=== PATIENT | male | born 1985 | race Caucasian/White ===

== ENCOUNTER → 2016-10-23 | Outpatient (CLI) | payer OTHER ==
[~2016-10-23] MED LIST: AMOX875T PO; ASMIN/30 INH; BENZ100C6 PO; CARV25TA2 PO; CEFD300C2 PO; CRG25 PO; DXY100 PO; GABA-112 PO; INSU1INJ32 SC; INSUINJ14 SC; INSUINJ4 SQ; IPRA1AER2 INH; LEVO88TA3 PO; LOSA50TA6 PO; LPT40 PO; LSX40 PO; MGNO400 PO; NVLGI/PEN SC; POTA1TAB97 PO; SACC250C PO; SPIR25TA PO; VANC5CAP PO; VNTHFA/IN INH
[2016-10-23 16:10] LABS: THYROID STIMULATING HORMONE 1.1 uIu/ml (0.300-4.500)
[2016-10-24 05:40] LABS: ESTIMATED AVERAGE GLUCOSE 246 mg/dl; HA1C FLAG Normal (Normal)
== END | disposition home or self-care (01) ==
LOC: C.LAB 14:50
PROVIDERS: ATTEND Nurse Practitioner Family
DX: E03.9 Hypothyroidism, unspecified (principal); E10.65 Type 1 diabetes mellitus with hyperglycemia

== ENCOUNTER → 2016-12-25 | Outpatient (CLI) | payer OTHER ==
[~2016-12-25] MED LIST changes: +CEFE1INJ3 IV; +LCTXP PO; +LEVO1INJ IV; +LVQ500 PO; +VNCS125 PO
[2016-12-25 18:42] LABS: URINE APPEARANCE CLEAR (CLEAR); URINE BILIRUBIN NEG (NEG); URINE COLOR YELLOW; URINE NITRITE NEG (NEG); URINE SPECIFIC GRAVITY 1.032 (1.000-1.030); UROBILINOGEN NEG (NEG)
[2016-12-25 18:43] LABS: MANUAL MICROSCOPIC REQUIRED? NO; REVIEW REQ? NO
[2016-12-25 19:14] LABS: RATIO 2.4 mcg/mg (0-30.0)
== END | disposition home or self-care (01) ==
LOC: C.LABSPEC 12:30
PROVIDERS: ATTEND Nurse Practitioner Family
DX: R30.0 Dysuria (principal)

== ENCOUNTER 2017-03-24 13:11 | Emergency (ER) | payer OTHER ==
[~2017-03-24] VITALS: Ht 180.3 cm; Wt 118.7 kg
[~2017-03-24 13:11] MED LIST changes: -AMOX875T PO; -BENZ100C6 PO; -CEFD300C2 PO; -CEFE1INJ3 IV; -CRG25 PO; -DXY100 PO; -INSU1INJ32 SC; -IPRA1AER2 INH; -LCTXP PO; -LEVO1INJ IV; -LEVO88TA3 PO; -LVQ500 PO; -MGNO400 PO; -NVLGI/PEN SC; -SACC250C PO; -VANC5CAP PO; -VNCS125 PO; -VNTHFA/IN INH
[2017-03-24 13:24] VITALS: TEMP 36.5; Ht 180.3 cm; Wt 118.7 kg
[2017-03-24] MEDS ORDERED: ALBUT/IPRATROP 3MG/0.5MG NEB 3 ML VIAL INH STA (15:57)
--- NOTE | 2017-03-24 16:01 | EMERGENCY ROOM VISIT NOTE ---
History Report prepared by Jeff: Ines Santamaria Under the Supervision of: Dr. Varghese Pike D.O. First contact with patient: 15:53 Chief Complaint: SHORTNESS OF BREATH Stated Complaint: SOB, COUGHING Nursing Triage Summary: triage note: pt reports shortness of breath and "coughing fits." pt reports symptoms x 1 week. History of Present Illness The patient is a 31 year old male who presents to the Emergency Room with complaints of constant shortness of breath beginning 1 week ago. The patient states that he has a cough that he notes is worse at night and he reports that he is having difficulty breathing. He notes that he has a history of pneumonia and has had multiple episodes of pneumonia. He reports that his symptoms today feel similar to his previous episodes of pneumonia. The patient states that he called his PCP prior to coming in today and he suggested that he come in to get a chest x-ray. The patient complains of clamminess. He denies any weight gain, leg swelling, nausea, vomiting, recorded fever, and chest pain. He states that he has a history of CHF and diabetes. He notes that he does not remember the medication that he was on for his previous pneumonia. Source of History: patient Onset: 1 week ago Position: other (global) Quality: other (SOB) Timing: constant Modifying Factors (Worsening): other (laying down and night time) Associated Symptoms: + cough, No fevers, No chest pain, No nausea, No vomiting Note: The patient complains of clamminess. He denies any weight gain, leg swelling. Review of Systems See HPI for pertinent positives & negatives. A total of 10 systems reviewed and were otherwise negative. Past Medical & Surgical Medical Problems: (1) Chronic congestive heart failure (2) Diabetes (3) HTN (hypertension) (4) Hypotension (5) Kidney stone (6) Nonischemic cardiomyopathy Family History Cancer FH: HTN (hypertension) FH: diabetes mellitus Heart disease Social History Smoking Status: Never Smoker Alcohol Use: none Drug Use: none Marital Status: in relationship Housing Status: lives with family Occupation Status: employed Current/Historical Medications Scheduled Albuterol Hfa (Ventolin Hfa), 1 PUFF INH Q4 Amoxicillin & Pot Clavulanate (Augmentin 875-125 mg), 875 MG PO BID Atorvastatin (Atorvastatin Calcium), 40 MG PO DAILY Carvedilol (Carvedilol), 25 MG PO BID Furosemide (Furosemide), 40 MG PO QAM Gabapentin (Neurontin), 100 MG PO TID Insulin Aspart (Novolog Flexpen), 1 DOSE SC AC Insulin Degludec (Tresiba Flextouch), 160 UNITS SC QPM Levothyroxine Sodium (Levothyroxine Sodium), 88 MCG PO QAM Potassium Chloride (K-Tab), 20 MEQ PO QPM Spironolactone (Aldactone), 25 MG PO QAM Allergies Coded Allergies: VEE Inhibitors (Verified Allergy, Intermediate, COUGH, 10/19/15) Lisinopril (Verified Adverse Reaction, Unknown, cough, 10/19/15) Physical Exam Vital Signs Date Time Temp Pulse Resp B/P (MAP) Pulse Ox O2 Delivery O2 Flow Rate FiO2 03/24/17 17:00 91 16 117/99 93 03/24/17 16:21 80 03/24/17 16:16 98 Room Air 03/24/17 16:16 84 13 138/87 98 Room Air 03/24/17 16:16 98 Room Air 03/24/17 13:24 36.5 75 18 121/79 93 Room Air Physical Exam GENERAL: Patient is awake, alert, and in no acute distress. Patient is resting comfortably and showing no signs of anxiety EYES: The conjunctivae are clear. The pupils are round and reactive. EARS, NOSE, MOUTH AND THROAT: The nose is without any evidence of any deformity. Mucous membranes are moist tongue is midline NECK: The neck is nontender and supple. RESPIRATORY: Lung sounds are diminished at the right base there were no rales, rhonchi or wheezing, no tachypnea or conversational dyspnea CARDIOVASCULAR: Regular rate and rhythm noted there no murmurs rubs or gallops normal S1 normal S2 GASTROINTESTINAL: The abdomen is soft. Bowel sounds are present in all quadrants. Abdomen is nontender PELVIS: The Pelvis is stable. No tenderness to palpation is noted. BACK: No midline tenderness or or step-off noted range of motion in flexion extension as well as rotation no signs of muscle spasm noted MUSCULOSKELETAL/EXTREMITIES: There is no evidence of gross deformity full range of motion is noted in the hips and shoulders SKIN: There is no obvious evidence of any rash. There are no petechiae, pallor or cyanosis noted. NEUROLOGIC: Patient is awake alert and oriented x3 Medical Decision & Procedures ER Provider Diagnostic Interpretation: X-ray results as stated below per interpretation by me and the radiologist. TWO VIEW CHEST FINDINGS: PA and lateral chest radiographs are compared to study dated 08/15/2016. A single lead cardiac AICD is unchanged in position and partially obscures the left lower chest. The heart is mildly enlarged. The pulmonary vasculature is noncongested. The lungs and pleural spaces are clear. There is no pneumothorax. The bony thorax appears intact. IMPRESSION: 1. Mild cardiac enlargement and AICD. There is no radiographic evidence of congestive failure. 2. No airspace consolidation or pleural effusion is identified. Electronically signed by: Nikita Overton M.D. 03/24/2017 4:38 PM Dictated Date/Time: 03/24/2017 4:37 PM Medications Administered Medications (Trade) Dose Ordered Sig/Yazan Route Start Time Stop Time Status Last Admin Dose Admin Albuterol/ Ipratropium (Duoneb) 3 ml NOW STAT INH 03/24/17 15:57 03/24/17 15:58 DC 03/24/17 16:14 3 ML ED Course 1553: The patient was evaluated in room A3. A complete history and physical examination were performed. 1557: Duoneb 3ml INH. 1645: Upon reevaluation, the patient is doing well. I discussed the results and treatment plan with the patient. He verbalized agreement of the treatment plan. The patient was discharged home. Medical Decision Differential diagnosis: Etiologies such as infections, reactive airway disease, pneumonia, pneumothorax , COPD, CHF, cardiac ischemia, pulmonary embolism, musculoskeletal, gastrointestinal, as well as others were entertained. Medication Reconciliation: I attest that I have personally reviewed the patient' s current medications list. Blood pressure screening: Patient was found to have normal blood pressure on screening and does not require follow-up. The patient is a 31-year-old male who presented to the emergency department for an evaluation of cough and difficulty breathing. The patient has multiple medical conditions. He called his primary care physician and was sent to the emergency department for an x-ray. The patient does not appear to have signs of congestive heart failure on physical exam. He is not hypoxic or tachycardic. On physical exam he appears to have abnormal lung sounds at the left base. Given the patient's history and physical exam I do feel this is consistent with pneumonia but at this time he has no abnormality noted on chest x-ray. The patient states that he has had pneumonia in the past without having definite radiographic studies that show pneumonia. For this reason he was started on antibiotic. He was given a breathing treatment in the emergency department. I discussed the patient's radiographic studies with him. He was encouraged to rest and continue all medications as prescribed. He was also encouraged to follow-up with his primary care physician this week but return to the emergency department immediately if symptoms change worsen or the need arises. Impression Primary Impression: Bronchitis Scribe Attestation The scribe's documentation has been prepared under my direction and personally reviewed by me in its entirety. I confirm that the note above accurately reflects all work, treatment, procedures, and medical decision making performed by me. Departure Information Dispostion Home / Self-Care Prescriptions Albuterol Hfa (VENTOLIN HFA) 200 Puffs/02807 Mcg Aers 1 PUFF INH Q4, #1 INHALER Prov: Varghese Pike, DO 03/24/17 Amoxicillin & Pot Clavulanate (Augmentin 875-125 mg) 1 Tab Tab 875 MG PO BID for 7 Days, #14 TAB Prov: Varghese Pike, DO 03/24/17 Referrals Bridger Manriquez III, CRNP (PCP) Forms HOME CARE DOCUMENTATION FORM, IMPORTANT VISIT INFORMATION Patient Instructions Bronchitis Acute, My [facility] Additional Instructions Call your family the morning to schedule follow-up appointment. Continue all medications as prescribed. Rest and avoid any strenuous activity. Return to the emergency department immediately if symptoms change worsen or the need arises.
[2017-03-24] MEDS ORDERED: INSU1INJ32 SC (16:08)
[2017-03-24] MEDS ORDERED: CRG25 PO (16:08)
[2017-03-24] MEDS ORDERED: LEVO88TA3 PO (16:08)
[2017-03-24] MEDS ORDERED: NVLGI/PEN SC (16:08)
[2017-03-24 16:16] VITALS: O2SAT 98
--- NOTE | 2017-03-24 16:39 | DIAGNOSTIC IMAGING REPORT ---
TWO VIEW CHEST CLINICAL HISTORY: Cough. FINDINGS: PA and lateral chest radiographs are compared to study dated 08/15/2016. A single lead cardiac AICD is unchanged in position and partially obscures the left lower chest. The heart is mildly enlarged. The pulmonary vasculature is noncongested. The lungs and pleural spaces are clear. There is no pneumothorax. The bony thorax appears intact. IMPRESSION: 1. Mild cardiac enlargement and AICD. There is no radiographic evidence of congestive failure. 2. No airspace consolidation or pleural effusion is identified. Electronically signed by: Nikita Overton M.D. 03/24/2017 4:38 PM Dictated Date/Time: 03/24/2017 4:37 PM
[2017-03-24] MEDS ORDERED: AMOX875T PO (16:44)
[2017-03-24] MEDS ORDERED: VNTHFA/IN INH (16:44)
[2017-03-24 17:00] VITALS: BP 117/99; PULSE 91; O2SAT 93
[2017-05-18] MEDS ORDERED: MGNO400 PO (12:54)
[2017-05-18] MEDS ORDERED: IPRA1AER2 INH (12:54)
[2017-05-18] MEDS ORDERED: CEFD300C2 PO (12:54)
[2017-05-18] MEDS ORDERED: BENZ100C6 PO (12:54)
[2017-05-18] MEDS ORDERED: DXY100 PO (12:54)
[2017-05-18] MEDS ORDERED: SACC250C PO (12:54)
[2017-05-18] MEDS ORDERED: VANC5CAP PO (12:54)
== END 2017-03-24 17:00 | disposition home or self-care (01) ==
LOC: C.EDB 13:12 → C.EDA 17:00
DX: J40 Bronchitis, not specified as acute or chronic (principal); I10 Essential (primary) hypertension; E11.9 Type 2 diabetes mellitus without complications; I50.9 Heart failure, unspecified; Z87.442 Personal history of urinary calculi; Z79.4 Long term (current) use of insulin; Z79.899 Other long term (current) drug therapy; Z88.8 Allergy status to other drugs, medicaments and biological substances; Z80.9 Family history of malignant neoplasm, unspecified; Z82.49 Family history of ischemic heart disease and other diseases of the circulatory system; Z83.3 Family history of diabetes mellitus

== ENCOUNTER 2017-05-14 01:41 | Inpatient (IN) | payer OTHER ==
[~2017-05-14] VITALS: Ht 180.3 cm; Wt 113.2 kg
[2017-05-14] VITALS (8 sets, daily range): BP systolic 88–115; BP diastolic 55–67; PULSE 79–95; TEMP 36.8–37.4; O2SAT 90–96; BMI 35.0
[~2017-05-14 01:41] MED LIST changes: -ASMIN/30 INH; -CARV25TA2 PO; +CRG25 PO; +INSU1INJ32 SC; -INSUINJ14 SC; -INSUINJ4 SQ; +LEVO88TA3 PO; -LOSA50TA6 PO; +NVLGI/PEN SC; +VNTHFA/IN INH
[2017-05-14] MEDS ORDERED: SODIUM CHLORIDE 0.9% 500ML 500 ML IV STA (02:54)
[2017-05-14 03:00] LABS: BASO % 0.3 %; BASO ABS # 0.02 K/uL (0-0.2); COMPLETE YES; EOS % 0.9 %; HEMATOCRIT 38.9 % (42-52); IG% 0.3 %; LYMPH % 13.7 %; LYMPH ABS # 1.02 K/uL (1.2-3.4); MEAN CELL VOLUME 84.9 fL (80-100); MEAN CORPUSCULAR HEMOGLOBIN 29.5 pg (25-34); MEAN CORPUSCULAR HGB CONC 34.7 g/dl (32-36); MONO % 12.3 %; NEUT % 72.5 %; PLATELET COUNT 199 K/uL (130-400); RED BLOOD COUNT 4.58 M/uL (4.7-6.1); WHITE BLOOD COUNT 7.42 K/uL (4.8-10.8)
[2017-05-14 03:08] LABS: ISTAT CREATININE 1.2 mg/dl (0.6-1.3); ISTAT HEMOGLOBIN 14.3 g/dl (14.0-18.0); ISTAT IONIZED CALCIUM 1.07 mmol/l (1.12-1.32)
[2017-05-14] MEDS ORDERED: POTASSIUM CHLORIDE 10 MEQ / 100ML WTR IV STA (03:09)
[2017-05-14 03:15] LABS: POINT OF CARE TROPONIN I 0.23 ng/ml (0-0.045)
[2017-05-14 03:29] LABS: URINE APPEARANCE CLEAR (CLEAR); URINE BILIRUBIN NEG (NEG); URINE COLOR YELLOW; URINE NITRITE NEG (NEG); URINE SPECIFIC GRAVITY 1.022 (1.000-1.030); UROBILINOGEN NEG (NEG); ZZUR CULT IF INDIC CLEAN CATCH NO
[2017-05-14 03:30] LABS: MANUAL MICROSCOPIC REQUIRED? NO; REVIEW REQ? NO
[2017-05-14 03:36] LABS: BUN/CREATININE RATIO 9.8 (10-20); CALCIUM 8.1 mg/dl (8.5-10.1); CREATININE 1.3 mg/dl (0.60-1.40); MAGNESIUM 1.6 mg/dl (1.8-2.4); POTASSIUM 2.8 mmol/L (3.5-5.1)
[2017-05-14 03:41] LABS: CKMB/CK RATIO 0.2 (0-3.0)
[2017-05-14] MEDS ORDERED: MAGNESIUM SULFATE 1GM / D5W 1 GM IV STA (04:23)
[2017-05-14] MEDS ORDERED: POLYETHYLENE (MIRALAX) 17 GM PACK PO PRN (04:30)
[2017-05-14] MEDS ORDERED: ALUMINUM/MAGNESIUM/SIMETH (MAALOX MAX) 30 ML UDC PO PRN (04:30)
[2017-05-14] MEDS ORDERED: MoRPHine SULFATE 2 MG/ML CARP IV PRN (04:30)
[2017-05-14] MEDS ORDERED: MAGNESIUM HYDROXIDE SUSP 30 ML UDC PO PRN (04:30)
[2017-05-14] MEDS ORDERED: ZOLPIDEM TARTRATE 5 MG TAB PO PRN (04:30)
[2017-05-14] MEDS ORDERED: NITROGLYCERIN 0.4 MG SL PER TAB CHARGE SL PRN (04:30)
[2017-05-14] MEDS ORDERED: ONDANSETRON INJ 2 MG/ML 2 ML VIAL IV PRN (04:30)
[2017-05-14] MEDS ORDERED: ACETAMINOPHEN 325 MG TAB PO PRN (04:30)
--- NOTE | 2017-05-14 04:37 | EMERGENCY ROOM VISIT NOTE ---
History Report prepared by Jeff: Tay Marin Under the Supervision of: Dr. Fiordlaiza Jean Baptiste M.D. First contact with patient: 01:53 Chief Complaint: COUGH Stated Complaint: COUGHING,ANAL SORENESS,DIARRHEA,TROUBLE BREATHING Nursing Triage Summary: pt reports cough x2 days. states "i'm coughing so hard I'm shitting my pants. I have abdominal pain from coughing." denies hx lung problems. reports hx of CHF, cardiomyopathy, DM. History of Present Illness The patient is a 32 year old male who presents to the Emergency Room with complaints of a worsening cough beginning two days ago. The patient's cough produces a "rust-colored" sputum. He also complains of subjective fevers, chills , diaphoresis, diarrhea, vomiting, occasional heart "fluttering", and LUQ abdominal pain with coughing beginning yesterday. Additionally, he also complains of lightheadedness, dark stool, and shortness of breath beginning this morning. The patient has a history of CHF, cardiomyopathy, and diabetes. He states that he has been eating drinking normally. He notes that his urine has appeared a very deep yellow color. The patient denies any chest pain, or flank pain. His blood sugar has been running in the 250's recently. He states that he has been taking his insulin and medications for diabetes despite not checking his blood sugar frequently. The patient is not on any blood thinners. Source of History: patient Onset: Two days ago Quality: other (cough producing "rust-colored" sputum) Timing: worsening Associated Symptoms: + fevers (subjective), + chills, + diaphoresis, + SOB, + vomiting, + abdominal pain (LUQ with coughing), + diarrhea, No chest pain Note: Additional symptoms: lightheadedness, and occasional heart "fluttering". He denies any flank pain. Review of Systems See HPI for pertinent positives & negatives. A total of 10 systems reviewed and were otherwise negative. Past Medical & Surgical Medical Problems: (1) Chronic congestive heart failure (2) Diabetes (3) Fever (4) HTN (hypertension) (5) Hypotension (6) Kidney stone (7) Nonischemic cardiomyopathy Family History Cancer FH: HTN (hypertension) FH: diabetes mellitus Heart disease Social History Smoking Status: Never Smoker Alcohol Use: none Drug Use: none Marital Status: in relationship Housing Status: lives with family Occupation Status: employed Current/Historical Medications Scheduled Atorvastatin (Atorvastatin Calcium), 40 MG PO DAILY Carvedilol (Carvedilol), 25 MG PO BID Furosemide (Furosemide), 40 MG PO QAM Gabapentin (Neurontin), 100 MG PO TID Insulin Aspart (Novolog Flexpen), 1 DOSE SC AC Insulin Degludec (Tresiba Flextouch), 160 UNITS SC QPM Levothyroxine Sodium (Levothyroxine Sodium), 88 MCG PO QAM Potassium Chloride (K-Tab), 20 MEQ PO QPM Spironolactone (Aldactone), 25 MG PO QAM Allergies Coded Allergies: VEE Inhibitors (Verified Allergy, Intermediate, COUGH, 05/14/17) Lisinopril (Verified Adverse Reaction, Unknown, cough, 05/14/17) Physical Exam Vital Signs Date Time Temp Pulse Resp B/P (MAP) Pulse Ox O2 Delivery O2 Flow Rate FiO2 05/14/17 04:27 84 05/14/17 04:00 82 20 122/63 97 Nasal Cannula 3.0 05/14/17 03:54 92 Nasal Cannula 3.0 05/14/17 03:52 88 Room Air 05/14/17 03:30 91 95/60 94 05/14/17 03:17 90 05/14/17 02:48 92 22 96/57 94 Room Air 05/14/17 01:49 37.3 85 18 93/70 95 Room Air Physical Exam Vital signs reviewed. General: Obese, chronically ill-appearing, pale-appearing male, in no significant distress. HEENT: No scleral icterus, PERRLA, neck supple. Atraumatic. Cardiovascular: Regular rate and rhythm, no extra sounds. Distant heart tones. Pulmonary: Normal work of breathing. Scattered rhonchi in the bilateral lung white. Abdomen: Soft, nontender, nondistended, positive bowel sounds. Rectal: Excoriated rectal mucosa. Tender on exam. No palpable fluctuance or mass. Guaiac positive, brown stool. Musculoskeletal: Atraumatic, no peripheral edema. Neurologic: Patient awake alert and oriented x 3 Skin: Warm, dry, no rash Medical Decision & Procedures ER Provider Diagnostic Interpretation: One View Chest X-ray interpreted by me: Poor quality for interpretation. Limited due to body habitus and rotation. ICD in place. Questionable consolidation of the left lower lung field. Pulmonary vascular congestion. Laboratory Results Test 05/14/17 02:47 05/14/17 02:51 05/14/17 02:55 05/14/17 03:08 Magnesium Level 1.6 mg/dl (1.8-2.4) Total Bilirubin 1.3 mg/dl (0.2-1) Direct Bilirubin 0.2 mg/dl (0-0.2) Aspartate Amino Transf (AST/SGOT) 19 U/L (15-37) Alanine Aminotransferase (ALT/SGPT) 23 U/L (12-78) Alkaline Phosphatase 44 U/L (45-117) Total Creatine Kinase 275 U/L (39-308) Creatine Kinase MB 0.5 ng/ml (0.5-3.6) Creatine Kinase MB Ratio 0.2 (0-3.0) Total Protein 6.7 gm/dl (6.4-8.2) Albumin 3.0 gm/dl (3.4-5.0) Bedside D-Dimer 444 ng/mlFEU (0-450) Bedside Lactic Acid Venous 1.09 mmol/L (0.90-1.70) Bedside Troponin I 0.230 ng/ml (0-0.045) NB-Bxa-Z-Type Natriuretic Peptide 1167 pg/ml (0-450) Bedside Hemoglobin 14.3 g/dl (14.0-18.0) Bedside Hematocrit 42 % (42-52) Bedside Sodium 138 mEq/L (135-144) Bedside Potassium 2.8 mEq/L (3.3-5.0) Bedside Chloride 99 mEq/L (101-112) Bedside Total CO2 22 mEq/l (24-31) Bedside Blood Urea Nitrogen 12 mg/dl (7-18) Bedside Creatinine 1.2 mg/dl (0.6-1.3) Bedside Glucose (other) 183 mg/dl (70-99) Bedside Ionized Calcium (Viviana) 1.07 mmol/l (1.12-1.32) Urine Color YELLOW Urine Appearance CLEAR (CLEAR) Urine pH 6.0 (4.5-7.5) Urine Specific [place] 1.022 (1.000-1.030) Urine Protein TRACE (NEG) Urine Glucose (UA) NEG (NEG) Urine Ketones NEG (NEG) Urine Occult Blood NEG (NEG) Urine Nitrite NEG (NEG) Urine Bilirubin NEG (NEG) Urine Urobilinogen NEG (NEG) Urine Leukocyte Esterase NEG (NEG) Urine WBC (Auto) 1-5 /hpf (0-5) Urine RBC (Auto) 0-4 /hpf (0-4) Urine Hyaline Casts (Auto) 1-5 /lpf (0-5) Urine Epithelial Cells (Auto) 10-20 /lpf (0-5) Urine Bacteria (Auto) NEG (NEG) Laboratory results per my review. Medications Administered Medications (Trade) Dose Ordered Sig/Yazan Route Start Time Stop Time Status Last Admin Dose Admin Sodium Chloride 500 ml @ 999 mls/hr Q31M STAT IV 05/14/17 02:54 05/14/17 03:24 DC 05/14/17 03:15 999 MLS/HR Potassium Chloride (Kcl 10 Meq / Wtr) 20 meq NOW STAT IV 05/14/17 03:09 05/14/17 03:10 DC 05/14/17 03:18 20 MEQ Magnesium Sulfate 100 ml @ 100 mls/hr NOW STAT IV 05/14/17 04:23 05/14/17 05:22 DC 05/14/17 04:56 100 MLS/HR ECG Indication: SOB/dyspnea Rate (beats per minute): 88 Rhythm: normal sinus Findings: no acute ischemic change, other (Non-specific intraventricular conduction delay. T-wave abnormality in the lateral leads.) ED Course 0206: Past medical records reviewed. The patient was evaluated in room A4B. A complete history and physical examination was performed. 0254: Ordered Sodium Chloride 500 ml @ 999 mls/hr IV. 0309: Ordered KCl 10 meq / Wtr 20 meq IV. 0423: Ordered Magnesium Sulfate 1 gm/Prmx 100 mL @ 100 mL/hr IV. 0430: Ordered Potassium Chloride 20 meq/Prmx 100 mL @ 50 mL/hr IV. 0425: Upon reevaluation, the patient is resting comfortably. I discussed laboratory and radiographic results with him. He verbalized agreement of the treatment plan. I spoke with Dr. Barr of the [facility] Hospitalist Service. The patient will be evaluated for further management and care. Medical Decision Differential diagnosis: Etiologies such as infections, reactive airway disease, pneumonia, pneumothorax , COPD, CHF, cardiac ischemia, pulmonary embolism, musculoskeletal, gastrointestinal, as well as others were entertained. This pt was evaluated and appeared to be in no distress. IV access was obtained and lab work was drawn. Pt was placed on the front desk monitor. IVF were initiated d/t c/o diarrhea and hypotension. CXR reveals possible LL lung field consolidation with poor quality image. Lactate is normal, WBC is normal. Potassium is depleted and 20 MEq KCl was ordered IV. Pt BP seemed to improve. He is guaiac positive from rectum, stable H/H. Trop is positive, but trends in this range always. BNP is likely baseline with cardiomyopathy. D/t c /o SOB, diarrhea and hypotension, pt will be evaluated by the hospitalist for further management. He is aware of the plan and agrees. Medication Reconcilliation Current Medication List: was personally reviewed by me Blood Pressure Screening Patient's blood pressure: Low blood pressure Blood pressure disposition: Did not require urgent referral Consults Time Called: [phone] Consulting Physician: Dr. Barr -[place] Returned Call: [phone] I reviewed the patient's case with Dr. Barr. BOBBYG will evaluate the patient for further management. Impression Primary Impression: Hypotension Additional Impressions: Guaiac positive stools Hypoxia Cardiomyopathy Hypokalemia Critical Care I have personally spent greater than 30 minutes of critical care time in the direct management of this patient. This includes bedside care, interpretation of diagnostic studies, and testing, discussion with consultants, patient, and family members, and other required patient management activities. This 30 minutes is in excess of all separately billable procedures. Scribe Attestation The scribe's documentation has been prepared under my direction and personally reviewed by me in its entirety. I confirm that the note above accurately reflects all work, treatment, procedures, and medical decision making performed by me. Departure Information Dispostion Being Evaluated By Hospitalist Referrals Bridger Manriquez III, CRNP (PCP) Patient Instructions My [facility] Problem Qualifiers Primary Impression: Hypotension Additional Impressions:
[2017-05-14] MEDS ORDERED: GLUCOSE 10 TABS/TUBE PO PRN (04:45)
[2017-05-14] MEDS ORDERED: GLUCOSE 40% GEL 15 GM TUBE PO PRN (04:45)
[2017-05-14] MEDS ORDERED: DEXTROSE 50% 50 ML SYR IV PRN (04:45)
[2017-05-14] MEDS ORDERED: GLUCAGON FOR INJ 1 MG VIAL SQ PRN (04:45)
[2017-05-14] MEDS ORDERED: ALBUT/IPRATROP 3MG/0.5MG NEB 3 ML VIAL INH PRN (04:45)
--- NOTE | 2017-05-14 05:12 | History and Physical ---
History & Physical Date & Time of Service: May 14, 2017 at 04:49 Chief Complaint: Coughing,Anal Soreness,Diarrhea,Trouble Breathing Primary Care Physician: Bridger Manriquez III, CRNP History of Present Illness Source: patient Unfortunate 32 y/o M Hx DM, HTN, obesity, MIRTA, nonischemic cardiomyopathy - EF 20% - ICD placement. Pt state presents with an intense productive cough productive of rust colored sputum. He states that the coughing comes in fits and is causing him to be incontinent of stool. He additionally describes SOB, a subjective fever, generalized aches and pains and diarrhea. He denies any CP. A guiac test in the ER proved positive. Initial labs are notable for a hypokalemia and hypomagnesemia. A troponin is elevated, however, this appears chronic on review of previous labs. Past Medical/Surgical History Medical Problems: (1) Chronic congestive heart failure Status: Chronic (2) Diabetes Status: Chronic (3) HTN (hypertension) Status: Chronic (4) Kidney stone Status: Resolved Family History Cancer FH: HTN (hypertension) FH: diabetes mellitus Heart disease Mother with ESRD, breast CA Both parents with CAD Social History Smoking Status: Never Smoker Drug Use: none Marital Status: in relationship Occupational Status: employed Immunizations History of Influenza Vaccine: N/A History of Tetanus Vaccine?: Unknown History of Pneumococcal: Unknown History of Hepatitis B Vaccine: Unknown Multi-Drug Resistant Organisms History of MDRO: No Allergies Coded Allergies: VEE Inhibitors (Verified Allergy, Intermediate, COUGH, 05/14/17) Lisinopril (Verified Adverse Reaction, Unknown, cough, 05/14/17) Home Medications Scheduled Atorvastatin (Atorvastatin Calcium), 40 MG PO DAILY Carvedilol (Carvedilol), 25 MG PO BID Furosemide (Furosemide), 40 MG PO QAM Gabapentin (Neurontin), 100 MG PO TID Insulin Aspart (Novolog Flexpen), 1 DOSE SC AC Insulin Degludec (Tresiba Flextouch), 160 UNITS SC QPM Levothyroxine Sodium (Levothyroxine Sodium), 88 MCG PO QAM Potassium Chloride (K-Tab), 20 MEQ PO QPM Spironolactone (Aldactone), 25 MG PO QAM Review of Systems Constitutional: + fever, + chills, + weakness, + fatigue, No sweats Eyes: No worsening of vision, No eye pain ENT: No hearing loss, No unusual epistaxis, No nasal symptoms Respiratory: + cough, + sputum, + shortness of breath, + dyspnea on exertion, + dyspnea at rest Cardiovascular: No chest pain, No orthopnea, No PND Abdomen: + diarrhea, No pain, No nausea, No vomiting Musculoskeletal: No joint pain, No muscle pain Genitourinary - Male: No hematuria, No dysuria Neurologic: + weakness, No memory loss, No paralysis Psychiatric: No depression symptoms Endocrine: + fatigue Hematologic / Lymphatic: No abnormal bleeding/bruising Integumentary: No rash Physical Exam Vital Signs Date Time Temp Pulse Resp B/P (MAP) Pulse Ox O2 Delivery O2 Flow Rate FiO2 05/14/17 04:00 82 20 122/63 97 Nasal Cannula 3.0 05/14/17 03:54 92 Nasal Cannula 3.0 05/14/17 03:52 88 Room Air 05/14/17 03:30 91 95/60 94 05/14/17 03:17 90 05/14/17 02:48 92 22 96/57 94 Room Air 05/14/17 01:49 37.3 85 18 93/70 95 Room Air General Appearance: WD/WN, + obese, + pertinent finding (Uncomfortable appearing young male) Head: normocephalic Eyes: + pertinent finding (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) ENT: normal ENT inspection, pharynx normal Neck: supple, + pertinent finding (JVD exam is limited by habitus) Respiratory/Chest: chest non-tender, lungs clear, no respiratory distress Cardiovascular: regular rate, rhythm, no edema, no gallop Abdomen/GI: normal bowel sounds, non tender, soft Back: normal inspection, no CVA tenderness, no muscle spasm, normal range of motion Extremities/Musculoskelatal: normal inspection, no calf tenderness, normal capillary refill, no pedal edema, normal range of motion 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, no motor/sensory deficits, alert, normal mood/affect, normal reflexes, oriented x 3 Skin: normal color, warm/dry, no rash Diagnostics Laboratory Results Results Past 24 Hours Test 05/14/17 02:47 05/14/17 02:51 05/14/17 02:55 05/14/17 03:08 Range/Units White Blood Count 7.42 4.8-10.8 K/uL Red Blood Count 4.58 4.7-6.1 M/uL Hemoglobin 13.5 14.0-18.0 g/dL Hematocrit 38.9 42-52 % Mean Corpuscular Volume 84.9 80-100 fL Mean Corpuscular Hemoglobin 29.5 25-34 pg Mean Corpuscular Hemoglobin Concent 34.7 32-36 g/dl Platelet Count 199 130-400 K/uL Mean Platelet Volume 11.0 7.4-10.4 fL Neutrophils (%) (Auto) 72.5 % Lymphocytes (%) (Auto) 13.7 % Monocytes (%) (Auto) 12.3 % Eosinophils (%) (Auto) 0.9 % Basophils (%) (Auto) 0.3 % Neutrophils # (Auto) 5.38 1.4-6.5 K/uL Lymphocytes # (Auto) 1.02 1.2-3.4 K/uL Monocytes # (Auto) 0.91 0.11-0.59 K/uL Eosinophils # (Auto) 0.07 0-0.5 K/uL Basophils # (Auto) 0.02 0-0.2 K/uL RDW Standard Deviation 39.2 36.4-46.3 fL RDW Coefficient of Variation 12.6 11.5-14.5 % Immature Granulocyte % (Auto) 0.3 % Immature Granulocyte # (Auto) 0.02 0.00-0.02 K/uL Sodium Level 138 136-145 mmol/L Potassium Level 2.8 3.5-5.1 mmol/L Chloride Level 104 98-107 mmol/L Carbon Dioxide Level 27 21-32 mmol/L Anion Gap 7.0 21.0 16-25 mmol/L Blood Urea Nitrogen 13 7-18 mg/dl Creatinine 1.30 0.60-1.40 mg/dl Est Creatinine Clear Calc Drug Dose 97.6 ml/min Estimated GFR () 83.1 Estimated GFR (Non- 71.7 BUN/Creatinine Ratio 9.8 10-20 Random Glucose 180 70-99 mg/dl Calcium Level 8.1 8.5-10.1 mg/dl Magnesium Level 1.6 1.8-2.4 mg/dl Total Bilirubin 1.3 0.2-1 mg/dl Direct Bilirubin 0.2 0-0.2 mg/dl Aspartate Amino Transf (AST/SGOT) 19 15-37 U/L Alanine Aminotransferase (ALT/SGPT) 23 12-78 U/L Alkaline Phosphatase 44 45-117 U/L Total Creatine Kinase 275 39-308 U/L Creatine Kinase MB 0.5 0.5-3.6 ng/ml Creatine Kinase MB Ratio 0.2 0-3.0 Total Protein 6.7 6.4-8.2 gm/dl Albumin 3.0 3.4-5.0 gm/dl Bedside D-Dimer 444 0-450 ng/mlFEU Bedside Lactic Acid Venous 1.09 0.90-1.70 mmol/L Bedside Troponin I 0.230 0-0.045 ng/ml [id number]-[id number] Natriuretic Peptide 1167 0-450 pg/ml Bedside Hemoglobin 14.3 14.0-18.0 g/dl Bedside Hematocrit 42 42-52 % Bedside Sodium 138 135-144 mEq/L Bedside Potassium 2.8 3.3-5.0 mEq/L Bedside Chloride 99 101-112 mEq/L Bedside Total CO2 22 24-31 mEq/l Bedside Blood Urea Nitrogen 12 7-18 mg/dl Bedside Creatinine 1.2 0.6-1.3 mg/dl Bedside Glucose 180 70-99 mg/dl Bedside Glucose (other) 183 70-99 mg/dl Bedside Ionized Calcium (Viviana) 1.07 1.12-1.32 mmol/l Urine Color YELLOW Urine Appearance CLEAR CLEAR Urine pH 6.0 4.5-7.5 Urine Specific Rowe 1.022 1.000-1.030 Urine Protein TRACE NEG Urine Glucose (UA) NEG NEG Urine Ketones NEG NEG Urine Occult Blood NEG NEG Urine Nitrite NEG NEG Urine Bilirubin NEG NEG Urine Urobilinogen NEG NEG Urine Leukocyte Esterase NEG NEG Urine WBC (Auto) 1-5 0-5 /hpf Urine RBC (Auto) 0-4 0-4 /hpf Urine Hyaline Casts (Auto) 1-5 0-5 /lpf Urine Epithelial Cells (Auto) 10-20 0-5 /lpf Urine Bacteria (Auto) NEG NEG Microbiology Results 05/14/17 Blood Culture, Received Pending 05/14/17 Blood Culture, Received Pending Diagnostic Radiology CXR - there are no obvious infiltrates - not consistent with volume overload EKG NSR - no evidence of ischemia Impression Assessment and Plan Unfortunate 32 y/o M Hx DM, HTN, obesity, MIRTA, nonischemic cardiomyopathy - EF 20% - ICD placement. Pt state presents with an intense productive cough productive of rust colored sputum. He states that the coughing comes in fits and is causing him to be incontinent of stool. He additionally describes SOB, a subjective fever, generalized aches and pains and diarrhea. He denies any CP. A guiac test in the ER proved positive. Initial labs are notable for a hypokalemia and hypomagnesemia. A troponin is elevated, however, this appears chronic on review of previous labs. 1) Cough/SOB - subjective fever - as his CXR is equivocal we will send the pt for a noncontrast CT chest. Levaquin started empirically. Duonebs provided PRN. Sputum and blood cultures pending. 2) CHF - chronic systolic - appears euvolemic - Cont Lasix, Aldactone, Coreg - allergic to VEE inhibitors. 3) Diarrhea - stool culture and C diff studies pending 4) Guiac + - no significant anemia - this may be due to superficial issues such as hemorrhoids - will trend Hb and pt can f/u with GI as outpt if stable - would consult in house if Hb trends down. 5) DM - placed on SS 6) Obese - may benefit from nutrition counseling prior to DC - is likely to greatly benefit from weight loss which would improve his cardiac index. Full code - SCDs only due to rust-colored sputum and guiac + stool Total time for this admit including review of labs, meds, EKG, imaging, records - discussion with pt and ER attending - 37 min Level of Care Telemetry Resuscitation Status FULL RESUSCITATION VTE Prophylaxis VTE Risk Assessment Done? Y/N: Yes Risk Level: Moderate Given or contraindicated: SCD's
[2017-05-14] MEDS ORDERED: HEPARIN SOD 5000 UNIT/0.5 ML CARP SQ SCH (06:00)
--- NOTE | 2017-05-14 06:39 | DIAGNOSTIC IMAGING REPORT ---
CHEST ONE VIEW PORTABLE HISTORY: 32 years-old Male cough, SOB, cardiomyopathy COMPARISON: Chest radiographs 03/24/2017 TECHNIQUE: Portable upright AP view of the chest FINDINGS: Cardiac silhouette is moderately enlarged. Left pectoral pacer/defibrillator is noted with single lead overlying the right ventricle appears intact. There is no pneumothorax. The patient is rotated to the right. Mild pulmonary vascular congestion is noted with background interstitial coarsening, greatest throughout the left lung with patchy left basilar opacity. There is mild blunting of the costophrenic angles. The bones appear grossly intact. IMPRESSION: 1. Moderate cardiomegaly with pulmonary vascular congestion and mild interstitial coarsening throughout the left lung, suspicious for developing asymmetric pulmonary edema. 2. Trace pleural effusions with hazy left basilar opacity suggesting atelectasis or pneumonia. The above report was generated using voice recognition software. It may contain grammatical, syntax or spelling errors. Electronically signed by: Thomas Kaplan M.D. 05/14/2017 6:37 AM Dictated Date/Time: 05/14/2017 6:35 AM
--- NOTE | 2017-05-14 07:14 | DIAGNOSTIC IMAGING REPORT ---
CT OF THE CHEST WITHOUT IV CONTRAST CLINICAL HISTORY: Occult pneumonia. Cough. Difficulty breathing. COMPARISON STUDY: Chest radiographs March 24, 2017 and May 14, 2017. CT DOSE: 883.26 mGy.cm TECHNIQUE: Axial images of the chest were obtained without IV contrast. Images were reviewed in the axial, sagittal, and coronal planes. IV contrast was not administered for this examination. A dose lowering technique was utilized adhering to the principles of ALARA. FINDINGS: A single lead left cardiac pacer/AICD is in place. There is moderate cardiomegaly. No pericardial effusion is identified. There are multiple mildly enlarged mediastinal and bilateral hilar lymph nodes. The hilar lymph nodes are difficult to measure on this unenhanced exam. Index subcarinal lymph node measures 1.2 cm in short axis diameter. Index right paratracheal lymph node measures 1 cm and index prevascular node measures 1.1 cm. Central airways are patent. There is no pneumothorax or pleural effusion. Extensive bilateral alveolar opacities are noted, most confluent within left upper lobe. However, there is additional airspace opacity with tree-in-bud nodules throughout the remainder of the lungs. There is no cavitation. Mild bronchial wall thickening is present. Bony thorax and upper abdomen are unremarkable. IMPRESSION: 1. Extensive multifocal airspace opacities throughout both lungs, as described above. The findings suggest multifocal pneumonia. No cavitation. 2. Multiple mildly enlarged mediastinal and bilateral hilar lymph nodes. These are nonspecific but may be reactive. 3. Moderate cardiomegaly. Electronically signed by: Marky Trevizo M.D. 05/14/2017 7:12 AM Dictated Date/Time: 05/14/2017 7:03 AM
[2017-05-14] MEDS: LEVOFLOXACIN / D5W 750 MG in PREMIXED IN D5W 150 ML IV SCH (07:27)
[2017-05-14] MEDS: LEVOTHYROXINE 88 MCG TAB PO SCH (07:27)
[2017-05-14] MEDS: GABAPENTIN 100 MG CAP PO SCH ×3 (08:09→21:28)
[2017-05-14] MEDS: ATORVASTATIN 40 MG TAB PO SCH (08:09)
[2017-05-14] MEDS: FUROSEMIDE 40 MG TAB PO SCH (08:09)
[2017-05-14] MEDS: CARVEDILOL 25 MG TAB PO SCH ×2 (08:10→21:00)
[2017-05-14] MEDS: SPIRONOLACTONE 25 MG TAB PO SCH (08:10)
[2017-05-14] MEDS: INSULIN ASPART 100 UNITS/ML 3 ML PEN SC SCH ×4 (08:14→21:30)
[2017-05-14] MEDS: POTASSIUM CHLR 10 MEQ / WTR 10 MEQ in PREMIXED WATER 100 ML IV SCH ×2 (08:38→10:11)
[2017-05-14] MEDS ORDERED: INSULIN GLARGINE SC SCH (12:00)
[2017-05-14] MEDS ORDERED: POTASSIUM CHLORIDE 20 MEQ TABCR PO SCH (17:00)
[2017-05-14] MEDS: POTASSIUM CHLORIDE 20 MEQ TABCR PO SCH (17:38)
[2017-05-14] MEDS ORDERED: INSULIN DEGLUDEC 160 UNIT SC SCH (21:00)
[2017-05-14] MEDS ORDERED: COUGH DROP (SUGAR FREE) LOZ 24 LOZ/1 BOX PO PRN (21:00)
[2017-05-15] VITALS (11 sets, daily range): BP systolic 92–123; BP diastolic 54–81; PULSE 75–102; TEMP 36.7–37.3; O2SAT 90–100
[2017-05-15] MEDS ORDERED: METRONIDAZOLE 500 MG TAB PO ONE (03:45)
[2017-05-15] MEDS: LEVOFLOXACIN / D5W 750 MG in PREMIXED IN D5W 150 ML IV SCH (06:16)
[2017-05-15] MEDS: LEVOTHYROXINE 88 MCG TAB PO SCH (06:16)
[2017-05-15 08:35] LABS: BASO % 0.8 %; BASO ABS # 0.06 K/uL (0-0.2); COMPLETE YES; EOS % 2.2 %; HEMATOCRIT 38.1 % (42-52); IG% 0.3 %; LYMPH % 19.5 %; LYMPH ABS # 1.43 K/uL (1.2-3.4); MEAN CELL VOLUME 86.6 fL (80-100); MEAN CORPUSCULAR HEMOGLOBIN 29.3 pg (25-34); MEAN CORPUSCULAR HGB CONC 33.9 g/dl (32-36); MEAN PLATELET VOLUME 10.9 fL (7.4-10.4); MONO % 12.4 %; NEUT % 64.8 %; PLATELET COUNT 197 K/uL (130-400); WHITE BLOOD COUNT 7.32 K/uL (4.8-10.8)
[2017-05-15] MEDS: METRONIDAZOLE 500 MG TAB PO SCH ×3 (08:35→21:20)
[2017-05-15] MEDS: FUROSEMIDE 40 MG TAB PO SCH (08:37)
[2017-05-15] MEDS: ATORVASTATIN 40 MG TAB PO SCH (08:37)
[2017-05-15] MEDS: GABAPENTIN 100 MG CAP PO SCH ×3 (08:37→21:20)
[2017-05-15] MEDS: SPIRONOLACTONE 25 MG TAB PO SCH (08:37)
[2017-05-15] MEDS: CARVEDILOL 25 MG TAB PO SCH ×2 (08:38→21:00)
[2017-05-15] MEDS: INSULIN ASPART 100 UNITS/ML 3 ML PEN SC SCH ×4 (08:51→21:00)
[2017-05-15 09:03] LABS: BUN/CREATININE RATIO 12.9 (10-20); CALCIUM 8.9 mg/dl (8.5-10.1); POTASSIUM 3.2 mmol/L (3.5-5.1)
[2017-05-15] MEDS ORDERED: POTASSIUM CHLORIDE 10 MEQ TABCR PO STA (11:21)
--- NOTE | 2017-05-15 11:25 | Progress Note ---
Subjective Date of Service: May 15, 2017. Subjective Pt evaluation today including: conversation w/ patient, physical exam, chart review, lab review, review of studies, review of inpatient medication list Pt reports improvement in shortness of breath Still having rust tinged sputum but improved States having diarrhea yesterday No fevers or chills No acute events overnight Problem List Medical Problems: (1) Cardiomyopathy Status: Acute (2) Cardiomyopathy Status: Acute (3) Elevated troponin Status: Acute (4) Epigastric abdominal pain Status: Acute (5) Guaiac positive stools Status: Acute (6) Hypokalemia Status: Acute (7) Hypoxia Status: Acute (8) Left sided chest pain Status: Acute (9) Pancreatitis Status: Acute (10) Pneumonia Status: Acute Review of Systems Constitutional: No fever, No chills, No sweats, No weight loss Eyes: No worsening of vision, No eye pain, No redness, No discharge Respiratory: + cough, + sputum, + shortness of breath, + dyspnea at rest, No wheezing, No dyspnea on exertion Cardiac: No chest pain, No orthopnea, No PND, No edema Abdomen: + diarrhea, No pain, No nausea, No vomiting, No constipation Musculoskeletal: No joint pain, No muscle pain, No swelling, No calf pain Male : No dysuria, No urinary frequency, No incontinence, No slowing stream Neurologic: No memory loss, No paralysis, No weakness, No numbness/tingling Psychiatric: No depression symptoms, No anhedonism, No anxiety, No insomnia Endo: No fatigue, No excessive thirst Skin: No rash, No itch Objective Vital Signs Date Time Temp Pulse Resp B/P (MAP) Pulse Ox O2 Delivery O2 Flow Rate FiO2 05/15/17 08:00 100 Room Air 05/15/17 07:16 37.0 79 16 102/71 (81) 100 Room Air 05/15/17 04:26 36.7 75 18 102/72 (82) 90 BiPAP 05/15/17 04:05 CPAP 05/15/17 00:05 CPAP 05/14/17 23:31 37.4 95 20 92/60 (71) 93 BiPAP 05/14/17 20:00 90 Room Air 05/14/17 19:11 37.3 86 24 96/67 (77) 90 Room Air 05/14/17 16:00 90 Room Air 05/14/17 15:38 36.9 81 20 115/62 (79) 90 Room Air 05/14/17 12:00 Room Air 05/14/17 11:58 36.9 79 16 88/55 (66) 96 Room Air Physical Exam General Appearance: WD/WN, no apparent distress Eyes: normal inspection, PERRL, EOMI, sclerae normal Neck: supple, no adenopathy, thyroid normal, no JVD Respiratory/Chest: chest non-tender, no respiratory distress, no accessory muscle use, + decreased breath sounds Cardiovascular: no edema, no gallop, no JVD, no murmur Abdomen: normal bowel sounds, non tender, soft, no organomegaly Extremities: normal range of motion, non-tender, normal inspection, no pedal edema Neurologic/Psychiatric: no motor/sensory deficits, alert, normal mood/affect, oriented x 3 Laboratory Results Last 24 Hours Test 05/14/17 11:52 05/14/17 16:19 05/14/17 19:57 05/15/17 07:33 Bedside Glucose 186 mg/dl 177 mg/dl 173 mg/dl 129 mg/dl Test 05/15/17 08:15 White Blood Count 7.32 K/uL Red Blood Count 4.40 M/uL Hemoglobin 12.9 g/dL Hematocrit 38.1 % Mean Corpuscular Volume 86.6 fL Mean Corpuscular Hemoglobin 29.3 pg Mean Corpuscular Hemoglobin Concent 33.9 g/dl Platelet Count 197 K/uL Mean Platelet Volume 10.9 fL Neutrophils (%) (Auto) 64.8 % Lymphocytes (%) (Auto) 19.5 % Monocytes (%) (Auto) 12.4 % Eosinophils (%) (Auto) 2.2 % Basophils (%) (Auto) 0.8 % Neutrophils # (Auto) 4.74 K/uL Lymphocytes # (Auto) 1.43 K/uL Monocytes # (Auto) 0.91 K/uL Eosinophils # (Auto) 0.16 K/uL Basophils # (Auto) 0.06 K/uL RDW Standard Deviation 41.2 fL RDW Coefficient of Variation 12.9 % Immature Granulocyte % (Auto) 0.3 % Immature Granulocyte # (Auto) 0.02 K/uL Sodium Level 139 mmol/L Potassium Level 3.2 mmol/L Chloride Level 106 mmol/L Carbon Dioxide Level 25 mmol/L Anion Gap 8.0 mmol/L Blood Urea Nitrogen 13 mg/dl Creatinine 1.00 mg/dl Est Creatinine Clear Calc Drug Dose 134.5 ml/min Estimated GFR () 114.1 Estimated GFR (Non- 98.5 BUN/Creatinine Ratio 12.9 Random Glucose 132 mg/dl Calcium Level 8.9 mg/dl Assessment and Plan Unfortunate 32 y/o M Hx DM, HTN, obesity, MIRTA, nonischemic cardiomyopathy - EF 20% - ICD placement. Pt state presents with an intense productive cough productive of rust colored sputum. He states that the coughing comes in fits and is causing him to be incontinent of stool. He additionally describes SOB, a subjective fever, generalized aches and pains and diarrhea. He denies any CP. A guiac test in the ER proved positive. Initial labs are notable for a hypokalemia and hypomagnesemia. A troponin is elevated, however, this appears chronic on review of previous labs. Cough/SOB - subjective fever - as his CXR is equivocal. Noncontrast CT chest pos for multifocal PNA. Cont Levaquin 750 mg IV daily . Duonebs provided PRN. Sputum and blood cultures pending. Diarrhea - c diff pos, started on flagyl 500 mg PO TID day #1 Hypokalemia likely related to c diff and assoc diarrhea, replace PRN CHF - chronic systolic - appears euvolemic - Cont Lasix, Aldactone, Coreg - allergic to VEE inhibitors. Guiac + - no significant anemia - this may be due to superficial issues such as hemorrhoids - will trend Hb and pt can f/u with GI as outpt if stable - would consult in house if Hb trends down. DM - placed on SS, controlled Obesity - may benefit from nutrition counseling prior to DC - is likely to greatly benefit from weight loss which would improve his cardiac index. Full code - SCDs only due to rust-colored sputum and guiac + stool
[2017-05-15] MEDS ORDERED: NURSING VERBAL MED ORDER ONE (17:30)
[2017-05-15] MEDS ORDERED: INSULIN GLARGINE SC SCH (18:00)
[2017-05-15] MEDS ORDERED: PHARMACY GLYCEMIC MGMT CONSULT PRN (18:00)
--- NOTE | 2017-05-15 18:01 | Pharmacy Progress Note ---
Glycemic Control Intl Consult Date of Service May 15, 2017. Scope Glycemic Pharmacist consulted by Dr Campbell on 05/15/17 for glycemic control and to write orders per [facility] inpatient glycemic control protocol Objective Weight (Kilograms): 113.300 Accuchecks BSG (last 24hrs): Test 05/14/17 19:57 05/15/17 07:33 05/15/17 08:15 05/15/17 11:38 Bedside Glucose 173 mg/dl (70-99) 129 mg/dl (70-99) 165 mg/dl (70-99) Random Glucose 132 mg/dl (70-99) Test 05/15/17 16:37 Bedside Glucose 97 mg/dl (70-99) Laboratory Data (last 24hrs) Test 05/15/17 08:15 Anion Gap 8.0 mmol/L BUN/Creatinine Ratio 12.9 Blood Urea Nitrogen 13 mg/dl Creatinine 1.00 mg/dl Potassium Level 3.2 mmol/L Sodium Level 139 mmol/L White Blood Count 7.32 K/uL Red Blood Count 4.40 M/uL Hemoglobin 12.9 g/dL Hematocrit 38.1 % Mean Corpuscular Volume 86.6 fL Mean Corpuscular Hemoglobin 29.3 pg Mean Corpuscular Hemoglobin Concent 33.9 g/dl Platelet Count 197 K/uL Mean Platelet Volume 10.9 fL Neutrophils (%) (Auto) 64.8 % Lymphocytes (%) (Auto) 19.5 % Monocytes (%) (Auto) 12.4 % Eosinophils (%) (Auto) 2.2 % Basophils (%) (Auto) 0.8 % Neutrophils # (Auto) 4.74 K/uL Lymphocytes # (Auto) 1.43 K/uL Monocytes # (Auto) 0.91 K/uL Eosinophils # (Auto) 0.16 K/uL Basophils # (Auto) 0.06 K/uL Recent Pertinent Medications Outpatient Anti-diabetic Regimen: * Tresiba (insulin degludec) 160 units HS * Novolog AC * A1c = 10.2 % 10/23/16 - new A1c on order with AM labs The patient is currently receiving: * Basal insulin: Lantus 120 units x 1 dose yesterday, then Lantus 150 units SQ HS to begin tonight * Correctional Insulin: Novolog Correction per scale ACHS Goal Range: Low 120 mg/dL - High 160 mg/dL Correction Factor: 15 mg/dL/unit * Prandial insulin: Per carb ratio of 1 unit per 5 grams CHO consumed Risk Factors for Insulin Resistance: * Infection: PNA and CDiff, Levaquin and Metronidazole PO * Diet: Type 2 DM Assessment & Plan ASSESSMENT: * 32 year old obese type 2 diabetic admitted with PNA and Cdiff on antibiotics, likely discharge tomorrow * Pt on high doses of insulin at home, pt was given reduced dose of our in house long acting insulin, Lantus yesterday. Patient's BSGs at goal, and slightly below range at 97mg/dL this evening. I will place patient on a reduced Lantus dose based on BSG, and continue HS dosing as patient will likely go home tomorrow, and loosen CF and CR slightly to prevent hypoglycemia. * A1c outdated. * ADA & AACE recommend a goal blood sugar range 140-180 mg/dl for the majority of critically ill & non-critically ill patients. However, more stringent targets may be selected in individual cases. Using goal of 120-160mg/dl for patient's age and A1c. PLAN FOR INPATIENT GLYCEMIC CONTROL: * CHANGE: Basal insulin with LANTUS SQ HS * for BSG 160mg/dl or less -- 100 units HS * for BSG greater than 160mg/dl -- 120 units HS * Correctional Insulin with NOVOLOG per scale ACHS or Q6hrs while NPO * Goal Range: Low 120 mg/dL - High 160 mg/dL * LOOSEN: Correction Factor: 18 mg/dL/unit * LOOSEN: Nutritional / Prandial insulin per carb ratio of 1 unit per 6 grams CHO consumed * Please note that the plan above was derived based on current level of insulin resistance and hospital stress. These recommendations are appropriate for inpatient admission only. Plan of care upon discharge will need to be reassessed to avoid potential outpatient hypo/hyperglycemia. Thank you.
[2017-05-15] MEDS: POTASSIUM CHLORIDE 20 MEQ TABCR PO SCH (18:04)
[2017-05-15] MEDS: GUAIFENESIN 600 MG TABCR PO SCH (21:20)
[2017-05-15] MEDS: INSULIN GLARGINE SC SCH (21:25)
[2017-05-16] VITALS (9 sets, daily range): BP systolic 93–119; BP diastolic 67–78; PULSE 61–90; TEMP 36.5–36.9; O2SAT 92–99; Ht 180.3 cm; Wt 113.2 kg
[2017-05-16] MEDS: LEVOTHYROXINE 88 MCG TAB PO SCH (06:02)
[2017-05-16 07:50] LABS: ESTIMATED AVERAGE GLUCOSE 226 mg/dl; HA1C FLAG Normal (Normal)
[2017-05-16 08:23] LABS: HEMATOCRIT 40.5 % (42-52); MEAN CELL VOLUME 86.9 fL (80-100); MEAN CORPUSCULAR HEMOGLOBIN 28.8 pg (25-34); MEAN CORPUSCULAR HGB CONC 33.1 g/dl (32-36); MEAN PLATELET VOLUME 11.7 fL (7.4-10.4); PLATELET COUNT 241 K/uL (130-400); RED BLOOD COUNT 4.66 M/uL (4.7-6.1); WHITE BLOOD COUNT 7.43 K/uL (4.8-10.8)
[2017-05-16] MEDS: METRONIDAZOLE 500 MG TAB PO SCH ×3 (08:32→21:13)
[2017-05-16] MEDS: SPIRONOLACTONE 25 MG TAB PO SCH (08:33)
[2017-05-16] MEDS: CARVEDILOL 25 MG TAB PO SCH ×2 (08:33→21:13)
[2017-05-16] MEDS: GABAPENTIN 100 MG CAP PO SCH ×3 (08:34→21:14)
[2017-05-16] MEDS: ATORVASTATIN 40 MG TAB PO SCH (08:34)
[2017-05-16] MEDS: FUROSEMIDE 40 MG TAB PO SCH (08:34)
[2017-05-16] MEDS: GUAIFENESIN 600 MG TABCR PO SCH ×2 (08:34→21:13)
[2017-05-16 08:37] LABS: BUN/CREATININE RATIO 14.3 (10-20); CREATININE 1.1 mg/dl (0.60-1.40); MAGNESIUM 2.1 mg/dl (1.8-2.4); POTASSIUM 3.4 mmol/L (3.5-5.1)
[2017-05-16] MEDS: INSULIN ASPART 100 UNITS/ML 3 ML PEN SC SCH ×4 (08:37→21:00)
[2017-05-16 09:11] LABS: BASO % 1.6 %; BASO ABS # 0.12 K/uL (0-0.2); COMPLETE YES; EOS % 2.2 %; IG% 0.1 %; LYMPH % 26.8 %; LYMPH ABS # 1.99 K/uL (1.2-3.4); MONO % 13.3 %
--- NOTE | 2017-05-16 10:45 | Pharmacy Progress Note ---
Glycemic Control Progress Note Date of Service May 16, 2017. Scope Glycemic Pharmacist consulted for glycemic control to write orders per [facility] inpatient glycemic control protocol. Objective Accuchecks BSG (last 24hrs): Test 05/15/17 11:38 05/15/17 16:37 05/15/17 20:34 05/16/17 07:15 Bedside Glucose 165 mg/dl (70-99) 97 mg/dl (70-99) 150 mg/dl (70-99) Random Glucose 106 mg/dl (70-99) Test 05/16/17 07:16 Bedside Glucose 96 mg/dl (70-99) HbA1c: Test 05/16/17 07:15 Hemoglobin A1c 9.5 % (4.5-5.6) H Recent Pertinent Medications The patient is currently receiving: * Basal insulin: Lantus 120 SQ units on 05/14, Lantus 100 units SQ HS on 05/15 * Correctional Insulin: Novolog Correction per scale ACHS Goal Range: Low 120 mg/dL - High 160 mg/dL Correction Factor: 18 mg/dL/unit * Prandial insulin: Per carb ratio of 1 unit per 6 grams CHO consumed Outpatient Anti-Diabetic Meds Basal Insulin * Tresiba (insulin degludec) 160 units HS Bolus Insulin * Novolog with meals Assessment & Plan ASSESSMENT: * See progress note from 05/15/17 for more background info, in short: * Pt receiving SQ basal bolus insulin regimen for hyperglycemia secondary to baseline DM (outpatient regimen on hold) and stress/infection * Patient is currently receiving an average of 130-140 units of insulin per day * 100 units of basal insulin * 32 units of prandial/correctional insulin * BSGs ranging 96 - 165 mg/dl over the past 24hrs * Changes needed to insulin regimen: * AM Fasting BSG = 96 mg/dl. This is at goal for patient based on inpatient targets and co-morbidities. Fasting BSG decreased despite 15% decrease in Lantus dose yesterday. Regimen is currently highly weighted for basal insulin. Will continue to titrate basal insulin to achieve closer to 50% basal/50% bolus split. * Post-prandial BSGs are in range but trending upward. CF/CR may need tightened as basal insulin continues to be titrated. PLAN FOR INPATIENT GLYCEMIC CONTROL: * Basal insulin - decrease * Lantus 90-100 units SQ BID * 90 units for BSG 160 mg/dL or less * 100 units for BSG greater than 160 mg/dL * Bolus insulin - tighten * NovoLog per scale ACHS or Q6hrs while NPO * Goal Range: Low 120 mg/dL - High 160 mg/dL * Correction Factor: 15 mg/dL/unit * Nutritional / Prandial insulin per carb ratio of 1 unit per 5 grams CHO consumed * Add check with coverage at 0200 RECOMMENDATIONS FOR DISCHARGE: * Recent improvement in A1c from 10.2 (10/23/16) to 9.5 % (05/16/17). * Recommend resuming home regimen on discharge and continue to titrate per outpatient provider to goal A1c. * Please note that the plan above was derived based on current level of insulin resistance and hospital stress. These recommendations are appropriate for inpatient admission only. Plan of care upon discharge will need to be reassessed to avoid potential outpatient hypo/hyperglycemia. Thank you.
[2017-05-16] MEDS: LEVOFLOXACIN 750 MG TAB PO SCH (11:09)
[2017-05-16] MEDS: POTASSIUM CHLORIDE 20 MEQ TABCR PO SCH (17:40)
[2017-05-16] MEDS: ALBUT/IPRATROP 3MG/0.5MG NEB 3 ML VIAL INH SCH (19:33)
[2017-05-16] MEDS: INSULIN GLARGINE SC SCH (21:20)
[2017-05-17] VITALS (16 sets, daily range): BP systolic 97–119; BP diastolic 62–79; PULSE 66–98; TEMP 36.3–36.8; O2SAT 91–99
[2017-05-17] MEDS ORDERED: INSULIN ASPART 100 UNITS/ML 3 ML PEN SC SCH (02:00)
[2017-05-17] MEDS: ALBUT/IPRATROP 3MG/0.5MG NEB 3 ML VIAL INH SCH ×4 (02:08→19:33)
--- NOTE | 2017-05-17 06:03 | Progress Note ---
Subjective Date of Service: May 16, 2017. Subjective Pt evaluation today including: conversation w/ patient, physical exam, chart review, lab review, review of studies (CT chest), review of inpatient medication list Pain: none PO Intake: normal Voiding: no voiding problems patient's only complaint is that of cough and mild sputum production occasionally the sputum is mildly bloody denies any dyspnea denies any chest pain does c/o sinus symptoms - congestion diarrhea already improved and stools are already forming - of note, he was on a course of abx therapy about 3 weeks ago for "bronchitis" and ex-girlfriend has h/o c. diff Problem List Medical Problems: (1) Cardiomyopathy Status: Acute (2) Cardiomyopathy Status: Acute (3) Elevated troponin Status: Acute (4) Epigastric abdominal pain Status: Acute (5) Guaiac positive stools Status: Acute (6) Hypokalemia Status: Acute (7) Hypoxia Status: Acute (8) Left sided chest pain Status: Acute (9) Pancreatitis Status: Acute (10) Pneumonia Status: Acute Review of Systems Constitutional: No fever, No chills Respiratory: + cough, + sputum, No shortness of breath, No dyspnea on exertion Cardiac: No chest pain, No orthopnea, No PND, No edema Abdomen: No pain, No diarrhea Objective Vital Signs Date Time Temp Pulse Resp B/P (MAP) Pulse Ox O2 Delivery O2 Flow Rate FiO2 05/16/17 20:36 61 14 97 Room Air 05/16/17 20:08 96 Room Air 05/16/17 19:05 36.9 79 16 106/70 (82) 96 Room Air 05/16/17 16:00 Room Air 05/16/17 14:56 36.5 72 18 116/78 (91) 95 05/16/17 12:00 Room Air 05/16/17 11:13 36.5 73 16 93/67 (76) 95 Room Air 05/16/17 08:00 Room Air 05/16/17 07:37 36.6 84 18 112/76 (88) 92 05/16/17 04:37 36.6 90 18 119/72 (88) 97 BiPAP 05/16/17 04:00 BiPAP 3.0 05/16/17 00:00 BiPAP 3.0 05/15/17 23:36 36.9 91 18 116/76 (89) 96 BiPAP 05/15/17 22:55 96 98 Physical Exam General Appearance: no apparent distress ENT: pharynx normal Neck: no JVD Respiratory/Chest: no respiratory distress, no accessory muscle use, + crackles (b/l), + wheezing (b/l) Cardiovascular: regular rate, rhythm, no gallop, no murmur Abdomen: normal bowel sounds, non tender, soft, no organomegaly Extremities: no pedal edema Neurologic/Psychiatric: alert, oriented x 3 Laboratory Results Last 24 Hours Test 05/16/17 07:15 05/16/17 07:16 05/16/17 11:35 05/16/17 16:18 White Blood Count 7.43 K/uL Red Blood Count 4.66 M/uL Hemoglobin 13.4 g/dL Hematocrit 40.5 % Mean Corpuscular Volume 86.9 fL Mean Corpuscular Hemoglobin 28.8 pg Mean Corpuscular Hemoglobin Concent 33.1 g/dl Platelet Count 241 K/uL Mean Platelet Volume 11.7 fL Neutrophils (%) (Auto) 56.0 % Lymphocytes (%) (Auto) 26.8 % Monocytes (%) (Auto) 13.3 % Eosinophils (%) (Auto) 2.2 % Basophils (%) (Auto) 1.6 % Neutrophils # (Auto) 4.16 K/uL Lymphocytes # (Auto) 1.99 K/uL Monocytes # (Auto) 0.99 K/uL Eosinophils # (Auto) 0.16 K/uL Basophils # (Auto) 0.12 K/uL RDW Standard Deviation 41.3 fL RDW Coefficient of Variation 12.9 % Immature Granulocyte % (Auto) 0.1 % Immature Granulocyte # (Auto) 0.01 K/uL Sodium Level 142 mmol/L Potassium Level 3.4 mmol/L Chloride Level 108 mmol/L Carbon Dioxide Level 25 mmol/L Anion Gap 9.0 mmol/L Blood Urea Nitrogen 16 mg/dl Creatinine 1.10 mg/dl Est Creatinine Clear Calc Drug Dose 122.4 ml/min Estimated GFR () 101.7 Estimated GFR (Non- 87.7 BUN/Creatinine Ratio 14.3 Random Glucose 106 mg/dl Estimated Average Glucose 226 mg/dl Hemoglobin A1c 9.5 % Calcium Level 9.0 mg/dl Magnesium Level 2.1 mg/dl Bedside Glucose 96 mg/dl 161 mg/dl 82 mg/dl Test 05/16/17 20:19 Bedside Glucose 118 mg/dl Assessment and Plan 32yo male - 1. b/l community-acquired pneumonia - improving. day #2 of abx therapy. easily this could be atypical pneumonia. cont levaquin for 10 days in total. 2. reactive bronchitis, 2nd to #1 - add duonebs q6h. Cont mucinex & incentive spirometry. Defer on steroids unless he worsens. 3. hypomagnesemia - resolving. 4. hypokalemia - resolving. 5. chronic systolic CHF - compensated. 6. T2DM - pharmacy managing, control adequate. 7. DVT proph - add lovenox 40mg daily. 8. c. diff colitis - already improved. Mild in its severity. Flagyl 500 TID x 14 days. Day #2 of such. 9. hypothyroidism - cont synthroid. TSH earlier this year was compensated. progressing Continued [facility] stay due to: multiple IV medications needed Discharge planning: home
[2017-05-17] MEDS: LEVOTHYROXINE 88 MCG TAB PO SCH (06:14)
[2017-05-17 07:24] LABS: CALCIUM 9.1 mg/dl (8.5-10.1); CREATININE 1.2 mg/dl (0.60-1.40); POTASSIUM 3.6 mmol/L (3.5-5.1)
[2017-05-17] MEDS: ATORVASTATIN 40 MG TAB PO SCH (08:11)
[2017-05-17] MEDS: GABAPENTIN 100 MG CAP PO SCH ×3 (08:11→21:02)
[2017-05-17] MEDS: METRONIDAZOLE 500 MG TAB PO SCH ×2 (08:11→14:00)
[2017-05-17] MEDS: SPIRONOLACTONE 25 MG TAB PO SCH (08:13)
[2017-05-17] MEDS: FUROSEMIDE 40 MG TAB PO SCH (08:13)
[2017-05-17] MEDS: CARVEDILOL 25 MG TAB PO SCH ×2 (08:13→21:01)
[2017-05-17] MEDS: GUAIFENESIN 600 MG TABCR PO SCH ×2 (08:14→21:01)
[2017-05-17] MEDS: INSULIN ASPART 100 UNITS/ML 3 ML PEN SC SCH ×4 (08:24→21:00)
[2017-05-17 08:35] LABS: INR 1.2 (0.9-1.1); PARTIAL THROMBOPLASTIN RATIO 1.1; PROTHROMBIN TIME (PATIENT) 12.5 SECONDS (9.0-12.0)
[2017-05-17] MEDS: ENOXAPARIN 40 MG/0.4 ML SYR SQ SCH (12:27)
[2017-05-17] MEDS: LEVOFLOXACIN 750 MG TAB PO SCH (12:27)
[2017-05-17] MEDS: VANCOMYCIN HCL 125 MG/2.5ML SOLN PO SCH ×3 (15:14→21:02)
[2017-05-17] MEDS: RASPBERRY SYRUP 5 ML UDP PO SCH ×3 (15:14→21:05)
[2017-05-17] MEDS: LACTOBACILLUS ACIDOPHILUS (FLORANEX) TAB PO SCH (17:24)
[2017-05-17] MEDS: POTASSIUM CHLORIDE 20 MEQ TABCR PO SCH (17:25)
--- NOTE | 2017-05-17 19:35 | Progress Note ---
Subjective Date of Service: May 17, 2017. Subjective Pt evaluation today including: conversation w/ patient, physical exam, chart review, lab review, review of inpatient medication list Pain: denies abd pain PO Intake: normal Voiding: no voiding problems tele with occasional <5 beat runs of NS V-tach he feels good no further hemoptysis cough improved denies dyspnea diarrhea has returned - had formed stool yesterday but numerous liquid stools today Problem List Medical Problems: (1) Cardiomyopathy Status: Acute (2) Cardiomyopathy Status: Acute (3) Elevated troponin Status: Acute (4) Epigastric abdominal pain Status: Acute (5) Guaiac positive stools Status: Acute (6) Hypokalemia Status: Acute (7) Hypoxia Status: Acute (8) Left sided chest pain Status: Acute (9) Pancreatitis Status: Acute (10) Pneumonia Status: Acute Review of Systems Constitutional: No fever, No chills Respiratory: No shortness of breath Cardiac: No chest pain, No orthopnea, No PND Abdomen: No pain Objective Vital Signs Date Time Temp Pulse Resp B/P (MAP) Pulse Ox O2 Delivery O2 Flow Rate FiO2 05/17/17 17:39 94 Room Air 05/17/17 15:24 36.8 81 18 112/76 (88) 94 05/17/17 14:19 75 16 95 Room Air 05/17/17 12:00 95 Room Air 05/17/17 11:18 36.3 71 20 97/62 (74) 91 05/17/17 08:04 73 16 94 Room Air 05/17/17 08:00 93 Room Air 05/17/17 07:24 36.8 71 18 113/77 (89) 93 05/17/17 04:31 36.6 66 18 119/76 (90) 97 BiPAP 05/17/17 04:00 95 BiPAP 05/17/17 02:08 69 14 95 Room Air 05/17/17 00:00 99 BiPAP 3.0 05/16/17 23:01 36.9 72 20 111/72 (85) 96 BiPAP 05/16/17 22:14 99 05/16/17 20:36 61 14 97 Room Air 05/16/17 20:08 96 Room Air Physical Exam General Appearance: no apparent distress ENT: pharynx normal Neck: no JVD Respiratory/Chest: lungs clear, + rales (bibasilar) Cardiovascular: regular rate, rhythm, no gallop, no murmur Abdomen: normal bowel sounds, non tender, soft, no organomegaly Extremities: no pedal edema Neurologic/Psychiatric: alert, oriented x 3 Laboratory Results Last 24 Hours Test 05/16/17 20:19 05/17/17 01:54 05/17/17 06:06 05/17/17 07:38 Bedside Glucose 118 mg/dl 110 mg/dl 101 mg/dl Sodium Level 142 mmol/L Potassium Level 3.6 mmol/L Chloride Level 107 mmol/L Carbon Dioxide Level 27 mmol/L Anion Gap 8.0 mmol/L Blood Urea Nitrogen 17 mg/dl Creatinine 1.20 mg/dl Est Creatinine Clear Calc Drug Dose 111.9 ml/min Estimated GFR () 91.5 Estimated GFR (Non- 79.0 BUN/Creatinine Ratio 14.0 Random Glucose 98 mg/dl Calcium Level 9.1 mg/dl Test 05/17/17 07:58 05/17/17 11:36 05/17/17 16:13 Prothrombin Time 12.5 SECONDS Prothromb Time International Ratio 1.2 Activated Partial Thromboplast Time 29.6 SECONDS Partial Thromboplastin Ratio 1.1 Bedside Glucose 157 mg/dl 124 mg/dl Assessment and Plan 32yo male - 1. b/l community-acquired pneumonia - improving. day #3 of abx therapy. easily this could be atypical pneumonia. cont levaquin for 10 days in total. 2. reactive bronchitis, 2nd to #1 - wheezing better with nebs. No steroids at this time. 3. hypomagnesemia - resolved. 4. hypokalemia - resolved. 5. chronic systolic CHF - compensated. 6. T2DM - pharmacy managing, control adequate. 7. DVT proph - lovenox 40mg daily. 8. c. diff colitis - worse today; in light of comorbidities and risk of resistant c. diff will change flagyl to vancomycin. 14-days will be needed. 9. hypothyroidism - cont synthroid. TSH earlier this year was compensated. progressing anticipate d/c in am Continued [facility] stay due to: other ( c diff colitis ) Discharge planning: home
[2017-05-17] MEDS: INSULIN GLARGINE SC SCH (21:09)
[2017-05-18] VITALS (9 sets, daily range): BP systolic 106–108; BP diastolic 71–74; PULSE 72–90; TEMP 36.3–36.8; O2SAT 92–98
[2017-05-18] MEDS: ALBUT/IPRATROP 3MG/0.5MG NEB 3 ML VIAL INH SCH ×3 (02:01→13:41)
[2017-05-18 06:07] LABS: BUN/CREATININE RATIO 13.3 (10-20); CALCIUM 8.6 mg/dl (8.5-10.1); CREATININE 1.2 mg/dl (0.60-1.40); POTASSIUM 3.5 mmol/L (3.5-5.1)
[2017-05-18] MEDS: LEVOTHYROXINE 88 MCG TAB PO SCH (06:47)
[2017-05-18] MEDS: LACTOBACILLUS ACIDOPHILUS (FLORANEX) TAB PO SCH ×2 (08:07→12:31)
[2017-05-18] MEDS: SPIRONOLACTONE 25 MG TAB PO SCH (08:08)
[2017-05-18] MEDS: CARVEDILOL 25 MG TAB PO SCH (08:09)
[2017-05-18] MEDS: ATORVASTATIN 40 MG TAB PO SCH (08:10)
[2017-05-18] MEDS: GUAIFENESIN 600 MG TABCR PO SCH (08:10)
[2017-05-18] MEDS: FUROSEMIDE 40 MG TAB PO SCH (08:10)
[2017-05-18] MEDS: GABAPENTIN 100 MG CAP PO SCH ×2 (08:11→13:19)
[2017-05-18] MEDS: ENOXAPARIN 40 MG/0.4 ML SYR SQ SCH (08:12)
[2017-05-18] MEDS: VANCOMYCIN HCL 125 MG/2.5ML SOLN PO SCH ×2 (08:16→13:16)
[2017-05-18] MEDS: RASPBERRY SYRUP 5 ML UDP PO SCH ×2 (08:16→13:00)
[2017-05-18] MEDS: INSULIN ASPART 100 UNITS/ML 3 ML PEN SC SCH ×2 (08:18→12:33)
[2017-05-18] MEDS: LEVOFLOXACIN 750 MG TAB PO SCH (12:31)
[2017-05-18] MEDS ORDERED: SACC250C PO (12:54)
[2017-05-18] MEDS ORDERED: IPRA1AER2 INH (12:54)
[2017-05-18] MEDS ORDERED: MGNO400 PO (12:54)
[2017-05-18] MEDS ORDERED: BENZ100C6 PO (12:54)
[2017-05-18] MEDS ORDERED: VANC5CAP PO (12:54)
[2017-05-18] MEDS ORDERED: DXY100 PO (12:54)
[2017-05-18] MEDS ORDERED: CEFD300C2 PO (12:54)
--- NOTE | 2017-05-18 13:13 | Discharge Instructions ---
Discharge Instructions Date of Service May 18, 2017. Admission Reason for Admission: Cough, Fever Discharge Discharge Diagnosis / Problem: pneumonia & c. diff infection Discharge Goals Goal(s): Learn about illness, Diagnostic testing, Therapeutic intervention Activity Recommendations Activity Limitations: as noted below Next 2-3 days "take it easy" - no heavy lifting, no heavy yard work or event designer, no going to the gym, etc. Rest as you recover from your illness. . Instructions / Follow-Up Instructions / Follow-Up From Dr. Hanna: 1. bilateral pneumonia - take the following - * omnicef (cefdinir) 300mg twice daily for 6 days; start TOMORROW AM, 05/19/17 ( this antibiotic called to [facility]) * doxycycline 100mg twice daily for 6 days; start TOMORROW AM, 05/19/17 (this antibiotic called to [facility]) * the doxycycline can cause a rash if you go out in the sun while on this antibiotic * please cover up and use sunscreen vigorously for the next week * please resume your combivent inhaler - take 1 puff every 6 hours scheduled for the next 7 days or so * you can use dson-ocw-ndsjuha mucinex up to 1200mg twice a day for cough * you can also use tessalon pearles 100mg every 8 hours as needed for cough, if desired (called to [facility]) 2. c. diff infection - * take 13 more days of vancomycin 4 times a day; start this TODAY (called to [facility]) * take 14 days of "probiotics" once daily (this was called to [facility]) * c diff is contagious, especially to close contacts/family members at your house * you are most contagious when the stools are loose and watery, but you will likely be contagious at least for another 1-2 weeks * handwashing with soap & water for minimum of 20 seconds kills c. diff * Purell liquid alcohol-based hand call center representative does NOT kill c. diff * clean all toilets, sinks, door knobs, handles, toilet bowl handles, etc with BLEACH to kill c. diff * use a separate bathroom and towels than other family members, if possible * wash all linens, towels, and underwear in hot water and, if possible, with added bleach * try to avoid public bathrooms until you are over your diarrhea * you should be feeling better with the diarrhea in the next 3-4 days ( frequency of stool should be better, stools should start to firm up, etc) 3. Congestive heart failure - * because of your lasix use please continue on your potassium supplement * but, you also need a magnesium supplement; script called to [facility] for you * take the magnesium twice daily every day Additional CHF instructions: Call 911 and go to the Emergency Room if: * You have tightness or pain in your chest that does not go away with rest or Nitroglycerin * You are very short of breath even with rest Call your doctor if any of the following symptoms or problems start or get worse: * Shortness of breath or difficulty breathing * Wake up at night short of breath * Chest pain * Cough * Swelling of your hands, fee, or legs * More fatigued or tired with your normal activity * Palpitations - sudden fast heart beats WEIGHT * Weigh yourself every morning after using the bathroom. * Use the same scale. * Wear the same amount of clothing. * Write your weight down on your chart. * Call your doctor if you gain more than 2-3 pounds in 1-2 days* -- this can be a sign you are taking on extra fluid weight. MEDICATIONS * Use this discharge instruction sheet for instructions. * Take your medications at the time your doctor ordered. * Do not skip a dose of your medicines. * If you miss a dose of medicine, take as soon as possible, but DO NOT DOUBLE A DOSE. * Read your medicine information when you get home. * Know all of the side effects of your medicine. * Call your doctor's office if you have any side effects. * Be sure all of your doctors know what medicine and herbs you take (including cold, flu, and herbal medicine). * Pain Medicine: If you do not get relief from your pain, please call your doctor for help. Take the following with you to your follow-up doctor appointments: * Weight Chart * Medication List * List of questions Do not drink excessive alcohol, beer or wine. 4. See Bridger Manriquez on Friday or Friday of this week for recheck. Current Hospital Diet Patient's current hospital diet: AHA Diet (Heart Healthy), Diabetes Type 2 Diet Discharge Diet Recommended Diet: Low Sodium Diet (2gm Na), Diabetes Type 2 Diet Fluid Restriction: 1500 ml (6 cups) Procedures Procedures Performed: CAT scan of the lungs showing bilateral pneumonia c diff test positive Pending Studies Studies pending at discharge: no Laboratory Results Hemoglobin A1c Test 05/16/17 07:15 Range/Units Estimated Average Glucose 226 mg/dl Hemoglobin A1c 9.5 H 4.5-5.6 % Medical Emergencies . Who to Call and When: Medical Emergencies: If at any time you feel your situation is an emergency, please call 911 immediately. . Non-Emergent Contact Non-Emergency issues call your: Primary Care Provider Call Non-Emergent contact if: temperature is above 100.5, you have any medication questions * you have worsening diarrhea despite taking your vancomycin for the c. diff * you have worsening cough, shortness of breath, difficulty breathing at night- time, etc despite taking all of your antibiotics, lasix, etc * you have concerns that your congestive heart failure has become active and you are taking on extra fluid * any other concerns . . "Provider Documentation" section prepared by Stan Hanna. . VTE Core Measure Inpt VTE Proph given/why not?: Enoxaparin (Lovenox)SQ, SCD's
--- NOTE | 2017-05-18 23:13 | Discharge Summary ---
Discharge Summary Date of Service May 18, 2017. Discharge Summary Admission Date: May 14, 2017 at 04:32 Discharge Date: May 18, 2017 Discharge Disposition: Home Principal Diagnosis: bilateral community-acquired pneumonia Problems/Secondary Diagnoses: 1. c diff colitis 2. chronic systolic CHF 3. ICD status 4. T2DM 5. obesity 6. HTN 7. MIRTA on CPAP 8. nonischemic cardiomyopathy 9. hypokalemia & hypomagnesemia - resolved 10. hypothyroidism 11. reactive bronchitis - resolving Immunizations: Have You Had Influenza Vaccine: N/A History of Tetanus Vaccine?: Unknown History of Pneumococcal: Unknown History of Hepatitis B Vaccine: Unknown Procedures: CT chest: IMPRESSION: 1. Extensive multifocal airspace opacities throughout both lungs, as described above. The findings suggest multifocal pneumonia. No cavitation. 2. Multiple mildly enlarged mediastinal and bilateral hilar lymph nodes. These are nonspecific but may be reactive. 3. Moderate cardiomegaly. Medication Reconciliation New Medications: Benzonatate (Tessalon Perles) 100 Mg Cap 100 MG PO Q8H PRN for Cough, #30 CAP 0 Refills Cefdinir (Omnicef) 300 Mg Cap 300 MG PO Q12H for 6 Days, #12 CAP 0 Refills begin 05/19/17 Doxycycline Hyclate (Doxycycline Hyclate) 100 Mg Cap 100 MG PO BID for 6 Days, #12 CAP 0 Refills begin 05/19/17 Ipratropium-Albuterol (Combivent Respimat) 1 Aer Aer 1 PUFFS INH QID, #1 INH 1 Refill Magnesium Oxide (Magnesium-Oxide) 400 Mg Tab 400 MG PO BID for 30 Days, #60 TAB 2 Refills Saccharomyces Boulardii (Florastor) 250 Mg Cap 250 MG PO DAILY for 14 Days, #14 CAP 0 Refills Vancomycin Hcl (Vancomycin) 125 Mg Cap 125 MG PO QID for 13 Days, #52 CAP 0 Refills Continued Medications: Atorvastatin (Atorvastatin Calcium) 40 Mg Tab 40 MG PO DAILY Carvedilol (Carvedilol) 25 Mg Tab 25 MG PO BID Furosemide (Furosemide) 40 Mg Tab 40 MG PO QAM Gabapentin (Neurontin) 100 Mg Cap 100 MG PO TID, CAP Insulin Aspart (Novolog Flexpen) 100 Units/Ml Inj 1 DOSE SC AC COVERAGE DIRECTED BY SLIDING SCALE Insulin Degludec (Tresiba Flextouch) 200 Unit/Ml Inj 160 UNITS SC QPM Levothyroxine Sodium (Levothyroxine Sodium) 88 Mcg Tab 88 MCG PO QAM Potassium Chloride (K-Tab) 20 Meq Tab 20 MEQ PO QPM Spironolactone (Aldactone) 25 Mg Tab 25 MG PO QAM, TAB Discharge Exam Physical Exam: General Appearance: no apparent distress ENT: pharynx normal Neck: no JVD Respiratory/Chest: no respiratory distress, no accessory muscle use, + crackles (mild, b/l bases) Cardiovascular: regular rate, rhythm, no gallop, no murmur, normal peripheral pulses Abdomen / GI: normal bowel sounds, non tender, soft, no organomegaly Extremities: no pedal edema Neurologic/Psychiatric: alert, oriented x 3 Hospital Course HISTORY OF PRESENT ILLNESS: 32 y/o male with history of T2DM, HTN, obesity, MIRTA, nonischemic cardiomyopathy - EF 20%, along with ICD placement who presented with an intense cough productive of rust colored sputum. He stated that the coughing was coming in fits and was causing him to be incontinent of stool. He additionally described SOB, a subjective fever, generalized aches and pains and diarrhea. He denied any chest pain. A guiac test in the ER proved positive. Initial labs were notable for hypokalemia and hypomagnesemia. HOSPITAL COURSE: The patient was treated for his bilateral community-acquired pneumonia initially with IV levaquin and was ultimately transitioned to oral therapy. He had an O2 requirement on hospital day #1 only. He remained afebrile his entire stay. He had evidence of wheezing / reactive bronchitis on physical exam, treated successfully with nebs. Steroids were deferred. His pulmonary symptoms improved during his stay. He will complete a course of omnicef twice daily & doxycycline twice daily (for atypical coverage) to complete 10 days of antibiotics, in total. In addition to his pneumonia he was treated for c. diff colitis. C. diff toxin on hospital day #1 was positive. He had a poor response to flagyl and thus was changed to oral vancomycin later on. He will complete a course of the vancomycin following discharge. Extensive counseling was given to the patient on c. diff prevention/ transmission prior to his hospital discharge. Hypokalemia and hypomagnesemia were corrected prior to discharge. Due to chronic diuretic usage he will continue on K and Mag supplements. All other medical problems including his chronic CHF, T2DM, etc remained stable while here. Creatinine also remained stable while hospitalized. Lastly, the patient had a positive blood culture showing corynebacterium, diphtheroids, and a gram positive cocci (all 3 pathogens in a bottle). This was felt to represent contamination. The other blood culture set was negative. Total Time Spent: Greater than 30 minutes This includes examination of the patient, discharge planning, medication reconciliation, and communication with other providers. Discharge Instructions Please refer to the electronic Patient Visit Report (Discharge Instructions) for additional information. Follow-Up see [facility], within 3-4 days Additional Copies To Bridger Manriquez III, CRNP
== END 2017-05-18 14:45 | disposition home or self-care (01) | DRG 194 ==
LOC: C.EDB 01:43 → C.MED 04:32 → ENRESERV 05:29
PROVIDERS: ADMIT Internal Medicine; ATTEND Internal Medicine
DX: J18.9 Pneumonia, unspecified organism (principal); A04.7 Enterocolitis due to Clostridium difficile; I50.22 Chronic systolic (congestive) heart failure; I42.9 Cardiomyopathy, unspecified; Z95.810 Presence of automatic (implantable) cardiac defibrillator; E11.9 Type 2 diabetes mellitus without complications; G47.33 Obstructive sleep apnea (adult) (pediatric); E03.9 Hypothyroidism, unspecified; J40 Bronchitis, not specified as acute or chronic; Z82.49 Family history of ischemic heart disease and other diseases of the circulatory system; Z83.3 Family history of diabetes mellitus; I95.9 Hypotension, unspecified; Z84.1 Family history of disorders of kidney and ureter; E66.9 Obesity, unspecified; E83.42 Hypomagnesemia; E87.6 Hypokalemia

== ENCOUNTER → 2017-05-28 | Outpatient (CLI) | payer OTHER ==
[~2017-05-28] MED LIST changes: +BENZ100C6 PO; +CEFD300C2 PO; +DXY100 PO; +IPRA1AER2 INH; +MGNO400 PO; +SACC250C PO; +VANC5CAP PO; -VNTHFA/IN INH
[2017-05-28 15:48] LABS: BLOOD UREA NITROGEN 14 mg/dl (7-18); BUN/CREATININE RATIO 10.7 (10-20); CALCIUM 9.4 mg/dl (8.5-10.1); CARBON DIOXIDE 26 mmol/L (21-32); CHLORIDE 107 mmol/L (98-107); GLUCOSE 180 mg/dl (70-99); SODIUM 138 mmol/L (136-145)
--- NOTE | 2017-05-28 15:59 | DIAGNOSTIC IMAGING REPORT ---
CHEST 2 VIEWS ROUTINE CLINICAL HISTORY: Follow-up pneumonia. COMPARISON STUDY: Chest radiograph and chest CT May 14, 2017. FINDINGS: A single lead left pacer/AICD is noted. There is no pneumothorax or pleural effusion. No cavitation is identified. Mild right perihilar opacity is suggested. Left lung airspace opacity has likely improved since prior exam of May 14, 2017. IMPRESSION: Interval improvement in left lung airspace opacity with suspected persistent mild residual right perihilar opacity suggestive of an infectious process. Electronically signed by: Marky Trevizo M.D. 05/28/2017 3:58 PM Dictated Date/Time: 05/28/2017 3:56 PM
[2017-05-28 16:00] LABS: THYROID STIMULATING HORMONE 0.338 uIu/ml (0.300-4.500)
== END | disposition home or self-care (01) ==
LOC: C.LAB 14:30
PROVIDERS: ATTEND Nurse Practitioner Family
DX: J18.9 Pneumonia, unspecified organism (principal)

== ENCOUNTER → 2017-06-09 | Outpatient (CLI) | payer OTHER ==
[2017-06-09 12:52] LABS: BASO % 0.4 %; BASO ABS # 0.03 K/uL (0-0.2); COMPLETE YES; EOS % 1.3 %; HEMATOCRIT 41.7 % (42-52); IG% 0.2 %; LYMPH % 17.2 %; LYMPH ABS # 1.45 K/uL (1.2-3.4); MEAN CELL VOLUME 89.3 fL (80-100); MEAN CORPUSCULAR HEMOGLOBIN 29.8 pg (25-34); MEAN CORPUSCULAR HGB CONC 33.3 g/dl (32-36); MEAN PLATELET VOLUME 12.1 fL (7.4-10.4); MONO % 8.2 %; NEUT % 72.7 %; PLATELET COUNT 213 K/uL (130-400); RED BLOOD COUNT 4.67 M/uL (4.7-6.1); WHITE BLOOD COUNT 8.43 K/uL (4.8-10.8)
[2017-06-09 13:00] LABS: PROTHROMBIN TIME (PATIENT) 10.9 SECONDS (9.0-12.0)
[2017-06-09 13:29] LABS: BLOOD UREA NITROGEN 15 mg/dl (7-18); BUN/CREATININE RATIO 12.4 (10-20); CALCIUM 8.7 mg/dl (8.5-10.1); CARBON DIOXIDE 24 mmol/L (21-32); CHLORIDE 108 mmol/L (98-107); GLUCOSE 174 mg/dl (70-99); POTASSIUM 4.1 mmol/L (3.5-5.1); SODIUM 140 mmol/L (136-145)
[2017-06-09 14:35] LABS: INFLUENZA A PCR Neg for Influ A (NEG); INFLUENZA B PCR Neg for Influ B (NEG)
[2017-06-10 12:32] LABS: LEGIONELLA ANTIGEN NOT DETECTED (NOT DETECTED)
== END | disposition home or self-care (01) ==
LOC: C.LAB1850 11:44
PROVIDERS: ATTEND Physician Assistant
DX: J18.9 Pneumonia, unspecified organism (principal); I50.9 Heart failure, unspecified

== ENCOUNTER 2017-06-13 09:59 | Inpatient (IN) | payer OTHER ==
[~2017-06-13] VITALS: Ht 180.3 cm; Wt 109.9 kg
[2017-06-13] VITALS (9 sets, daily range): BP systolic 103–148; BP diastolic 69–92; PULSE 87–97; TEMP 36.8–37; O2SAT 95–98; Ht 180.3 cm; Wt 109.9 kg
[2017-06-13 10:54] LABS: BASO % 0.4 %; BASO ABS # 0.04 K/uL (0-0.2); COMPLETE YES; EOS % 1.4 %; HEMATOCRIT 40.4 % (42-52); IG% 0.5 %; LYMPH % 12.8 %; LYMPH ABS # 1.37 K/uL (1.2-3.4); MEAN CELL VOLUME 88.6 fL (80-100); MEAN CORPUSCULAR HEMOGLOBIN 30.9 pg (25-34); MEAN CORPUSCULAR HGB CONC 34.9 g/dl (32-36); MEAN PLATELET VOLUME 11.7 fL (7.4-10.4); MONO % 7.4 %; NEUT % 77.5 %; PLATELET COUNT 239 K/uL (130-400); RED BLOOD COUNT 4.56 M/uL (4.7-6.1); WHITE BLOOD COUNT 10.71 K/uL (4.8-10.8)
[2017-06-13 10:57] LABS: INR 1.1 (0.9-1.1); PROTHROMBIN TIME (PATIENT) 11.7 SECONDS (9.0-12.0)
[2017-06-13 11:02] LABS: BUN/CREATININE RATIO 12.3 (10-20); CALCIUM 8.9 mg/dl (8.5-10.1); CREATININE 1.4 mg/dl (0.60-1.40); POTASSIUM 3.9 mmol/L (3.5-5.1)
[2017-06-13 11:04] LABS: ALB/GLOB RATIO 1.1 (0.9-2)
--- NOTE | 2017-06-13 11:19 | DIAGNOSTIC IMAGING REPORT ---
CHEST ONE VIEW PORTABLE CLINICAL HISTORY: 32 years-old Male presenting with cough, recent pneumonia. TECHNIQUE: Portable upright AP view of the chest was obtained. COMPARISON: 05/28/2017. FINDINGS: Left-sided implanted cardiac defibrillator with lead to the right ventricular apex. Cardiac silhouette remains enlarged. Minimal vague opacity in the right lung base, new from prior. No large effusion or pneumothorax. Osseous structures normal. Upper abdomen normal. IMPRESSION: 1. New right basilar opacity, which could represent atelectasis, infection, or aspiration. 2. Cardiomegaly. Electronically signed by: Denys Leavitt M.D. 06/13/2017 11:18 AM Dictated Date/Time: 06/13/2017 11:16 AM
[2017-06-13] MEDS ORDERED: OPTIRAY 320 IV PRN (11:30)
--- NOTE | 2017-06-13 11:43 | DIAGNOSTIC IMAGING REPORT ---
CT ANGIOGRAM OF THE CHEST CLINICAL HISTORY: Shortness of breath, pneumonia. Cough. COMPARISON STUDY: Chest CT dated 05/14/2017 TECHNIQUE: Following the IV administration of 95 mL of Optiray-320, CT angiogram of the thorax was performed from the thoracic inlet to the lung bases utilizing the pulmonary embolus protocol. Images are reviewed in the axial, sagittal, and coronal planes. IV contrast was administered without complication. MIP imaging was performed. A dose lowering technique was utilized adhering to the principles of ALARA. CT DOSE: 706.00 mGy.cm FINDINGS: There are persistent mildly enlarged hilar and mediastinal lymph nodes. There is no evidence of pathologic axillary lymphadenopathy There was no evidence of thoracic aortic dilatation. The study is compromised due to respiratory motion artifact. There are no pulmonary artery filling defects to indicate acute pulmonary embolism. No pleural effusions are visualized. There is been near complete interval clearing in the previously described upper lobe pulmonary airspace opacities. There are persistent but improving airspace opacities within the superior segment of the right lower lobe. The heart is enlarged. There is reflux of contrast into the IVC and hepatic veins. IMPRESSION: 1. Technically limited study secondary to respiratory motion artifact 2. No evidence of acute pulmonary embolism given the limitations of the study 3. Improving bilateral pulmonary airspace opacities consistent with a resolving multifocal pneumonia 4. Persistent mediastinal and hilar lymphadenopathy Electronically signed by: Kody Madera M.D. 06/13/2017 11:42 AM Dictated Date/Time: 06/13/2017 11:37 AM
[2017-06-13] MEDS ORDERED: ALBUT/IPRATROP 3MG/0.5MG NEB 3 ML VIAL INH STA (11:46)
[2017-06-13 12:22] LABS: URINE APPEARANCE CLEAR (CLEAR); URINE BILIRUBIN NEG (NEG); URINE COLOR YELLOW; URINE NITRITE NEG (NEG); URINE PH 6.5 (4.5-7.5); URINE SPECIFIC GRAVITY 1.016 (1.000-1.030); UROBILINOGEN NEG (NEG); ZZUR CULT IF INDIC CLEAN CATCH NO
[2017-06-13 12:29] LABS: MANUAL MICROSCOPIC REQUIRED? NO; REVIEW REQ? NO
--- NOTE | 2017-06-13 13:09 | EMERGENCY ROOM VISIT NOTE ---
History Report prepared by Jeff: Tay Marin Under the Supervision of: Dr. Margi Sales D.O. First contact with patient: 10:39 Chief Complaint: OTHER COMPLAINT Stated Complaint: PNEUMONIA History of Present Illness The patient is a 32 year old male who presents to the Emergency Room with complaints of worsening shortness of breath beginning about a month ago. The patient also complains of dizziness, sore throat, vomiting, nausea, subjective fevers and generalized weakness. He has a history of diabetes, cardiomyopathy and has a defibrillator in place. He states that he had the defibrillator placed after a strep pharyngitis infection moved to his heart. The patient has a history of recurrent pneumonia with his most recent episode occurring about a month ago. He had bilateral pneumonia as well as C-Diff at this time. He is scheduled for a bronchoscope next week. The patient states that his breathing has been a problem ever since he was diagnosed with pneumonia a month ago. He denies any significant diarrhea and states that it has improved significantly since the C-Diff infection. Source of History: patient Onset: About a month ago Quality: other (shortness of breath) Timing: worsening Associated Symptoms: + fevers (subjective), + sorethroat, + nausea, + vomiting, + weakness (generalized), No diarrhea Note: Additional symptoms: dizziness. Review of Systems See HPI for pertinent positives & negatives. A total of 10 systems reviewed and were otherwise negative. Past Medical & Surgical Medical Problems: (1) Bronchitis (2) Chronic congestive heart failure (3) Diabetes (4) Diabetes mellitus (5) Dilated cardiomyopathy (6) Fever (7) HTN (hypertension) (8) Hypotension (9) Kidney stone (10) Nonischemic cardiomyopathy (11) Pneumonia Family History Cancer FH: HTN (hypertension) FH: diabetes mellitus Heart disease Social History Smoking Status: Never Smoker Alcohol Use: none Drug Use: none Marital Status: in relationship Housing Status: lives with family Occupation Status: employed Current/Historical Medications Scheduled Atorvastatin (Atorvastatin Calcium), 40 MG PO DAILY Carvedilol (Carvedilol), 25 MG PO BID Furosemide (Furosemide), 40 MG PO QAM Gabapentin (Neurontin), 100 MG PO TID Insulin Aspart (Novolog Flexpen), 1 DOSE SC AC Insulin Degludec (Tresiba Flextouch), 160 UNITS SC QPM Ipratropium-Albuterol (Combivent Respimat), 1 PUFFS INH QID Levothyroxine Sodium (Levothyroxine Sodium), 88 MCG PO QAM Magnesium Oxide (Magnesium-Oxide), 400 MG PO BID Potassium Chloride (K-Tab), 20 MEQ PO QPM Spironolactone (Aldactone), 25 MG PO QAM Scheduled PRN Benzonatate (Tessalon Perles), 100 MG PO Q8H PRN for Cough Allergies Coded Allergies: VEE Inhibitors (Verified Allergy, Intermediate, COUGH, 05/14/17) Lisinopril (Verified Adverse Reaction, Unknown, cough, 05/14/17) Physical Exam Vital Signs Date Time Temp Pulse Resp B/P (MAP) Pulse Ox O2 Delivery O2 Flow Rate FiO2 06/13/17 12:35 97 Nasal Cannula 2.0 06/13/17 12:29 90 23 06/13/17 11:59 86 21 06/13/17 11:40 101/72 06/13/17 11:39 89 20 101/72 97 Nasal Cannula 2.0 06/13/17 10:59 87 23 96 06/13/17 10:29 81 12 99 06/13/17 10:27 84 06/13/17 10:25 97 Nasal Cannula 2.0 06/13/17 10:08 36.4 86 20 91/69 94 Room Air Physical Exam GENERAL: alert, ill appearing, well nourished, no distress, non-toxic EYE EXAM: normal conjunctiva, PERRL and EOM's grossly intact OROPHARYNX: no exudate, no erythema, lips, buccal mucosa, and tongue normal and mucous membranes are moist NECK: supple, no nuchal rigidity, no adenopathy, non-tender LUNGS: Coarse breath sounds bilaterally but no wheezes, rhonchi or rales. HEART: no murmurs, S1 normal and S2 normal CHEST: ICD noted superior chest wall. ABDOMEN: abdomen soft, non-tender, normo-active bowel sounds, no masses, no rebound or guarding. BACK: Back is symmetrical on inspection and there is no deformity, no midline tenderness, no CVA tenderness. SKIN: no rashes and no bruising UPPER EXTREMITIES: upper extremities are grossly normal. LOWER EXTREMITIES: No pitting edema. NEURO EXAM: Normal sensorium, cranial nerves II-XII grossly intact, normal speech, no gross weakness of arms, no gross weakness of legs. Medical Decision & Procedures ER Provider Diagnostic Interpretation: Radiology results have been interpreted by the radiologist and reviewed by me. CHEST ONE VIEW PORTABLE FINDINGS: Left-sided implanted cardiac defibrillator with lead to the right ventricular apex. Cardiac silhouette remains enlarged. Minimal vague opacity in the right lung base, new from prior. No large effusion or pneumothorax. Osseous structures normal. Upper abdomen normal. IMPRESSION: 1. New right basilar opacity, which could represent atelectasis, infection, or aspiration. 2. Cardiomegaly. Electronically signed by: Denys Leavitt M.D. 06/13/2017 11:[address] ANGIOGRAM OF THE CHEST FINDINGS: There are persistent mildly enlarged hilar and mediastinal lymph nodes. There is no evidence of pathologic axillary lymphadenopathy There was no evidence of thoracic aortic dilatation. The study is compromised due to respiratory motion artifact. There are no pulmonary artery filling defects to indicate acute pulmonary embolism. No pleural effusions are visualized. There is been near complete interval clearing in the previously described upper lobe pulmonary airspace opacities. There are persistent but improving airspace opacities within the superior segment of the right lower lobe. The heart is enlarged. There is reflux of contrast into the IVC and hepatic veins. IMPRESSION: 1. Technically limited study secondary to respiratory motion artifact 2. No evidence of acute pulmonary embolism given the limitations of the study 3. Improving bilateral pulmonary airspace opacities consistent with a resolving multifocal pneumonia 4. Persistent mediastinal and hilar lymphadenopathy Electronically signed by: Kody Madera M.D. 06/13/2017 11:42 AM Laboratory Results 06/13/17 10:20 Red Blood Count 4.56, Mean Corpuscular Volume 88.6, Mean Corpuscular Hemoglobin 30.9, Mean Corpuscular Hemoglobin Concent 34.9, Mean Platelet Volume 11.7, Neutrophils (%) (Auto) 77.5, Lymphocytes (%) (Auto) 12.8, Monocytes (%) (Auto) 7.4, Eosinophils (%) (Auto) 1.4, Basophils (%) (Auto) 0.4, Neutrophils # (Auto) 8.31, Lymphocytes # (Auto) 1.37, Monocytes # (Auto) 0.79, Eosinophils # (Auto) 0.15, Basophils # (Auto) 0.04 06/13/17 10:20 Test 06/13/17 10:20 06/13/17 10:31 06/13/17 11:39 White Blood Count 10.71 K/uL (4.8-10.8) Red Blood Count 4.56 M/uL (4.7-6.1) Hemoglobin 14.1 g/dL (14.0-18.0) Hematocrit 40.4 % (42-52) Mean Corpuscular Volume 88.6 fL (80-100) Mean Corpuscular Hemoglobin 30.9 pg (25-34) Mean Corpuscular Hemoglobin Concent 34.9 g/dl (32-36) Platelet Count 239 K/uL (130-400) Mean Platelet Volume 11.7 fL (7.4-10.4) Neutrophils (%) (Auto) 77.5 % Lymphocytes (%) (Auto) 12.8 % Monocytes (%) (Auto) 7.4 % Eosinophils (%) (Auto) 1.4 % Basophils (%) (Auto) 0.4 % Neutrophils # (Auto) 8.31 K/uL (1.4-6.5) Lymphocytes # (Auto) 1.37 K/uL (1.2-3.4) Monocytes # (Auto) 0.79 K/uL (0.11-0.59) Eosinophils # (Auto) 0.15 K/uL (0-0.5) Basophils # (Auto) 0.04 K/uL (0-0.2) RDW Standard Deviation 47.2 fL (36.4-46.3) RDW Coefficient of Variation 14.6 % (11.5-14.5) Immature Granulocyte % (Auto) 0.5 % Immature Granulocyte # (Auto) 0.05 K/uL (0.00-0.02) Prothrombin Time 11.7 SECONDS (9.0-12.0) Prothromb Time International Ratio 1.1 (0.9-1.1) Activated Partial Thromboplast Time 25.0 SECONDS (21.0-31.0) Partial Thromboplastin Ratio 1.0 Anion Gap 8.0 mmol/L (3-11) Est Creatinine Clear Calc Drug Dose 95.5 ml/min Estimated GFR () 76.0 Estimated GFR (Non- 65.5 BUN/Creatinine Ratio 12.3 (10-20) Calcium Level 8.9 mg/dl (8.5-10.1) Total Bilirubin 1.8 mg/dl (0.2-1) Aspartate Amino Transf (AST/SGOT) 12 U/L (15-37) Alanine Aminotransferase (ALT/SGPT) 22 U/L (12-78) Alkaline Phosphatase 57 U/L (45-117) Troponin I 1.020 ng/ml (0-0.045) Pro-B-Type Natriuretic Peptide 2170 pg/ml (0-450) Total Protein 6.8 gm/dl (6.4-8.2) Albumin 3.6 gm/dl (3.4-5.0) Globulin 3.2 gm/dl (2.5-4.0) Albumin/Globulin Ratio 1.1 (0.9-2) Bedside Lactic Acid Venous 1.81 mmol/L (0.90-1.70) Urine Color YELLOW Urine Appearance CLEAR (CLEAR) Urine pH 6.5 (4.5-7.5) Urine Specific [place] 1.016 (1.000-1.030) Urine Protein NEG (NEG) Urine Glucose (UA) NEG (NEG) Urine Ketones NEG (NEG) Urine Occult Blood NEG (NEG) Urine Nitrite NEG (NEG) Urine Bilirubin NEG (NEG) Urine Urobilinogen NEG (NEG) Urine Leukocyte Esterase NEG (NEG) Laboratory results per my review. Medications Administered Medications (Trade) Dose Ordered Sig/Yazan Route Start Time Stop Time Status Last Admin Dose Admin Albuterol/ Ipratropium (Duoneb) 3 ml NOW STAT INH 06/13/17 11:46 06/13/17 11:47 DC 06/13/17 12:18 3 ML ECG Indication: SOB/dyspnea Rate (beats per minute): 83 Rhythm: normal sinus Findings: no acute ischemic change, other (Normal axis. Normal intervals. ) ED Course 1043: The patient was evaluated in room A12B. A complete history and physical exam was performed. 1146: Ordered DuoNeb 3 mL INH. 1214: I spoke with the patient about his elevated troponin. He states that his troponin is chronically elevated. 1235: Upon reevaluation, the patient is resting comfortably. I discussed the findings and the treatment plan with the patient. He expresses agreement and understanding. I spoke with Dr. Velasco of the [facility]. The patient will be evaluated for further management. Medical Decision Differential diagnosis: Etiologies such as infections, reactive airway disease, pneumonia, pneumothorax , COPD, CHF, cardiac ischemia, pulmonary embolism, musculoskeletal, gastrointestinal, as well as others were entertained. Pt sent in by cardiology due to worsening symptoms. No evidence of worsening pneumonia, PE, effusion. While trop and BNP chronically elevated, worse today compared to prior and given worsening sx of SOB, asked hospitalist to evaluate further. Doubt bacteremia/sepsis, doubt vascular etiology. Doubt ACS. Pt takes lasix daily. No clear precipitating cause for increased BNP and SOB which likely elevated trop secondarily. Pt improved with neb tx here. No overt hypoxia, however subjectively felt improved with oxygen via NC. other VS stable. Pt aware of all results and was agreeable with plan. Medication Reconcilliation Current Medication List: was personally reviewed by me Blood Pressure Screening Patient's blood pressure: Normal blood pressure Blood pressure disposition: Did not require urgent referral Consults Time Called: 1219 Consulting Physician: Dr. Velasco -[place] Returned Call: 1235 I reviewed the patient's case with Dr. Velasco. [facility] will evaluate the patient for further management. Impression Primary Impression: Dyspnea Additional Impressions: Elevated troponin Elevated brain natriuretic peptide (BNP) level Cardiomyopathy Hyperglycemia Scribe Attestation The scribe's documentation has been prepared under my direction and personally reviewed by me in its entirety. I confirm that the note above accurately reflects all work, treatment, procedures, and medical decision making performed by me. Departure Information Dispostion Being Evaluated By Hospitalist Referrals Bridger Manriquez III, CRNP (PCP) Patient Instructions My [facility] Problem Qualifiers Primary Impression: Dyspnea Dyspnea type: shortness of breath Qualified Codes: R06.02 - Shortness of breath Additional Impressions: Cardiomyopathy Cardiomyopathy type: unspecified Qualified Codes: I42.9 - Cardiomyopathy, unspecified
[2017-06-13] MEDS ORDERED: GLUCOSE 40% GEL 15 GM TUBE PO PRN (13:15)
[2017-06-13] MEDS ORDERED: GLUCAGON FOR INJ 1 MG VIAL SQ PRN (13:15)
[2017-06-13] MEDS ORDERED: ONDANSETRON INJ 2 MG/ML 2 ML VIAL IV PRN (13:15)
[2017-06-13] MEDS ORDERED: DEXTROSE 50% 50 ML SYR IV PRN (13:15)
[2017-06-13] MEDS ORDERED: ACETAMINOPHEN 325 MG TAB PO PRN (13:15)
[2017-06-13] MEDS ORDERED: GLUCOSE 10 TABS/TUBE PO PRN (13:15)
[2017-06-13] MEDS ORDERED: BENZONATATE 100MG CAP PO PRN (13:30)
[2017-06-13] MEDS ORDERED: PHARMACY GLYCEMIC MGMT CONSULT PRN (13:51)
--- NOTE | 2017-06-13 14:17 | Pharmacy Progress Note ---
Glycemic Control Intl Consult Date of Service Jun 13, 2017. Scope Glycemic Pharmacist consulted by Josh Barbosa on 06/13/17 for glycemic control and to write orders per [facility] inpatient glycemic control protocol Objective Weight (Kilograms): 112.000 Accuchecks BSG (last 24hrs): Test 06/13/17 10:20 Random Glucose 248 mg/dl (70-99) Laboratory Data (last 24hrs) Test 06/13/17 10:20 Anion Gap 8.0 mmol/L BUN/Creatinine Ratio 12.3 Blood Urea Nitrogen 17 mg/dl Creatinine 1.40 mg/dl Potassium Level 3.9 mmol/L Sodium Level 137 mmol/L White Blood Count 10.71 K/uL Red Blood Count 4.56 M/uL Hemoglobin 14.1 g/dL Hematocrit 40.4 % Mean Corpuscular Volume 88.6 fL Mean Corpuscular Hemoglobin 30.9 pg Mean Corpuscular Hemoglobin Concent 34.9 g/dl Platelet Count 239 K/uL Mean Platelet Volume 11.7 fL Neutrophils (%) (Auto) 77.5 % Lymphocytes (%) (Auto) 12.8 % Monocytes (%) (Auto) 7.4 % Eosinophils (%) (Auto) 1.4 % Basophils (%) (Auto) 0.4 % Neutrophils # (Auto) 8.31 K/uL Lymphocytes # (Auto) 1.37 K/uL Monocytes # (Auto) 0.79 K/uL Eosinophils # (Auto) 0.15 K/uL Basophils # (Auto) 0.04 K/uL Recent Pertinent Medications Outpatient Anti-diabetic Regimen: * Tresiba 160 units SQ qPM + Novolog with meals * A1c = 9.5 % 05/16/17 Risk Factors for Insulin Resistance: * Infection: Pneumonia * Diet: type 2 diabetic diet Assessment & Plan ASSESSMENT: * ADA & AACE recommend a goal blood sugar range 140-180 mg/dl for the majority of critically ill & non-critically ill patients. However, more stringent targets may be selected in individual cases. Will utilize more stringent goal of 110-140 mg/dl based on patient age & comorbidities. Additionally, tighter glycemic control is warranted to facilitate infection healing. * Mr Hendricks is a 32 y/o M who was recently admitted for C difficle infection and pneumonia. He is currently re-admitted for pneumonia. During the last hospitalization, Mr Hendricks required around 110 units per insulin per day. Due to the patient's illness, he may require more insulin initially this admission. He has not taken any insulin today and his blood sugar at 10 am was 248 mg/dL. * For basal insulin, will restart a sliding scale this evening (keep once daily dosing since patient does this at home) - will provide a slightly more aggressive regimen in case the patient requires more insulin this admission. For correctional insulin will start weight based stress of 3 dosing which also correlates to 110 units of insulin per day. PLAN FOR INPATIENT GLYCEMIC CONTROL: * Basal insulin with LANTUS 60-70 units SQ qHS (60 units if blood sugar less than 180 mg/dL and 70 units if blood sugar 180 mg/dL or greater) * Correctional Insulin with NOVOLOG per scale ACHS or Q6hrs while NPO * Goal Range: Low 110 mg/dL - High 140 mg/dL * Correction Factor: 15 mg/dL/unit * Nutritional / Prandial insulin per carb ratio of 1 unit per 5 grams CHO consumed * Please note that the plan above was derived based on current level of insulin resistance and hospital stress. These recommendations are appropriate for inpatient admission only. Plan of care upon discharge will need to be reassessed to avoid potential outpatient hypo/hyperglycemia. Thank you.
[2017-06-13] MEDS ORDERED: LEVALBUTEROL/IPRATROPIUM NEB INH SCH (15:00)
[2017-06-13] MEDS: IPRATROPIUM BROMIDE NEB SOLN 0.02% 2.5 ML VIAL INH SCH ×2 (15:27→19:12)
[2017-06-13] MEDS: LEVALBUTEROL 1.25MG/0.5ML NEB INH SCH ×2 (15:27→19:09)
[2017-06-13] MEDS: HEPARIN SOD 5000 UNIT/0.5 ML CARP SQ SCH ×2 (15:52→20:42)
[2017-06-13] MEDS: INSULIN ASPART 100 UNITS/ML 3 ML PEN SC SCH ×2 (15:58→20:33)
[2017-06-13] MEDS: LEVOFLOXACIN 750 MG TAB PO SCH (15:59)
[2017-06-13] MEDS: GABAPENTIN 100 MG CAP PO SCH ×2 (16:00→20:40)
--- NOTE | 2017-06-13 16:10 | Cardiology Consultation ---
Cardiology Consultation Date of Consultation: Jun 13, 2017. Requesting Physician: Dr. Velasco Reason for Consultation: Elevated troponin Pt evaluation today including: conversation w/ patient, physical exam, lab review, review of studies, review of inpatient medication list History of Present Illness This is a 32-year-old gentleman with a nonischemic cardiomyopathy for which he is nice ED for primary prevention of sudden cardiac , chronic systolic heart failure as well as diabetes mellitus, hypertension and a persistent cough. His cardiomyopathy was initially diagnosed in 2012 when he had syncope and was noted to have severe left ventricular dysfunction, catheterization on showed normal coronary arteries. He has had difficulty with pneumonia recently, and he is bothered by a cough. He typically does not have exertional chest discomfort, he is somewhat limited in his activities but does not note any significant increase in dyspnea on exertion recently. He was seen in our office today in preparation for bronchoscopy to evaluate his pulmonary complaints, however he felt poorly today with symptoms of nausea, weakness and fatigue in general and came to the emergency room. He was noted to have an elevated troponin (which he often has). With this and his pulmonary complaints was admitted. At this time my evaluation he had just received a breathing treatment and felt better. He denied symptoms of chest discomfort, has not been having difficulty with edema, orthopnea or PND. Family History Cancer FH: HTN (hypertension) FH: diabetes mellitus Heart disease Social History Smoking Status: Never Smoker History of Alcohol Use: No Review of Systems Constitutional: No fever, No weight loss, No weakness Respiratory: + see HPI, + cough, + sputum, + shortness of breath, No wheezing, No dyspnea on exertion Cardiac: + see HPI, No chest pain, No orthopnea, No PND, No edema, No palpitations Abdomen: No pain, No nausea, No vomiting, No diarrhea, No GI bleeding Male : No urinary frequency, No nocturia more than once/night, No slowing stream, No sexual dysfunction Neurologic: No paralysis, No weakness, No numbness/tingling, No balance problems Heme: No abnormal bleeding/bruising, No clotting problems Endo: No fatigue Skin: No problem reported All Other Systems: Reviewed and Negative Allergies Coded Allergies: VEE Inhibitors (Verified Allergy, Intermediate, COUGH, 05/14/17) Lisinopril (Verified Adverse Reaction, Unknown, cough, 05/14/17) Medications Current Inpatient Medications Medications (Trade) Dose Ordered Sig/Yazan Route Start Time Stop Time Status Last Admin Dose Admin Ioversol (Optiray 320) 125 ml UD PRN IV 06/13/17 11:30 06/17/17 11:29 Heparin Sodium (Porcine) (Heparin Sq 5000 Unit/0.5ml) 5,000 unit Q8 SQ 06/13/17 15:00 07/13/17 14:59 Acetaminophen (Tylenol Tab) 650 mg Q4H PRN PO 06/13/17 13:15 07/13/17 13:14 Ondansetron HCl (Zofran Inj) 4 mg Q6H PRN IV 06/13/17 13:15 07/13/17 13:14 Insulin Glargine (Lantus Vial) SEE PROTOCOL HS SC 06/13/17 21:00 07/13/17 20:59 Insulin Aspart (novoLOG ASPART) SLIDING SCALE If C... ACHS SC 06/13/17 16:00 07/13/17 15:59 Glucose (Glucose 40% Gel) 15-30 GRAMS 15 GRAMS... UD PRN PO 06/13/17 13:15 07/13/17 13:14 Glucose (Glucose Chew Tab) 4-8 Tablets 4 Tabl... UD PRN PO 06/13/17 13:15 07/13/17 13:14 Dextrose (Dextrose 50% 50ML Syringe) 25-50ML OF 50% DW IV FOR... UD PRN IV 06/13/17 13:15 07/13/17 13:14 Glucagon (Glucagon Inj) 1 mg UD PRN SQ 06/13/17 13:15 07/13/17 13:14 Miscellaneous Information (Consult Glycemic Management Pharmacy) 1 ea UD PRN N/A 06/13/17 13:51 07/13/17 13:50 Atorvastatin Calcium (Lipitor Tab) 40 mg DAILY PO 06/14/17 09:00 07/14/17 08:59 Benzonatate (Tessalon Perles Cap) 100 mg Q8H PRN PO 06/13/17 13:30 07/13/17 13:29 Carvedilol (Coreg Tab) 25 mg BID PO 06/13/17 21:00 07/13/17 20:59 Furosemide (Lasix Tab) 40 mg QAM PO 06/14/17 09:00 07/14/17 08:59 Gabapentin (Neurontin Cap) 100 mg TID PO 06/13/17 15:00 07/13/17 14:59 Levothyroxine Sodium (Synthroid Tab) 88 mcg DAILYBB PO 06/14/17 06:00 07/14/17 06:59 Magnesium Oxide (Mag-Ox Tab) 400 mg BID PO 06/13/17 21:00 07/13/17 20:59 Spironolactone (Aldactone Tab) 25 mg QAM PO 06/14/17 09:00 07/14/17 08:59 Levofloxacin (Levaquin Tab) 750 mg DAILY@11 PO 06/13/17 15:00 06/18/17 14:59 Budesonide (Pulmicort Respules 0.5MG/ 2ML Neb Soln) 0.5 mg BIDR INH 06/13/17 20:00 07/13/17 19:59 Ipratropium [place] (Atrovent 0.02% 0.5MG/2.5ML Neb) 0.5 mg Q6R INH 06/13/17 15:00 07/13/17 14:59 06/13/17 15:27 0.5 MG Levalbuterol (Xopenex 1.25MG/ 0.5ML Neb) 1.25 mg Q6R INH 06/13/17 15:00 07/13/17 14:59 06/13/17 15:27 1.25 MG Physical Exam Vital Signs Past 12 Hours Date Time Temp Pulse Resp B/P (MAP) Pulse Ox O2 Delivery O2 Flow Rate FiO2 06/13/17 15:27 88 20 95 Room Air 06/13/17 14:40 37.0 95 20 118/92 (101) 96 Room Air 06/13/17 14:19 92 28 97/68 06/13/17 13:40 90 112/79 06/13/17 13:32 88 06/13/17 12:35 97 Nasal Cannula 2.0 06/13/17 12:29 90 23 06/13/17 11:59 86 21 06/13/17 11:40 101/72 06/13/17 11:39 89 20 101/72 97 Nasal Cannula 2.0 06/13/17 10:59 87 23 96 06/13/17 10:29 81 12 99 06/13/17 10:27 84 06/13/17 10:25 97 Nasal Cannula 2.0 06/13/17 10:08 36.4 86 20 91/69 94 Room Air Constitutional: General Apperance: heathly-appearing Level of Distress: NAD Psychiatric: Mental Status: active & alert Head: normocephalic Eyes: EOM: EOMI ENMT: normal ENT inspection, hearing grossly normal Neck: supple, no masses Lungs: Respiratory effort: no dyspnea, good air movement Auscultation: breath sounds normal, no wheezing Cardiovascular: Heart Auscultation: RRR, no murmurs, no rubs, no gallops Peripheral Pulses: Bruits: none appreciated Abdomen: Bowel Sounds: normal Inspection & Palpation: soft, no tenderness, guarding & rebound, no masses Musculoskeletal: normal strength (5/5 throughout) Extremities: no edema Neurologic: Cranial Nerves: grossly intact Sensation: grossly intact Data Laboratory Results: Last 24 Hours Test 06/13/17 10:20 06/13/17 11:39 White Blood Count 10.71 K/uL Red Blood Count 4.56 M/uL Hemoglobin 14.1 g/dL Hematocrit 40.4 % Mean Corpuscular Volume 88.6 fL Mean Corpuscular Hemoglobin 30.9 pg Mean Corpuscular Hemoglobin Concent 34.9 g/dl Platelet Count 239 K/uL Mean Platelet Volume 11.7 fL Neutrophils (%) (Auto) 77.5 % Lymphocytes (%) (Auto) 12.8 % Monocytes (%) (Auto) 7.4 % Eosinophils (%) (Auto) 1.4 % Basophils (%) (Auto) 0.4 % Neutrophils # (Auto) 8.31 K/uL Lymphocytes # (Auto) 1.37 K/uL Monocytes # (Auto) 0.79 K/uL Eosinophils # (Auto) 0.15 K/uL Basophils # (Auto) 0.04 K/uL RDW Standard Deviation 47.2 fL RDW Coefficient of Variation 14.6 % Immature Granulocyte % (Auto) 0.5 % Immature Granulocyte # (Auto) 0.05 K/uL Prothrombin Time 11.7 SECONDS Prothromb Time International Ratio 1.1 Activated Partial Thromboplast Time 25.0 SECONDS Partial Thromboplastin Ratio 1.0 Sodium Level 137 mmol/L Potassium Level 3.9 mmol/L Chloride Level 106 mmol/L Carbon Dioxide Level 23 mmol/L Anion Gap 8.0 mmol/L Blood Urea Nitrogen 17 mg/dl Creatinine 1.40 mg/dl Est Creatinine Clear Calc Drug Dose 95.5 ml/min Estimated GFR () 76.0 Estimated GFR (Non- 65.5 BUN/Creatinine Ratio 12.3 Random Glucose 248 mg/dl Calcium Level 8.9 mg/dl Total Bilirubin 1.8 mg/dl Aspartate Amino Transf (AST/SGOT) 12 U/L Alanine Aminotransferase (ALT/SGPT) 22 U/L Alkaline Phosphatase 57 U/L Troponin I 1.020 ng/ml Pro-B-Type Natriuretic Peptide 2170 pg/ml Total Protein 6.8 gm/dl Albumin 3.6 gm/dl Globulin 3.2 gm/dl Albumin/Globulin Ratio 1.1 Urine Color YELLOW Urine Appearance CLEAR Urine pH 6.5 Urine Specific [place] 1.016 Urine Protein NEG Urine Glucose (UA) NEG Urine Ketones NEG Urine Occult Blood NEG Urine Nitrite NEG Urine Bilirubin NEG Urine Urobilinogen NEG Urine Leukocyte Esterase NEG Imaging: A chest x-ray in the emergency room was felt to represent a new basilar opacity, however a CT scan showed no abnormality to explain that and no evidence of pulmonary embolism. EKG: Sinus rhythm, very minor ST-T abnormalities. No acute changes. Assessment & Plan #1. Elevated troponin: He has a chronically elevated troponin, his current troponin is not much higher than many other measurements. He has normal coronary arteries based on catheterization 4 years ago, I would not pursue this further. #2. Shortness of breath and elevated BNP: Although his lungs sound clear to my exam he may have some congestive heart failure, he has not been weighed yet and he does not have peripheral edema. His renal function is good and I think would be reasonable to give him an extra dose of diuretic today (he is on Lasix daily) . I will order that intravenously this afternoon. #3. Cardiomyopathy: He has a known long-standing nonischemic cardiomyopathy by don't believe he has had a measure of his left ventricular function lately. The last echocardiogram that I see here was July 2015 when his ejection fraction was 25%. I don't see a more recent one in the office. I'm going to schedule one to see what his ejection fraction is. Thank you for allowing me to participate in his care.
--- NOTE | 2017-06-13 16:17 | History and Physical ---
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 Approximately one month ago, the patient was admitted at this facility for multifocal pneumonia which was treated with Levaquin and inhalers. His symptoms have been improving until a few days ago when he noticed return of cough with production of clear sputum. He is complained of shortness of breath on exertion. There is been no riaz hemoptysis. He denies any chest pain. He does report some abdominal discomfort which is worse only after he coughs. He reports a few episodes of posttussive emesis. He was seen today for preoperative screening at his web specialist's office and explained his symptoms. He was directed to the emergency department for further evaluation of his ongoing symptoms. Patient actually is scheduled for bronchoscopy next week in the setting of concerning findings on CT. He has seen the pulmonology clinic one time previously. The patient reports no previous history of pulmonary disease. He has not smoked. He denies any other upper respiratory symptoms. During previous admission, the patient was found to have C. difficile colitis. He was treated with antibiotics. His stool has been formed. He's had no further episodes of diarrhea. There is been no retesting at this point. In the emergency department today, the patient had a chest x-ray that was initially concerning for new RIGHT basilar infiltrate. A CT of chest demonstrates no such findings, however he does have persistent mediastinal lymphadenopathy. In addition, the patient was found to have an elevated troponin which is higher than we have seen previously. His EKG is unchanged from priors. Past Medical/Surgical History Medical Problems: (1) Bronchitis (2) Chronic congestive heart failure (3) Diabetes (4) Diabetes mellitus (5) Dilated cardiomyopathy (6) Elevated troponin (7) Fever (8) HTN (hypertension) (9) Hypotension (10) Kidney stone (11) Nonischemic cardiomyopathy (12) Pneumonia Family History Cancer FH: HTN (hypertension) FH: diabetes mellitus Heart disease Social History Smoking Status: Never Smoker Smokeless Tobacco Use: No Alcohol Use: none Drug Use: none Marital Status: single, in relationship Housing status: lives with family Occupational Status: employed Immunizations History of Influenza Vaccine: N/A History of Tetanus Vaccine?: Unknown History of Pneumococcal: Unknown History of Hepatitis B Vaccine: Unknown Multi-Drug Resistant Organisms History of MDRO: No Allergies Coded Allergies: VEE Inhibitors (Verified Allergy, Intermediate, COUGH, 05/14/17) Lisinopril (Verified Adverse Reaction, Unknown, cough, 05/14/17) Home Medications Scheduled Atorvastatin (Atorvastatin Calcium), 40 MG PO DAILY Carvedilol (Carvedilol), 25 MG PO BID Furosemide (Furosemide), 40 MG PO QAM Gabapentin (Neurontin), 100 MG PO TID Insulin Aspart (Novolog Flexpen), 1 DOSE SC AC Insulin Degludec (Tresiba Flextouch), 160 UNITS SC QPM Ipratropium-Albuterol (Combivent Respimat), 1 PUFFS INH QID Levothyroxine Sodium (Levothyroxine Sodium), 88 MCG PO QAM Magnesium Oxide (Magnesium-Oxide), 400 MG PO BID Potassium Chloride (K-Tab), 20 MEQ PO QPM Spironolactone (Aldactone), 25 MG PO QAM Scheduled PRN Benzonatate (Tessalon Perles), 100 MG PO Q8H PRN for Cough Review of Systems A complete 10-point Review of Systems was discussed with the patient, with pertinent positives and negatives listed in the History of Present Illness. All remaining Review of Systems questions can be considered negative unless otherwise specified. Physical Exam Vital Signs Date Time Temp Pulse Resp B/P (MAP) Pulse Ox O2 Delivery O2 Flow Rate FiO2 06/13/17 15:27 88 20 95 Room Air 06/13/17 14:40 37.0 95 20 118/92 (101) 96 Room Air 06/13/17 14:19 92 28 97/68 06/13/17 13:40 90 112/79 06/13/17 13:32 88 06/13/17 12:35 97 Nasal Cannula 2.0 06/13/17 12:29 90 23 06/13/17 11:59 86 21 06/13/17 11:40 101/72 06/13/17 11:39 89 20 101/72 97 Nasal Cannula 2.0 06/13/17 10:59 87 23 96 06/13/17 10:29 81 12 99 06/13/17 10:27 84 06/13/17 10:25 97 Nasal Cannula 2.0 06/13/17 10:08 36.4 86 20 91/69 94 Room Air VITAL SIGNS - Vital signs and nursing notes were reviewed. GENERAL - 32-year-old male appearing his stated age who is in no acute distress. Communicates well with provider and answers questions appropriately. SKIN - Without rashes. HEAD - NC/AT. EYES - PERRL with EOMI bilaterally. Sclera anicteric. Palpebral conjunctiva pink and moist with no injection noted. EARS - No deformities of external structures noted on gross examination bilaterally. No pain elicited with palpation of the tragus bilaterally. External auditory canals without discharge or otorrhea. Tympanic membranes pearly ferrer without retraction or bulging. No fluid or purulent material visualized behind the TM. Handle of malleus, umbo, cone of light, pars tensa/ flaccid all easily visualized. NOSE - Midline and without cyanosis. No epistaxis or purulent drainage noted. Septum midline without deviation or septal hematoma noted. MOUTH/OROPHARYNX - Without perioral cyanosis. Buccal mucosa pink and moist and without leukoplakia. Tongue midline with equal elevation of palate bilaterally. No tonsillar hypertrophy, erythema, or exudates noted. NECK - Neck with FROM. Supple to palpation. No lymphadenopathy noted. No nuchal rigidity. LUNGS - Chest wall symmetric without accessory muscle use, intercostals retractions, or central cyanosis. Normal vesicular breath sounds CTA B/L. No wheezes, rales, or rhonchi appreciated. CARDIAC - RRR with S1/S2. No murmur, rubs, or gallops appreciated. ABDOMEN - Abdominal contour obese without pulsations or visible masses. BS normoactive all four quadrants. No tenderness, palpable masses, hepatosplenomegaly, or ascites noted. EXTREMITIES - No clubbing or peripheral cyanosis. No pretibial edema present. +5 /5 strength noted in UE/LE bilaterally. NEUROLOGIC - Cranial nerves II through XII grossly intact. Sensory intact to light touch throughout. PSYCH - A&Ox3 and cooperates fully with examiner. Pt is very pleasant and interacts well with examiner. Diagnostics Laboratory Results Results Past 24 Hours Test 06/13/17 10:20 06/13/17 11:39 Range/Units White Blood Count 10.71 4.8-10.8 K/uL Red Blood Count 4.56 4.7-6.1 M/uL Hemoglobin 14.1 14.0-18.0 g/dL Hematocrit 40.4 42-52 % Mean Corpuscular Volume 88.6 80-100 fL Mean Corpuscular Hemoglobin 30.9 25-34 pg Mean Corpuscular Hemoglobin Concent 34.9 32-36 g/dl Platelet Count 239 130-400 K/uL Mean Platelet Volume 11.7 7.4-10.4 fL Neutrophils (%) (Auto) 77.5 % Lymphocytes (%) (Auto) 12.8 % Monocytes (%) (Auto) 7.4 % Eosinophils (%) (Auto) 1.4 % Basophils (%) (Auto) 0.4 % Neutrophils # (Auto) 8.31 1.4-6.5 K/uL Lymphocytes # (Auto) 1.37 1.2-3.4 K/uL Monocytes # (Auto) 0.79 0.11-0.59 K/uL Eosinophils # (Auto) 0.15 0-0.5 K/uL Basophils # (Auto) 0.04 0-0.2 K/uL RDW Standard Deviation 47.2 36.4-46.3 fL RDW Coefficient of Variation 14.6 11.5-14.5 % Immature Granulocyte % (Auto) 0.5 % Immature Granulocyte # (Auto) 0.05 0.00-0.02 K/uL Prothrombin Time 11.7 9.0-12.0 SECONDS Prothromb Time International Ratio 1.1 0.9-1.1 Activated Partial Thromboplast Time 25.0 21.0-31.0 SECONDS Partial Thromboplastin Ratio 1.0 Sodium Level 137 136-145 mmol/L Potassium Level 3.9 3.5-5.1 mmol/L Chloride Level 106 98-107 mmol/L Carbon Dioxide Level 23 21-32 mmol/L Anion Gap 8.0 3-11 mmol/L Blood Urea Nitrogen 17 7-18 mg/dl Creatinine 1.40 0.60-1.40 mg/dl Est Creatinine Clear Calc Drug Dose 95.5 ml/min Estimated GFR () 76.0 Estimated GFR (Non- 65.5 BUN/Creatinine Ratio 12.3 10-20 Random Glucose 248 70-99 mg/dl Calcium Level 8.9 8.5-10.1 mg/dl Total Bilirubin 1.8 0.2-1 mg/dl Aspartate Amino Transf (AST/SGOT) 12 15-37 U/L Alanine Aminotransferase (ALT/SGPT) 22 12-78 U/L Alkaline Phosphatase 57 45-117 U/L Troponin I 1.020 0-0.045 ng/ml Pro-B-Type Natriuretic Peptide 2170 0-450 pg/ml Total Protein 6.8 6.4-8.2 gm/dl Albumin 3.6 3.4-5.0 gm/dl Globulin 3.2 2.5-4.0 gm/dl Albumin/Globulin Ratio 1.1 0.9-2 Urine Color YELLOW Urine Appearance CLEAR CLEAR Urine pH 6.5 4.5-7.5 Urine Specific [place] 1.016 1.000-1.030 Urine Protein NEG NEG Urine Glucose (UA) NEG NEG Urine Ketones NEG NEG Urine Occult Blood NEG NEG Urine Nitrite NEG NEG Urine Bilirubin NEG NEG Urine Urobilinogen NEG NEG Urine Leukocyte Esterase NEG NEG Diagnostic Radiology Radiological imaging and reports were reviewed by myself. Radiologist's Interpretation as follows: CHEST ONE VIEW PORTABLE CLINICAL HISTORY: 32 years-old Male presenting with cough, recent pneumonia. TECHNIQUE: Portable upright AP view of the chest was obtained. COMPARISON: 05/28/2017. FINDINGS: Left-sided implanted cardiac defibrillator with lead to the right ventricular apex. Cardiac silhouette remains enlarged. Minimal vague opacity in the right lung base, new from prior. No large effusion or pneumothorax. Osseous structures normal. Upper abdomen normal. IMPRESSION: 1. New right basilar opacity, which could represent atelectasis, infection, or aspiration. 2. Cardiomegaly. CT ANGIOGRAM OF THE CHEST CLINICAL HISTORY: Shortness of breath, pneumonia. Cough. COMPARISON STUDY: Chest CT dated 05/14/2017 TECHNIQUE: Following the IV administration of 95 mL of [id number]-320, CT angiogram of the thorax was performed from the thoracic inlet to the lung bases utilizing the pulmonary embolus protocol. Images are reviewed in the axial, sagittal, and coronal planes. IV contrast was administered without complication. MIP imaging was performed. A dose lowering technique was utilized adhering to the principles of ALARA. CT DOSE: 706.00 mGy.cm FINDINGS: There are persistent mildly enlarged hilar and mediastinal lymph nodes. There is no evidence of pathologic axillary lymphadenopathy There was no evidence of thoracic aortic dilatation. The study is compromised due to respiratory motion artifact. There are no pulmonary artery filling defects to indicate acute pulmonary embolism. No pleural effusions are visualized. There is been near complete interval clearing in the previously described upper lobe pulmonary airspace opacities. There are persistent but improving airspace opacities within the superior segment of the right lower lobe. The heart is enlarged. There is reflux of contrast into the IVC and hepatic veins. IMPRESSION: 1. Technically limited study secondary to respiratory motion artifact 2. No evidence of acute pulmonary embolism given the limitations of the study 3. Improving bilateral pulmonary airspace opacities consistent with a resolving multifocal pneumonia 4. Persistent mediastinal and hilar lymphadenopathy EKG Vent. 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 Recent upper respiratory infection with worsening symptoms of the last 3-4 days consistent with acute bronchitis. Acute elevation of troponin from baseline. Poorly controlled diabetic. ELEVATED TROPONIN: * In the setting of patient's significant history of severe dilated cardiomyopathy with poor EF of approximately 20%, with certainly appreciate cardiology consultation recommendation. No EKG changes present in the emergency department. No complaints of chest pain. Previous cardiac catheterizations have demonstrated no atherosclerotic disease. We'll defer to cardiology recommendation for further evaluation and management. * Trend troponins every 8 hours. * EKGs daily and with chest pain. * Monitor on telemetry. CHRONIC CHF: * Slight elevation of BNP in the ED. * Exam not consistent with acute volume overload. * Chest x-ray unremarkable. * Will continue daily dosing of furosemide. HTN: * Continue home medications as tolerated. ACUTE BRONCHITIS: * Recently treated for multifocal pneumonia. CTA not concerning for PE. Persistent lymphadenopathy noted. * Will continue to treat with nebulizers as he has had successful relief of symptoms. * Will add Pulmicort. Will avoid systemic steroid use at this time secondary to patient's poorly controlled blood sugars. * Will encourage incentive spirometry. * Nightly CPAP in the setting of MIRTA. * Levaquin for coverage in the setting of recent infection and concerning findings on initial chest x-ray. Patient likely prone to decompensate abruptly secondary to poor cardiac compensation. Plan to treat aggressively. * Appreciate pulmonary consultation and guidance. DMII: * Initial blood sugar is noted to be 240s. * Did discuss with ED pharmacist. * Insulin sliding scale per protocol. * Will avoid systemic steroids at this time and less critically necessary. * Appreciated glycemic consultation. HYPOTHYROIDISM: * Will check TSH, Free T3/4 tomorrow. * Continue home dosing of levothyroxine at this point. DVT PROPHYLAXIS: * Heparin bid. * SCDs. * Ambulation as tolerated. Attending Addendum: I have physically seen and examined this patient, have directed the physician assistants medical activities, and agree with the H&P as noted above with the following exceptions as noted. The patient is awake, alert and oriented 3, well-developed and well-nourished , normocephalic and atraumatic, lying in bed and in no acute distress. HEENT--PERRL, EOMI, mucous membranes and oropharynx dry. Neck--supple, no JVD or bruits, thyroid normal, trachea midline, no adenopathy. Heart--normal S1 and S2, no extra beats, no murmurs, rubs or gallops. Lungs--few coarse breath sounds with scattered wheezes, no respiratory distress , no accessory muscle use. Abdomen--normal bowel sounds and soft, nontender and nondistended, no hernias or masses, no organomegaly. Extremities--no cyanosis, clubbing or edema. There are good distal pulses b/l. Dermatologic--normal skin turgor, normal color, warm and dry, no abnormal lymph nodes, no rash. Neurologic--cranial nerves II through XII grossly intact. Rheumatologic--normal range of motion, nontender, muscles and joints. Psychiatric--normal affect. Assessment and Plan: CAD/hypertension/chronic CHF/elevated troponin- The patient will be admitted to telemetry for serial cardiac enzymes, cardiac rhythm monitoring and a 2-D echocardiogram with Dopplers. Carvedilol 25 mg by mouth twice a day, furosemide 40 mg by mouth every morning, mag oxide 40 mg by mouth twice a day, Klor-Con 20 mEq by mouth daily, spironolactone 25 mg by mouth every morning. Resolving multifocal pneumonia with new right lower lobe infiltrate-- Xopenex/Atrovent nebulizers Pulmicort Respules 0.5 mg inhaled twice a day. CPAP at bedtime. Levaquin IV. Consult pulmonary Diabetes mellitus-- Convert Tresiba to Lantus insulin. Patient Accu-Cheks before meals and at bedtime with NovoLog coverage per scale. Hypothyroidism-- Continue levothyroxine sodium 88 g daily. Hyperlipidemia-- Continue atorvastatin 40 mg daily. GPN-- Continue gabapentin 100 mg by mouth 3 times a day. Level of Care Med/Surg Advanced Directives Existing Advance Directive: No Existing Living Will: No Existing Power of Commercial Singer: No Resuscitation Status FULL RESUSCITATION VTE Prophylaxis VTE Risk Assessment Done? Y/N: Yes Risk Level: Moderate Given or contraindicated: Unfractionated heparin SQ, SCD's Social Service Consult None Apply Problem Qualifiers (1) Diabetes: Diabetes mellitus type: type 2 (2) Chronic CHF: Congestive heart failure type: unspecified congestive heart failure type Qualified Codes: I50.9 - Heart failure, unspecified
[2017-06-13] MEDS ORDERED: FUROSEMIDE 40 MG/4 ML VIAL IV ONE (16:30)
--- NOTE | 2017-06-13 16:37 | Pulmonary Consultation ---
History General Date of Service: Jun 13, 2017. Stated Complaint: Bronchitis, Diabetes Mellitus, Dilated HPI The patient is a 32 year old male who presents to [facility] with complaints of Bronchitis, Diabetes Mellitus, Dilated. The patient's primary care provider is Bridger Manriquez III, CRNP. Mr. Samuel is a 32-year-old male with past medical history of diabetes type 1, hypertension, viral cardiomyopathy, nonsustained V. tach status post AICD, congestive heart failure, moderate obstructive sleep apnea with hypoxemia on BiPAP, GERD who was recently treated for multifocal pneumonia and C. difficile infection. He is scheduled to bronchoscopy on 06/16/2017 and was at [facility] for cardiac clearance. He was secondary to the [facility] for evaluation of persistent shortness of breath and cough. He also describes intermittent wheezing, chest tightness and dry cough mostly at night. He denies any hemoptysis. He denies any fever, chills, chest pain, dizziness , lightheadedness, orthopnea, PND or lower extremity edema. He states that his exercise tolerance is about the 50 feet. His BiPAP settings are 16/6 centimeters of water with a respiratory rate of 14. He states that he is trying to be more compliant with use. From a respiratory standpoint he takes Combivent Respimat one puff every 4 hours. He recently saw Nazia Lester in pulmonary clinic on 06/05/2017. At that time he had a blood work sent for PCR influenza A and B, PT and INR in urine Legionella antigen was sent which were negative. He was also given prescription for albuterol/Atrovent nebulizer every 4 hours. In the ER his vital signs were, temperature 36.4, pulse 86, respiratory rate of 20, blood pressure 91/69, pulse oximetry 94 on room air. He was placed on 2 L nasal cannula and his pulse oximetry increased to 97%. Laboratory data showed a white blood cell count of 10, hemoglobin of 14, platelet count of 239. Chemistry showed a sodium of 137, potassium of 3.9, chloride of 106, carbon dioxide of 23, BUN of 17 and creatinine of 1.4 , glucose of 248, calcium 8.9, total bili of 1.8 AST 12 ALT 22, alkaline phosphatase 57. Troponins are elevated at 1.02, pro- BNP 2170. Total protein was 6.8, albumin 2.6. PT 11.7, INR 1.1 and PTT of 25. UA was within normal limits. Chest x-ray showed a new opacity in the right lung base and cardiomegaly. A CT chest with contrast was done and showed near complete interval of previously described upper lobe pulmonary opacities. There was some persistence blood improvement of airspace opacities in the right lower lobe. There was persistent mediastinal and hilar lymphadenopathy. No pulmonary embolism was seen. He was given albuterol ipratropium nebulizer without relief of his symptoms. He was admitted bronchitis and ACS. Historian: patient Onset: other (six-week history ) Severity: moderate Complaint Status: improved, persistent Review of Systems Constitutional: reports: as stated in HPI Eyes: reports: as stated in HPI ENT: reports: as stated in HPI Cardiovascular: reports: as stated in HPI Respiratory: reports: as stated in HPI Gastrointestinal: reports: as stated in HPI Genitourinary - Male: reports: as stated in HPI Musculoskeletal: reports: as stated in HPI Integumentary: reports: as stated in HPI Neurologic: reports: as stated in HPI Psychiatric: reports: as stated in HPI Endocrine: as stated in HPI Hematologic / Lymphatic: as stated in HPI Allergic / Immunologic: as stated in HPI All Other Symptoms All Other Systems: Reviewed and Negative Past Medical History Past Medical History: Active problems: Abnormal EKG, AICD, C. difficile diarrhea, candidiasis, cough, depression, type 1 diabetes-uncontrolled, diabetic neuropathy, dilated congestive cardiomyopathy , dysuria, essential hypertension, GERD without esophagitis, hyperlipidemia, hypothyroidism, microalbuminuria, obstructive sleep apnea with nocturnal hypoxemia, pneumonia, renal cyst Past Surgical History: Lymphadenectomy Oral surgery tooth extraction Family History Cancer FH: HTN (hypertension) FH: diabetes mellitus Heart disease He denies any family history of colon cancer, rest cancer, prostate cancer, ovarian cancer. He has family history of myocardial infarction, coronary artery disease, kidney disease, type 2 diabetes malignant, and Neoplasm of the eye Social History He denies any alcohol use, illicit drug use or tobacco use. He is single and lives alone. Hx Tobacco Use In Past Year?: No Smoking Status: Never Smoker Marital status: in relationship Occupational Status: employed Immunizations History of Influenza Vaccine: N/A History of Tetanus Vaccine?: Unknown History of Pneumococcal: Unknown History of Hepatitis B Vaccine: Unknown History of MDRO History of MDRO: No Allergies Coded Allergies: VEE Inhibitors (Verified Allergy, Intermediate, COUGH, 05/14/17) Lisinopril (Verified Adverse Reaction, Unknown, cough, 05/14/17) Current Medications Reported Home Medications Medications Dose Route/Sig Max Daily Dose Days Date Category Dose Instructions Tessalon Perles (Benzonatate) 100 Mg Cap 100 Mg PO Q8H PRN 05/18/17 Rx Combivent Respimat (Ipratropium-Albuterol) 1 Aer Aer 1 Puffs INH QID 05/18/17 Rx Magnesium-Oxide (Magnesium Oxide) 400 Mg Tab 400 Mg PO BID 30 05/18/17 Rx Novolog Flexpen (Insulin Aspart) 100 Units/Ml Inj 1 Dose SC AC 03/24/17 Reported COVERAGE DIRECTED BY [employer]ING [employer] Carvedilol 25 Mg Tab 25 Mg PO BID 03/24/17 Reported Tresiba Flextouch (Insulin Degludec) 200 Unit/Ml Inj 160 Units SC QPM 03/24/17 Reported Levothyroxine Sodium 88 Mcg Tab 88 Mcg PO QAM 03/24/17 Reported Aldactone (Spironolactone) 25 Mg Tab 25 Mg PO QAM 10/19/15 Reported K-Tab (Potassium Chloride) 20 Meq Tab 20 Meq PO QPM 10/19/15 Reported Neurontin (Gabapentin) 100 Mg Cap 100 Mg PO TID 10/19/15 Reported Atorvastatin Calcium (Atorvastatin) 40 Mg Tab 40 Mg PO DAILY 03/09/15 Reported Furosemide 40 Mg Tab 40 Mg PO QAM 03/09/15 Reported Physical Physical Exam Vital Signs: Date Time Temp Pulse Resp B/P (MAP) Pulse Ox O2 Delivery O2 Flow Rate FiO2 06/13/17 14:40 37.0 95 20 118/92 (101) 96 Room Air 06/13/17 14:19 92 28 97/68 06/13/17 13:40 90 112/79 06/13/17 13:32 88 06/13/17 12:35 97 Nasal Cannula 2.0 06/13/17 12:29 90 23 06/13/17 11:59 86 21 06/13/17 11:40 101/72 06/13/17 11:39 89 20 101/72 97 Nasal Cannula 2.0 06/13/17 10:59 87 23 96 06/13/17 10:29 81 12 99 9/29/17 10:27 84 06/13/17 10:25 97 Nasal Cannula 2.0 06/13/17 10:08 36.4 86 20 91/69 94 Room Air General Appearance: WD/WN, NO APPARENT DISTRESS, obese, other Head: NORMOCEPHALIC, ATRAUMATIC Eyes: PERRLA, SCLERAE NORMAL, CONJUNCTIVAE NORMAL, other (right eye deviation) ENT: NORMAL MOUTH EXAM Neck: NORMAL RANGE OF MOTION, NO TENDERNESS, TRACHEA MIDLINE Respiratory: BREATH SOUNDS NORMAL, CLEAR TO AUSCULTATION, NO RESPIRATORY DISTRESS, NO TENDERNESS Cardiovasular: REGULAR RATE/RHYTHM, NORMAL S1S2, NO M/G/R, NO MURMUR Abdomen: NON TENDER, NORMAL BOWEL SOUNDS, NO REBOUND Back: NORMAL INSPECTION Upper Extremities: NO EDEMA, NO DEFORMITY, NORMAL ROM Lower Extremities: NO EDEMA, NO DEFORMITY, NORMAL ROM Pulses: dorsalis pedis (R) (2+), dorsalis pedis (L) (2+) Neuro: ALERT, ORIENTED x 3, NORMAL MOTOR EXAM, NORMAL SENSATION, NORMAL SPEECH , NORMAL MEMORY Psychiatric: NORMAL AFFECT, NO SUICIDAL IDEATION, CONTRACTS FOR SAFETY Diagnostics Labs Results Past 24 Hours Test 06/13/17 10:20 06/13/17 11:39 Range/Units White Blood Count 10.71 4.8-10.8 K/uL Red Blood Count 4.56 4.7-6.1 M/uL Hemoglobin 14.1 14.0-18.0 g/dL Hematocrit 40.4 42-52 % Mean Corpuscular Volume 88.6 80-100 fL Mean Corpuscular Hemoglobin 30.9 25-34 pg Mean Corpuscular Hemoglobin Concent 34.9 32-36 g/dl Platelet Count 239 130-400 K/uL Mean Platelet Volume 11.7 7.4-10.4 fL Neutrophils (%) (Auto) 77.5 % Lymphocytes (%) (Auto) 12.8 % Monocytes (%) (Auto) 7.4 % Eosinophils (%) (Auto) 1.4 % Basophils (%) (Auto) 0.4 % Neutrophils # (Auto) 8.31 1.4-6.5 K/uL Lymphocytes # (Auto) 1.37 1.2-3.4 K/uL Monocytes # (Auto) 0.79 0.11-0.59 K/uL Eosinophils # (Auto) 0.15 0-0.5 K/uL Basophils # (Auto) 0.04 0-0.2 K/uL RDW Standard Deviation 47.2 36.4-46.3 fL RDW Coefficient of Variation 14.6 11.5-14.5 % Immature Granulocyte % (Auto) 0.5 % Immature Granulocyte # (Auto) 0.05 0.00-0.02 K/uL Prothrombin Time 11.7 9.0-12.0 SECONDS Prothromb Time International Ratio 1.1 0.9-1.1 Activated Partial Thromboplast Time 25.0 21.0-31.0 SECONDS Partial Thromboplastin Ratio 1.0 Sodium Level 137 136-145 mmol/L Potassium Level 3.9 3.5-5.1 mmol/L Chloride Level 106 98-107 mmol/L Carbon Dioxide Level 23 21-32 mmol/L Anion Gap 8.0 3-11 mmol/L Blood Urea Nitrogen 17 7-18 mg/dl Creatinine 1.40 0.60-1.40 mg/dl Est Creatinine Clear Calc Drug Dose 95.5 ml/min Estimated GFR () 76.0 Estimated GFR (Non- 65.5 BUN/Creatinine Ratio 12.3 10-20 Random Glucose 248 70-99 mg/dl Calcium Level 8.9 8.5-10.1 mg/dl Total Bilirubin 1.8 0.2-1 mg/dl Aspartate Amino Transf (AST/SGOT) 12 15-37 U/L Alanine Aminotransferase (ALT/SGPT) 22 12-78 U/L Alkaline Phosphatase 57 45-117 U/L Troponin I 1.020 0-0.045 ng/ml Pro-B-Type Natriuretic Peptide 2170 0-450 pg/ml Total Protein 6.8 6.4-8.2 gm/dl Albumin 3.6 3.4-5.0 gm/dl Globulin 3.2 2.5-4.0 gm/dl Albumin/Globulin Ratio 1.1 0.9-2 Urine Color YELLOW Urine Appearance CLEAR CLEAR Urine pH 6.5 4.5-7.5 Urine Specific [place] 1.016 1.000-1.030 Urine Protein NEG NEG Urine Glucose (UA) NEG NEG Urine Ketones NEG NEG Urine Occult Blood NEG NEG Urine Nitrite NEG NEG Urine Bilirubin NEG NEG Urine Urobilinogen NEG NEG Urine Leukocyte Esterase NEG NEG Diagnostic Radiology CHEST ONE VIEW PORTABLE 06/13/2017 CLINICAL HISTORY: 32 years-old Male presenting with cough, recent pneumonia. TECHNIQUE: Portable upright AP view of the chest was obtained. COMPARISON: 05/28/2017. FINDINGS: Left-sided implanted cardiac defibrillator with lead to the right ventricular apex. Cardiac silhouette remains enlarged. Minimal vague opacity in the right lung base, new from prior. No large effusion or pneumothorax. Osseous structures normal. Upper abdomen normal. IMPRESSION: 1. New right basilar opacity, which could represent atelectasis, infection, or aspiration. 2. Cardiomegaly. CT ANGIOGRAM OF THE CHEST 06/13/2017 CLINICAL HISTORY: Shortness of breath, pneumonia. Cough. COMPARISON STUDY: Chest CT dated 05/14/2017 TECHNIQUE: Following the IV administration of 95 mL of [id number], CT angiogram of the thorax was performed from the thoracic inlet to the lung bases utilizing the pulmonary embolus protocol. Images are reviewed in the axial, sagittal, and coronal planes. IV contrast was administered without complication. MIP imaging was performed. A dose lowering technique was utilized adhering to the principles of ALARA. CT DOSE: 706.00 mGy.cm FINDINGS: There are persistent mildly enlarged hilar and mediastinal lymph nodes. There is no evidence of pathologic axillary lymphadenopathy There was no evidence of thoracic aortic dilatation. The study is compromised due to respiratory motion artifact. There are no pulmonary artery filling defects to indicate acute pulmonary embolism. No pleural effusions are visualized. There is been near complete interval clearing in the previously described upper lobe pulmonary airspace opacities. There are persistent but improving airspace opacities within the superior segment of the right lower lobe. The heart is enlarged. There is reflux of contrast into the IVC and hepatic veins. IMPRESSION: 1. Technically limited study secondary to respiratory motion artifact 2. No evidence of acute pulmonary embolism given the limitations of the study 3. Improving bilateral pulmonary airspace opacities consistent with a resolving multifocal pneumonia 4. Persistent mediastinal and hilar lymphadenopathy CT OF THE CHEST WITHOUT IV CONTRAST 05/14/2017 CLINICAL HISTORY: Occult pneumonia. Cough. Difficulty breathing. COMPARISON STUDY: Chest radiographs March 24, 2017 and May 14, 2017. CT DOSE: 883.26 mGy.cm TECHNIQUE: Axial images of the chest were obtained without IV contrast. Images were reviewed in the axial, sagittal, and coronal planes. IV contrast was not administered for this examination. A dose lowering technique was utilized adhering to the principles of ALARA. FINDINGS: A single lead left cardiac pacer/AICD is in place. There is moderate cardiomegaly. No pericardial effusion is identified. There are multiple mildly enlarged mediastinal and bilateral hilar lymph nodes. The hilar lymph nodes are difficult to measure on this unenhanced exam. Index subcarinal lymph node measures 1.2 cm in short axis diameter. Index right paratracheal lymph node measures 1 cm and index prevascular node measures 1.1 cm. Central airways are patent. There is no pneumothorax or pleural effusion. Extensive bilateral alveolar opacities are noted, most confluent within left upper lobe. However, there is additional airspace opacity with tree-in-bud nodules throughout the remainder of the lungs. There is no cavitation. Mild bronchial wall thickening is present. Bony thorax and upper abdomen are unremarkable. IMPRESSION: 1. Extensive multifocal airspace opacities throughout both lungs, as described above. The findings suggest multifocal pneumonia. No cavitation. 2. Multiple mildly enlarged mediastinal and bilateral hilar lymph nodes. These are nonspecific but may be reactive. 3. Moderate cardiomegaly. EKG EKG 06/13/2017 Normal sinus rhythm, ventricular rate 83 bpm Possible Left atrial enlargement Nonspecific ST and T wave abnormality Abnormal ECG Impression Assessment and Plan Dyspnea on exertion Subacute cough Pneumonia-resolving Mediastinal and hilar lymphadenopathy Moderately MIRTA with nocturnal hypoxemia on BiPAP Elevated troponins CHF Mr. Samuel is a 32-year-old gentleman with a complicated past medical history. He was recently admitted for multifocal pneumonia last month and treated with antibiotics. Over the course of last several weeks he has had persistent shortness of breath associated with exertional dyspnea, intermittent wheezing, chest tightness and cough. Review of imaging, patient's multifocal pneumonia has significantly with improved. There is some residual lymphadenopathy as well as some persistence of right lower lobe opacifications. Usually imaging often lags behind patient' s clinical status. He was recently seen in the pulmonary clinic for obstructive sleep apnea and bronchoscopy was scheduled. Urine Legionella and influenza PCR both negative. I'll continue bronchodilators as this seems to greatly improve his symptoms. Continue with inhaled corticosteroids like Qvar. I do not recommend systemic corticosteroids as his blood sugars are elevated and will be more difficult to control. He is not hypoxic or actively wheezing at the current time nor is he having use of accessory muscles of respiration. Please provide supplemental oxygen to maintain an SaO2 above 92% if needed. Continue with BiPAP at night. I will keep him scheduled for bronchoscopy on Friday pending cardiac clearance.
[2017-06-13] MEDS ORDERED: COUGH DROP (SUGAR FREE) LOZ 24 LOZ/1 BOX ONE (18:05)
[2017-06-13] MEDS: BUDESONIDE 0.5 MG/2 ML VIAL (PULMICORT) INH SCH (19:12)
[2017-06-13] MEDS: MAGNESIUM OXIDE 400 MG TAB PO SCH (20:39)
[2017-06-13] MEDS: CARVEDILOL 25 MG TAB PO SCH (20:39)
[2017-06-13] MEDS: INSULIN GLARGINE SC SCH (20:41)
[2017-06-14] VITALS (16 sets, daily range): BP systolic 91–156; BP diastolic 65–81; PULSE 59–96; TEMP 36.2–36.9; O2SAT 93–99
[2017-06-14] MEDS: LEVALBUTEROL 1.25MG/0.5ML NEB INH SCH ×4 (01:50→20:08)
[2017-06-14] MEDS: IPRATROPIUM BROMIDE NEB SOLN 0.02% 2.5 ML VIAL INH SCH ×4 (01:50→20:08)
[2017-06-14] MEDS: LEVOTHYROXINE 88 MCG TAB PO SCH (05:51)
[2017-06-14] MEDS: HEPARIN SOD 5000 UNIT/0.5 ML CARP SQ SCH ×3 (05:53→21:26)
[2017-06-14] MEDS: BUDESONIDE 0.5 MG/2 ML VIAL (PULMICORT) INH SCH ×2 (07:06→20:08)
[2017-06-14 07:28] LABS: BASO % 0.5 %; BASO ABS # 0.05 K/uL (0-0.2); COMPLETE YES; HEMATOCRIT 41.8 % (42-52); IG% 0.6 %; LYMPH % 17.9 %; LYMPH ABS # 1.86 K/uL (1.2-3.4); MEAN CELL VOLUME 89.1 fL (80-100); MEAN CORPUSCULAR HEMOGLOBIN 29.4 pg (25-34); MEAN PLATELET VOLUME 11.2 fL (7.4-10.4); MONO % 9.1 %; NEUT % 70.9 %; PLATELET COUNT 234 K/uL (130-400); RED BLOOD COUNT 4.69 M/uL (4.7-6.1); WHITE BLOOD COUNT 10.38 K/uL (4.8-10.8)
[2017-06-14] MEDS ORDERED: PERFLUTREN LIPID MICROSPHERE (DEFINITY) IV ONE (07:31)
[2017-06-14 08:09] LABS: BUN/CREATININE RATIO 12.9 (10-20); CALCIUM 9.2 mg/dl (8.5-10.1); CREATININE 1.5 mg/dl (0.60-1.40); POTASSIUM 3.5 mmol/L (3.5-5.1)
[2017-06-14 08:21] LABS: THYROID STIMULATING HORMONE 1.95 uIu/ml (0.300-4.500)
--- NOTE | 2017-06-14 09:06 | DIAGNOSTIC IMAGING REPORT ---
CHEST ONE VIEW PORTABLE CLINICAL HISTORY: 32 years-old Male presenting with f/u PNA. TECHNIQUE: Portable upright AP view of the chest was obtained. COMPARISON: 06/13/2017. FINDINGS: The radiograph is limited due to under penetration and underexposure. Left-sided implanted cardiac defibrillator with lead to the right ventricular apex. Mild enlargement of the cardiac silhouette, unchanged. No increase in right basilar opacity allowing for degraded image quality. No new focal infiltrate. No large effusion or pneumothorax. Osseous structures normal. Upper abdomen normal. IMPRESSION: 1. Allowing for degraded image quality, no interval increase in right basilar opacity or new focal infiltrate. Electronically signed by: Denys Leavitt M.D. 06/14/2017 9:05 AM Dictated Date/Time: 06/14/2017 9:03 AM
[2017-06-14] MEDS: ATORVASTATIN 40 MG TAB PO SCH (09:13)
[2017-06-14] MEDS: GABAPENTIN 100 MG CAP PO SCH ×3 (09:14→21:25)
[2017-06-14] MEDS: MAGNESIUM OXIDE 400 MG TAB PO SCH ×2 (09:15→21:25)
[2017-06-14] MEDS: FUROSEMIDE 40 MG TAB PO SCH (09:16)
[2017-06-14] MEDS: SPIRONOLACTONE 25 MG TAB PO SCH (09:16)
[2017-06-14] MEDS: LEVOFLOXACIN 750 MG TAB PO SCH (09:16)
[2017-06-14] MEDS: CARVEDILOL 25 MG TAB PO SCH ×2 (09:17→21:25)
[2017-06-14] MEDS: INSULIN ASPART 100 UNITS/ML 3 ML PEN SC SCH ×4 (09:18→21:30)
--- NOTE | 2017-06-14 10:36 | Cardiology Follow-Up ---
Subjective Date of Service: Jun 14, 2017. Pt evaluation today including: conversation w/ patient, physical exam, lab review, review of studies, review of inpatient medication list History of Present Illness This is a 32-year-old gentleman with a nonischemic cardiomyopathy for which he is nice ED for primary prevention of sudden cardiac , chronic systolic heart failure as well as diabetes mellitus, hypertension and a persistent cough. His cardiomyopathy was initially diagnosed in 2012 when he had syncope and was noted to have severe left ventricular dysfunction, catheterization on showed normal coronary arteries. He has had difficulty with pneumonia recently, and he is bothered by a cough. He typically does not have exertional chest discomfort, he is somewhat limited in his activities but does not note any significant increase in dyspnea on exertion recently. He was seen in our office today in preparation for bronchoscopy to evaluate his pulmonary complaints, however he felt poorly today with symptoms of nausea, weakness and fatigue in general and came to the emergency room. He was noted to have an elevated troponin (which he often has). With this and his pulmonary complaints was admitted. He is more comfortable today, he is very sleepy and is lying supine in bed with his CPAP mask on. He is not complaining of shortness of breath. He does not have orthopnea or PND. Social History Smoking Status: Never Smoker History of Alcohol Use: No Review of Systems Respiratory: + see HPI, + cough, + sputum, + shortness of breath, No wheezing, No dyspnea on exertion Cardiac: + see HPI, No chest pain, No orthopnea, No PND, No edema, No palpitations Medications Cardiovascular: Item Value Date Time Atorvastatin 40 mg 06/14/17 0900 Calcium DAILY/PO 06/14/17 0913 (Lipitor Tab) Furosemide 40 mg 06/14/17 0900 (Lasix Tab) QAM/PO 06/14/17 0916 Spironolactone 25 mg 06/14/17 0900 (Aldactone Tab) QAM/PO 06/14/17 0916 Carvedilol 25 mg 06/13/17 2100 (Coreg Tab) BID/PO 06/14/17 0917 Magnesium Oxide 400 mg 06/13/17 2100 (Mag-Ox Tab) BID/PO 06/14/17 0915 Heparin Sodium 5,000 unit 06/13/17 1500 (Porcine) Q8/SQ 06/14/17 0553 (Heparin Sq 5000 Unit/0.5ml) Objective Vital Signs Past 12 Hours Date Time Temp Pulse Resp B/P (MAP) Pulse Ox O2 Delivery O2 Flow Rate FiO2 06/14/17 08:00 Room Air 06/14/17 07:28 36.6 93 18 105/75 (85) 94 Room Air 06/14/17 07:08 96 16 98 Room Air 06/14/17 04:00 98 Room Air 06/14/17 03:36 36.7 88 19 118/81 (93) 98 Room Air 06/14/17 01:50 90 16 98 BiPAP/CPAP 06/13/17 23:59 95 Room Air 06/13/17 23:17 36.9 87 20 103/69 (80) 95 Room Air Last Recorded Weight-Kilograms: 109.600 Physical Exam Constitutional: General Apperance: heathly-appearing Level of Distress: NAD Lungs: Respiratory effort: no dyspnea, good air movement Auscultation: breath sounds normal, no wheezing Cardiovascular: Heart Auscultation: RRR, no murmurs, no rubs, no gallops Peripheral Pulses: Bruits: none appreciated Extremities: no edema Data Laboratory Results: Last 24 Hours Test 06/13/17 11:39 06/13/17 15:54 06/13/17 20:19 06/13/17 21:59 Urine Color YELLOW Urine Appearance CLEAR Urine pH 6.5 Urine Specific [place] 1.016 Urine Protein NEG Urine Glucose (UA) NEG Urine Ketones NEG Urine Occult Blood NEG Urine Nitrite NEG Urine Bilirubin NEG Urine Urobilinogen NEG Urine Leukocyte Esterase NEG Bedside Glucose 156 mg/dl 139 mg/dl Troponin I 0.800 ng/ml Test 06/14/17 06:30 06/14/17 07:12 Bedside Glucose 158 mg/dl White Blood Count 10.38 K/uL Red Blood Count 4.69 M/uL Hemoglobin 13.8 g/dL Hematocrit 41.8 % Mean Corpuscular Volume 89.1 fL Mean Corpuscular Hemoglobin 29.4 pg Mean Corpuscular Hemoglobin Concent 33.0 g/dl Platelet Count 234 K/uL Mean Platelet Volume 11.2 fL Neutrophils (%) (Auto) 70.9 % Lymphocytes (%) (Auto) 17.9 % Monocytes (%) (Auto) 9.1 % Eosinophils (%) (Auto) 1.0 % Basophils (%) (Auto) 0.5 % Neutrophils # (Auto) 7.37 K/uL Lymphocytes # (Auto) 1.86 K/uL Monocytes # (Auto) 0.94 K/uL Eosinophils # (Auto) 0.10 K/uL Basophils # (Auto) 0.05 K/uL RDW Standard Deviation 47.5 fL RDW Coefficient of Variation 14.7 % Immature Granulocyte % (Auto) 0.6 % Immature Granulocyte # (Auto) 0.06 K/uL Sodium Level 138 mmol/L Potassium Level 3.5 mmol/L Chloride Level 102 mmol/L Carbon Dioxide Level 24 mmol/L Anion Gap 12.0 mmol/L Blood Urea Nitrogen 19 mg/dl Creatinine 1.50 mg/dl Est Creatinine Clear Calc Drug Dose 88.2 ml/min Estimated GFR () 69.9 Estimated GFR (Non- 60.3 BUN/Creatinine Ratio 12.9 Random Glucose 151 mg/dl Estimated Average Glucose 169 mg/dl Hemoglobin A1c 7.5 % Calcium Level 9.2 mg/dl Total Bilirubin 2.2 mg/dl Aspartate Amino Transf (AST/SGOT) 13 U/L Alanine Aminotransferase (ALT/SGPT) 18 U/L Alkaline Phosphatase 52 U/L Troponin I 0.725 ng/ml Total Protein 7.0 gm/dl Albumin 3.5 gm/dl Globulin 3.5 gm/dl Albumin/Globulin Ratio 1.0 Thyroid Stimulating Hormone (TSH) 1.950 uIu/ml Free Thyroxine 1.44 ng/dl Free Triiodothyronine 3.47 pg/ml Imaging: Echo pending Telemetry reviewed: SR with PVCs Assessment and Plan #1. Elevated troponin: He has a chronically elevated troponin, his current troponin is not much higher than many other measurements and has a decreasing pattern. He has normal coronary arteries based on catheterization 4 years ago, this is almost certainly demand ischemia and I would not pursue this further. #2. Shortness of breath and elevated BNP: He seems to have diuresed substantially since yesterday, although his weights can't be trusted as I know is negative and he is more comfortable today. #3. Cardiomyopathy: He has a known long-standing nonischemic cardiomyopathy Thank you for allowing me to participate in his care.
--- NOTE | 2017-06-14 11:05 | ECHOCARDIOGRAM REPORT ---
*NOTICE TO RECEIVING DEMOCRAT AGENCY This information is strictly Confidential and protected under [place] law. [place] law prohibits you from making any further disclosure of this information unless further disclosure is expressly permitted by the written consent of the person to whom it pertains or is authorized by law. A general authorization for the release of medical or other information is not sufficient for this purpose. Hospital accepts no responsibility if the information is made available to any other person, INCLUDING THE PATIENT. Interpretation Summary * Name: ROMULO HYLTON Study Date: 06/14/2017 06:38 AM BP: 105/75 mmHg * Patient Location: C.2T\S\E222\S\1 HR: 93 * : 1985 (M/d/yyyy) Gender: Male Height: 70 in * Age: 32 yrs Ethnicity: MI Weight: 246 lb * Ordering Physician: Earle Lewis * Referring Physician: Self, Referred * Performed By: Karma Alcala RDCS * * Reason For Study: KNOWN CARDIOMYOPATHY * BSA: 2.3 m2 * -- Conclusions -- * 1. Severely dilated LV. Normal LV wall thickness. * 2. Severe global LV dysfunction. LVEF 20-25%. Paradoxical septal motion consistent with conduction abnormality. * 3. RV mildly dilated with mild dysfunction. * 4. Moderate mitral regurgitation. * 5. Mild to moderate TR. * 6. Mild pulmonary hypertension. Est PASP 40-45mmHg. Est RA 15 mmHg. * 7. Compared with prior study on 07/30/2015: No significant change. Procedure Details * A contrast injection of Definity was performed to improve assessment of LV function. * Contrast was injected into an intravenous site in the left arm. * One vial of Definity ultrasound contrast was diluted in normal saline to a total volume of 10 ml. A total of '2' ml of solution was administered during imaging. * Lot # [id number] of Definity utilized for procedure. * Expiration date JUL 02. * The attending nurse who injected the contrast agent was CALI SEAY. Left Ventricle * The left ventricle is severely dilated. * There is normal left ventricular wall thickness. * Ejection Fraction = 20-25%. * Septal motion is consistent with conduction abnormality. * There is severe global hypokinesis of the left ventricle. Right Ventricle * There is a pacemaker lead in the right ventricle. * The right ventricle is mildly dilated. * The right ventricular systolic function is mildly reduced. Atria * The left atrium is moderately dilated. * Right atrial size is normal. * No ASD detected; PFO is not assessed. Mitral Valve * The mitral valve is grossly normal. * There is no mitral valve stenosis. * There is moderate mitral regurgitation. Tricuspid Valve * The tricuspid valve is not well visualized, but is grossly normal. * There is mild to moderate tricuspid regurgitation. Aortic Valve * The aortic valve opens well. * The aortic valve is trileaflet. * No hemodynamically significant valvular aortic stenosis. Pulmonic Valve * The pulmonary valve is inadequately visualized, but the Doppler data is adequate for interpretation. * Pulmonic stenosis is absent. * Mild pulmonic valvular regurgitation. Great Vessels * The aortic root and proximal ascending aorta are normal sized. Pericardium/Pleural * There is no pericardial effusion. Great Vessels * Dilated inferior vena cava with reduced collapsability with sniff indicates an elevated right atrial pressure of 15 mmHg Left Ventricular Diastolic Function * Diastolic dysfunction, Grade II (pseudonormalization pattern). MMode 2D Measurements and Calculations IVSd 1.1 cm IVSs 1.2 cm LVIDd 6.2 cm LVIDs 5.4 cm LVPWd 1.1 cm LVPWs 1.4 cm IVS/LVPW 1.0 FS 12.3 % EDV(Teich) 193.5 ml ESV(Teich) 143.4 ml EF(Teich) 25.9 % EDV(cubed) 237.6 ml ESV(cubed) 160.5 ml EF(cubed) 32.4 % % IVS thick 8.0 % % LVPW thick 30.1 % LV mass(C)d 285.2 grams LV mass(C)dI 125.1 grams/m\S\2 LV mass(C)s 290.9 grams LV mass(C)sI 127.6 grams/m\S\2 SV(Teich) 50.1 ml SI(Teich) 22.0 ml/m\S\2 SV(cubed) 77.1 ml SI(cubed) 33.8 ml/m\S\2 Ao root diam 2.6 cm Ao root area 5.5 cm\S\2 LA dimension 4.9 cm LA/Ao 1.9 LVAd ap4 57.4 cm\S\2 LVLd ap4 10.4 cm EDV(MOD-sp4) 263.2 ml EDV(sp4-el) 269.1 ml LVAs ap4 48.1 cm\S\2 LVLs ap4 9.9 cm ESV(MOD-sp4) 199.4 ml ESV(sp4-el) 198.4 ml EF(MOD-sp4) 24.2 % EF(sp4-el) 26.3 % SV(MOD-sp4) 63.8 ml SI(MOD-sp4) 28.0 ml/m\S\2 SV(sp4-el) 70.7 ml SI(sp4-el) 31.0 ml/m\S\2 Doppler Measurements and Calculations MV E max bhumi 88.9 cm/sec MV dec time 0.15 sec Ao V2 max 77.0 cm/sec Ao max PG 2.4 mmHg Ao max PG (full) 1.7 mmHg LV V1 max PG 0.71 mmHg LV V1 max 42.1 cm/sec TR max bhumi 268.1 cm/sec
--- NOTE | 2017-06-14 11:52 | Pharmacy Progress Note ---
Glycemic Control Progress Note Date of Service Jun 14, 2017. Scope Glycemic Pharmacist consulted for glycemic control to write orders per [facility] inpatient glycemic control protocol. Objective Accuchecks BSG (last 24hrs): Test 06/13/17 15:54 06/13/17 20:19 06/14/17 06:30 06/14/17 07:12 Bedside Glucose 156 mg/dl (70-99) 139 mg/dl (70-99) 158 mg/dl (70-99) Random Glucose 151 mg/dl (70-99) Test 06/14/17 11:26 Bedside Glucose 139 mg/dl (70-99) HbA1c: Test 06/14/17 07:12 Hemoglobin A1c 7.5 % (4.5-5.6) H Recent Pertinent Medications The patient is currently receiving: * Basal insulin: Lantus Q HS: 60 units if BSG 180 or less; 70 units if BSG above 180 * Correctional Insulin: Novolog Correction per scale ACHS Goal Range: Low 110 mg/dL - High 140 mg/dL Correction Factor: 15 mg/dL/unit * Prandial insulin: Per carb ratio of 1 unit per 5 grams CHO consumed * Oral Agents: None currently Outpatient Anti-Diabetic Meds Tresiba 160 units SQ Q PM Novolog w/ meals Assessment & Plan ASSESSMENT: 06/14/17 * This patient is known to the glycemic control service from prior admissions * Insulin initiated yesterday based upon experience from prior admission * A reduced dose of Lantus was given vs home dose of Tresiba as we have learned his basal needs are typically 90 units per day or less while hospitalized (and tolerating a diet). Fasting BSG is 158 this AM w/ 60 units of Lantus on board. * Post prandial BSGs have been controlled thus far w/ current CR and CF - continue the same PLAN FOR INPATIENT GLYCEMIC CONTROL: * Continuing Lantus SQ Q HS: 60 units if BSG 180 or less, 70 units if BSG 180 or greater * Continuing correction factor of 15 mg/dl/unit * Continuing carb ratio of 1 unit per 5 grams CHO consumed * Continuing goal range of Low 110 mg/dL - High 140 mg/dL * Please note that the plan above was derived based on current level of insulin resistance and hospital stress. These recommendations are appropriate for inpatient admission only. Plan of care upon discharge will need to be reassessed to avoid potential outpatient hypo/hyperglycemia. Thank you.
--- NOTE | 2017-06-14 14:25 | Progress Note ---
Subjective Date of Service: Jun 14, 2017. Subjective 32 yo male with h/o ischemic cardiomyopathy. EF:25% when first diagnosed, and severe left vent. dysfunction. Patient had cath also which sowed normal coronary arteries in the past. Patient was recently treated with pneumonia and was scheduled to have a bronch this friday. However, he was SOB while he was at the cardiac clearance appointment and was recommended to come to the hospital. Patient today reports feeling back to baseline and has no complaints today. Problem List Medical Problems: (1) Bronchitis Status: Acute (2) Cardiomyopathy Status: Acute (3) Cardiomyopathy Status: Acute (4) Cardiomyopathy Status: Acute (5) Chronic CHF Status: Acute (6) Diabetes Status: Chronic (7) Dyspnea Status: Acute (8) Elevated brain natriuretic peptide (BNP) level Status: Acute (9) Elevated troponin Status: Acute (10) Elevated troponin Status: Acute (11) Elevated troponin Status: Acute (12) Epigastric abdominal pain Status: Acute (13) Guaiac positive stools Status: Acute (14) Hypokalemia Status: Acute (15) Hypoxia Status: Acute (16) Left sided chest pain Status: Acute (17) Nonischemic cardiomyopathy Status: Chronic (18) Pancreatitis Status: Acute (19) Pneumonia Status: Acute Review of Systems Constitutional: No fever, No chills Eyes: No worsening of vision ENT: No hearing loss, No unusual epistaxis Respiratory: No cough, No sputum Cardiac: No chest pain, No orthopnea Abdomen: No pain, No nausea Male : No dysuria, No urinary frequency, No nocturia more than once/night, No slowing stream Neurologic: No numbness/tingling, No vertigo Psychiatric: No anxiety, No insomnia Endo: No fatigue All Other Systems: Reviewed and Negative Medications Current Inpatient Medications Medications (Trade) Dose Ordered Sig/Yazan Route Start Time Stop Time Status Last Admin Dose Admin Ioversol (Optiray 320) 125 ml UD PRN IV 06/13/17 11:30 06/17/17 11:29 Heparin Sodium (Porcine) (Heparin Sq 5000 Unit/0.5ml) 5,000 unit Q8 SQ 06/13/17 15:00 07/13/17 14:59 06/15/17 06:09 5,000 UNIT Acetaminophen (Tylenol Tab) 650 mg Q4H PRN PO 06/13/17 13:15 07/13/17 13:14 Ondansetron HCl (Zofran Inj) 4 mg Q6H PRN IV 06/13/17 13:15 07/13/17 13:14 Insulin Glargine (Lantus Vial) SEE PROTOCOL HS SC 06/13/17 21:00 07/13/17 20:59 06/14/17 21:27 60 UNITS Insulin Aspart (novoLOG ASPART) SLIDING SCALE If C... ACHS SC 06/13/17 16:00 07/13/17 15:59 06/14/17 21:30 1 UNITS Glucose (Glucose 40% Gel) 15-30 GRAMS 15 GRAMS... UD PRN PO 06/13/17 13:15 07/13/17 13:14 Glucose (Glucose Chew Tab) 4-8 Tablets 4 Tabl... UD PRN PO 06/13/17 13:15 07/13/17 13:14 Dextrose (Dextrose 50% 50ML Syringe) 25-50ML OF 50% DW IV FOR... UD PRN IV 06/13/17 13:15 07/13/17 13:14 Glucagon (Glucagon Inj) 1 mg UD PRN SQ 06/13/17 13:15 07/13/17 13:14 Miscellaneous Information (Consult Glycemic Management Pharmacy) 1 ea UD PRN N/A 06/13/17 13:51 07/13/17 13:50 Atorvastatin Calcium (Lipitor Tab) 40 mg DAILY PO 06/14/17 09:00 07/14/17 08:59 06/14/17 09:13 40 MG Benzonatate (Tessalon Perles Cap) 100 mg Q8H PRN PO 06/13/17 13:30 07/13/17 13:29 Carvedilol (Coreg Tab) 25 mg BID PO 06/13/17 21:00 07/13/17 20:59 06/14/17 21:25 25 MG Furosemide (Lasix Tab) 40 mg QAM PO 06/14/17 09:00 07/14/17 08:59 06/14/17 09:16 40 MG Gabapentin (Neurontin Cap) 100 mg TID PO 06/13/17 15:00 07/13/17 14:59 06/14/17 21:25 100 MG Levothyroxine Sodium (Synthroid Tab) 88 mcg DAILYBB PO 06/14/17 06:00 07/14/17 06:59 06/15/17 06:07 88 MCG Magnesium Oxide (Mag-Ox Tab) 400 mg BID PO 06/13/17 21:00 07/13/17 20:59 06/14/17 21:25 400 MG Spironolactone (Aldactone Tab) 25 mg QAM PO 06/14/17 09:00 07/14/17 08:59 06/14/17 09:16 25 MG Budesonide (Pulmicort Respules 0.5MG/ 2ML Neb Soln) 0.5 mg BIDR INH 06/13/17 20:00 07/13/17 19:59 06/15/17 07:12 0.5 MG Ipratropium [place] (Atrovent 0.02% 0.5MG/2.5ML Neb) 0.5 mg Q6R INH 06/13/17 15:00 07/13/17 14:59 06/15/17 07:12 0.5 MG Levalbuterol (Xopenex 1.25MG/ 0.5ML Neb) 1.25 mg Q6R INH 06/13/17 15:00 07/13/17 14:59 06/15/17 07:12 1.25 MG Objective Vital Signs Date Time Temp Pulse Resp B/P (MAP) Pulse Ox O2 Delivery O2 Flow Rate FiO2 06/14/17 14:21 86 16 98 Room Air 06/14/17 12:04 36.5 87 18 104/70 (81) 98 Room Air 06/14/17 12:00 Room Air 06/14/17 08:00 Room Air 06/14/17 07:28 36.6 93 18 105/75 (85) 94 Room Air 06/14/17 07:08 96 16 98 Room Air 06/14/17 04:00 98 Room Air 06/14/17 03:36 36.7 88 19 118/81 (93) 98 Room Air 06/14/17 01:50 90 16 98 BiPAP/CPAP 06/13/17 23:59 95 Room Air 06/13/17 23:17 36.9 87 20 103/69 (80) 95 Room Air 06/13/17 20:00 95 Room Air 06/13/17 19:27 36.8 97 20 112/81 (91) 98 9/29/17 19:12 96 16 97 Room Air 06/13/17 16:00 37.0 94 20 148/71 (96) 97 Room Air 06/13/17 16:00 Room Air 06/13/17 15:27 88 20 95 Room Air 06/13/17 14:40 37.0 95 20 118/92 (101) 96 Room Air Physical Exam General Appearance: WD/WN, no apparent distress Neck: supple, no adenopathy Respiratory/Chest: chest non-tender, lungs clear, normal breath sounds Cardiovascular: regular rate, rhythm, no edema, no gallop Abdomen: normal bowel sounds, non tender, soft Extremities: normal range of motion Laboratory Results Last 24 Hours Test 06/13/17 15:54 06/13/17 20:19 06/13/17 21:59 06/14/17 06:30 Bedside Glucose 156 mg/dl 139 mg/dl 158 mg/dl Troponin I 0.800 ng/ml Test 06/14/17 07:12 06/14/17 11:26 06/14/17 13:49 White Blood Count 10.38 K/uL Red Blood Count 4.69 M/uL Hemoglobin 13.8 g/dL Hematocrit 41.8 % Mean Corpuscular Volume 89.1 fL Mean Corpuscular Hemoglobin 29.4 pg Mean Corpuscular Hemoglobin Concent 33.0 g/dl Platelet Count 234 K/uL Mean Platelet Volume 11.2 fL Neutrophils (%) (Auto) 70.9 % Lymphocytes (%) (Auto) 17.9 % Monocytes (%) (Auto) 9.1 % Eosinophils (%) (Auto) 1.0 % Basophils (%) (Auto) 0.5 % Neutrophils # (Auto) 7.37 K/uL Lymphocytes # (Auto) 1.86 K/uL Monocytes # (Auto) 0.94 K/uL Eosinophils # (Auto) 0.10 K/uL Basophils # (Auto) 0.05 K/uL RDW Standard Deviation 47.5 fL RDW Coefficient of Variation 14.7 % Immature Granulocyte % (Auto) 0.6 % Immature Granulocyte # (Auto) 0.06 K/uL Sodium Level 138 mmol/L Potassium Level 3.5 mmol/L Chloride Level 102 mmol/L Carbon Dioxide Level 24 mmol/L Anion Gap 12.0 mmol/L Blood Urea Nitrogen 19 mg/dl Creatinine 1.50 mg/dl Est Creatinine Clear Calc Drug Dose 88.2 ml/min Estimated GFR () 69.9 Estimated GFR (Non- 60.3 BUN/Creatinine Ratio 12.9 Random Glucose 151 mg/dl Estimated Average Glucose 169 mg/dl Hemoglobin A1c 7.5 % Calcium Level 9.2 mg/dl Total Bilirubin 2.2 mg/dl Aspartate Amino Transf (AST/SGOT) 13 U/L Alanine Aminotransferase (ALT/SGPT) 18 U/L Alkaline Phosphatase 52 U/L Troponin I 0.725 ng/ml Total Protein 7.0 gm/dl Albumin 3.5 gm/dl Globulin 3.5 gm/dl Albumin/Globulin Ratio 1.0 Thyroid Stimulating Hormone (TSH) 1.950 uIu/ml Free Thyroxine 1.44 ng/dl Free Triiodothyronine 3.47 pg/ml Bedside Glucose 139 mg/dl Assessment and Plan Demand ischemia * Troponin's have been stable. CHRONIC CHF: * STable. * -will continue current treatment of home diuretics. HTN: * Continue home medications as tolerated. ACUTE BRONCHITIS: * Recently treated for multifocal pneumonia. CTA not concerning for PE. Persistent lymphadenopathy noted. * Will continue to treat with nebulizers as he has had successful relief of symptoms. * Will add Pulmicort. Will avoid systemic steroid use at this time secondary to patient's poorly controlled blood sugars. * Will encourage incentive spirometry. * Nightly CPAP in the setting of MIRTA. * After discussion with pulmonary, will hold off antibiotics as patient will have bronch on Friday. * Clinically patient is doing well, and sometimes imaging improvement lags behind clincal. * Bronch will give final diagnosis * Appreciate pulmonary consultation and guidance. DMII: * Initial blood sugar is noted to be 240s. * Insulin sliding scale per protocol. * Will avoid systemic steroids at this time and less critically necessary. * Appreciated glycemic consultation. HYPOTHYROIDISM: * Continue home dosing of levothyroxine at this point. DVT PROPHYLAXIS: * Heparin bid. * SCDs. * Ambulation as tolerated. Continued [facility] stay due to: other Discharge planning: home
[2017-06-14] MEDS ORDERED: PIPERACILL/TAZOBAC CONSULT ACTIVE PRN (14:45)
[2017-06-14] MEDS ORDERED: PIPERACILL/TAZOBAC IV 3.375 GM in DEXTROSE 5% 100ML IV ONE (15:00)
[2017-06-14] MEDS: INSULIN GLARGINE SC SCH (21:27)
[2017-06-14] MEDS ORDERED: PIPERACILL/TAZOBAC IV 3.375 GM in DEXTROSE 5% 100ML IV SCH (22:00)
[2017-06-15] VITALS (9 sets, daily range): BP systolic 91–120; BP diastolic 65–86; PULSE 83–92; TEMP 36.5–36.7; O2SAT 93–98
[2017-06-15] MEDS: IPRATROPIUM BROMIDE NEB SOLN 0.02% 2.5 ML VIAL INH SCH ×3 (02:05→13:47)
[2017-06-15] MEDS: LEVALBUTEROL 1.25MG/0.5ML NEB INH SCH ×3 (02:05→13:47)
[2017-06-15] MEDS: LEVOTHYROXINE 88 MCG TAB PO SCH (06:07)
[2017-06-15] MEDS: HEPARIN SOD 5000 UNIT/0.5 ML CARP SQ SCH ×2 (06:09→14:08)
[2017-06-15] MEDS: BUDESONIDE 0.5 MG/2 ML VIAL (PULMICORT) INH SCH (07:12)
[2017-06-15 08:03] LABS: BASO % 0.3 %; BASO ABS # 0.04 K/uL (0-0.2); COMPLETE YES; EOS % 0.9 %; HEMATOCRIT 43.9 % (42-52); IG% 0.5 %; LYMPH ABS # 2.55 K/uL (1.2-3.4); MEAN CELL VOLUME 88.5 fL (80-100); MEAN CORPUSCULAR HEMOGLOBIN 28.2 pg (25-34); MEAN CORPUSCULAR HGB CONC 31.9 g/dl (32-36); MEAN PLATELET VOLUME 10.8 fL (7.4-10.4); MONO % 8.8 %; NEUT % 67.5 %; PLATELET COUNT 279 K/uL (130-400); RED BLOOD COUNT 4.96 M/uL (4.7-6.1); WHITE BLOOD COUNT 11.61 K/uL (4.8-10.8)
[2017-06-15 08:31] LABS: BUN/CREATININE RATIO 15.2 (10-20); CALCIUM 9.2 mg/dl (8.5-10.1); CREATININE 1.6 mg/dl (0.60-1.40); POTASSIUM 3.5 mmol/L (3.5-5.1)
[2017-06-15 08:34] LABS: ALB/GLOB RATIO 0.9 (0.9-2)
[2017-06-15] MEDS: ATORVASTATIN 40 MG TAB PO SCH (09:22)
[2017-06-15] MEDS: FUROSEMIDE 40 MG TAB PO SCH (09:23)
[2017-06-15] MEDS: SPIRONOLACTONE 25 MG TAB PO SCH (09:23)
[2017-06-15] MEDS: MAGNESIUM OXIDE 400 MG TAB PO SCH (09:24)
[2017-06-15] MEDS: GABAPENTIN 100 MG CAP PO SCH ×2 (09:24→14:04)
[2017-06-15] MEDS: CARVEDILOL 25 MG TAB PO SCH (09:24)
[2017-06-15] MEDS: INSULIN ASPART 100 UNITS/ML 3 ML PEN SC SCH ×3 (09:26→16:53)
--- NOTE | 2017-06-15 10:12 | Pulmonology Progress Note ---
Pulmonary Progress Note Date of Service Jun 15, 2017. Attending Subjective Patient seen and examined today. He states that he is still feeling lousy. He has is still feeling short of breath and having dry cough. He denies any chest pain or palpitations. Objective VS reviewed and listed below Gen: AAOx3, NAD, currently on BIPAP CVS: S1, S2, RRR Lungs: CTA b/l Abd: obese/NT/ND/BS+ Ext: no edema/no cyanosis/ no clubbing Labs reviewed. Troponin--down trending. Imaging reviewed. TTE 06/14/2017 * -- Conclusions -- * 1. Severely dilated LV. Normal LV wall thickness. * 2. Severe global LV dysfunction. LVEF 20-25%. Paradoxical septal motion consistent with conduction abnormality. * 3. RV mildly dilated with mild dysfunction. * 4. Moderate mitral regurgitation. * 5. Mild to moderate TR. * 6. Mild pulmonary hypertension. Est PASP 40-45mmHg. Est RA 15 mmHg. * 7. Compared with prior study on 07/30/2015: No significant change. Assessment & Plan Dyspnea on exertion Subacute cough Pneumonia-resolving Mediastinal and hilar lymphadenopathy Moderately MIRTA with nocturnal hypoxemia on BiPAP Elevated troponins--improving sCHF CKD Mr. Samuel is a 32-year-old gentleman with a complicated past medical history. He was recently admitted for multifocal pneumonia last month and treated with antibiotics. Over the course of last several weeks he has had persistent shortness of breath associated with exertional dyspnea, intermittent wheezing, chest tightness and cough. Review of imaging, patient's multifocal pneumonia has significantly with improved. There is some residual lymphadenopathy as well as some persistence of right lower lobe opacifications. Usually imaging often lags behind patient' s clinical status. He was recently seen in the pulmonary clinic for obstructive sleep apnea and bronchoscopy was scheduled. Urine Legionella and influenza PCR both negative. Today, patient states that his bronchoscopy was scheduled for Friday, but was cancelled and has to be rescheduled. From a respiratory standpoint, I feel that he is stable. Continue bronchodilators as this seems to greatly improve his symptoms. Continue with inhaled corticosteroids like Qvar. Continue with BiPAP compliance at night. He should follow up with pulmonology within one week of discharge to reschedule bronchoscopy as an outpatient. I will sign off case. Please call me if you have any questions or concerns. Data Medications: Current Inpatient Medications Medications (Trade) Dose Ordered Sig/Yazan Route Start Time Stop Time Status Last Admin Dose Admin Ioversol (Optiray 320) 125 ml UD PRN IV 06/13/17 11:30 06/17/17 11:29 Heparin Sodium (Porcine) (Heparin Sq 5000 Unit/0.5ml) 5,000 unit Q8 SQ 06/13/17 15:00 07/13/17 14:59 06/15/17 06:09 5,000 UNIT Acetaminophen (Tylenol Tab) 650 mg Q4H PRN PO 06/13/17 13:15 07/13/17 13:14 Ondansetron HCl (Zofran Inj) 4 mg Q6H PRN IV 06/13/17 13:15 07/13/17 13:14 Insulin Glargine (Lantus Vial) SEE PROTOCOL HS SC 06/13/17 21:00 07/13/17 20:59 06/14/17 21:27 60 UNITS Insulin Aspart (novoLOG ASPART) SLIDING SCALE If C... ACHS SC 06/13/17 16:00 07/13/17 15:59 06/15/17 09:26 11 UNITS Glucose (Glucose 40% Gel) 15-30 GRAMS 15 GRAMS... UD PRN PO 06/13/17 13:15 07/13/17 13:14 Glucose (Glucose Chew Tab) 4-8 Tablets 4 Tabl... UD PRN PO 06/13/17 13:15 07/13/17 13:14 Dextrose (Dextrose 50% 50ML Syringe) 25-50ML OF 50% DW IV FOR... UD PRN IV 06/13/17 13:15 07/13/17 13:14 Glucagon (Glucagon Inj) 1 mg UD PRN SQ 06/13/17 13:15 07/13/17 13:14 Miscellaneous Information (Consult Glycemic Management Pharmacy) 1 ea UD PRN N/A 06/13/17 13:51 07/13/17 13:50 Atorvastatin Calcium (Lipitor Tab) 40 mg DAILY PO 06/14/17 09:00 07/14/17 08:59 06/15/17 09:22 40 MG Benzonatate (Tessalon Perles Cap) 100 mg Q8H PRN PO 06/13/17 13:30 07/13/17 13:29 Carvedilol (Coreg Tab) 25 mg BID PO 06/13/17 21:00 07/13/17 20:59 06/15/17 09:24 25 MG Furosemide (Lasix Tab) 40 mg QAM PO 06/14/17 09:00 07/14/17 08:59 06/15/17 09:23 40 MG Gabapentin (Neurontin Cap) 100 mg TID PO 06/13/17 15:00 07/13/17 14:59 06/15/17 09:24 100 MG Levothyroxine Sodium (Synthroid Tab) 88 mcg DAILYBB PO 06/14/17 06:00 07/14/17 06:59 06/15/17 06:07 88 MCG Magnesium Oxide (Mag-Ox Tab) 400 mg BID PO 06/13/17 21:00 07/13/17 20:59 06/15/17 09:24 400 MG Spironolactone (Aldactone Tab) 25 mg QAM PO 06/14/17 09:00 07/14/17 08:59 06/15/17 09:23 25 MG Budesonide (Pulmicort Respules 0.5MG/ 2ML Neb Soln) 0.5 mg BIDR INH 06/13/17 20:00 07/13/17 19:59 06/15/17 07:12 0.5 MG Ipratropium [place] (Atrovent 0.02% 0.5MG/2.5ML Neb) 0.5 mg Q6R INH 06/13/17 15:00 07/13/17 14:59 06/15/17 07:12 0.5 MG Levalbuterol (Xopenex 1.25MG/ 0.5ML Neb) 1.25 mg Q6R INH 06/13/17 15:00 07/13/17 14:59 06/15/17 07:12 1.25 MG Vital Signs: Date Time Temp Pulse Resp B/P (MAP) Pulse Ox O2 Delivery O2 Flow Rate FiO2 06/15/17 08:09 36.7 92 20 120/86 (97) 96 Room Air 06/15/17 07:14 87 16 98 Room Air 06/15/17 04:00 98 CPAP 06/15/17 03:19 36.6 84 20 91/65 (74) 95 BiPAP 06/15/17 02:05 86 16 97 BiPAP/CPAP 21 06/15/17 02:05 86 97 21 06/14/17 23:59 98 Room Air 06/14/17 23:25 36.2 85 22 91/66 (74) 99 BiPAP 06/14/17 22:22 79 96 21 06/14/17 21:21 92 107/74 (85) 06/14/17 20:08 89 16 96 Room Air 06/14/17 20:00 98 Room Air 06/14/17 18:57 36.5 86 18 97/65 (76) 98 Room Air 06/14/17 16:00 Room Air 06/14/17 15:44 36.5 84 18 94/70 (78) 94 Room Air 06/14/17 14:21 86 16 98 Room Air 06/14/17 12:04 36.5 87 18 104/70 (81) 98 Room Air 06/14/17 12:00 Room Air Laboratory Results: Last 24 Hours Test 06/14/17 11:26 06/14/17 13:49 06/14/17 16:17 06/14/17 19:54 Bedside Glucose 139 mg/dl 127 mg/dl 103 mg/dl Troponin I 0.589 ng/ml Test 06/14/17 22:28 06/15/17 06:36 06/15/17 07:53 Troponin I 0.541 ng/ml Bedside Glucose 110 mg/dl White Blood Count 11.61 K/uL Red Blood Count 4.96 M/uL Hemoglobin 14.0 g/dL Hematocrit 43.9 % Mean Corpuscular Volume 88.5 fL Mean Corpuscular Hemoglobin 28.2 pg Mean Corpuscular Hemoglobin Concent 31.9 g/dl Platelet Count 279 K/uL Mean Platelet Volume 10.8 fL Neutrophils (%) (Auto) 67.5 % Lymphocytes (%) (Auto) 22.0 % Monocytes (%) (Auto) 8.8 % Eosinophils (%) (Auto) 0.9 % Basophils (%) (Auto) 0.3 % Neutrophils # (Auto) 7.84 K/uL Lymphocytes # (Auto) 2.55 K/uL Monocytes # (Auto) 1.02 K/uL Eosinophils # (Auto) 0.10 K/uL Basophils # (Auto) 0.04 K/uL RDW Standard Deviation 46.9 fL RDW Coefficient of Variation 14.8 % Immature Granulocyte % (Auto) 0.5 % Immature Granulocyte # (Auto) 0.06 K/uL Sodium Level 138 mmol/L Potassium Level 3.5 mmol/L Chloride Level 105 mmol/L Carbon Dioxide Level 23 mmol/L Anion Gap 10.0 mmol/L Blood Urea Nitrogen 24 mg/dl Creatinine 1.60 mg/dl Est Creatinine Clear Calc Drug Dose 82.8 ml/min Estimated GFR () 64.6 Estimated GFR (Non- 55.8 BUN/Creatinine Ratio 15.2 Random Glucose 140 mg/dl Calcium Level 9.2 mg/dl Total Bilirubin 2.1 mg/dl Aspartate Amino Transf (AST/SGOT) 11 U/L Alanine Aminotransferase (ALT/SGPT) 20 U/L Alkaline Phosphatase 55 U/L Total Protein 7.0 gm/dl Albumin 3.4 gm/dl Globulin 3.6 gm/dl Albumin/Globulin Ratio 0.9
[2017-06-15] MEDS ORDERED: FUROSEMIDE INJ 40 MG in SYRINGE 0 ML IV ONE (12:30)
--- NOTE | 2017-06-15 14:10 | Pharmacy Progress Note ---
Glycemic Control Progress Note Date of Service Jun 15, 2017. Scope Glycemic Pharmacist consulted for glycemic control to write orders per [facility] inpatient glycemic control protocol. Objective Accuchecks BSG (last 24hrs): Test 06/14/17 16:17 06/14/17 19:54 06/15/17 06:36 06/15/17 07:53 Bedside Glucose 127 mg/dl (70-99) 103 mg/dl (70-99) 110 mg/dl (70-99) Random Glucose 140 mg/dl (70-99) Test 06/15/17 11:23 Bedside Glucose 141 mg/dl (70-99) HbA1c: Test 06/14/17 07:12 Hemoglobin A1c 7.5 % (4.5-5.6) H Recent Pertinent Medications The patient is currently receiving: * Basal insulin: Lantus Q HS: 60 units if BSG 180 or less; 70 units if BSG above 180 * Correctional Insulin: Novolog Correction per scale ACHS Goal Range: Low 110 mg/dL - High 140 mg/dL Correction Factor: 15 mg/dL/unit * Prandial insulin: Per carb ratio of 1 unit per 5 grams CHO consumed * Oral Agents: None currently Outpatient Anti-Diabetic Meds Tresiba 160 units SQ Q PM Novolog w/ meals Assessment & Plan ASSESSMENT: 06/14/17 * This patient is known to the glycemic control service from prior admissions * Insulin initiated yesterday based upon experience from prior admission * A reduced dose of Lantus was given vs home dose of Tresiba as we have learned his basal needs are typically 90 units per day or less while hospitalized (and tolerating a diet). Fasting BSG is 158 this AM w/ 60 units of Lantus on board. * Post prandial BSGs have been controlled thus far w/ current CR and CF - continue the same 06/15/17 * Glycemic control has been good over the last 24 hours * BSGs have ranged 103-141 * He has received 95 units of insulin over the last 24 hrs while tolerating a diet * Fasting BSG at goal this AM w/ 60 units Lantus on board - no change needed * All post-prandial BSGs at goal w/ current CR and CF PLAN FOR INPATIENT GLYCEMIC CONTROL: * Continuing Lantus SQ Q HS: 60 units if BSG 180 or less, 70 units if BSG 180 or greater * Continuing correction factor of 15 mg/dl/unit * Continuing carb ratio of 1 unit per 5 grams CHO consumed * Continuing goal range of Low 110 mg/dL - High 140 mg/dL * Please note that the plan above was derived based on current level of insulin resistance and hospital stress. These recommendations are appropriate for inpatient admission only. Plan of care upon discharge will need to be reassessed to avoid potential outpatient hypo/hyperglycemia. Thank you.
--- NOTE | 2017-06-15 16:18 | Discharge Instructions ---
Discharge Instructions Date of Service Jun 15, 2017. Admission Reason for Admission: Bronchitis, Diabetes Mellitus, Dilated Discharge Discharge Diagnosis / Problem: Bronchitis with H/O CHF Discharge Goals Goal(s): Decrease discomfort, Improve function Activity Recommendations Activity Limitations: resume your previous activity . Instructions / Follow-Up Instructions / Follow-Up F/U with cardiology in 1 week. F/U with pulmonary in 1 week. F/U with Primary care provider in next 3 days. Current Hospital Diet Patient's current hospital diet: Diabetes Type 2 Diet, AHA Diet (Heart Healthy) Discharge Diet Recommended Diet: AHA Diet (Heart Healthy), Diabetes Type 2 Diet Pending Studies Studies pending at discharge: yes List of pending studies: Bronchoscopy will be rescheduled at outpatient pulmonary appointment Laboratory Results Hemoglobin A1c Test 06/14/17 07:12 Range/Units Estimated Average Glucose 169 mg/dl Hemoglobin A1c 7.5 H 4.5-5.6 % Medical Emergencies . Who to Call and When: Medical Emergencies: If at any time you feel your situation is an emergency, please call 911 immediately. . Non-Emergent Contact Non-Emergency issues call your: Primary Care Provider . . "Provider Documentation" section prepared by Paxton Acuna. . VTE Core Measure Inpt VTE Proph given/why not?: Unfractionated heparin SQ, SCD's
--- NOTE | 2017-06-15 16:20 | Discharge Summary ---
Discharge Summary Date of Service Jun 15, 2017. Discharge Summary Admission Date: Jun 13, 2017 at 13:27 Discharge Date: Jun 15, 2017 Problems/Secondary Diagnoses: (1) Diabetes Status: Chronic (2) Nonischemic cardiomyopathy Status: Chronic Immunizations: Have You Had Influenza Vaccine: N/A History of Tetanus Vaccine?: Unknown History of Pneumococcal: Unknown History of Hepatitis B Vaccine: Unknown Hospital Course Demand ischemia * Troponin's have been stable. CHRONIC CHF: * STable. * -will continue current treatment of home diuretics. HTN: * Continue home medications as tolerated. ACUTE BRONCHITIS: * Recently treated for multifocal pneumonia. CTA not concerning for PE. Persistent lymphadenopathy noted. * Will continue to treat with nebulizers as he has had successful relief of symptoms. * Will add Pulmicort. Will avoid systemic steroid use at this time secondary to patient's poorly controlled blood sugars. * Will encourage incentive spirometry. * Nightly CPAP in the setting of MIRTA. * After discussion with pulmonary, will hold off antibiotics as patient will have bronch on Friday. * Clinically patient is doing well, and sometimes imaging improvement lags behind clincal. * Bronch will give final diagnosis * Appreciate pulmonary consultation and guidance. DMII: * Initial blood sugar is noted to be 240s. * Insulin sliding scale per protocol. * Will avoid systemic steroids at this time and less critically necessary. * Appreciated glycemic consultation. HYPOTHYROIDISM: * Continue home dosing of levothyroxine at this point. DVT PROPHYLAXIS: * Heparin bid. * SCDs. * Ambulation as tolerated. This includes examination of the patient, discharge planning, medication reconciliation, and communication with other providers. Discharge Instructions Please refer to the electronic Patient Visit Report (Discharge Instructions) for additional information.
== END 2017-06-15 18:47 | disposition home or self-care (01) | DRG 202 ==
LOC: C.EDB 10:01 → C.2T 13:27 → ENRESERV 13:56
PROVIDERS: ADMIT Hospitalist; ATTEND Hospitalist
DX: J20.9 Acute bronchitis, unspecified (principal); I24.8 Other forms of acute ischemic heart disease; I42.0 Dilated cardiomyopathy; I50.22 Chronic systolic (congestive) heart failure; E10.65 Type 1 diabetes mellitus with hyperglycemia; Z95.810 Presence of automatic (implantable) cardiac defibrillator; I11.0 Hypertensive heart disease with heart failure; G47.33 Obstructive sleep apnea (adult) (pediatric); E03.9 Hypothyroidism, unspecified; I25.10 Atherosclerotic heart disease of native coronary artery without angina pectoris; E78.5 Hyperlipidemia, unspecified; K21.9 Gastro-esophageal reflux disease without esophagitis; E87.6 Hypokalemia

== ENCOUNTER 2017-06-29 12:10 | Inpatient (IN) | payer OTHER ==
[~2017-06-29] VITALS: Ht 180.3 cm; Wt 117.9 kg
[~2017-06-29 12:10] MED LIST changes: -CEFD300C2 PO; -DXY100 PO; -SACC250C PO; -VANC5CAP PO
[2017-06-29] MEDS ORDERED: FUROSEMIDE 40 MG/4 ML VIAL IV STA (13:29)
[2017-06-29] MEDS ORDERED: ONDANSETRON INJ 2 MG/ML 2 ML VIAL IV STA (13:29)
[2017-06-29] MEDS ORDERED: ALBUT/IPRATROP 3MG/0.5MG NEB 3 ML VIAL INH ONE (13:30)
--- NOTE | 2017-06-29 13:42 | EMERGENCY ROOM VISIT NOTE ---
History Report prepared by Jeff: Matt Fuentes Under the Supervision of: Dr. Shen Garcia M.D. First contact with patient: 13:20 Chief Complaint: RESPIRATORY PROBLEMS Stated Complaint: WHEEZING, COUGHING UP BLOOD, VOMITING, FATIGUE Nursing Triage Summary: Patient states "I have difficulty breathing and coughing for 3 months. I been coughing up blood also for 3 months. It will go away for a while and starts again. I saw my pulmunologist and he saids is post-nasal drip. I don't think so." History of Present Illness The patient is a 32 year old male who presents to the Emergency Room with complaints of constant shortness of breath for the past few days. The patient additionally states that he has been coughing up blood and yellow mucous, and he has been vomiting. He states that he was put on Flonase saline cleanse, though he is not on any antibiotics. The patient notes that he had pneumonia recently as well. Source of History: patient Onset: a few days ago Position: other (global) Quality: other (shortness of breath) Timing: constant Associated Symptoms: + cough, + vomiting Review of Systems See HPI for pertinent positives & negatives. A total of 10 systems reviewed and were otherwise negative. Past Medical & Surgical Medical Problems: (1) Bronchitis (2) Chronic congestive heart failure (3) Diabetes (4) Diabetes mellitus (5) Dilated cardiomyopathy (6) Fever (7) HTN (hypertension) (8) Hypotension (9) Kidney stone (10) Nonischemic cardiomyopathy (11) Pneumonia Family History Cancer FH: HTN (hypertension) FH: diabetes mellitus Heart disease Social History Smoking Status: Never Smoker Alcohol Use: none Drug Use: none Marital Status: in relationship Housing Status: lives with family Occupation Status: employed Current/Historical Medications Scheduled Atorvastatin (Atorvastatin Calcium), 40 MG PO DAILY Carvedilol (Carvedilol), 25 MG PO BID Furosemide (Furosemide), 40 MG PO QAM Gabapentin (Neurontin), 100 MG PO TID Insulin Aspart (Novolog Flexpen), 1 DOSE SC AC Insulin Degludec (Tresiba Flextouch), 160 UNITS SC QPM Ipratropium-Albuterol (Combivent Respimat), 1 PUFFS INH QID Levothyroxine Sodium (Levothyroxine Sodium), 88 MCG PO QAM Magnesium Oxide (Magnesium-Oxide), 400 MG PO BID Potassium Chloride (K-Tab), 20 MEQ PO QPM Spironolactone (Aldactone), 25 MG PO QAM Scheduled PRN Benzonatate (Tessalon Perles), 100 MG PO Q8H PRN for Cough Allergies Coded Allergies: VEE Inhibitors (Verified Allergy, Intermediate, COUGH, 05/14/17) Lisinopril (Verified Adverse Reaction, Unknown, cough, 05/14/17) Physical Exam Vital Signs Date Time Temp Pulse Resp B/P (MAP) Pulse Ox O2 Delivery O2 Flow Rate FiO2 06/29/17 13:55 86 28 106/77 100 Nebulizer 06/29/17 13:50 99 Room Air 06/29/17 13:45 89 24 91 Room Air 06/29/17 13:34 99 Room Air 06/29/17 13:29 88 06/29/17 12:21 96 Room Air 06/29/17 12:15 36.5 85 18 104/75 96 Room Air Physical Exam GENERAL: Patient is a pale-appearing well-nourished male coughing non-stop HEAD: Normocephalic atraumatic EYES: Ocular movements intact pupils equal and react to light OROPHARYNX mucous membranes are moist no exudates present no erythema or edema present NECK: Supple no nuchal rigidity CHEST: Good equal expansion LUNGS: Clear and equal to auscultation CARDIAC: Normal S1 and S2 ABDOMEN: Soft nontender no guarding BACK: No CVA tenderness EXTREMITIES: No pain upon palpation normal muscle strength in all groups no clubbing cyanosis or edema NEURO: Patient is following commands and answering questions appropriately. Alert and oriented x3 Cranial Nerves 2-12 grossly intact Medical Decision & Procedures ER Provider Diagnostic Interpretation: Radiology results as stated below per my review and radiologist interpretation: CHEST ONE VIEW PORTABLE HISTORY: Short of breath. COMPARISON: Chest 06/14/2017. FINDINGS: The heart remains mildly enlarged. Left-sided single lead pacemaker/defibrillator. No pleural effusions. No pneumothorax. The left lung is clear. Right perihilar hazy airspace opacity has progressed.. IMPRESSION: Progressive right perihilar hazy airspace opacity. This could be due to asymmetric congestive change or pneumonia. Electronically signed by: Venancio Bronson M.D. 06/29/2017 2:11 PM Dictated Date/Time: 06/29/2017 2:07 PM Laboratory Results 06/29/17 13:45 Red Blood Count 4.69, Mean Corpuscular Volume 92.5, Mean Corpuscular Hemoglobin 30.9, Mean Corpuscular Hemoglobin Concent 33.4, Mean Platelet Volume 11.0, Neutrophils (%) (Auto) 75.6, Lymphocytes (%) (Auto) 14.7, Monocytes (%) (Auto) 8.2, Eosinophils (%) (Auto) 0.9, Basophils (%) (Auto) 0.2, Neutrophils # (Auto) 10.38, Lymphocytes # (Auto) 2.02, Monocytes # (Auto) 1.13, Eosinophils # (Auto) 0.12, Basophils # (Auto) 0.03 06/29/17 13:45 Test 06/29/17 13:45 06/29/17 14:35 White Blood Count 13.73 K/uL (4.8-10.8) Red Blood Count 4.69 M/uL (4.7-6.1) Hemoglobin 14.5 g/dL (14.0-18.0) Hematocrit 43.4 % (42-52) Mean Corpuscular Volume 92.5 fL (80-100) Mean Corpuscular Hemoglobin 30.9 pg (25-34) Mean Corpuscular Hemoglobin Concent 33.4 g/dl (32-36) Platelet Count 287 K/uL (130-400) Mean Platelet Volume 11.0 fL (7.4-10.4) Neutrophils (%) (Auto) 75.6 % Lymphocytes (%) (Auto) 14.7 % Monocytes (%) (Auto) 8.2 % Eosinophils (%) (Auto) 0.9 % Basophils (%) (Auto) 0.2 % Neutrophils # (Auto) 10.38 K/uL (1.4-6.5) Lymphocytes # (Auto) 2.02 K/uL (1.2-3.4) Monocytes # (Auto) 1.13 K/uL (0.11-0.59) Eosinophils # (Auto) 0.12 K/uL (0-0.5) Basophils # (Auto) 0.03 K/uL (0-0.2) RDW Standard Deviation 51.8 fL (36.4-46.3) RDW Coefficient of Variation 15.5 % (11.5-14.5) Immature Granulocyte % (Auto) 0.4 % Immature Granulocyte # (Auto) 0.05 K/uL (0.00-0.02) Anion Gap 11.0 mmol/L (3-11) Est Creatinine Clear Calc Drug Dose 80.1 ml/min Estimated GFR () 60.5 Estimated GFR (Non- 52.2 BUN/Creatinine Ratio 11.2 (10-20) Calcium Level 8.3 mg/dl (8.5-10.1) Total Bilirubin 2.1 mg/dl (0.2-1) Aspartate Amino Transf (AST/SGOT) 21 U/L (15-37) Alanine Aminotransferase (ALT/SGPT) 41 U/L (12-78) Alkaline Phosphatase 61 U/L (45-117) Total Creatine Kinase 81 U/L (39-308) Creatine Kinase MB 2.3 ng/ml (0.5-3.6) Creatine Kinase MB Ratio 2.8 (0-3.0) Troponin I 0.306 ng/ml (0-0.045) Pro-B-Type Natriuretic Peptide 3553 pg/ml (0-450) Total Protein 6.7 gm/dl (6.4-8.2) Albumin 3.4 gm/dl (3.4-5.0) Globulin 3.3 gm/dl (2.5-4.0) Albumin/Globulin Ratio 1.0 (0.9-2) Influenza Type A (RT-PCR) Neg for Influ A (NEG) Influenza Type A Antigen Neg for Influ A (NEG) Influenza Type B Antigen Neg for Influ B (NEG) Influenza Type B (RT-PCR) Neg for Influ B (NEG) Urine Color YELLOW Urine Appearance CLEAR (CLEAR) Urine pH 5.5 (4.5-7.5) Urine Specific [place] 1.017 (1.000-1.030) Urine Protein TRACE (NEG) Urine Glucose (UA) NEG (NEG) Urine Ketones NEG (NEG) Urine Occult Blood NEG (NEG) Urine Nitrite NEG (NEG) Urine Bilirubin NEG (NEG) Urine Urobilinogen NEG (NEG) Urine Leukocyte Esterase NEG (NEG) Urine WBC (Auto) 1-5 /hpf (0-5) Urine RBC (Auto) 0-4 /hpf (0-4) Urine Hyaline Casts (Auto) 10-30 /lpf (0-5) Urine Epithelial Cells (Auto) 5-10 /lpf (0-5) Urine Bacteria (Auto) NEG (NEG) Labs reviewed by ED physician. Medications Administered Medications (Trade) Dose Ordered Sig/Yazan Route Start Time Stop Time Status Last Admin Dose Admin Ondansetron HCl (Zofran Inj) 4 mg NOW STAT IV 06/29/17 13:29 06/29/17 13:32 DC 06/29/17 13:42 4 MG Furosemide (Lasix Inj) 40 mg NOW STAT IV 06/29/17 13:29 06/29/17 13:32 DC 06/29/17 13:42 40 MG Albuterol/ Ipratropium (Duoneb) 12 ml ONE ONCE INH 06/29/17 13:30 06/29/17 13:32 DC 06/29/17 13:45 12 ML Piperacillin Sod/ Tazobactam Sod (Zosyn Iv) 4.5 gm NOW STAT IV 06/29/17 14:14 06/29/17 14:16 DC 06/29/17 14:46 4.5 GM Levofloxacin (Levaquin / D5W) 750 mg NOW STAT IV 06/29/17 14:14 06/29/17 14:16 DC 06/29/17 15:24 750 MG Vancomycin HCl 1000 mg/Sodium Chloride 270 ml @ 125 mls/hr NOW STAT IV 06/29/17 14:14 06/29/17 16:23 DC 06/29/17 14:23 125 MLS/HR ED Course 1320: Past medical records reviewed. The patient was evaluated in room C10. A complete history and physical examination was performed. 1329: Lasix 40mg IV, Zofran 4mg IV 1330: DuoNeb 12ml INH 1414: Vancomycin HCl 1000mg/ Sodium Chloride 270ml @ 125mls/hr IV, Levofloxacin 750mg IV, Zosyn 4.5gm IV 1438: I discussed the patient's case with Dr. Velasco, he has agreed to evaluate the patient for further management and care. Medical Decision Differential diagnosis: Etiologies such as infections, reactive airway disease, pneumonia, pneumothorax , COPD, CHF, cardiac ischemia, pulmonary embolism, musculoskeletal, gastrointestinal, as well as others were entertained. This is a 32-year-old male who presents emergency department complaining of wheezing as well as shortness of breath. The patient has a lengthy medical history including viral cardiomyopathy as well as congestive heart failure. He was given Lasix and Zofran in the emergency department. He appears to have a worsening pneumonia and has an elevation in his white blood count cell count. The patient was given Zosyn and Levaquin and vancomycin in the emergency department. I do feel that the patient as well as to be discharged home. Patient was in agreement with the treatment plan. Medication Reconcilliation Current Medication List: was personally reviewed by me Blood Pressure Screening Patient's blood pressure: Normal blood pressure Consults Time Called: [phone] Consulting Physician: Dr. Velasco Returned Call: [phone] I discussed the patient's case with Dr. Velasco, he has agreed to evaluate the patient for further management and care. Impression Primary Impression: Pneumonia Critical Care I have personally spent greater than 30 minutes of critical care time in the direct management of this patient. This includes bedside care, interpretation of diagnostic studies, and testing, discussion with consultants, patient, and family members, and other required patient management activities. This 30 minutes is in excess of all separately billable procedures. Scribe Attestation The scribe's documentation has been prepared under my direction and personally reviewed by me in its entirety. I confirm that the note above accurately reflects all work, treatment, procedures, and medical decision making performed by me. Departure Information Dispostion Being Evaluated By Hospitalist Patient Instructions My [facility] Problem Qualifiers Primary Impression: Pneumonia Pneumonia type: due to unspecified organism Laterality: right Lung location : lower lobe of lung Qualified Codes: J18.1 - Lobar pneumonia, unspecified organism
[2017-06-29 13:45] VITALS: PULSE 89; O2SAT 91
[2017-06-29 13:59] LABS: BASO % 0.2 %; BASO ABS # 0.03 K/uL (0-0.2); COMPLETE YES; EOS % 0.9 %; HEMATOCRIT 43.4 % (42-52); IG% 0.4 %; LYMPH % 14.7 %; LYMPH ABS # 2.02 K/uL (1.2-3.4); MEAN CELL VOLUME 92.5 fL (80-100); MEAN CORPUSCULAR HEMOGLOBIN 30.9 pg (25-34); MEAN CORPUSCULAR HGB CONC 33.4 g/dl (32-36); MONO % 8.2 %; NEUT % 75.6 %; PLATELET COUNT 287 K/uL (130-400); RED BLOOD COUNT 4.69 M/uL (4.7-6.1); WHITE BLOOD COUNT 13.73 K/uL (4.8-10.8)
--- NOTE | 2017-06-29 14:12 | DIAGNOSTIC IMAGING REPORT ---
CHEST ONE VIEW PORTABLE HISTORY: Short of breath. COMPARISON: Chest 06/14/2017. FINDINGS: The heart remains mildly enlarged. Left-sided single lead pacemaker/defibrillator. No pleural effusions. No pneumothorax. The left lung is clear. Right perihilar hazy airspace opacity has progressed.. IMPRESSION: Progressive right perihilar hazy airspace opacity. This could be due to asymmetric congestive change or pneumonia. Electronically signed by: Venancio Bronson M.D. 06/29/2017 2:11 PM Dictated Date/Time: 06/29/2017 2:07 PM
[2017-06-29] MEDS ORDERED: PIPERACILLIN/TAZOBACTAM 4.5 GM/100ML D5W IV STA (14:14)
[2017-06-29] MEDS ORDERED: LEVAQUIN 750MG / 150ML D5W IV STA (14:14)
[2017-06-29] MEDS ORDERED: VANCOMYCIN INJ 1,000 MG in SODIUM CHLORIDE 0.9% 250ML 250 ML IV STA (14:14)
[2017-06-29 14:16] LABS: BUN/CREATININE RATIO 11.2 (10-20); CALCIUM 8.3 mg/dl (8.5-10.1); CREATININE 1.69 mg/dl (0.60-1.40); POTASSIUM 3.8 mmol/L (3.5-5.1)
[2017-06-29 14:30] LABS: CKMB/CK RATIO 2.8 (0-3.0)
[2017-06-29 14:57] LABS: URINE APPEARANCE CLEAR (CLEAR); URINE BILIRUBIN NEG (NEG); URINE COLOR YELLOW; URINE NITRITE NEG (NEG); URINE PH 5.5 (4.5-7.5); URINE SPECIFIC GRAVITY 1.017 (1.000-1.030); UROBILINOGEN NEG (NEG)
[2017-06-29 14:58] LABS: MANUAL MICROSCOPIC REQUIRED? NO; REVIEW REQ? NO
[2017-06-29] MEDS ORDERED: DEXTROSE 50% 50 ML SYR IV PRN (15:15)
[2017-06-29] MEDS ORDERED: GLUCOSE 40% GEL 15 GM TUBE PO PRN (15:15)
[2017-06-29] MEDS ORDERED: ONDANSETRON INJ 2 MG/ML 2 ML VIAL IV PRN (15:15)
[2017-06-29] MEDS ORDERED: GLUCOSE 10 TABS/TUBE PO PRN (15:15)
[2017-06-29] MEDS ORDERED: ACETAMINOPHEN 325 MG TAB PO PRN (15:15)
[2017-06-29] MEDS ORDERED: GLUCAGON FOR INJ 1 MG VIAL SQ PRN (15:15)
[2017-06-29 15:20] VITALS: O2SAT 100; Ht 180.3 cm; Wt 117.9 kg
[2017-06-29 15:49] LABS: INFLUENZA A PCR Neg for Influ A (NEG); INFLUENZA B PCR Neg for Influ B (NEG)
--- NOTE | 2017-06-29 15:59 | History and Physical ---
History & Physical Date & Time of Service: Jun 29, 2017 at 15:47 Chief Complaint: Wheezing, Coughing Up Blood, Vomiting, Fatigue Primary Care Physician: Bridger Manriquez III, CRNP History of Present Illness Source: patient The patient is a 32-year-old male with most recent admissions from May 14 through May 18 for hypotension, and then June 13 to June 15 for dyspnea, who presents to the emergency department with complaints of shortness of breath over the past few days and intermittently productive cough with hemoptysis and yellow mucus. He saw his lung specialist recently and was placed on Flonase and saline rinse for presumptive postnasal drip. Past Medical/Surgical History Medical Problems: (1) Chronic congestive heart failure Status: Chronic (2) Diabetes Status: Chronic (3) HTN (hypertension) Status: Chronic (4) Kidney stone Status: Resolved (5) Nonischemic cardiomyopathy Status: Chronic Family History Cancer FH: HTN (hypertension) FH: diabetes mellitus Heart disease Social History Smoking Status: Never Smoker Smokeless Tobacco Use: No Alcohol Use: none Drug Use: none Marital Status: in relationship Occupational Status: employed Immunizations History of Influenza Vaccine: N/A History of Tetanus Vaccine?: Unknown History of Pneumococcal: Unknown History of Hepatitis B Vaccine: Unknown Multi-Drug Resistant Organisms History of MDRO: No Allergies Coded Allergies: VEE Inhibitors (Verified Allergy, Intermediate, COUGH, 05/14/17) Lisinopril (Verified Adverse Reaction, Unknown, cough, 05/14/17) Home Medications Scheduled Atorvastatin (Atorvastatin Calcium), 40 MG PO DAILY Carvedilol (Carvedilol), 25 MG PO BID Furosemide (Furosemide), 40 MG PO QAM Gabapentin (Neurontin), 100 MG PO TID Insulin Aspart (Novolog Flexpen), 1 DOSE SC AC Insulin Degludec (Tresiba Flextouch), 160 UNITS SC QPM Ipratropium-Albuterol (Combivent Respimat), 1 PUFFS INH QID Levothyroxine Sodium (Levothyroxine Sodium), 88 MCG PO QAM Magnesium Oxide (Magnesium-Oxide), 400 MG PO BID Potassium Chloride (K-Tab), 20 MEQ PO QPM Spironolactone (Aldactone), 25 MG PO QAM Scheduled PRN Benzonatate (Tessalon Perles), 100 MG PO Q8H PRN for Cough Review of Systems The patient denies chest pain, palpitations, lower extremity swelling, vision change, hearing change, sore throat, fevers, chills, sweats, weight change, diarrhea or constipation, abdominal pain, pelvic pain, blood in urine or stool, dysuria, urinary frequency or urgency, lightheadedness , dizziness, headache, memory loss, rash, abnormal bruising, imbalance, focal or generalized weakness, numbness or tingling in arms or legs, generalized arthralgias or myalgias, back or neck pain, or night sweats. The review of systems is otherwise negative other than for that already noted above, and at least 10 systems have been reviewed. Physical Exam Vital Signs Date Time Temp Pulse Resp B/P (MAP) Pulse Ox O2 Delivery O2 Flow Rate FiO2 06/29/17 15:38 86 28 106/77 100 06/29/17 15:20 100 Room Air 06/29/17 13:55 86 28 106/77 100 Nebulizer 06/29/17 13:50 99 Room Air 06/29/17 13:45 89 24 91 Room Air 06/29/17 13:34 99 Room Air 06/29/17 13:29 88 06/29/17 12:21 96 Room Air 06/29/17 12:15 36.5 85 18 104/75 96 Room Air The patient is awake, well-developed and adequately nourished, alert and oriented 3, normocephalic and atraumatic, lying in bed and in no acute distress. HEENT--PERRL, EOMI, mucous membranes and oropharynx dry. Neck--supple, no JVD or bruits, thyroid normal, trachea midline, no adenopathy. Heart--normal S1 and S2, no extra beats, no murmurs, rubs or gallops. Lungs--few crackles and wheezes on right, no respiratory distress, no accessory muscle use. Abdomen--normal bowel sounds and soft, nontender and nondistended, no hernias or masses, no organomegaly. Extremities--no cyanosis, clubbing or edema. There are good distal pulses b/l. Dermatologic--normal skin turgor, normal color, warm and dry, no abnormal lymph nodes, no rash. Neurologic--cranial nerves II through XII grossly intact. Rheumatologic--normal range of motion, nontender, muscles and joints. Psychiatric--normal affect. Diagnostics Laboratory Results Results Past 24 Hours Test 06/29/17 13:45 06/29/17 14:35 Range/Units White Blood Count 13.73 4.8-10.8 K/uL Red Blood Count 4.69 4.7-6.1 M/uL Hemoglobin 14.5 14.0-18.0 g/dL Hematocrit 43.4 42-52 % Mean Corpuscular Volume 92.5 80-100 fL Mean Corpuscular Hemoglobin 30.9 25-34 pg Mean Corpuscular Hemoglobin Concent 33.4 32-36 g/dl Platelet Count 287 130-400 K/uL Mean Platelet Volume 11.0 7.4-10.4 fL Neutrophils (%) (Auto) 75.6 % Lymphocytes (%) (Auto) 14.7 % Monocytes (%) (Auto) 8.2 % Eosinophils (%) (Auto) 0.9 % Basophils (%) (Auto) 0.2 % Neutrophils # (Auto) 10.38 1.4-6.5 K/uL Lymphocytes # (Auto) 2.02 1.2-3.4 K/uL Monocytes # (Auto) 1.13 0.11-0.59 K/uL Eosinophils # (Auto) 0.12 0-0.5 K/uL Basophils # (Auto) 0.03 0-0.2 K/uL RDW Standard Deviation 51.8 36.4-46.3 fL RDW Coefficient of Variation 15.5 11.5-14.5 % Immature Granulocyte % (Auto) 0.4 % Immature Granulocyte # (Auto) 0.05 0.00-0.02 K/uL Sodium Level 138 136-145 mmol/L Potassium Level 3.8 3.5-5.1 mmol/L Chloride Level 103 98-107 mmol/L Carbon Dioxide Level 24 21-32 mmol/L Anion Gap 11.0 3-11 mmol/L Blood Urea Nitrogen 19 7-18 mg/dl Creatinine 1.69 0.60-1.40 mg/dl Est Creatinine Clear Calc Drug Dose 80.1 ml/min Estimated GFR () 60.5 Estimated GFR (Non- 52.2 BUN/Creatinine Ratio 11.2 10-20 Random Glucose 180 70-99 mg/dl Calcium Level 8.3 8.5-10.1 mg/dl Total Bilirubin 2.1 0.2-1 mg/dl Aspartate Amino Transf (AST/SGOT) 21 15-37 U/L Alanine Aminotransferase (ALT/SGPT) 41 12-78 U/L Alkaline Phosphatase 61 45-117 U/L Total Creatine Kinase 81 39-308 U/L Creatine Kinase MB 2.3 0.5-3.6 ng/ml Creatine Kinase MB Ratio 2.8 0-3.0 Troponin I 0.306 0-0.045 ng/ml Pro-B-Type Natriuretic Peptide 3553 0-450 pg/ml Total Protein 6.7 6.4-8.2 gm/dl Albumin 3.4 3.4-5.0 gm/dl Globulin 3.3 2.5-4.0 gm/dl Albumin/Globulin Ratio 1.0 0.9-2 Influenza Type A Antigen Neg for Influ A NEG Influenza Type B Antigen Neg for Influ B NEG Urine Color YELLOW Urine Appearance CLEAR CLEAR Urine pH 5.5 4.5-7.5 Urine Specific [place] 1.017 1.000-1.030 Urine Protein TRACE NEG Urine Glucose (UA) NEG NEG Urine Ketones NEG NEG Urine Occult Blood NEG NEG Urine Nitrite NEG NEG Urine Bilirubin NEG NEG Urine Urobilinogen NEG NEG Urine Leukocyte Esterase NEG NEG Urine WBC (Auto) 1-5 0-5 /hpf Urine RBC (Auto) 0-4 0-4 /hpf Urine Hyaline Casts (Auto) 10-30 0-5 /lpf Urine Epithelial Cells (Auto) 5-10 0-5 /lpf Urine Bacteria (Auto) NEG NEG Microbiology Results 06/29/17 Blood Culture, Received Pending 06/29/17 Blood Culture, Received Pending Diagnostic Radiology Patient Name: ROMULO HYLTON Unit Number: [id number] Dictated: 06/29/171406 Transcribed: 06/29/171406 [facility] Printed Date/Time: [~ rep prt dt]/[~ rep prt tm] [~ rep ct labl] - [~ rep ct ivnm] [facility] [place] [address] Dictated: 06/29/171406 Transcribed: 06/29/171406 PAJ Printed Date/Time: [~ rep prt dt]/[~ rep prt tm] [~ rep ct labl] - [~ rep ct ivnm] CHEST ONE VIEW PORTABLE HISTORY: Short of breath. COMPARISON: Chest 06/14/2017. FINDINGS: The heart remains mildly enlarged. Left-sided single lead pacemaker/defibrillator. No pleural effusions. No pneumothorax. The left lung is clear. Right perihilar hazy airspace opacity has progressed.. IMPRESSION: Progressive right perihilar hazy airspace opacity. This could be due to asymmetric congestive change or pneumonia. Electronically signed by: Venancio Bronson M.D. 06/29/2017 2:11 PM Dictated Date/Time: 06/29/2017 2:07 PM The status of this report is Signed. Draft = Not yet reviewed or approved by Radiologist. Signed = Reviewed and approved by Radiologist. <AttendingPhy></AttendingPhy> <FamilyPhy>Bridger Manriquez III, CRNP</FamilyPhy> < PrimaryPhy>Bridger Manriquez III, CRNP</PrimaryPhy> <UnitNumber>[id number]</ UnitNumber> <VisitNumber>[id number]</VisitNumber> <PatientName>ROMULO HYLTON</ PatientName> <DateOfBirth>1985</DateOfBirth> <Location>[facility]</Location> < ServiceDate>06/29/17</ServiceDate> <MNE>ESINDI</MNE> <OrderingPhy>Shen Garcia MD</OrderingPhy> <OrderingPhyMNE>f rep ord dr corrigan</OrderingPhyMNE> < DictatingPhyMNE>f rep dict dr corrigan</DictatingPhyMNE> <CCListMNE>f rep ct mne</ CCListMNE> <AdmittingPhyMNE>f pt admit dr corrigan</AdmittingPhyMNE> <AttendingPhyMNE >f pt attend dr corrigan</AttendingPhyMNE> <ConsultingPhyMNE>f pt consult dr corrigan</ConsultingPhyMNE> <FamilyPhyMNE>f pt fam dr corrigan</FamilyPhyMNE> <OtherPhyMNE>f pt other dr corrigan</OtherPhyMNE> < PrimaryPhyMNE>f pt prim care dr corrigan</PrimaryPhyMNE> <ReferringPhyMNE>f pt referring dr corrigan</ReferringPhyMNE> EKG EKG shows normal sinus rhythm at 86 bpm, and in no acute ST-T changes, and no change compared 06/15/2017 Impression Assessment and Plan Right perihilar pneumonia/hemoptysis-- Vancomycin IV, Zosyn IV, Levaquin IV. Xopenex/Atrovent nebs every 6 hours while awake and every 2 hours when necessary. Pulmicort Respules 0.5 mg inhaled twice a day. Guaifenesin extended release 600 mg by mouth twice a day. Nasal cannula oxygen titrated to keep pulse ox greater than or equal to 92%. Nonischemic dilated cardiomyopathy/chronic congestive heart failure/hypertension /chronically elevated troponin Troponin of 0.306 is trending down from his previous admission. Follow serial enzymes. Echo will not be repeated from June 14. Continue carvedilol 25 mg by mouth twice a day. Hold for tonight spironolactone, furosemide, potassium chloride and magnesium. Diabetes mellitus-- Treciba 160 units subcutaneous every afternoon. Place on Accu-Cheks before meals and at bedtime with NovoLog coverage per scale Hypothyroidism-- Continue levothyroxine sodium 80 g every morning. Hyperlipidemia-- Continue atorvastatin 40 mg by mouth daily. Peripheral neuropathy--continue gabapentin 100 mg by mouth 3 times a day. Level of Care Telemetry Advanced Directives Existing Advance Directive: No Existing Living Will: No Existing Power of Assembling Machine Operator: No Resuscitation Status FULL RESUSCITATION VTE Prophylaxis VTE Risk Assessment Done? Y/N: Yes Risk Level: Moderate Given or contraindicated: SCD's Social Service Consult None Apply
[2017-06-29 16:00] VITALS: BP 99/69; PULSE 86; TEMP 36.7; O2SAT 97
[2017-06-29] MEDS ORDERED: VANCOMYCIN INJ 1,750 MG in SODIUM CHLORIDE 0.9% 500ML 500 ML IV STA (16:05)
[2017-06-29] MEDS ORDERED: VANCOMYCIN CONSULT ACTIVE PRN (16:15)
[2017-06-29] MEDS ORDERED: PIPERACILL/TAZOBAC CONSULT ACTIVE PRN (16:15)
--- NOTE | 2017-06-29 16:31 | Pharmacy Progress Note ---
Pharmacy Abx Dose Short Note Date of Service Jun 29, 2017. Assessment & Plan Assessment 32 year old male receiving IV Vancomycin and Zosyn for treatment of possible pneumonia Plan Vancomycin * Give Vancomycin 1750mg IV x 1 as an additional loading dose to 1000mg already received in ED * Initiate Vancomycin 1500mg IV q12 * Goal trough level for pneumonia : 15 to 20 mcg/mL * Trough level ordered for: 07/01 @ 0330 (early level, prior to steady state) * MRSA nasal swab ordered Pharmacy will continue to follow and will adjust dose/frequency as necessary. Thank you.
[2017-06-29] MEDS ORDERED: VANCOMYCIN INJ 1,750 MG in SODIUM CHLORIDE 0.9% 250ML 250 ML IV ONE (17:15)
[2017-06-29] MEDS: INSULIN ASPART 100 UNITS/ML 3 ML PEN SC SCH ×2 (17:32→21:00)
[2017-06-29] MEDS ORDERED: COUGH DROP (SUGAR FREE) LOZ 24 LOZ/1 BOX ONE (17:42)
[2017-06-29] MEDS: IPRATROPIUM BROMIDE NEB SOLN 0.02% 2.5 ML VIAL INH SCH (19:07)
[2017-06-29] MEDS: BUDESONIDE 0.5 MG/2 ML VIAL (PULMICORT) INH SCH (19:07)
[2017-06-29 19:08] VITALS: PULSE 81; O2SAT 95
[2017-06-29] MEDS: LEVALBUTEROL 1.25MG/0.5ML NEB INH SCH (19:08)
[2017-06-29 19:15] VITALS: BP 101/68; PULSE 69; TEMP 36.7; O2SAT 93
[2017-06-29] MEDS: PIPERACILL/TAZOBAC IV 4.5 GM in DEXTROSE 5% 100ML 100 ML IV SCH (19:50)
[2017-06-29] MEDS: ONDANSETRON INJ 2 MG/ML 2 ML VIAL IV PRN (19:50)
[2017-06-29] MEDS ORDERED: LEVALBUTEROL/IPRATROPIUM NEB INH SCH (21:00)
[2017-06-29] MEDS: GUAIFENESIN 600 MG TABCR PO SCH (21:31)
[2017-06-29] MEDS: MAGNESIUM OXIDE 400 MG TAB PO SCH (21:31)
[2017-06-29] MEDS: GABAPENTIN 100 MG CAP PO SCH (21:32)
[2017-06-29] MEDS: CARVEDILOL 25 MG TAB PO SCH (21:32)
[2017-06-29] MEDS: BENZONATATE 100MG CAP PO PRN (21:34)
[2017-06-29] MEDS: INSULIN GLARGINE SC SCH (22:06)
[2017-06-29 23:42] VITALS: BP 96/71; PULSE 86; TEMP 36.3; O2SAT 92
[2017-06-30] VITALS (12 sets, daily range): BP systolic 92–119; BP diastolic 68–89; PULSE 81–110; TEMP 36.4–36.8; O2SAT 92–99
[2017-06-30] MEDS: LEVALBUTEROL 1.25MG/0.5ML NEB INH SCH ×3 (02:15→13:20)
[2017-06-30] MEDS: IPRATROPIUM BROMIDE NEB SOLN 0.02% 2.5 ML VIAL INH SCH ×3 (02:15→13:20)
[2017-06-30] MEDS ORDERED: VANCOMYCIN INJ 1,500 MG in SODIUM CHLORIDE 0.9% 250ML 250 ML IV SCH (04:00)
[2017-06-30] MEDS ORDERED: VANCOMYCIN INJ 1,500 MG in SODIUM CHLORIDE 0.9% 500ML 500 ML IV SCH (04:00)
[2017-06-30] MEDS: PIPERACILL/TAZOBAC IV 4.5 GM in DEXTROSE 5% 100ML 100 ML IV SCH ×2 (04:16→12:24)
[2017-06-30 06:10] LABS: BASO % 0.2 %; BASO ABS # 0.03 K/uL (0-0.2); COMPLETE YES; EOS % 0.7 %; HEMATOCRIT 41.6 % (42-52); IG% 0.2 %; MEAN CELL VOLUME 90.8 fL (80-100); MEAN CORPUSCULAR HEMOGLOBIN 28.6 pg (25-34); MEAN CORPUSCULAR HGB CONC 31.5 g/dl (32-36); MONO % 7.8 %; NEUT % 79.1 %; PLATELET COUNT 256 K/uL (130-400); RED BLOOD COUNT 4.58 M/uL (4.7-6.1); WHITE BLOOD COUNT 12.53 K/uL (4.8-10.8)
[2017-06-30] MEDS: LEVOTHYROXINE 88 MCG TAB PO SCH (06:16)
[2017-06-30] MEDS: BENZONATATE 100MG CAP PO PRN ×2 (06:16→23:31)
[2017-06-30 06:18] LABS: INR 1.3 (0.9-1.1); PARTIAL THROMBOPLASTIN RATIO 1.1; PROTHROMBIN TIME (PATIENT) 14.3 SECONDS (9.0-12.0)
[2017-06-30 06:43] LABS: BUN/CREATININE RATIO 12.7 (10-20); CALCIUM 7.6 mg/dl (8.5-10.1); CREATININE 1.71 mg/dl (0.60-1.40); MAGNESIUM 2.2 mg/dl (1.8-2.4); POTASSIUM 3.3 mmol/L (3.5-5.1)
[2017-06-30 06:49] LABS: CKMB/CK RATIO 2.7 (0-3.0)
[2017-06-30] MEDS: BUDESONIDE 0.5 MG/2 ML VIAL (PULMICORT) INH SCH ×2 (07:11→19:06)
[2017-06-30] MEDS: MAGNESIUM OXIDE 400 MG TAB PO SCH ×2 (08:28→19:59)
[2017-06-30] MEDS: GABAPENTIN 100 MG CAP PO SCH ×3 (08:28→20:00)
[2017-06-30] MEDS: ATORVASTATIN 40 MG TAB PO SCH (08:28)
[2017-06-30] MEDS: CARVEDILOL 25 MG TAB PO SCH ×2 (08:28→19:59)
[2017-06-30] MEDS: GUAIFENESIN 600 MG TABCR PO SCH ×2 (08:29→20:00)
[2017-06-30] MEDS: INSULIN ASPART 100 UNITS/ML 3 ML PEN SC SCH ×4 (08:32→20:06)
--- NOTE | 2017-06-30 11:50 | Medical Student: [facility] ---
Med Student History & Physical Date & Time of Service: Jun 30, 2017 at 11:25 Chief Complaint: Elevated Troponin; Pneumonia Primary Care Physician: Bridger Manriquez III, CRNP History of Present Illness Source: patient Nikita is a 32 year old male with a history of non-ischemic dilated cardiomyopathy who presents to telemetry from the ED for shortness of breath, productive cough, and vomiting. He was seen in the ED yesterday (06/29) afternoon. Patient states that he has had a productive cough and shortness of breath that have been constant for the last three days, along with vomiting and coughing up "blood and yellow mucous." These symptoms have also been happening intermittently for about three months, and he has been admitted to [facility] for treatment of pneumonia twice in the period of time. Denies fever/chills, headache, nasal congestion, chest pain, palpitations, abdominal pain, diarrhea, constipation, leg swelling. Some paresthesias in bilateral LE 2/2 diabetic peripheral neuropathy. Patient has a complicated medical history that began with a viral illness 5 years ago and subsequent non-ischemic cardiomyopathy. Other PMH includes HTN, CHF, and DMII. Denies use of tobacco, alcohol, illicit drug use. Past Medical/Surgical History Medical Problems: (1) Cardiomyopathy Status: Acute (2) Cardiomyopathy Status: Acute (3) Cardiomyopathy Status: Acute (4) Dyspnea Status: Acute (5) Elevated brain natriuretic peptide (BNP) level Status: Acute (6) Elevated troponin Status: Acute (7) Epigastric abdominal pain Status: Acute (8) Guaiac positive stools Status: Acute (9) Hypokalemia Status: Acute (10) Hypoxia Status: Acute (11) Left sided chest pain Status: Acute (12) Pancreatitis Status: Acute (13) Pneumonia Status: Acute Family History Father: HTN, heart disease, diabetes Social History Smoking Status: Never Smoker Smokeless Tobacco Use: No Alcohol Use: none Drug Use: none Marital Status: in relationship Housing status: lives with family Occupational Status: employed Immunizations History of Influenza Vaccine: N/A History of Tetanus Vaccine?: Unknown History of Pneumococcal: Unknown History of Hepatitis B Vaccine: Unknown Allergies Coded Allergies: VEE Inhibitors (Verified Allergy, Intermediate, COUGH, 05/14/17) Lisinopril (Verified Adverse Reaction, Unknown, cough, 05/14/17) Medications Atorvastatin (Atorvastatin Calcium), 40 MG PO DAILY Benzonatate (Tessalon Perles), 100 MG PO Q8H PRN for Cough Carvedilol (Carvedilol), 25 MG PO BID Furosemide (Furosemide), 40 MG PO QAM Gabapentin (Neurontin), 100 MG PO TID Insulin Aspart (Novolog Flexpen), 1 DOSE SC AC Insulin Degludec (Tresiba Flextouch), 160 UNITS SC QPM Ipratropium-Albuterol (Combivent Respimat), 1 PUFFS INH QID Levothyroxine Sodium (Levothyroxine Sodium), 88 MCG PO QAM Magnesium Oxide (Magnesium-Oxide), 400 MG PO BID Potassium Chloride (K-Tab), 20 MEQ PO QPM Spironolactone (Aldactone), 25 MG PO QAM Review of Systems Constitutional: + fatigue, No fever, No chills, No sweats ENT: + sore throat (mild), No nasal symptoms Respiratory: + cough, + sputum (yellow mucous), + wheezing, + shortness of breath, + hemoptysis Cardiovascular: No chest pain, No orthopnea, No edema, No palpitations Abdomen: + nausea, + vomiting, No pain, No diarrhea, No constipation Musculoskeletal: No swelling Genitourinary - Male: No dysuria, No urinary retention, No urinary incontinence Neurologic: + numbness/tingling (bilateral LE) Endocrine: + fatigue Integumentary: No rash Physical Exam Vital Signs (24 Hours) Date Time Temp Pulse Resp B/P (MAP) Pulse Ox O2 Delivery O2 Flow Rate FiO2 06/30/17 08:00 Room Air 06/30/17 07:11 83 16 96 Room Air 06/30/17 06:58 36.4 88 20 102/68 (79) 99 06/30/17 04:11 36.8 87 22 119/82 (94) 95 Room Air 06/30/17 04:00 95 Room Air 06/30/17 02:15 88 16 96 Room Air 06/30/17 00:01 92 Room Air 06/29/17 23:42 36.3 86 20 96/71 (79) 92 Room Air 06/29/17 20:00 Room Air 06/29/17 19:15 36.7 69 18 101/68 (79) 93 Room Air 06/29/17 19:08 81 20 95 Room Air 06/29/17 16:00 36.7 86 18 99/69 (79) 97 Room Air 06/29/17 15:38 86 28 106/77 100 06/29/17 15:20 100 Room Air 06/29/17 13:55 86 28 106/77 100 Nebulizer 06/29/17 13:50 99 Room Air 06/29/17 13:45 89 24 91 Room Air 06/29/17 13:34 99 Room Air 06/29/17 13:29 88 06/29/17 12:21 96 Room Air 06/29/17 12:15 36.5 85 18 104/75 96 Room Air General Appearance: WD/WN, + mild distress Head: normocephalic, atraumatic Eyes: normal inspection, PERRL, EOMI Neck: supple, no adenopathy Respiratory/Chest: chest non-tender, + decreased breath sounds, + crackles ( bilateral lower lobes; worse on right), + wheezing Cardiovascular: regular rate, rhythm, no gallop, no murmur Abdomen/GI: normal bowel sounds, non tender, soft Back: no CVA tenderness Extremities/Musculoskelatal: normal inspection, no calf tenderness, no pedal edema Neurologic/Psych: histologic technician II-XII nml as tested, alert Skin: normal color, warm/dry Lymphatic: no adenopathy Diagnostics Laboratory Results Results Past 24 Hours Test 06/29/17 13:45 06/29/17 14:35 06/29/17 16:13 06/29/17 20:48 Range/Units White Blood Count 13.73 4.8-10.8 K/uL Red Blood Count 4.69 4.7-6.1 M/uL Hemoglobin 14.5 14.0-18.0 g/dL Hematocrit 43.4 42-52 % Mean Corpuscular Volume 92.5 80-100 fL Mean Corpuscular Hemoglobin 30.9 25-34 pg Mean Corpuscular Hemoglobin Concent 33.4 32-36 g/dl Platelet Count 287 130-400 K/uL Mean Platelet Volume 11.0 7.4-10.4 fL Neutrophils (%) (Auto) 75.6 % Lymphocytes (%) (Auto) 14.7 % Monocytes (%) (Auto) 8.2 % Eosinophils (%) (Auto) 0.9 % Basophils (%) (Auto) 0.2 % Neutrophils # (Auto) 10.38 1.4-6.5 K/uL Lymphocytes # (Auto) 2.02 1.2-3.4 K/uL Monocytes # (Auto) 1.13 0.11-0.59 K/uL Eosinophils # (Auto) 0.12 0-0.5 K/uL Basophils # (Auto) 0.03 0-0.2 K/uL RDW Standard Deviation 51.8 36.4-46.3 fL RDW Coefficient of Variation 15.5 11.5-14.5 % Immature Granulocyte % (Auto) 0.4 % Immature Granulocyte # (Auto) 0.05 0.00-0.02 K/uL Sodium Level 138 136-145 mmol/L Potassium Level 3.8 3.5-5.1 mmol/L Chloride Level 103 98-107 mmol/L Carbon Dioxide Level 24 21-32 mmol/L Anion Gap 11.0 3-11 mmol/L Blood Urea Nitrogen 19 7-18 mg/dl Creatinine 1.69 0.60-1.40 mg/dl Est Creatinine Clear Calc Drug Dose 80.1 ml/min Estimated GFR () 60.5 Estimated GFR (Non- 52.2 BUN/Creatinine Ratio 11.2 10-20 Random Glucose 180 70-99 mg/dl Calcium Level 8.3 8.5-10.1 mg/dl Total Bilirubin 2.1 0.2-1 mg/dl Aspartate Amino Transf (AST/SGOT) 21 15-37 U/L Alanine Aminotransferase (ALT/SGPT) 41 12-78 U/L Alkaline Phosphatase 61 45-117 U/L Total Creatine Kinase 81 39-308 U/L Creatine Kinase MB 2.3 0.5-3.6 ng/ml Creatine Kinase MB Ratio 2.8 0-3.0 Troponin I 0.306 0-0.045 ng/ml Pro-B-Type Natriuretic Peptide 3553 0-450 pg/ml Total Protein 6.7 6.4-8.2 gm/dl Albumin 3.4 3.4-5.0 gm/dl Globulin 3.3 2.5-4.0 gm/dl Albumin/Globulin Ratio 1.0 0.9-2 Influenza Type A (RT-PCR) Neg for Influ A NEG Influenza Type A Antigen Neg for Influ A NEG Influenza Type B Antigen Neg for Influ B NEG Influenza Type B (RT-PCR) Neg for Influ B NEG Urine Color YELLOW Urine Appearance CLEAR CLEAR Urine pH 5.5 4.5-7.5 Urine Specific [place] 1.017 1.000-1.030 Urine Protein TRACE NEG Urine Glucose (UA) NEG NEG Urine Ketones NEG NEG Urine Occult Blood NEG NEG Urine Nitrite NEG NEG Urine Bilirubin NEG NEG Urine Urobilinogen NEG NEG Urine Leukocyte Esterase NEG NEG Urine WBC (Auto) 1-5 0-5 /hpf Urine RBC (Auto) 0-4 0-4 /hpf Urine Hyaline Casts (Auto) 10-30 0-5 /lpf Urine Epithelial Cells (Auto) 5-10 0-5 /lpf Urine Bacteria (Auto) NEG NEG Bedside Glucose 170 133 70-99 mg/dl Test 06/29/17 23:09 06/30/17 05:53 06/30/17 06:46 Range/Units Total Creatine Kinase 67 59 39-308 U/L Creatine Kinase MB 2.0 1.6 0.5-3.6 ng/ml Creatine Kinase MB Ratio 3.0 2.7 0-3.0 Troponin I 0.284 0.271 0-0.045 ng/ml White Blood Count 12.53 4.8-10.8 K/uL Red Blood Count 4.58 4.7-6.1 M/uL Hemoglobin 13.1 14.0-18.0 g/dL Hematocrit 41.6 42-52 % Mean Corpuscular Volume 90.8 80-100 fL Mean Corpuscular Hemoglobin 28.6 25-34 pg Mean Corpuscular Hemoglobin Concent 31.5 32-36 g/dl Platelet Count 256 130-400 K/uL Mean Platelet Volume 11.0 7.4-10.4 fL Neutrophils (%) (Auto) 79.1 % Lymphocytes (%) (Auto) 12.0 % Monocytes (%) (Auto) 7.8 % Eosinophils (%) (Auto) 0.7 % Basophils (%) (Auto) 0.2 % Neutrophils # (Auto) 9.91 1.4-6.5 K/uL Lymphocytes # (Auto) 1.50 1.2-3.4 K/uL Monocytes # (Auto) 0.98 0.11-0.59 K/uL Eosinophils # (Auto) 0.09 0-0.5 K/uL Basophils # (Auto) 0.03 0-0.2 K/uL RDW Standard Deviation 50.2 36.4-46.3 fL RDW Coefficient of Variation 15.5 11.5-14.5 % Immature Granulocyte % (Auto) 0.2 % Immature Granulocyte # (Auto) 0.02 0.00-0.02 K/uL Prothrombin Time 14.3 9.0-12.0 SECONDS Prothromb Time International Ratio 1.3 0.9-1.1 Activated Partial Thromboplast Time 28.4 21.0-31.0 SECONDS Partial Thromboplastin Ratio 1.1 Sodium Level 138 136-145 mmol/L Potassium Level 3.3 3.5-5.1 mmol/L Chloride Level 105 98-107 mmol/L Carbon Dioxide Level 21 21-32 mmol/L Anion Gap 12.0 3-11 mmol/L Blood Urea Nitrogen 22 7-18 mg/dl Creatinine 1.71 0.60-1.40 mg/dl Est Creatinine Clear Calc Drug Dose 79.5 ml/min Estimated GFR () 59.6 Estimated GFR (Non- 51.5 BUN/Creatinine Ratio 12.7 10-20 Random Glucose 139 70-99 mg/dl Calcium Level 7.6 8.5-10.1 mg/dl Magnesium Level 2.2 1.8-2.4 mg/dl Total Bilirubin 2.2 0.2-1 mg/dl Direct Bilirubin 0.4 0-0.2 mg/dl Aspartate Amino Transf (AST/SGOT) 17 15-37 U/L Alanine Aminotransferase (ALT/SGPT) 34 12-78 U/L Alkaline Phosphatase 47 45-117 U/L Total Protein 5.6 6.4-8.2 gm/dl Albumin 2.9 3.4-5.0 gm/dl Bedside Glucose 131 70-99 mg/dl Microbiology Results 06/29/17 Blood Culture, Received Pending 06/29/17 Blood Culture, Received Pending 06/29/17 MRSA DNA Surveillance Screen - Final, Complete Specimen Negative for MRSA by DNA Probe Impression Assessment and Plan This is a 32 year old male with a history of non-ischemic dilated cardiomyopathy and a recent history of pneumonia who presents with a productive cough, shortness of breath, and vomiting. Differential diagnosis includes CHF exacerbation, recurrent pneumonia, pulmonary hypertension, bronchitis, pneumonitis, asthma exacerbation. Primary diagnosis: right perihilar pneumonia with hemoptysis -Continue IV vancomysin, Levaquin, Zosyn -Nebulizing treatments as needed -Continue ipra-albuterol inhaler as needed -Nasal cannula oxygen if O2 sat drops below 92% on room air -Repeat CXR in 48 hours Non-ischemic cardiomyopathy/HTN -Continue to check serial troponin - was slightly elevated in ED -Continue carvedilol -No need to repeat echo - done 06/13/2017; showed severely dilated LV, LVEF of 20 -25%, paradoxic septal motion, mildly dilated RV, moderate mitral regurg, mild pulmonary HTN -Hold Diuretics, K, Mg for now Diabetes mellitus -Check blood glucose prior to meals -Continue home regimen of insulin -Continue gabapentin for DM peripheral neuropathy Hyperlipidemia -Continue atorvastatin Hypothyroidism -Continue Synthroid Level of Care Telemetry Advanced Directives Existing Advance Directive: No Existing Living Will: No Existing Power of Surgical Pathologist: No Resuscitation Status FULL RESUSCITATION
[2017-06-30] MEDS: ONDANSETRON INJ 2 MG/ML 2 ML VIAL IV PRN (15:27)
[2017-06-30] MEDS: ALBUT/IPRATROP 3MG/0.5MG NEB 3 ML VIAL INH SCH ×2 (15:54→19:06)
[2017-06-30] MEDS ORDERED: LEVOFLOXACIN / D5W 500 MG in PREMIXED IN D5W 100 ML IV SCH ×2 (16:00→18:00)
--- NOTE | 2017-06-30 17:38 | Progress Note ---
Subjective Date of Service: Jun 30, 2017. Subjective Pt evaluation today including: conversation w/ patient, physical exam, chart review, lab review, review of studies, review of inpatient medication list feeling better breathing better coughing feels like mucous needs to come up but hasn't really come up yet no f/c/s no orthopnea no PND still nauseated, some vomiting. on directed questioning does think that the vomiting is probably from gagging on mucous Problem List Medical Problems: (1) Cardiomyopathy Status: Acute (2) Cardiomyopathy Status: Acute (3) Cardiomyopathy Status: Acute (4) Dyspnea Status: Acute (5) Elevated brain natriuretic peptide (BNP) level Status: Acute (6) Elevated troponin Status: Acute (7) Epigastric abdominal pain Status: Acute (8) Guaiac positive stools Status: Acute (9) Hypokalemia Status: Acute (10) Hypoxia Status: Acute (11) Left sided chest pain Status: Acute (12) Pancreatitis Status: Acute (13) Pneumonia Status: Acute Review of Systems all other ROS otherwise negative except for as above Objective Vital Signs Date Time Temp Pulse Resp B/P (MAP) Pulse Ox O2 Delivery O2 Flow Rate FiO2 06/30/17 16:00 Room Air 06/30/17 13:20 110 16 96 Room Air 06/30/17 12:00 Room Air 06/30/17 11:29 36.5 88 22 92/71 (78) 96 Room Air 06/30/17 08:00 Room Air 06/30/17 07:11 83 16 96 Room Air 06/30/17 06:58 36.4 88 20 102/68 (79) 99 06/30/17 04:11 36.8 87 22 119/82 (94) 95 Room Air 06/30/17 04:00 95 Room Air 06/30/17 02:15 88 16 96 Room Air 06/30/17 00:01 92 Room Air 06/29/17 23:42 36.3 86 20 96/71 (79) 92 Room Air 06/29/17 20:00 Room Air 06/29/17 19:15 36.7 69 18 101/68 (79) 93 Room Air 06/29/17 19:08 81 20 95 Room Air Physical Exam General Appearance: no apparent distress Eyes: EOMI ENT: hearing grossly normal Neck: trachea midline Respiratory/Chest: no respiratory distress, no accessory muscle use, + decreased breath sounds (faintly diminished base R) Extremities: normal range of motion Neurologic/Psychiatric: toe laster II-XII nml as tested, alert, normal mood/affect Skin: normal color, warm/dry Laboratory Results Last 24 Hours Test 06/29/17 20:48 06/29/17 23:09 06/30/17 05:53 06/30/17 06:46 Bedside Glucose 133 mg/dl 131 mg/dl Total Creatine Kinase 67 U/L 59 U/L Creatine Kinase MB 2.0 ng/ml 1.6 ng/ml Creatine Kinase MB Ratio 3.0 2.7 Troponin I 0.284 ng/ml 0.271 ng/ml White Blood Count 12.53 K/uL Red Blood Count 4.58 M/uL Hemoglobin 13.1 g/dL Hematocrit 41.6 % Mean Corpuscular Volume 90.8 fL Mean Corpuscular Hemoglobin 28.6 pg Mean Corpuscular Hemoglobin Concent 31.5 g/dl Platelet Count 256 K/uL Mean Platelet Volume 11.0 fL Neutrophils (%) (Auto) 79.1 % Lymphocytes (%) (Auto) 12.0 % Monocytes (%) (Auto) 7.8 % Eosinophils (%) (Auto) 0.7 % Basophils (%) (Auto) 0.2 % Neutrophils # (Auto) 9.91 K/uL Lymphocytes # (Auto) 1.50 K/uL Monocytes # (Auto) 0.98 K/uL Eosinophils # (Auto) 0.09 K/uL Basophils # (Auto) 0.03 K/uL RDW Standard Deviation 50.2 fL RDW Coefficient of Variation 15.5 % Immature Granulocyte % (Auto) 0.2 % Immature Granulocyte # (Auto) 0.02 K/uL Prothrombin Time 14.3 SECONDS Prothromb Time International Ratio 1.3 Activated Partial Thromboplast Time 28.4 SECONDS Partial Thromboplastin Ratio 1.1 Sodium Level 138 mmol/L Potassium Level 3.3 mmol/L Chloride Level 105 mmol/L Carbon Dioxide Level 21 mmol/L Anion Gap 12.0 mmol/L Blood Urea Nitrogen 22 mg/dl Creatinine 1.71 mg/dl Est Creatinine Clear Calc Drug Dose 79.5 ml/min Estimated GFR () 59.6 Estimated GFR (Non- 51.5 BUN/Creatinine Ratio 12.7 Random Glucose 139 mg/dl Calcium Level 7.6 mg/dl Magnesium Level 2.2 mg/dl Total Bilirubin 2.2 mg/dl Direct Bilirubin 0.4 mg/dl Aspartate Amino Transf (AST/SGOT) 17 U/L Alanine Aminotransferase (ALT/SGPT) 34 U/L Alkaline Phosphatase 47 U/L Total Protein 5.6 gm/dl Albumin 2.9 gm/dl Test 06/30/17 11:19 06/30/17 16:31 Bedside Glucose 121 mg/dl 127 mg/dl Assessment and Plan Right perihilar pneumonia/hemoptysis-- -initially on vanco, zosyn, levaquin due to concern on HAP and appearing quite ill -MRSA nares negative - can stop vanco; improving nicely and recent prior Cdiff so will stop zosyn -continue treatment with levaquin -nebs, supportive care Nonischemic dilated cardiomyopathy/chronic congestive heart failure/hypertension /chronically elevated troponin -appearing clinically on the dry side of euvolemic -troponins trending down - likely chronic elevation and demand ischemia -continue to hold diuretics HUY on ?stage 2 CKD -holding diuretics -because of low EF / dilated cardiomyopathy - holding on IVF, hopefully w time, treatment of pneumonia, PO intake and holding diuretics his creatinine will improve. if doesn't start to show improvement, low threshold to gently use IVF nausea -does appear most c/w gagging on mucous - treat pneumonia, pulmonary toilet, schedule zofran x 24hrs Diabetes mellitus-- -sugars at goal currently - continue current insulins Hypothyroidism-- Continue levothyroxine sodium 80 g every morning. Hyperlipidemia-- Continue atorvastatin 40 mg by mouth daily. Peripheral neuropathy--continue gabapentin 100 mg by mouth 3 times a day. DVT proph - early ambulation; if not moving much/not able to move well then low threshold to start pharmacologic
[2017-06-30] MEDS: ONDANSETRON INJ 2 MG/ML 2 ML VIAL IV SCH ×2 (18:00→23:31)
[2017-06-30] MEDS: INSULIN GLARGINE SC SCH (20:05)
[2017-07-01] VITALS (10 sets, daily range): BP systolic 104–190; BP diastolic 73–121; PULSE 72–89; TEMP 36.3–36.7; O2SAT 92–99
[2017-07-01] MEDS ORDERED: GUAIFENESIN/CODEINE 100MG/10MG 5ML UDC PO PRN (00:15)
[2017-07-01] MEDS ORDERED: VANCOMYCIN TROUGH ONE (03:30)
[2017-07-01] MEDS: ONDANSETRON INJ 2 MG/ML 2 ML VIAL IV SCH ×2 (05:56→13:16)
[2017-07-01 06:22] LABS: BASO % 0.2 %; BASO ABS # 0.03 K/uL (0-0.2); COMPLETE YES; EOS % 0.3 %; HEMATOCRIT 42.7 % (42-52); IG% 0.4 %; LYMPH % 6.7 %; LYMPH ABS # 1.09 K/uL (1.2-3.4); MEAN CELL VOLUME 89.9 fL (80-100); MEAN CORPUSCULAR HEMOGLOBIN 29.5 pg (25-34); MEAN CORPUSCULAR HGB CONC 32.8 g/dl (32-36); MONO % 8.5 %; NEUT % 83.9 %; PLATELET COUNT 267 K/uL (130-400); RED BLOOD COUNT 4.75 M/uL (4.7-6.1); WHITE BLOOD COUNT 16.31 K/uL (4.8-10.8)
[2017-07-01] MEDS: ALBUT/IPRATROP 3MG/0.5MG NEB 3 ML VIAL INH SCH ×4 (06:58→19:19)
[2017-07-01] MEDS: BUDESONIDE 0.5 MG/2 ML VIAL (PULMICORT) INH SCH ×2 (06:58→19:19)
[2017-07-01 06:59] LABS: BUN/CREATININE RATIO 15.8 (10-20); CALCIUM 8.2 mg/dl (8.5-10.1); CREATININE 1.79 mg/dl (0.60-1.40); POTASSIUM 3.5 mmol/L (3.5-5.1)
[2017-07-01] MEDS: GABAPENTIN 100 MG CAP PO SCH ×3 (07:27→20:20)
[2017-07-01] MEDS: MAGNESIUM OXIDE 400 MG TAB PO SCH ×2 (07:27→20:20)
[2017-07-01] MEDS: CARVEDILOL 25 MG TAB PO SCH ×2 (07:27→20:40)
[2017-07-01] MEDS: GUAIFENESIN 600 MG TABCR PO SCH ×2 (07:28→20:19)
[2017-07-01] MEDS: ATORVASTATIN 40 MG TAB PO SCH (07:28)
[2017-07-01] MEDS: LEVOTHYROXINE 88 MCG TAB PO SCH (07:28)
[2017-07-01] MEDS: INSULIN ASPART 100 UNITS/ML 3 ML PEN SC SCH ×4 (08:28→20:27)
[2017-07-01] MEDS ORDERED: SODIUM CHLOR 0.45% + 20MEQ KCL 1,000 ML IV SCH (09:15)
--- NOTE | 2017-07-01 10:23 | Medical Student: [facility] ---
Med Student Progress Note Date of Service Jul 01, 2017. Subjective Pt evaluation today including: conversation w/ patient Pain: abd and chest discomfort - not new Voiding: no voiding problems Nkiita is still coughing quite a bit, and he vomited 3 times yesterday, including after lunch. He is able to keep fluids down for the most part, but he has also vomited after received oral medicine. He says the Zofran is making his nausea worse and induces abdominal discomfort. He is using his nebulizer as scheduled and states that it is helping some. He was also started on budesonide inhaler that he used for the first time this morning. Neither of these give him any nausea or gagging; they just "dry me out." Patient was moved from the ICU and states that he is still not sleeping well but slept better last night than he did in the ICU. Review of Systems Constitutional: No fever Respiratory: + cough, + sputum, + wheezing, + shortness of breath Cardiac: No chest pain, No orthopnea, No PND, No edema Abdomen: + nausea, + vomiting Musculoskeletal: No swelling, No calf pain Skin: No rash All Other Systems: Reviewed and Negative Objective Vital Signs Date Time Temp Pulse Resp B/P (MAP) Pulse Ox O2 Delivery O2 Flow Rate FiO2 07/01/17 08:00 Room Air 07/01/17 07:09 36.3 89 19 118/84 (95) 97 Room Air 07/01/17 07:03 87 16 92 Room Air 07/01/17 00:00 Room Air 06/30/17 23:50 36.4 81 19 110/79 (89) 94 Room Air 06/30/17 20:00 96 Room Air 06/30/17 19:57 36.8 89 14 114/89 (97) 96 Room Air 06/30/17 19:23 36.5 110 16 96 06/30/17 16:00 Room Air 06/30/17 13:20 110 16 96 Room Air 06/30/17 12:00 Room Air 06/30/17 11:29 36.5 88 22 92/71 (78) 96 Room Air Physical Exam General Appearance: + mild distress Neck: supple, no adenopathy Respiratory/Chest: chest non-tender, + decreased breath sounds, + crackles ( right base) Cardiovascular: regular rate, rhythm, no gallop, no murmur Abdomen: normal bowel sounds, non tender, soft Extremities: no pedal edema, no calf tenderness Neurologic/Psychiatric: cupola tapper helper II-XII nml as tested Skin: warm/dry (pale) Laboratory Results Last 24 Hours Test 06/30/17 11:19 06/30/17 16:31 06/30/17 20:05 07/01/17 05:46 Bedside Glucose 121 mg/dl 127 mg/dl 140 mg/dl White Blood Count 16.31 K/uL Red Blood Count 4.75 M/uL Hemoglobin 14.0 g/dL Hematocrit 42.7 % Mean Corpuscular Volume 89.9 fL Mean Corpuscular Hemoglobin 29.5 pg Mean Corpuscular Hemoglobin Concent 32.8 g/dl Platelet Count 267 K/uL Mean Platelet Volume 11.0 fL Neutrophils (%) (Auto) 83.9 % Lymphocytes (%) (Auto) 6.7 % Monocytes (%) (Auto) 8.5 % Eosinophils (%) (Auto) 0.3 % Basophils (%) (Auto) 0.2 % Neutrophils # (Auto) 13.69 K/uL Lymphocytes # (Auto) 1.09 K/uL Monocytes # (Auto) 1.39 K/uL Eosinophils # (Auto) 0.05 K/uL Basophils # (Auto) 0.03 K/uL RDW Standard Deviation 49.3 fL RDW Coefficient of Variation 15.4 % Immature Granulocyte % (Auto) 0.4 % Immature Granulocyte # (Auto) 0.06 K/uL Sodium Level 136 mmol/L Potassium Level 3.5 mmol/L Chloride Level 104 mmol/L Carbon Dioxide Level 19 mmol/L Anion Gap 13.0 mmol/L Blood Urea Nitrogen 28 mg/dl Creatinine 1.79 mg/dl Est Creatinine Clear Calc Drug Dose 75.9 ml/min Estimated GFR () 56.4 Estimated GFR (Non- 48.7 BUN/Creatinine Ratio 15.8 Random Glucose 125 mg/dl Calcium Level 8.2 mg/dl Test 07/01/17 07:03 Bedside Glucose 125 mg/dl Medications Medications (Trade) Dose Ordered Sig/Yazan Route Start Time Stop Time Status Last Admin Dose Admin Levofloxacin 500 mg/Prmx 100 ml @ 100 mls/hr Q24H IV 06/30/17 16:00 06/30/17 16:00 DC 06/30/17 15:29 100 MLS/HR Albuterol/ Ipratropium (Duoneb) 3 ml QIDR INH 06/30/17 16:00 07/30/17 15:59 07/01/17 06:58 3 ML Levofloxacin 500 mg/Prmx 100 ml @ 100 mls/hr Q24H IV 06/30/17 18:00 06/30/17 18:59 DC 06/30/17 19:06 100 MLS/HR Ondansetron HCl (Zofran Inj) 4 mg Q6H IV 06/30/17 18:00 07/01/17 17:59 07/01/17 05:56 4 MG Codeine Phosphate/ Guaifenesin (Robitussin-AC Sugar Free Syrup) 5 ml Q6H PRN PO 07/01/17 00:15 07/31/17 00:14 07/01/17 00:11 5 ML Potassium Chloride/Sodium Chloride 1,000 ml @ 70 mls/hr [id number] IV 07/01/17 09:15 07/02/17 13:49 07/01/17 09:23 70 MLS/HR Assessment and Plan Problems Acute on chronic systolic and diastolic heart failure, NYHA class 2 Bronchitis Cardiomyopathy Chest pain Chronic CHF Cough Chronic congestive heart failure Diabetes HTN (hypertension) Nonischemic cardiomyopathy Assessment and Plan: Primary diagnosis: right perihilar pneumonia with hemoptysis -Discontinued IV vancomycin and Zosyn - MRSA nasal swab negative, Levaquin adequate for anaerobes and Gram-negative microbes -Continue IV Levaquin -Nebulizing treatments as needed -Continue budesonide inhaler as needed -Nasal cannula oxygen if O2 sat drops below 92% on room air -Start normal saline IV, monitor closely -Zofran for nausea PRN is making him feel more nauseated - consider switching to different anti-emetic Non-ischemic cardiomyopathy/HTN -Continue to check serial troponin - was slightly elevated in ED -Continue carvedilol -No need to repeat echo - done 06/13/2017; showed severely dilated LV, LVEF of 20 -25%, paradoxic septal motion, mildly dilated RV, moderate mitral regurg, mild pulmonary HTN -Hold Diuretics, K, Mg for now Diabetes mellitus -Check blood glucose prior to meals -Continue home regimen of insulin -Continue gabapentin for DM peripheral neuropathy Obstructive sleep apnea -CPAP/BiPAP use at night Hyperlipidemia -Continue atorvastatin Hypothyroidism -Continue Synthroid Continued [facility] stay due to: multiple IV medications needed
--- NOTE | 2017-07-01 17:31 | Progress Note ---
Subjective Date of Service: Jul 01, 2017. Subjective Pt evaluation today including: conversation w/ patient, physical exam, chart review, lab review, review of inpatient medication list feeling maybe a little better breathing a little better coughing but still no sputum doesn't normally need O2 no f/c/s nausea improving Problem List Medical Problems: (1) Cardiomyopathy Status: Acute (2) Cardiomyopathy Status: Acute (3) Cardiomyopathy Status: Acute (4) Dyspnea Status: Acute (5) Elevated brain natriuretic peptide (BNP) level Status: Acute (6) Elevated troponin Status: Acute (7) Epigastric abdominal pain Status: Acute (8) Guaiac positive stools Status: Acute (9) Hypokalemia Status: Acute (10) Hypoxia Status: Acute (11) Left sided chest pain Status: Acute (12) Pancreatitis Status: Acute (13) Pneumonia Status: Acute Review of Systems all other ROS otherwise negative except for as above Objective Vital Signs Date Time Temp Pulse Resp B/P (MAP) Pulse Ox O2 Delivery O2 Flow Rate FiO2 07/01/17 15:34 88 16 95 Room Air 07/01/17 14:50 36.4 80 18 104/73 (83) 94 Room Air 07/01/17 11:06 82 16 93 Room Air 07/01/17 08:00 Room Air 07/01/17 07:09 36.3 89 19 118/84 (95) 97 Room Air 07/01/17 07:03 87 16 92 Room Air 07/01/17 00:00 Room Air 06/30/17 23:50 36.4 81 19 110/79 (89) 94 Room Air 06/30/17 20:00 96 Room Air 06/30/17 19:57 36.8 89 14 114/89 (97) 96 Room Air 06/30/17 19:23 36.5 110 16 96 Physical Exam General Appearance: no apparent distress Eyes: EOMI ENT: hearing grossly normal Neck: trachea midline Respiratory/Chest: no respiratory distress, no accessory muscle use, + decreased breath sounds (R base but no r/r/w ) Extremities: normal range of motion Neurologic/Psychiatric: emergency services dispatcher II-XII nml as tested (chronic strabismus), alert, normal mood/affect Skin: normal color, warm/dry Laboratory Results Last 24 Hours Test 06/30/17 20:05 07/01/17 05:46 07/01/17 07:03 10/17/17 11:39 Bedside Glucose 140 mg/dl 125 mg/dl 181 mg/dl White Blood Count 16.31 K/uL Red Blood Count 4.75 M/uL Hemoglobin 14.0 g/dL Hematocrit 42.7 % Mean Corpuscular Volume 89.9 fL Mean Corpuscular Hemoglobin 29.5 pg Mean Corpuscular Hemoglobin Concent 32.8 g/dl Platelet Count 267 K/uL Mean Platelet Volume 11.0 fL Neutrophils (%) (Auto) 83.9 % Lymphocytes (%) (Auto) 6.7 % Monocytes (%) (Auto) 8.5 % Eosinophils (%) (Auto) 0.3 % Basophils (%) (Auto) 0.2 % Neutrophils # (Auto) 13.69 K/uL Lymphocytes # (Auto) 1.09 K/uL Monocytes # (Auto) 1.39 K/uL Eosinophils # (Auto) 0.05 K/uL Basophils # (Auto) 0.03 K/uL RDW Standard Deviation 49.3 fL RDW Coefficient of Variation 15.4 % Immature Granulocyte % (Auto) 0.4 % Immature Granulocyte # (Auto) 0.06 K/uL Sodium Level 136 mmol/L Potassium Level 3.5 mmol/L Chloride Level 104 mmol/L Carbon Dioxide Level 19 mmol/L Anion Gap 13.0 mmol/L Blood Urea Nitrogen 28 mg/dl Creatinine 1.79 mg/dl Est Creatinine Clear Calc Drug Dose 75.9 ml/min Estimated GFR () 56.4 Estimated GFR (Non- 48.7 BUN/Creatinine Ratio 15.8 Random Glucose 125 mg/dl Calcium Level 8.2 mg/dl Assessment and Plan Right perihilar pneumonia/hemoptysis-- -initially on vanco, zosyn, levaquin due to concern on HAP and appearing quite ill -MRSA nares negative - stopped vanco; improving nicely and recent prior Cdiff so stopped zosyn -continue treatment with levaquin -nebs, supportive care -wean O2 Nonischemic dilated cardiomyopathy/chronic congestive heart failure/hypertension /chronically elevated troponin -still appearing clinically on the dry side of euvolemic -troponins trending down - likely chronic elevation and demand ischemia -continue to hold diuretics - caution w IVF but as below w creatinine not improving utilizing IVF HUY on ?stage 2 CKD -holding diuretics -because of low EF / dilated cardiomyopathy - cautious w IVF, but since didn't improve with simply holding diuretics alone - giving gentle IVF nausea -does appear most c/w gagging on mucous - treat pneumonia, pulmonary toilet, zofran did not help trial of compazine. suspect this will improve as mucous improves Diabetes mellitus-- -sugars at goal currently - continue current insulins Hypothyroidism-- Continue levothyroxine sodium 80 g every morning. Hyperlipidemia-- Continue atorvastatin 40 mg by mouth daily. Peripheral neuropathy--continue gabapentin 100 mg by mouth 3 times a day. DVT proph - early ambulation; if not moving much/not able to move well then low threshold to start pharmacologic Continued [facility] stay due to: multiple IV medications needed
[2017-07-01] MEDS: LEVOFLOXACIN 500MG / D5W IV SCH (17:42)
[2017-07-01] MEDS: LORAZEPAM 0.5 MG TAB PO PRN (20:17)
[2017-07-01] MEDS: INSULIN GLARGINE SC SCH (20:33)
[2017-07-01] MEDS ORDERED: NURSING VERBAL MED ORDER ONE (20:45)
[2017-07-02] VITALS (14 sets, daily range): BP systolic 74–116; BP diastolic 34–79; PULSE 71–89; TEMP 36–36.6; O2SAT 93–99
[2017-07-02] MEDS: LEVOTHYROXINE 88 MCG TAB PO SCH (05:37)
[2017-07-02 06:26] LABS: BASO % 0.1 %; BASO ABS # 0.01 K/uL (0-0.2); COMPLETE YES; HEMATOCRIT 45.2 % (42-52); LYMPH % 8.9 %; LYMPH ABS # 1.13 K/uL (1.2-3.4); MEAN CELL VOLUME 90.4 fL (80-100); MEAN CORPUSCULAR HEMOGLOBIN 30.2 pg (25-34); MEAN CORPUSCULAR HGB CONC 33.4 g/dl (32-36); MEAN PLATELET VOLUME 10.8 fL (7.4-10.4); MONO % 9.5 %; NEUT % 80.5 %; PLATELET COUNT 165 K/uL (130-400); WHITE BLOOD COUNT 12.63 K/uL (4.8-10.8)
[2017-07-02] MEDS: ALBUT/IPRATROP 3MG/0.5MG NEB 3 ML VIAL INH SCH ×4 (06:58→18:51)
[2017-07-02 07:00] LABS: BUN/CREATININE RATIO 18.5 (10-20); CALCIUM 8.7 mg/dl (8.5-10.1); CREATININE 2.07 mg/dl (0.60-1.40)
[2017-07-02] MEDS: BUDESONIDE 0.5 MG/2 ML VIAL (PULMICORT) INH SCH (08:00)
--- NOTE | 2017-07-02 08:55 | Medical Student: [facility] ---
Med Student Progress Note Date of Service Jul 02, 2017. Subjective Pt evaluation today including: conversation w/ patient Voiding: no voiding problems Nikita is improving slowly but surely. Today he has less shortness of breath, is coughing less frequently (and is bringing up much less sputum when he does cough ), and has been able to eat solid food without vomiting for the past 24 hours. He does still seem a little dry, despite the IV fluids he was given yesterday, and he stated that from about 4 PM until 1 AM last night, he was having recurrent panic attacks. This new for him and he has no previous history of any type of panic disorder. He agreed with us that this was likely due to simply being hospitalized and felt reassured by that. Review of Systems Constitutional: No fever, No chills Respiratory: + cough, + sputum (Mostly saliva; much less than previous two days ), + wheezing, + shortness of breath Cardiac: No chest pain, No orthopnea, No PND, No edema Abdomen: + nausea, + vomiting Musculoskeletal: No swelling Neurologic: No numbness/tingling All Other Systems: Reviewed and Negative Objective Vital Signs Date Time Temp Pulse Resp B/P (MAP) Pulse Ox O2 Delivery O2 Flow Rate FiO2 07/02/17 08:08 36.6 71 20 97/64 (75) 97 BiPAP 07/02/17 07:00 77 16 99 BiPAP/CPAP 2.0 07/02/17 00:56 109/65 (80) 07/02/17 00:55 CPAP 07/02/17 00:55 72 91/49 (63) 07/01/17 23:10 36.7 72 24 190/121 (144) 95 CPAP 07/01/17 22:24 99 Nasal Cannula 2.0 BiPAP 07/01/17 20:13 81 120/82 (95) 07/01/17 19:58 94 2.0 07/01/17 19:11 89 16 94 Room Air 07/01/17 15:34 88 16 95 Room Air 07/01/17 14:50 36.4 80 18 104/73 (83) 94 Room Air 07/01/17 11:06 82 16 93 Room Air Physical Exam General Appearance: + mild distress Neck: supple, no adenopathy Respiratory/Chest: + decreased breath sounds, + crackles (right base), + wheezing Cardiovascular: regular rate, rhythm, no gallop, no murmur Abdomen: normal bowel sounds, non tender, soft Extremities: no pedal edema, no calf tenderness Neurologic/Psychiatric: foreclosure specialist II-XII nml as tested Skin: normal color, warm/dry Laboratory Results Last 24 Hours Test 07/01/17 11:39 07/01/17 16:37 07/01/17 20:27 07/02/17 05:56 Bedside Glucose 181 mg/dl 182 mg/dl 139 mg/dl White Blood Count 12.63 K/uL Red Blood Count 5.00 M/uL Hemoglobin 15.1 g/dL Hematocrit 45.2 % Mean Corpuscular Volume 90.4 fL Mean Corpuscular Hemoglobin 30.2 pg Mean Corpuscular Hemoglobin Concent 33.4 g/dl Platelet Count 165 K/uL Mean Platelet Volume 10.8 fL Neutrophils (%) (Auto) 80.5 % Lymphocytes (%) (Auto) 8.9 % Monocytes (%) (Auto) 9.5 % Eosinophils (%) (Auto) 0.0 % Basophils (%) (Auto) 0.1 % Neutrophils # (Auto) 10.17 K/uL Lymphocytes # (Auto) 1.13 K/uL Monocytes # (Auto) 1.20 K/uL Eosinophils # (Auto) 0.00 K/uL Basophils # (Auto) 0.01 K/uL RDW Standard Deviation 50.6 fL RDW Coefficient of Variation 15.6 % Immature Granulocyte % (Auto) 1.0 % Immature Granulocyte # (Auto) 0.12 K/uL Sodium Level 135 mmol/L Potassium Level 4.0 mmol/L Chloride Level 101 mmol/L Carbon Dioxide Level 21 mmol/L Anion Gap 12.0 mmol/L Blood Urea Nitrogen 38 mg/dl Creatinine 2.07 mg/dl Est Creatinine Clear Calc Drug Dose 66.3 ml/min Estimated GFR () 47.3 Estimated GFR (Non- 40.9 BUN/Creatinine Ratio 18.5 Random Glucose 115 mg/dl Calcium Level 8.7 mg/dl Assessment and Plan Problems Acute on chronic systolic and diastolic heart failure, NYHA class 2 Bronchitis Cardiomyopathy Chest pain Chronic CHF Cough Chronic congestive heart failure Diabetes HTN (hypertension) Nonischemic cardiomyopathy Assessment and Plan: Primary diagnosis: right perihilar pneumonia with hemoptysis -Discontinued IV vancomycin and Zosyn - MRSA nasal swab negative, Levaquin adequate for anaerobes and Gram-negative microbes -Continue IV Levaquin -Nebulizing treatments as needed -Continue budesonide inhaler as needed -Nasal cannula oxygen if O2 sat drops below 92% on room air -Continue normal saline IV, monitor closely - will bolus 500 ml normal saline this afternoon and monitor BUN/Cr -Compazine for nausea PRN (switched from Zofran due to intolerance/abdominal discomfort) Non-ischemic cardiomyopathy/HTN -Continue to check serial troponin - was slightly elevated in ED -Continue carvedilol -No need to repeat echo - done 06/13/2017; showed severely dilated LV, LVEF of 20 -25%, paradoxic septal motion, mildly dilated RV, moderate mitral regurg, mild pulmonary HTN -Hold Diuretics, K, Mg for now Diabetes mellitus -Check blood glucose prior to meals -Continue home regimen of insulin -Continue gabapentin for DM peripheral neuropathy Obstructive sleep apnea -CPAP/BiPAP use at night Hyperlipidemia -Continue atorvastatin Hypothyroidism -Continue Synthroid Continued [facility] stay due to: multiple IV medications needed
[2017-07-02] MEDS: INSULIN ASPART 100 UNITS/ML 3 ML PEN SC SCH ×4 (09:33→20:54)
[2017-07-02] MEDS: ATORVASTATIN 40 MG TAB PO SCH (09:34)
[2017-07-02] MEDS: GUAIFENESIN 600 MG TABCR PO SCH ×2 (09:34→20:53)
[2017-07-02] MEDS: GABAPENTIN 100 MG CAP PO SCH ×3 (09:34→20:53)
[2017-07-02] MEDS: CARVEDILOL 25 MG TAB PO SCH ×2 (09:35→20:00)
[2017-07-02] MEDS: MAGNESIUM OXIDE 400 MG TAB PO SCH ×2 (09:35→20:53)
[2017-07-02] MEDS ORDERED: SODIUM CHLORIDE 0.9% 500ML 500 ML IV ONE (13:30)
--- NOTE | 2017-07-02 14:10 | Progress Note ---
Subjective Date of Service: Jul 02, 2017. Subjective Pt evaluation today including: conversation w/ patient, physical exam, chart review, lab review, review of inpatient medication list overall feeling better- breathing is getting better, less mucous still nonproductive cough but improving. nausea is better (fitting with mucous being less) -- able to eat better, no vomiting in about a day now, did have dry heaves late yesterday but no actual vomiting then notes that he had panic attacks last night - described by nursing as appearing totally calm and at rest at times, then shouting out that he can't breathe wtih totally stable vitals, other times appearing totally comfortable but feeling short of breath -- all totally gone now. doesn't remember this ever happening before, doesn't normally have panic attacks Problem List Medical Problems: (1) Cardiomyopathy Status: Acute (2) Cardiomyopathy Status: Acute (3) Cardiomyopathy Status: Acute (4) Dyspnea Status: Acute (5) Elevated brain natriuretic peptide (BNP) level Status: Acute (6) Elevated troponin Status: Acute (7) Epigastric abdominal pain Status: Acute (8) Guaiac positive stools Status: Acute (9) Hypokalemia Status: Acute (10) Hypoxia Status: Acute (11) Left sided chest pain Status: Acute (12) Pancreatitis Status: Acute (13) Pneumonia Status: Acute Review of Systems all other ROS otherwise negative except for as above Objective Vital Signs Date Time Temp Pulse Resp B/P (MAP) Pulse Ox O2 Delivery O2 Flow Rate FiO2 07/02/17 11:12 76 16 95 Room Air 07/02/17 11:08 93 Room Air 07/02/17 08:08 36.6 71 20 97/64 (75) 97 BiPAP 07/02/17 08:00 Room Air 07/02/17 07:00 77 16 99 BiPAP/CPAP 2.0 07/02/17 00:56 109/65 (80) 07/02/17 00:55 CPAP 07/02/17 00:55 72 91/49 (63) 07/01/17 23:10 36.7 72 24 190/121 (144) 95 CPAP 07/01/17 22:24 99 Nasal Cannula 2.0 BiPAP 07/01/17 20:13 81 120/82 (95) 07/01/17 19:58 94 2.0 10/17/17 19:11 89 16 94 Room Air 07/01/17 15:34 88 16 95 Room Air 07/01/17 14:50 36.4 80 18 104/73 (83) 94 Room Air Physical Exam General Appearance: no apparent distress Eyes: EOMI ENT: hearing grossly normal Neck: trachea midline Respiratory/Chest: lungs clear (improvign - maybe faint rales base R sl diminished base R but otherwise clear and air entry improved overall) Cardiovascular: regular rate, rhythm Abdomen: normal bowel sounds Extremities: normal range of motion Neurologic/Psychiatric: water hauler II-XII nml as tested, alert, normal mood/affect Skin: normal color, warm/dry Laboratory Results Last 24 Hours Test 07/01/17 16:37 07/01/17 20:27 07/02/17 05:56 07/02/17 07:57 Bedside Glucose 182 mg/dl 139 mg/dl 116 mg/dl White Blood Count 12.63 K/uL Red Blood Count 5.00 M/uL Hemoglobin 15.1 g/dL Hematocrit 45.2 % Mean Corpuscular Volume 90.4 fL Mean Corpuscular Hemoglobin 30.2 pg Mean Corpuscular Hemoglobin Concent 33.4 g/dl Platelet Count 165 K/uL Mean Platelet Volume 10.8 fL Neutrophils (%) (Auto) 80.5 % Lymphocytes (%) (Auto) 8.9 % Monocytes (%) (Auto) 9.5 % Eosinophils (%) (Auto) 0.0 % Basophils (%) (Auto) 0.1 % Neutrophils # (Auto) 10.17 K/uL Lymphocytes # (Auto) 1.13 K/uL Monocytes # (Auto) 1.20 K/uL Eosinophils # (Auto) 0.00 K/uL Basophils # (Auto) 0.01 K/uL RDW Standard Deviation 50.6 fL RDW Coefficient of Variation 15.6 % Immature Granulocyte % (Auto) 1.0 % Immature Granulocyte # (Auto) 0.12 K/uL Sodium Level 135 mmol/L Potassium Level 4.0 mmol/L Chloride Level 101 mmol/L Carbon Dioxide Level 21 mmol/L Anion Gap 12.0 mmol/L Blood Urea Nitrogen 38 mg/dl Creatinine 2.07 mg/dl Est Creatinine Clear Calc Drug Dose 66.3 ml/min Estimated GFR () 47.3 Estimated GFR (Non- 40.9 BUN/Creatinine Ratio 18.5 Random Glucose 115 mg/dl Calcium Level 8.7 mg/dl Test 07/02/17 11:17 Bedside Glucose 155 mg/dl Assessment and Plan Right perihilar pneumonia/hemoptysis-- -initially on vanco, zosyn, levaquin due to concern on HAP and appearing quite ill -MRSA nares negative - stopped vanco; improving nicely and recent prior Cdiff so stopped zosyn -continue treatment with levaquin (once it's clear he can take PO without vomiting will transition to PO) -nebs, supportive care -weaned O2 Nonischemic dilated cardiomyopathy/chronic congestive heart failure/hypertension /chronically elevated troponin -still appearing clinically on the dry side of euvolemic -troponins trending down - likely chronic elevation and demand ischemia -continue to hold diuretics - caution w IVF but as below w creatinine still slightly going up, utilizing IVF HUY on ?stage 2 CKD -holding diuretics -because of low EF / dilated cardiomyopathy - cautious w IVF, last night although everything fit with panic, held fluids to be safe. today will give small bolus and follow creatinine -urine looks dark/concentrated in bottle at bedside - ordering repeat UA and FeNa to quantify further but situation strongly points to prerenal--continue to follow nausea -does appear most c/w gagging on mucous - treat pneumonia, pulmonary toilet, zofran did not help trial of compazine. is slowly improving Diabetes mellitus-- -sugars continue to be at goal - continue current insulins Hypothyroidism-- Continue levothyroxine sodium 80 g every morning. Hyperlipidemia-- Continue atorvastatin 40 mg by mouth daily. Peripheral neuropathy--continue gabapentin 100 mg by mouth 3 times a day. DVT proph - early ambulation dispo - home once clearly able to tolerate PO (and therefore PO levaquin), and once creatinine improving Continued [facility] stay due to: multiple IV medications needed
[2017-07-02] MEDS: LEVOFLOXACIN 500MG / D5W IV SCH (17:38)
[2017-07-02 17:40] LABS: URINE APPEARANCE CLEAR (CLEAR); URINE BILIRUBIN NEG (NEG); URINE COLOR DK YELLOW; URINE NITRITE NEG (NEG); URINE PH 5.5 (4.5-7.5); URINE SPECIFIC GRAVITY 1.024 (1.000-1.030); UROBILINOGEN NEG (NEG)
[2017-07-02 17:48] LABS: MANUAL MICROSCOPIC REQUIRED? NO; REVIEW REQ? NO
[2017-07-02] MEDS: INSULIN GLARGINE SC SCH (20:53)
[2017-07-02] MEDS: PROCHLORPERAZINE INJ 10 MG in SYRINGE 8 ML IV PRN (22:24)
[2017-07-03] VITALS (11 sets, daily range): BP systolic 102–127; BP diastolic 66–90; PULSE 73–84; TEMP 36.4–37.3; O2SAT 92–99
[2017-07-03] MEDS: LEVOTHYROXINE 88 MCG TAB PO SCH (06:28)
[2017-07-03] MEDS: ALBUT/IPRATROP 3MG/0.5MG NEB 3 ML VIAL INH SCH ×4 (07:03→20:10)
[2017-07-03] MEDS: BUDESONIDE 0.5 MG/2 ML VIAL (PULMICORT) INH SCH ×3 (07:04→20:11)
[2017-07-03] MEDS: ATORVASTATIN 40 MG TAB PO SCH (08:39)
[2017-07-03] MEDS: CARVEDILOL 25 MG TAB PO SCH ×3 (08:39→21:00)
[2017-07-03] MEDS: MAGNESIUM OXIDE 400 MG TAB PO SCH ×3 (08:39→21:00)
[2017-07-03] MEDS: GUAIFENESIN 600 MG TABCR PO SCH ×3 (08:39→21:00)
[2017-07-03] MEDS: GABAPENTIN 100 MG CAP PO SCH ×4 (08:39→21:00)
[2017-07-03] MEDS: INSULIN ASPART 100 UNITS/ML 3 ML PEN SC SCH ×4 (08:43→21:16)
--- NOTE | 2017-07-03 10:12 | Pharmacy Progress Note ---
Automatic IV to PO Conversion Date of Service: Jul 03, 2017. [facility] has identified patient as an appropriate candidate for automatic intravenous to oral conversion. Eligible medication: LVQ 500mg IV every 24 hours. Day # 5 of IV therapy. Subjective The patient is a 32 year old male admitted on Jun 29, 2017 at 15:10 for Elevated Troponin; Pneumonia. Objective Vital Signs: Vital Signs Past 12 Hours Date Time Temp Pulse Resp B/P (MAP) Pulse Ox O2 Delivery O2 Flow Rate FiO2 07/03/17 08:00 Room Air 07/03/17 07:32 37.3 81 20 112/78 (89) 94 Room Air 07/03/17 07:06 79 16 97 BiPAP/CPAP 2.0 07/03/17 00:17 96 Room Air BiPAP 07/02/17 23:59 88 22 99/70 (80) 94 Room Air 07/02/17 23:39 83 96 2.0 Height (Feet): 5 Height (Inches): 11.00 Weight (Kilograms): 117.800 Type of Diet: AHA Phase I Assessment & Plan The Infectious Disease Society and the [place] [employer] recommend conversion to oral therapy once a patient is determined to be clinically stable and are able to tolerate oral medications. Patient identified as appropriate candidate for IV to PO conversion of LVQ 500mg Daily based on the following criteria: * Afebrile for greater than or equal to 12 hours * Pt hasn't had any N/V for greater than 24hrs as of 07/02/17. I spoke with nursing this AM: no N/V overnight. PO toleration looks good from a pharmacy standpoint * Improvement in clinical condition evidenced by WBC count of 12.63 10^3/uL and trending downward, resolution of signs/symptoms of illness * Hemodynamically stable or * Receiving oral medications and/or tolerating oral diet for greater than 24 hours Automatic conversion to: LVQ 500mg PO every 24 hours
[2017-07-03 11:02] LABS: CREATININE 1.79 mg/dl (0.60-1.40)
[2017-07-03 11:12] LABS: BASO % 0.3 %; BASO ABS # 0.04 K/uL (0-0.2); COMPLETE YES; EOS % 0.2 %; HEMATOCRIT 42.1 % (42-52); IG% 0.5 %; LYMPH ABS # 2.14 K/uL (1.2-3.4); MEAN CELL VOLUME 90.1 fL (80-100); MEAN CORPUSCULAR HEMOGLOBIN 29.8 pg (25-34); MEAN PLATELET VOLUME 10.9 fL (7.4-10.4); MONO % 10.3 %; NEUT % 72.7 %; PLATELET COUNT 219 K/uL (130-400); RED BLOOD COUNT 4.67 M/uL (4.7-6.1); WHITE BLOOD COUNT 13.38 K/uL (4.8-10.8)
[2017-07-03] MEDS: LACTOBACILLUS ACIDOPHILUS 1 GM PACK PO SCH ×2 (12:14→17:45)
[2017-07-03] MEDS: LEVOFLOXACIN 500 MG TAB PO SCH (17:45)
--- NOTE | 2017-07-03 18:47 | Progress Note ---
Subjective Date of Service: Jul 03, 2017. Subjective Pt evaluation today including: conversation w/ patient, physical exam, chart review, lab review, review of studies, review of inpatient medication list Problem List Medical Problems: (1) Cardiomyopathy Status: Acute (2) Cardiomyopathy Status: Acute (3) Cardiomyopathy Status: Acute (4) Dyspnea Status: Acute (5) Elevated brain natriuretic peptide (BNP) level Status: Acute (6) Elevated troponin Status: Acute (7) Epigastric abdominal pain Status: Acute (8) Guaiac positive stools Status: Acute (9) Hypokalemia Status: Acute (10) Hypoxia Status: Acute (11) Left sided chest pain Status: Acute (12) Pancreatitis Status: Acute (13) Pneumonia Status: Acute Review of Systems Constitutional: No see HPI, No fever, No chills, No sweats, No weight loss, No weakness, No fatigue, No problem reported Eyes: No see HPI, No worsening of vision, No eye pain, No redness, No discharge , No diplopia, No problem reported ENT: No see HPI, No hearing loss, No unusual epistaxis, No nasal symptoms, No sore throat, No tinnitus, No dental problems, No trouble swallowing, No problem reported Respiratory: + cough, + shortness of breath, + dyspnea on exertion, + dyspnea at rest Cardiac: No see HPI, No chest pain, No orthopnea, No PND, No edema, No claudication, No palpitations, No problem reported Abdomen: No see HPI, No pain, No nausea, No vomiting, No diarrhea, No constipation, No GI bleeding, No problem reported Musculoskeletal: No see HPI, No joint pain, No muscle pain, No swelling, No calf pain, No problem reported Male : No see HPI, No dysuria, No urinary frequency, No incontinence, No nocturia more than once/night, No slowing stream, No hematuria, No sexual dysfunction, No problem reported Neurologic: No see HPI, No memory loss, No paralysis, No weakness, No numbness/ tingling, No vertigo, No balance problems, No problem reported Psychiatric: No see HPI, No depression symptoms, No anhedonism, No anxiety, No insomnia, No substance abuse, No problem reported Heme: No see HPI, No abnormal bleeding/bruising, No clotting problems, No swollen lymph nodes, No night sweats, No problem reported Skin: No see HPI, No rash, No itch, No new/changing skin lesions, No color change, No bleeding, No problem reported Objective Vital Signs Date Time Temp Pulse Resp B/P (MAP) Pulse Ox O2 Delivery O2 Flow Rate FiO2 07/03/17 16:00 Room Air 07/03/17 15:51 36.5 81 22 112/66 (81) 99 Room Air 07/03/17 15:30 73 20 98 BiPAP/CPAP 2.0 07/03/17 11:50 84 22 112/82 (92) 95 Room Air 07/03/17 11:30 73 20 93 Room Air 07/03/17 08:00 Room Air 07/03/17 07:32 37.3 81 20 112/78 (89) 94 Room Air 07/03/17 07:06 79 16 97 BiPAP/CPAP 2.0 07/03/17 00:17 96 Room Air BiPAP 07/02/17 23:59 88 22 99/70 (80) 94 Room Air 07/02/17 23:39 83 96 2.0 07/02/17 22:06 80/40 (53) 07/02/17 22:02 95 2.0 07/02/17 20:55 75 74/34 (47) 07/02/17 18:51 82 16 97 Room Air Physical Exam General Appearance: + moderate distress Eyes: normal inspection, EOMI ENT: normal ENT inspection, hearing grossly normal Neck: supple Respiratory/Chest: chest non-tender, + respiratory distress, + decreased breath sounds, + accessory muscle use Cardiovascular: regular rate, rhythm, no edema, no gallop, no JVD, no murmur Abdomen: normal bowel sounds, non tender, soft Extremities: non-tender, normal inspection, no pedal edema, no calf tenderness Neurologic/Psychiatric: hematology specialist II-XII nml as tested, no motor/sensory deficits, alert, normal mood/affect, oriented x 3 Skin: normal color, warm/dry, no rash Laboratory Results Last 24 Hours Test 07/02/17 20:13 07/03/17 07:48 07/03/17 10:13 07/03/17 11:55 Bedside Glucose 150 mg/dl 138 mg/dl 139 mg/dl White Blood Count 13.38 K/uL Red Blood Count 4.67 M/uL Hemoglobin 13.9 g/dL Hematocrit 42.1 % Mean Corpuscular Volume 90.1 fL Mean Corpuscular Hemoglobin 29.8 pg Mean Corpuscular Hemoglobin Concent 33.0 g/dl Platelet Count 219 K/uL Mean Platelet Volume 10.9 fL Neutrophils (%) (Auto) 72.7 % Lymphocytes (%) (Auto) 16.0 % Monocytes (%) (Auto) 10.3 % Eosinophils (%) (Auto) 0.2 % Basophils (%) (Auto) 0.3 % Neutrophils # (Auto) 9.72 K/uL Lymphocytes # (Auto) 2.14 K/uL Monocytes # (Auto) 1.38 K/uL Eosinophils # (Auto) 0.03 K/uL Basophils # (Auto) 0.04 K/uL RDW Standard Deviation 51.0 fL RDW Coefficient of Variation 15.8 % Immature Granulocyte % (Auto) 0.5 % Immature Granulocyte # (Auto) 0.07 K/uL Nucleated RBC Absolute Count (auto) 0.06 K/uL Nucleated Red Blood Cells % 0.4 % Creatinine 1.79 mg/dl Est Creatinine Clear Calc Drug Dose 76.6 ml/min Estimated GFR () 56.4 Estimated GFR (Non- 48.7 Test 07/03/17 16:28 Bedside Glucose 153 mg/dl Assessment and Plan Severe respiratory distress secondary to below Right perihilar pneumonia Acute on chronic systolic congestive heart failure Nonischemic dilated cardiomyopathy Obstructive sleep apnea Hypothyroidism Diabetes mellitus type 2 Acute kidney injury on chronic kidney disease Chronic kidney disease stage III Peripheral neuropathy secondary to diabetes Plan Patient was severely distressed today on exam, respiratory rate more than 30, using accessory muscles of respiration, known with every breath Transfer patient to telemetry Increase antibiotic coverage to cefepime/levofloxacin/Zyvox , as negative nasal swab for MRSA does not completely rule out MRSA pneumonia Follow up blood culture and sputum culture Obtain urine Legionella and Streptococcus screening Obtain CT scan without contrast to differentiate pneumonia from CHF Patient appears to me to be fluid overloaded, based on CT scan results might consider adding Lasix for diuresis Consult integrated circuit design engineer Respiratory viral panel Empiric vancomycin oral for history of C. difficile Continue the Synthroid and atorvastatin Continued [facility] stay due to: multiple IV medications needed
--- NOTE | 2017-07-03 19:12 | DIAGNOSTIC IMAGING REPORT ---
CT OF THE CHEST WITHOUT IV CONTRAST CLINICAL HISTORY: Pneumonia versus congestive heart failure. Shortness of breath. COMPARISON STUDY: Chest CT June 13, 2017 and chest radiograph June 29, 2017. CT DOSE: 1313.12 mGy.cm TECHNIQUE: Axial images of the chest were obtained without IV contrast. Images were reviewed in the axial, sagittal, and coronal planes. IV contrast was not administered for this examination. A dose lowering technique was utilized adhering to the principles of ALARA. FINDINGS: A single lead left subclavian pacer/AICD remains in place. Moderate to marked cardiomegaly is unchanged. There is no pericardial effusion. Mildly enlarged mediastinal and bilateral hilar lymph nodes have slightly decreased in size since exam of June 13, 2017. No pneumothorax or pleural effusion is present. There are mild groundglass opacities within the lungs with scattered airspace opacities, including tree-in-bud nodules. Comparison with prior exam is difficult given motion artifact on that study. Mild anasarca is noted. A small amount of upper abdominal ascites is noted. A right renal cyst is noted. This is better depicted on prior contrast enhanced exam. IMPRESSION: 1. Mild multifocal bilateral airspace opacities which favors an infectious process such as bronchiolitis or bronchopneumonia. Mild superimposed pulmonary edema would be difficult to exclude. No lobar consolidation. 2. Small amount of upper abdominal ascites. 3. Stable moderate to marked cardiomegaly. No pericardial effusion. Electronically signed by: Marky Trevizo M.D. 07/03/2017 7:10 PM Dictated Date/Time: 07/03/2017 7:02 PM
[2017-07-03] MEDS: CEFEPIME IV 1,000 MG in DEXTROSE 5% 100ML 100 ML IV SCH (19:15)
[2017-07-03] MEDS: LINEZOLID / D5W 600 MG in PREMIXED IN D5W 300 ML IV SCH (20:14)
[2017-07-03] MEDS: RASPBERRY SYRUP 5 ML UDP PO SCH ×2 (20:15→21:00)
[2017-07-03] MEDS: VANCOMYCIN HCL 125 MG/2.5ML SOLN PO SCH ×2 (20:16→21:00)
[2017-07-03] MEDS: INSULIN GLARGINE SC SCH (20:17)
[2017-07-04] VITALS (14 sets, daily range): BP systolic 104–131; BP diastolic 81–97; PULSE 75–88; TEMP 36.4–36.8; O2SAT 92–100
[2017-07-04] MEDS: ALBUT/IPRATROP 3MG/0.5MG NEB 3 ML VIAL INH SCH ×5 (02:49→18:55)
[2017-07-04] MEDS: BENZONATATE 100MG CAP PO PRN (02:54)
[2017-07-04] MEDS: LORAZEPAM 0.5 MG TAB PO PRN (02:57)
[2017-07-04] MEDS: CEFEPIME IV 1,000 MG in DEXTROSE 5% 100ML 100 ML IV SCH ×3 (04:24→18:10)
[2017-07-04 05:44] LABS: BASO % 0.3 %; BASO ABS # 0.04 K/uL (0-0.2); COMPLETE YES; EOS % 0.3 %; IG% 0.9 %; LYMPH % 13.6 %; LYMPH ABS # 2.16 K/uL (1.2-3.4); MEAN CELL VOLUME 91.5 fL (80-100); MEAN CORPUSCULAR HGB CONC 32.8 g/dl (32-36); MEAN PLATELET VOLUME 10.8 fL (7.4-10.4); MONO % 11.7 %; NEUT % 73.2 %; PLATELET COUNT 224 K/uL (130-400); RED BLOOD COUNT 5.03 M/uL (4.7-6.1); WHITE BLOOD COUNT 15.84 K/uL (4.8-10.8)
[2017-07-04 06:15] LABS: BUN/CREATININE RATIO 22.7 (10-20); CALCIUM 8.1 mg/dl (8.5-10.1); CREATININE 1.89 mg/dl (0.60-1.40); MAGNESIUM 2.5 mg/dl (1.8-2.4); POTASSIUM 4.5 mmol/L (3.5-5.1)
[2017-07-04 06:21] LABS: ALB/GLOB RATIO 1.1 (0.9-2)
[2017-07-04] MEDS: LEVOTHYROXINE 88 MCG TAB PO SCH (06:37)
[2017-07-04] MEDS: BUDESONIDE 0.5 MG/2 ML VIAL (PULMICORT) INH SCH ×2 (07:11→18:55)
--- NOTE | 2017-07-04 07:44 | DIAGNOSTIC IMAGING REPORT ---
CHEST ONE VIEW PORTABLE HISTORY: 32 years-old Male sob acute shortness of breath with pneumonia and elevated troponin COMPARISON: Chest radiograph 06/29/2017 and 06/14/2017, chest CT 07/03/2017 and 06/13/2017 TECHNIQUE: Portable upright AP view of the chest FINDINGS: Cardiac silhouette is moderately enlarged. Single lead left pectoral pacer/AICD is unchanged with leads overlying the right ventricle. Mild pulmonary vascular congestion is again seen with decreased right perihilar opacities from comparison chest radiograph 06/29/2017. Ill-defined bibasilar airspace opacities are better appreciated on CT chest of 07/03/2017. No lobar airspace consolidation, pneumothorax or pleural effusion. The bones are grossly intact. IMPRESSION: 1. Ill-defined bibasilar airspace opacities are better appreciated on CT chest of 07/03/2017. No lobar airspace consolidation. 2. Cardiomegaly without overt pulmonary edema. The above report was generated using voice recognition software. It may contain grammatical, syntax or spelling errors. Electronically signed by: Thomas Kaplan M.D. 07/04/2017 7:42 AM Dictated Date/Time: 07/04/2017 7:38 AM
[2017-07-04] MEDS: INSULIN ASPART 100 UNITS/ML 3 ML PEN SC SCH ×4 (07:53→20:22)
[2017-07-04] MEDS: LINEZOLID / D5W 600 MG in PREMIXED IN D5W 300 ML IV SCH ×2 (07:54→20:04)
[2017-07-04] MEDS: LACTOBACILLUS ACIDOPHILUS 1 GM PACK PO SCH ×3 (07:54→16:45)
[2017-07-04] MEDS: RASPBERRY SYRUP 5 ML UDP PO SCH ×4 (07:55→20:06)
[2017-07-04] MEDS: VANCOMYCIN HCL 125 MG/2.5ML SOLN PO SCH ×4 (07:55→20:05)
[2017-07-04] MEDS: CARVEDILOL 25 MG TAB PO SCH ×2 (07:56→20:07)
[2017-07-04] MEDS: ATORVASTATIN 40 MG TAB PO SCH (07:56)
[2017-07-04] MEDS: MAGNESIUM OXIDE 400 MG TAB PO SCH ×2 (07:57→20:07)
[2017-07-04] MEDS: GABAPENTIN 100 MG CAP PO SCH ×3 (07:57→20:07)
[2017-07-04] MEDS: GUAIFENESIN 600 MG TABCR PO SCH ×2 (07:57→20:05)
[2017-07-04] MEDS: HYDROmorphone INJ 1 MG/ML SYR IV PRN ×2 (08:14→17:08)
[2017-07-04] MEDS: ONDANSETRON INJ 2 MG/ML 2 ML VIAL IV PRN ×2 (08:17→16:48)
--- NOTE | 2017-07-04 09:02 | DIAGNOSTIC IMAGING REPORT ---
(LIVER) ABDOMEN LIMITED HISTORY: 32 years-old Male elevated liver enz acute the elevated liver enzymes COMPARISON: Abdominal ultrasound and CT 08/15/2016 TECHNIQUE: Multiple real-time sonographic images of the abdominal right upper quadrant were obtained assessing grayscale appearance and color flow FINDINGS: Pancreas is obscured by bowel gas. Liver measures up to 20.2 cm in length and demonstrates mildly increased echogenicity suspicious for fatty infiltration. No focal hepatic mass lesions or intrahepatic biliary ductal dilation. Gallbladder is mildly contracted with gallbladder wall measuring up to 0.4 cm, likely secondary to recent oral intake. No shadowing cholelithiasis or pericholecystic fluid collections. Common bile duct measures 0.47 m, within normal limits. Small volume of perihepatic ascites. There is a hypoechoic cystic lesion of the interpolar right kidney, 1.8 cm which appears unchanged from comparison. No right-sided hydronephrosis. IMPRESSION: 1. Mildly contracted gallbladder, likely secondary to recent oral intake. No shadowing cholelithiasis or sonographic evidence of acute cholecystitis. 2. No biliary ductal dilation. 3. Small volume of perihepatic ascites, nonspecific. 4. Mildly increased echogenicity of the liver, suspicious for fatty infiltration. The above report was generated using voice recognition software. It may contain grammatical, syntax or spelling errors. Electronically signed by: Thomas Kaplan M.D. 07/04/2017 9:01 AM Dictated Date/Time: 07/04/2017 8:56 AM
[2017-07-04 09:44] LABS: INR 1.8 (0.9-1.1); PROTHROMBIN TIME (PATIENT) 19.4 SECONDS (9.0-12.0)
--- NOTE | 2017-07-04 09:44 | Gastrointestinal Consultation ---
Gastrointestinal Consultation Date of Consultation: Jul 04, 2017 Attending Physician: Dr. Suzette Pearson Consulting Physician: Dr. Riggs/MED Hernandes Reason for Consultation: Elevated liver enzymes History of Present Illness Patient is a 32 year old male with a history of obesity, dilated cardiomyopathy related to viral illness, CHF, HTN, sleep apnea, and poorly controlled diabetes presenting to the hospital with shortness of breath on 06/29/17 and diagnosed with a right perihilar pneumonia. He was just hospitalized a few weeks ago with similar symptoms and diagnosed with an acute bronchitis. During this admission, he has been reporting abdominal pain that he states has been ongoing for the past few days. Today, however, his abdominal pain has increased. He describes his pain as a constant dull ache with intermittent sharp and stabbing pains. The pain is non-radiating and improved with opioid analgesics. At present, he rates his pain as 1 out of 10 in intensity. No exacerbating factors. He did report his symptoms and a CMP was ordered this morning demonstrating significantly elevated hepatic transaminases with an ALT of 1928 and AST 914. ALP was slightly elevated at 165 as was total bilirubin of 1.9. On admission, he was noted to have a a TB of 2.2 and DB of 0.4 suggestive of an indirect hyperbilirubinemia. Other than the hyperbilirubinemia, his liver panel was completely normal on admission as follows: AST 21, ALT 41, and ALP 61. Of note, he does have a slightly elevated troponin which was also elevated during his last admission although this is trending down. He denies any alcohol, Tylenol, tobacco or other toxic ingestion. States "I am straight-laced". Denies any blood transfusion prior to 1991 or IV drug use. No other GI complaints such as: nausea or vomiting, overt GIB, pruritus, dark urine, acholic stools, diarrhea, constipation, or jaundice. Most recently, he did undergo a liver ultrasound which demonstrated fatty liver infiltration without evidence of any cholelithiasis, cholecystitis, biliary ductal dilation or hepatic masses. Past Medical/Surgical History Medical Problems: (1) Cardiomyopathy Status: Acute (2) Cardiomyopathy Status: Acute (3) Cardiomyopathy Status: Acute (4) Dyspnea Status: Acute (5) Elevated brain natriuretic peptide (BNP) level Status: Acute (6) Elevated troponin Status: Acute (7) Epigastric abdominal pain Status: Acute (8) Guaiac positive stools Status: Acute (9) Hypokalemia Status: Acute (10) Hypoxia Status: Acute (11) Left sided chest pain Status: Acute (12) Pancreatitis Status: Acute (13) Pneumonia Status: Acute Past Medical History: 1. Bronchitis 2. CHF 3. Diabetes 4. Dilated cardiomyopathy 5. Elevated troponin 6. Fever 7. HTN 8. Hypotension 9. Nephrolithiasis 10. Pneumonia 11. Sleep apnea 12. GERD 13. Clostridium difficile infection Past Surgical History: 1. Lymphadenectomy 2. Oral tooth extraction Family History Cancer FH: HTN (hypertension) FH: diabetes mellitus Heart disease Negative for GI malignancy or chronic liver disease Social History Smoking Status: Never Smoker Alcohol Use: none Drug Use: none Marital Status: in relationship Housing Status: lives with family Occupation Status: employed Allergies Coded Allergies: VEE Inhibitors (Verified Allergy, Intermediate, COUGH, 05/14/17) Lisinopril (Verified Adverse Reaction, Unknown, cough, 05/14/17) Current Medications Home Meds and Scripts Medications Dose Route/Sig Max Daily Dose Days Date Category Dose Instructions Tessalon Perles (Benzonatate) 100 Mg Cap 100 Mg PO Q8H PRN 05/18/17 Rx Combivent Respimat (Ipratropium-Albuterol) 1 Aer Aer 1 Puffs INH QID 05/18/17 Rx Magnesium-Oxide (Magnesium Oxide) 400 Mg Tab 400 Mg PO BID 30 05/18/17 Rx Novolog Flexpen (Insulin Aspart) 100 Units/Ml Inj 1 Dose SC AC 03/24/17 Reported COVERAGE DIRECTED BY SLIDING SCALE Carvedilol 25 Mg Tab 25 Mg PO BID 03/24/17 Reported Tresiba Flextouch (Insulin Degludec) 200 Unit/Ml Inj 160 Units SC QPM 03/24/17 Reported Levothyroxine Sodium 88 Mcg Tab 88 Mcg PO QAM 03/24/17 Reported Aldactone (Spironolactone) 25 Mg Tab 25 Mg PO QAM 10/19/15 Reported K-Tab (Potassium Chloride) 20 Meq Tab 20 Meq PO QPM 10/19/15 Reported Neurontin (Gabapentin) 100 Mg Cap 100 Mg PO TID 10/19/15 Reported Atorvastatin Calcium (Atorvastatin) 40 Mg Tab 40 Mg PO DAILY 03/09/15 Reported Furosemide 40 Mg Tab 40 Mg PO QAM 6/25/15 Reported Review of Systems Constitutional: + see HPI Eyes: No problem reported ENT: No problem reported Respiratory: + see HPI Cardiac: No chest pain, No palpitations Abdomen: + see HPI Musculoskeletal: No problem reported Male : No problem reported Neuro: No problem reported Psych: No problem reported Skin: + see HPI Physical Exam Date Time Temp Pulse Resp B/P (MAP) Pulse Ox O2 Delivery O2 Flow Rate FiO2 07/04/17 08:06 36.7 82 20 104/84 (91) 97 BiPAP 3.0 07/04/17 07:22 88 18 97 BiPAP/CPAP 3.0 07/04/17 07:21 88 97 3.0 07/04/17 04:24 36.5 82 24 105/82 (90) 100 BiPAP 2.0 07/04/17 04:00 BiPAP 2.0 07/04/17 02:49 75 22 98 BiPAP/CPAP 2.0 07/04/17 00:03 36.8 77 18 122/81 (95) 94 07/03/17 23:59 BiPAP 2.0 07/03/17 20:12 77 20 96 Room Air 07/03/17 20:00 36.4 80 22 127/90 (102) 95 Room Air 07/03/17 20:00 Room Air 07/03/17 19:20 36.4 83 24 102/89 (93) 92 Room Air 07/03/17 18:55 36.4 83 24 92 07/03/17 16:00 Room Air 07/03/17 15:51 36.5 81 22 112/66 (81) 99 Room Air 07/03/17 15:30 73 20 98 BiPAP/CPAP 2.0 07/03/17 11:50 84 22 112/82 (92) 95 Room Air 07/03/17 11:30 73 20 93 Room Air General Appearance: + mild distress Eyes: normal inspection (sclera nonicteric bilaterally) Neck: supple Respiratory/Chest: + decreased breath sounds (bases), + pertinent finding ( increased respiratory effort) Cardiovascular: regular rate, rhythm Abdomen: normal bowel sounds, non tender, soft Extremities: normal range of motion Neurologic/Psych: normal mood/affect, oriented x 3, + pertinent finding (drowsy ) Skin: warm/dry Laboratory Results Last 24 Hours Test 07/03/17 10:13 07/03/17 11:55 07/03/17 16:28 07/03/17 19:40 White Blood Count 13.38 K/uL Red Blood Count 4.67 M/uL Hemoglobin 13.9 g/dL Hematocrit 42.1 % Mean Corpuscular Volume 90.1 fL Mean Corpuscular Hemoglobin 29.8 pg Mean Corpuscular Hemoglobin Concent 33.0 g/dl Platelet Count 219 K/uL Mean Platelet Volume 10.9 fL Neutrophils (%) (Auto) 72.7 % Lymphocytes (%) (Auto) 16.0 % Monocytes (%) (Auto) 10.3 % Eosinophils (%) (Auto) 0.2 % Basophils (%) (Auto) 0.3 % Neutrophils # (Auto) 9.72 K/uL Lymphocytes # (Auto) 2.14 K/uL Monocytes # (Auto) 1.38 K/uL Eosinophils # (Auto) 0.03 K/uL Basophils # (Auto) 0.04 K/uL RDW Standard Deviation 51.0 fL RDW Coefficient of Variation 15.8 % Immature Granulocyte % (Auto) 0.5 % Immature Granulocyte # (Auto) 0.07 K/uL Nucleated RBC Absolute Count (auto) 0.06 K/uL Nucleated Red Blood Cells % 0.4 % Creatinine 1.79 mg/dl Est Creatinine Clear Calc Drug Dose 76.6 ml/min Estimated GFR () 56.4 Estimated GFR (Non- 48.7 Bedside Glucose 139 mg/dl 153 mg/dl Test 07/03/17 20:50 07/04/17 04:44 07/04/17 05:22 07/04/17 06:36 Bedside Glucose 167 mg/dl 128 mg/dl White Blood Count 15.84 K/uL Red Blood Count 5.03 M/uL Hemoglobin 15.1 g/dL Hematocrit 46.0 % Mean Corpuscular Volume 91.5 fL Mean Corpuscular Hemoglobin 30.0 pg Mean Corpuscular Hemoglobin Concent 32.8 g/dl Platelet Count 224 K/uL Mean Platelet Volume 10.8 fL Neutrophils (%) (Auto) 73.2 % Lymphocytes (%) (Auto) 13.6 % Monocytes (%) (Auto) 11.7 % Eosinophils (%) (Auto) 0.3 % Basophils (%) (Auto) 0.3 % Neutrophils # (Auto) 11.61 K/uL Lymphocytes # (Auto) 2.16 K/uL Monocytes # (Auto) 1.85 K/uL Eosinophils # (Auto) 0.04 K/uL Basophils # (Auto) 0.04 K/uL RDW Standard Deviation 52.5 fL RDW Coefficient of Variation 16.1 % Immature Granulocyte % (Auto) 0.9 % Immature Granulocyte # (Auto) 0.14 K/uL Nucleated RBC Absolute Count (auto) 0.08 K/uL Nucleated Red Blood Cells % 0.5 % Sodium Level 131 mmol/L Potassium Level 4.5 mmol/L Chloride Level 102 mmol/L Carbon Dioxide Level 19 mmol/L Anion Gap 10.0 mmol/L Blood Urea Nitrogen 43 mg/dl Creatinine 1.89 mg/dl Est Creatinine Clear Calc Drug Dose 72.6 ml/min Estimated GFR () 52.9 Estimated GFR (Non- 45.6 BUN/Creatinine Ratio 22.7 Random Glucose 172 mg/dl Lactic Acid Level 3.4 mmol/L Calcium Level 8.1 mg/dl Magnesium Level 2.5 mg/dl Total Bilirubin 1.9 mg/dl Aspartate Amino Transf (AST/SGOT) 914 U/L Alanine Aminotransferase (ALT/SGPT) 1928 U/L Alkaline Phosphatase 165 U/L Total Protein 5.6 gm/dl Albumin 3.0 gm/dl Globulin 2.6 gm/dl Albumin/Globulin Ratio 1.1 Test 07/04/17 09:15 07/04/17 09:16 Impression Patient is a 32 year old male admitted with a right perihilar pneumonia with sudden onset of RUQ abdominal pain and significantly elevated hepatic transaminases, new since admission. Diagnostic considerations include: viral, toxin, medication-induced ( cephalosporins can be associated with cholestatic liver injury) vs hepatic congestion vs other. Plan 1. Stat PT/INR. 2. Check acute hepatitis panel, Tylenol level, viral studies, and tox screen. 3. Consider checking a BNP, given shortness of breath and history of CHF. 4. Will continue to trend liver panel and coag studies. If INR exceeds 1.5 and develops encephalopathy, consider transfer to liver transplant center due to risk of acute liver failure. 5. Continue supportive measures. Thank you for allowing us to participate in the care of this pleasant patient. If you have any questions or concerns, please do not hesitate to contact us. Patient seen and examined with MED Hernandes as above Abd: Soft, NT, Obese, No stigmata of chronic liver disease Neuro: Answers most questions appropriately, no asterixis INR returned elevated at 1.8 which has worsened since 06/30 (1.3) Discussed case with Hospitalist team and recommended transfer to Tertiary care center with Liver transplant unit, as patient is exhibiting signs of Acute Liver Failure
--- NOTE | 2017-07-04 10:08 | Medical Consult ---
Consultation Date of Consultation: Jul 04, 2017. Attending Physician: Alida Askew MD Reason for Consultation: Possible Cholecystitis. History of Present Illness Mr. Samuel is a 32-year-old male with past medical history significant for chronic congestive heart failure, diabetes, hypertension, nonischemic cardiomyopathy, hypothyroidism, hyperlipidemia, and peripheral neuropathy. Patient was admitted for shortness of breath related to right perihilar pneumonia/hemoptysis. General surgery was consulted for possible acute cholecystitis after patient complained of abdominal discomfort 3 days ago- ultrasound pending at time consult was ordered. LFTs elevated. Patient reports that his abdominal pain is located to the right of the umbilicus. Pain is localized, does not radiate. Not related to diet- reports that pain begins before eating. Denies family history of gallbladder issues. Denies nausea at this time. Denies changes in bowel habits. Past Medical/Surgical History Medical Problems: (1) Cardiomyopathy Status: Acute (2) Cardiomyopathy Status: Acute (3) Cardiomyopathy Status: Acute (4) Dyspnea Status: Acute (5) Elevated brain natriuretic peptide (BNP) level Status: Acute (6) Elevated troponin Status: Acute (7) Epigastric abdominal pain Status: Acute (8) Guaiac positive stools Status: Acute (9) Hypokalemia Status: Acute (10) Hypoxia Status: Acute (11) Left sided chest pain Status: Acute (12) Pancreatitis Status: Acute (13) Pneumonia Status: Acute Family History Cancer FH: HTN (hypertension) FH: diabetes mellitus Heart disease Social History Smoking Status: Never Smoker Smokeless Tobacco Use: No Alcohol Use: none Drug Use: none Marital Status: in relationship Housing Status: lives with family Occupation Status: employed Allergies Coded Allergies: VEE Inhibitors (Verified Allergy, Intermediate, COUGH, 05/14/17) Lisinopril (Verified Adverse Reaction, Unknown, cough, 05/14/17) Current Inpatient Medications Current Inpatient Medications Medications (Trade) Dose Ordered Sig/Yazan Route Start Time Stop Time Status Last Admin Dose Admin Acetaminophen (Tylenol Tab) 650 mg Q4H PRN PO 06/29/17 15:15 07/29/17 15:14 Atorvastatin Calcium (Lipitor Tab) 40 mg DAILY PO 06/30/17 09:00 07/30/17 08:59 07/04/17 07:56 40 MG Benzonatate (Tessalon Perles Cap) 100 mg Q8H PRN PO 06/29/17 15:15 07/29/17 15:14 07/04/17 02:54 100 MG Carvedilol (Coreg Tab) 25 mg BID PO 06/29/17 21:00 07/29/17 20:59 07/04/17 07:56 25 MG Gabapentin (Neurontin Cap) 100 mg TID PO 06/29/17 21:00 07/29/17 20:59 07/04/17 07:57 100 MG Levothyroxine Sodium (Synthroid Tab) 88 mcg DAILYBB PO 06/30/17 06:00 07/30/17 05:59 07/04/17 06:37 88 MCG Magnesium Oxide (Mag-Ox Tab) 400 mg BID PO 06/29/17 21:00 07/29/17 20:59 07/04/17 07:57 400 MG Insulin Glargine (Lantus Vial) 160 units QPM SC 06/29/17 21:00 07/29/17 20:59 Ondansetron HCl (Zofran Inj) 4 mg Q6H PRN IV 06/29/17 15:15 07/29/17 15:14 Future hold 07/04/17 08:17 4 MG Insulin Aspart (novoLOG ASPART) SLIDING SCALE If C... ACHS SC 06/29/17 21:00 07/29/17 20:59 07/04/17 07:53 4 UNITS Glucose (Glucose 40% Gel) UD PRN PO 06/29/17 15:15 07/29/17 15:14 Glucose (Glucose Chew Tab) 1 tabs UD PRN PO 06/29/17 15:15 07/29/17 15:14 Dextrose (Dextrose 50% 50ML Syringe) 50 ml UD PRN IV 06/29/17 15:15 07/29/17 15:14 Glucagon (Glucagon Inj) 1 mg UD PRN SQ 06/29/17 15:15 07/29/17 15:14 Guaifenesin (Mucinex Contr Rel Tab) 600 mg BID PO 06/29/17 21:00 07/29/17 20:59 07/04/17 07:57 600 MG Budesonide (Pulmicort Respules 0.5MG/ 2ML Neb Soln) 0.5 mg BIDR INH 06/29/17 20:00 07/29/17 19:59 07/04/17 07:11 0.5 MG Albuterol/ Ipratropium (Duoneb) 3 ml QIDR INH 06/30/17 16:00 07/30/17 15:59 07/04/17 07:11 3 ML Codeine Phosphate/ Guaifenesin (Robitussin-AC Sugar Free Syrup) 5 ml Q6H PRN PO 07/01/17 00:15 07/31/17 00:14 07/01/17 00:11 5 ML Prochlorperazine Edisylate 10 mg/ Syringe 10 ml @ 5 mls/min Q6 PRN IV 07/01/17 16:45 07/31/17 16:44 07/02/17 22:24 5 MLS/MIN Lorazepam (Ativan Tab) 0.25 mg QID PRN PO 07/01/17 19:15 07/31/17 19:14 07/04/17 02:57 0.25 MG Levofloxacin (Levaquin Tab) 500 mg DAILY@1800 PO 07/03/17 18:00 07/06/17 17:59 07/03/17 17:45 500 MG Lactobacillus Acidophilus (Lactinex Granules Pack) 2 gm TIDM PO 07/03/17 12:00 08/02/17 11:59 07/04/17 07:54 2 GM Cefepime HCl 1000 mg/Dextrose 111.3 ml @ 200 mls/hr Q8H IV 07/03/17 19:00 07/10/17 18:59 07/04/17 04:24 200 MLS/HR Linezolid 600 mg/ Prmx 300 ml @ 300 mls/hr Q12H IV 07/03/17 20:00 07/10/17 19:59 07/04/17 07:54 300 MLS/HR Vancomycin HCl (Vancomycin Oral Soln) 125 mg QID PO 07/03/17 20:00 07/13/17 19:59 07/04/17 07:55 125 MG Raspberry (Raspberry Syrup 5ml Cup) 5 ml QID PO 07/03/17 20:00 07/17/17 19:59 07/04/17 07:55 5 ML Hydromorphone HCl (Dilaudid Inj) 1 mg Q2H PRN IV 07/04/17 08:15 07/18/17 08:14 07/04/17 08:14 1 MG Review of Systems Constitutional: No fever, No chills Respiratory: + cough, + shortness of breath Cardiovascular: No chest pain Abdomen: + problem reported (Reports pain to right of umbilicus. ), No nausea, No vomiting Physical Exam Date Time Temp Pulse Resp B/P (MAP) Pulse Ox O2 Delivery O2 Flow Rate FiO2 07/04/17 08:06 36.7 82 20 104/84 (91) 97 BiPAP 3.0 07/04/17 07:22 88 18 97 BiPAP/CPAP 3.0 07/04/17 07:21 88 97 3.0 07/04/17 04:24 36.5 82 24 105/82 (90) 100 BiPAP 2.0 07/04/17 04:00 BiPAP 2.0 07/04/17 02:49 75 22 98 BiPAP/CPAP 2.0 07/04/17 00:03 36.8 77 18 122/81 (95) 94 07/03/17 23:59 BiPAP 2.0 07/03/17 20:12 77 20 96 Room Air 07/03/17 20:00 36.4 80 22 127/90 (102) 95 Room Air 07/03/17 20:00 Room Air 07/03/17 19:20 36.4 83 24 102/89 (93) 92 Room Air 07/03/17 18:55 36.4 83 24 92 07/03/17 16:00 Room Air 07/03/17 15:51 36.5 81 22 112/66 (81) 99 Room Air 07/03/17 15:30 73 20 98 BiPAP/CPAP 2.0 07/03/17 11:50 84 22 112/82 (92) 95 Room Air 07/03/17 11:30 73 20 93 Room Air Abdomen/GI: normal bowel sounds, non tender, soft, + pertinent finding (benign abdominal exam. ) Laboratory Results Last 24 Hours Test 07/03/17 10:13 07/03/17 11:55 07/03/17 16:28 07/03/17 19:40 White Blood Count 13.38 K/uL Red Blood Count 4.67 M/uL Hemoglobin 13.9 g/dL Hematocrit 42.1 % Mean Corpuscular Volume 90.1 fL Mean Corpuscular Hemoglobin 29.8 pg Mean Corpuscular Hemoglobin Concent 33.0 g/dl Platelet Count 219 K/uL Mean Platelet Volume 10.9 fL Neutrophils (%) (Auto) 72.7 % Lymphocytes (%) (Auto) 16.0 % Monocytes (%) (Auto) 10.3 % Eosinophils (%) (Auto) 0.2 % Basophils (%) (Auto) 0.3 % Neutrophils # (Auto) 9.72 K/uL Lymphocytes # (Auto) 2.14 K/uL Monocytes # (Auto) 1.38 K/uL Eosinophils # (Auto) 0.03 K/uL Basophils # (Auto) 0.04 K/uL RDW Standard Deviation 51.0 fL RDW Coefficient of Variation 15.8 % Immature Granulocyte % (Auto) 0.5 % Immature Granulocyte # (Auto) 0.07 K/uL Nucleated RBC Absolute Count (auto) 0.06 K/uL Nucleated Red Blood Cells % 0.4 % Creatinine 1.79 mg/dl Est Creatinine Clear Calc Drug Dose 76.6 ml/min Estimated GFR () 56.4 Estimated GFR (Non- 48.7 Bedside Glucose 139 mg/dl 153 mg/dl Test 07/03/17 20:50 07/04/17 04:44 07/04/17 05:22 07/04/17 06:36 Bedside Glucose 167 mg/dl 128 mg/dl White Blood Count 15.84 K/uL Red Blood Count 5.03 M/uL Hemoglobin 15.1 g/dL Hematocrit 46.0 % Mean Corpuscular Volume 91.5 fL Mean Corpuscular Hemoglobin 30.0 pg Mean Corpuscular Hemoglobin Concent 32.8 g/dl Platelet Count 224 K/uL Mean Platelet Volume 10.8 fL Neutrophils (%) (Auto) 73.2 % Lymphocytes (%) (Auto) 13.6 % Monocytes (%) (Auto) 11.7 % Eosinophils (%) (Auto) 0.3 % Basophils (%) (Auto) 0.3 % Neutrophils # (Auto) 11.61 K/uL Lymphocytes # (Auto) 2.16 K/uL Monocytes # (Auto) 1.85 K/uL Eosinophils # (Auto) 0.04 K/uL Basophils # (Auto) 0.04 K/uL RDW Standard Deviation 52.5 fL RDW Coefficient of Variation 16.1 % Immature Granulocyte % (Auto) 0.9 % Immature Granulocyte # (Auto) 0.14 K/uL Nucleated RBC Absolute Count (auto) 0.08 K/uL Nucleated Red Blood Cells % 0.5 % Sodium Level 131 mmol/L Potassium Level 4.5 mmol/L Chloride Level 102 mmol/L Carbon Dioxide Level 19 mmol/L Anion Gap 10.0 mmol/L Blood Urea Nitrogen 43 mg/dl Creatinine 1.89 mg/dl Est Creatinine Clear Calc Drug Dose 72.6 ml/min Estimated GFR () 52.9 Estimated GFR (Non- 45.6 BUN/Creatinine Ratio 22.7 Random Glucose 172 mg/dl Lactic Acid Level 3.4 mmol/L Calcium Level 8.1 mg/dl Magnesium Level 2.5 mg/dl Total Bilirubin 1.9 mg/dl Aspartate Amino Transf (AST/SGOT) 914 U/L Alanine Aminotransferase (ALT/SGPT) 1928 U/L Alkaline Phosphatase 165 U/L Total Protein 5.6 gm/dl Albumin 3.0 gm/dl Globulin 2.6 gm/dl Albumin/Globulin Ratio 1.1 Test 07/04/17 09:16 07/04/17 09:22 Assessment & Plan 32-year-old male right perihilar pneumonia/hemoptysis, consulted for possible cholecystitis. Ultrasound reveals no evidence of gallstones and no evidence of acute cholecystitis. Awaiting GI consult for input on patient's elevated LFTs. No surgical intervention required at this time. Case discussed with Dr. Casey. Please let general surgery know if we can be of any more help if case should become surgical.
[2017-07-04] MEDS ORDERED: LCTXP PO (10:47)
[2017-07-04] MEDS ORDERED: CEFE1INJ3 IV (10:47)
[2017-07-04] MEDS ORDERED: LVQ500 PO (10:47)
[2017-07-04] MEDS ORDERED: VNCS125 PO (10:47)
--- NOTE | 2017-07-04 10:49 | Discharge Instructions ---
Discharge Instructions Date of Service Jul 04, 2017. Admission Reason for Admission: Elevated Troponin; Pneumonia Discharge Discharge Diagnosis / Problem: multi organ failure Discharge Goals Goal(s): Decrease discomfort Activity Recommendations Activity Limitations: per Instructions/Follow-up section . Current Hospital Diet Patient's current hospital diet: Diabetes Type 2 Diet, AHA Diet (Heart Healthy) Discharge Diet Recommended Diet: Full Liquid Diet, AHA Diet (Heart Healthy), Low Sodium Diet ( 2gm Na) Fluid Restriction: 1200 ml (5 cups) Pending Studies Studies pending at discharge: yes List of pending studies: d dimer lactic acid repeat liver enz Laboratory Results Hemoglobin A1c Test 06/14/17 07:12 Range/Units Estimated Average Glucose 169 mg/dl Hemoglobin A1c 7.5 H 4.5-5.6 % Medical Emergencies . Who to Call and When: Medical Emergencies: If at any time you feel your situation is an emergency, please call 911 immediately. . Non-Emergent Contact Non-Emergency issues call your: Primary Care Provider, Upholstery Instructor Call Non-Emergent contact if: you have a fever . . "Provider Documentation" section prepared by Alida Eldridge. . VTE Core Measure Inpt VTE Proph given/why not?: Unfractionated heparin SQ, SCD's
[2017-07-04 11:10] LABS: BASO % 0.1 %; BASO ABS # 0.02 K/uL (0-0.2); EOS % 0.1 %; HEMATOCRIT 45.1 % (42-52); IG% 0.7 %; LYMPH % 11.3 %; LYMPH ABS # 1.68 K/uL (1.2-3.4); MEAN CORPUSCULAR HEMOGLOBIN 29.5 pg (25-34); MEAN PLATELET VOLUME 10.7 fL (7.4-10.4); MONO % 13.7 %; NEUT % 74.1 %; PLATELET COUNT 218 K/uL (130-400); RED BLOOD COUNT 5.01 M/uL (4.7-6.1); WHITE BLOOD COUNT 14.81 K/uL (4.8-10.8)
[2017-07-04 11:15] LABS: ARTERIAL BLD GAS O2 SATURATION 94.8 % (90-95); ARTERIAL BLOOD GAS HCO3 19 mmol/L (19-24); ARTERIAL BLOOD GAS PO2 76 mm/Hg (80-95); ARTERIAL BLOOD GAS pH 7.48 (7.35-7.45)
[2017-07-04 11:19] LABS: ALLEN TEST POS (POS); O2 ADMINISTRATION 30% BIPAP
[2017-07-04 11:23] LABS: BUN/CREATININE RATIO 23.4 (10-20); CALCIUM 8.4 mg/dl (8.5-10.1); CREATININE 1.89 mg/dl (0.60-1.40)
[2017-07-04 11:29] LABS: COMPLETE YES; MEAN CORPUSCULAR HGB CONC 32.8 g/dl (32-36)
--- NOTE | 2017-07-04 11:37 | Pulmonary Consultation ---
History General Date of Service: Jul 04, 2017. Stated Complaint: Elevated Troponin; Pneumonia HPI The patient is a 32 year old male who presents to [facility] with complaints of Elevated Troponin; Pneumonia. The patient's primary care provider is Bridger Manriquez III, CRNP. Patient is a 32 yo male who presented to the ED with concerns of woresneing SOB. The patient has been admitted recently multiple times for concerns of hypotension and dyspnea/pneumonia. THe ptaient states that his symptoms never really went away, and once again acutely worsened on Friday. He began to have worsening cough, SOB, and yellow mucus production.He has also been experiencing on and off hemoptysis at home. During his previous admission, the patient was noted to have pneumonia and was treated with IV Zosyn for multiple days. He was discharged to home and anticipated to have bronchoscopic evaluation as an outpatient but did not have that completed. Since admission, the patient has had continued symptoms of SOB, but has also been noted to have mild leukocytosis, and his LFT's jumped over night last night. AST 914, ALT 1928, and Alk Phos 165. GI was consulted today and is recommending transfer to liver transplant center due to concern for acute liver failure. Patient overall has been saturating well on room air and BiPAP PRN and overnight. Blood cultures have shown NGTD. MRSA nasal swab was negative. Sputum culture showed light normal benjamin. Strep swab of the throat is pending. Liver U/S today showed mildly increased echogenicity of the liver. Small volume of perihaptic ascites. Chest CT showed mild multifocal b/l airspace opacities favoring infectious/inflammatory etiology. These images were viewed. He is currently on IV Linezolid, Cefepime, PO Vancomycin for recent hx C. Diff, Duoneb, Codeine cough syrup, Levaquin, Mucinex, and Pulmicort. Historian: patient Severity: severe Complaint Status: persistent Review of Systems Constitutional: denies: fever Eyes: denies: eye pain ENT: denies: loss of hearing Cardiovascular: denies: chest pain Respiratory: reports: cough, shortness of breath, YI Gastrointestinal: reports: abdominal pain (RUQ) Genitourinary - Male: denies: dysuria Integumentary: denies: rash All Other Symptoms All Other Systems: Reviewed and Negative Past Medical History Past Medical History: Medical Problems: (1) Bronchitis (2) Chronic congestive heart failure (3) Diabetes (4) Diabetes mellitus (5) Dilated cardiomyopathy (6) Fever (7) HTN (hypertension) (8) Hypotension (9) Kidney stone (10) Nonischemic cardiomyopathy (11) Obstructive sleep apnea (12) Pneumonia Family History Cancer FH: HTN (hypertension) FH: diabetes mellitus Heart disease Social History Hx Tobacco Use In Past Year?: No Smoking Status: Never Smoker Marital status: in relationship Housing status: lives with family Occupational Status: employed Immunizations History of Influenza Vaccine: N/A History of Tetanus Vaccine?: Unknown History of Pneumococcal: Unknown History of Hepatitis B Vaccine: Unknown History of MDRO History of MDRO: No Allergies Coded Allergies: VEE Inhibitors (Verified Allergy, Intermediate, COUGH, 05/14/17) Lisinopril (Verified Adverse Reaction, Unknown, cough, 05/14/17) Current Medications Reported Home Medications Medications Dose Route/Sig Max Daily Dose Days Date Category Dose Instructions Cefepime (Cefepime Hcl) 1 Gm Inj 1 Gm IV Q12 7 07/04/17 Rx Lactinex Granules (Lactobacillus Acidophilus) 1 Gm Pack 2 Gm PO TIDM 7 07/04/17 Rx Vancomycin HCl 125 Mg/2.5 Ml Susp 125 Mg PO QID 14 07/04/17 Rx Levofloxacin 500 Mg Tab 500 Mg PO DAILY@1800 7 07/04/17 Rx Tessalon Perles (Benzonatate) 100 Mg Cap 100 Mg PO Q8H PRN 05/18/17 Rx Combivent Respimat (Ipratropium-Albuterol) 1 Aer Aer 1 Puffs INH QID 05/18/17 Rx Magnesium-Oxide (Magnesium Oxide) 400 Mg Tab 400 Mg PO BID 30 05/18/17 Rx Novolog Flexpen (Insulin Aspart) 100 Units/Ml Inj 1 Dose SC AC 03/24/17 Reported COVERAGE DIRECTED BY SLIDING SCALE Carvedilol 25 Mg Tab 25 Mg PO BID 03/24/17 Reported Tresiba Flextouch (Insulin Degludec) 200 Unit/Ml Inj 160 Units SC QPM 03/24/17 Reported Levothyroxine Sodium 88 Mcg Tab 88 Mcg PO QAM 03/24/17 Reported Aldactone (Spironolactone) 25 Mg Tab 25 Mg PO QAM 10/19/15 Reported K-Tab (Potassium Chloride) 20 Meq Tab 20 Meq PO QPM 10/19/15 Reported Neurontin (Gabapentin) 100 Mg Cap 100 Mg PO TID 10/19/15 Reported Atorvastatin Calcium (Atorvastatin) 40 Mg Tab 40 Mg PO DAILY 03/09/15 Reported Furosemide 40 Mg Tab 40 Mg PO QAM 03/09/15 Reported Physical Physical Exam Vital Signs: Date Time Temp Pulse Resp B/P (MAP) Pulse Ox O2 Delivery O2 Flow Rate FiO2 07/04/17 11:26 88 95 3.0 07/04/17 11:25 75 18 95 BiPAP/CPAP 3.0 07/04/17 08:06 36.7 82 20 104/84 (91) 97 BiPAP 3.0 07/04/17 08:00 Nasal Cannula 2.0 07/04/17 07:22 88 18 97 BiPAP/CPAP 3.0 07/04/17 07:21 88 97 3.0 07/04/17 04:24 36.5 82 24 105/82 (90) 100 BiPAP 2.0 07/04/17 04:00 BiPAP 2.0 07/04/17 02:49 75 22 98 BiPAP/CPAP 2.0 07/04/17 00:03 36.8 77 18 122/81 (95) 94 07/03/17 23:59 BiPAP 2.0 07/03/17 20:12 77 20 96 Room Air 07/03/17 20:00 36.4 80 22 127/90 (102) 95 Room Air 07/03/17 20:00 Room Air 07/03/17 19:20 36.4 83 24 102/89 (93) 92 Room Air 07/03/17 18:55 36.4 83 24 92 07/03/17 16:00 Room Air 07/03/17 15:51 36.5 81 22 112/66 (81) 99 Room Air 07/03/17 15:30 73 20 98 BiPAP/CPAP 2.0 07/03/17 11:50 84 22 112/82 (92) 95 Room Air 07/03/17 11:30 73 20 93 Room Air General Appearance: uncomfortable, mild distress, obese Head: NORMOCEPHALIC, ATRAUMATIC Eyes: NO DISCHARGE, SCLERAE NORMAL, other (amblyopia R) Neck: NORMAL RANGE OF MOTION, TRACHEA MIDLINE Respiratory: respiratory distress, other (Some very mild coarse breath sounds heard at bases but otherwise relatively clear. Currentl on BiPAP) Cardiovasular: REGULAR RATE/RHYTHM, NO MURMUR Abdomen: NORMAL BOWEL SOUNDS Upper Extremities: NO EDEMA Neuro: ALERT Psychiatric: NORMAL AFFECT Diagnostics Labs Results Past 24 Hours Test 07/03/17 11:55 07/03/17 16:28 07/03/17 19:40 07/03/17 20:50 Range/Units Bedside Glucose 139 153 167 70-99 mg/dl Test 07/04/17 04:44 07/04/17 05:22 07/04/17 06:36 07/04/17 09:16 Range/Units White Blood Count 15.84 4.8-10.8 K/uL Red Blood Count 5.03 4.7-6.1 M/uL Hemoglobin 15.1 14.0-18.0 g/dL Hematocrit 46.0 42-52 % Mean Corpuscular Volume 91.5 80-100 fL Mean Corpuscular Hemoglobin 30.0 25-34 pg Mean Corpuscular Hemoglobin Concent 32.8 32-36 g/dl Platelet Count 224 130-400 K/uL Mean Platelet Volume 10.8 7.4-10.4 fL Neutrophils (%) (Auto) 73.2 % Lymphocytes (%) (Auto) 13.6 % Monocytes (%) (Auto) 11.7 % Eosinophils (%) (Auto) 0.3 % Basophils (%) (Auto) 0.3 % Neutrophils # (Auto) 11.61 1.4-6.5 K/uL Lymphocytes # (Auto) 2.16 1.2-3.4 K/uL Monocytes # (Auto) 1.85 0.11-0.59 K/uL Eosinophils # (Auto) 0.04 0-0.5 K/uL Basophils # (Auto) 0.04 0-0.2 K/uL RDW Standard Deviation 52.5 36.4-46.3 fL RDW Coefficient of Variation 16.1 11.5-14.5 % Immature Granulocyte % (Auto) 0.9 % Immature Granulocyte # (Auto) 0.14 0.00-0.02 K/uL Nucleated RBC Absolute Count (auto) 0.08 0-0 K/uL Nucleated Red Blood Cells % 0.5 % Sodium Level 131 136-145 mmol/L Potassium Level 4.5 3.5-5.1 mmol/L Chloride Level 102 98-107 mmol/L Carbon Dioxide Level 19 21-32 mmol/L Anion Gap 10.0 3-11 mmol/L Blood Urea Nitrogen 43 7-18 mg/dl Creatinine 1.89 0.60-1.40 mg/dl Est Creatinine Clear Calc Drug Dose 72.6 ml/min Estimated GFR () 52.9 Estimated GFR (Non- 45.6 BUN/Creatinine Ratio 22.7 10-20 Random Glucose 172 70-99 mg/dl Lactic Acid Level 3.4 0.4-2.0 mmol/L Calcium Level 8.1 8.5-10.1 mg/dl Magnesium Level 2.5 1.8-2.4 mg/dl Total Bilirubin 1.9 0.2-1 mg/dl Aspartate Amino Transf (AST/SGOT) 914 15-37 U/L Alanine Aminotransferase (ALT/SGPT) 1928 12-78 U/L Alkaline Phosphatase 165 45-117 U/L Total Protein 5.6 6.4-8.2 gm/dl Albumin 3.0 3.4-5.0 gm/dl Globulin 2.6 2.5-4.0 gm/dl Albumin/Globulin Ratio 1.1 0.9-2 Bedside Glucose 128 70-99 mg/dl Prothrombin Time 19.4 9.0-12.0 SECONDS Prothromb Time International Ratio 1.8 0.9-1.1 Hepatitis B Surface Antigen NEG NEG Hepatitis C Antibody NEG NEG Test 07/04/17 09:22 07/04/17 10:20 07/04/17 10:55 Range/Units Sodium Level 130 136-145 mmol/L Potassium Level 5.0 3.5-5.1 mmol/L Chloride Level 100 98-107 mmol/L Carbon Dioxide Level 19 21-32 mmol/L Anion Gap 11.0 3-11 mmol/L Blood Urea Nitrogen 44 7-18 mg/dl Creatinine 1.89 0.60-1.40 mg/dl Est Creatinine Clear Calc Drug Dose 72.6 ml/min Estimated GFR () 52.9 Estimated GFR (Non- 45.6 BUN/Creatinine Ratio 23.4 10-20 Random Glucose 200 70-99 mg/dl Calcium Level 8.4 8.5-10.1 mg/dl Albumin 3.0 3.4-5.0 gm/dl Lipase 262 73-393 U/L Acetaminophen Level < 2 10-30 ug/ml White Blood Count 14.81 4.8-10.8 K/uL Red Blood Count 5.01 4.7-6.1 M/uL Hemoglobin 14.8 14.0-18.0 g/dL Hematocrit 45.1 42-52 % Mean Corpuscular Volume 90.0 80-100 fL Mean Corpuscular Hemoglobin 29.5 25-34 pg Platelet Count 218 130-400 K/uL Mean Platelet Volume 10.7 7.4-10.4 fL Neutrophils (%) (Auto) 74.1 % Lymphocytes (%) (Auto) 11.3 % Monocytes (%) (Auto) 13.7 % Eosinophils (%) (Auto) 0.1 % Basophils (%) (Auto) 0.1 % Neutrophils # (Auto) 10.96 1.4-6.5 K/uL Lymphocytes # (Auto) 1.68 1.2-3.4 K/uL Monocytes # (Auto) 2.03 0.11-0.59 K/uL Eosinophils # (Auto) 0.01 0-0.5 K/uL Basophils # (Auto) 0.02 0-0.2 K/uL RDW Standard Deviation 50.8 36.4-46.3 fL RDW Coefficient of Variation 15.8 11.5-14.5 % Immature Granulocyte % (Auto) 0.7 % Immature Granulocyte # (Auto) 0.11 0.00-0.02 K/uL Nucleated RBC Absolute Count (auto) 0.06 0-0 K/uL Nucleated Red Blood Cells % 0.4 % Arterial Blood pH 7.48 7.35-7.45 Arterial Blood Partial Pressure CO2 26 35-46 mmHg Arterial Blood Partial Pressure O2 76 80-95 mm/Hg Arterial Blood HCO3 19 19-24 mmol/L Arterial Blood Oxygen Saturation 94.8 90-95 % Arterial Blood Base Excess -3.0 -9-1.8 mEq/L Arterial Blood Gas Delivery 30% BIPAP Alfonso Test POS POS Microbiology Results 07/03/17 Group A Streptococcus Screen - Final, Resulted SPECIMEN NEGATIVE FOR GROUP A BETA ST... 07/03/17 Group A Streptococcus Screen (FRANCK), Resulted Pending Diagnostic Radiology CT OF THE CHEST WITHOUT IV CONTRAST CLINICAL HISTORY: Pneumonia versus congestive heart failure. Shortness of breath. COMPARISON STUDY: Chest CT June 13, 2017 and chest radiograph June 29, 2017. CT DOSE: 1313.12 mGy.cm TECHNIQUE: Axial images of the chest were obtained without IV contrast. Images were reviewed in the axial, sagittal, and coronal planes. IV contrast was not administered for this examination. A dose lowering technique was utilized adhering to the principles of ALARA. FINDINGS: A single lead left subclavian pacer/AICD remains in place. Moderate to marked cardiomegaly is unchanged. There is no pericardial effusion. Mildly enlarged mediastinal and bilateral hilar lymph nodes have slightly decreased in size since exam of June 13, 2017. No pneumothorax or pleural effusion is present. There are mild groundglass opacities within the lungs with scattered airspace opacities, including tree-in-bud nodules. Comparison with prior exam is difficult given motion artifact on that study. Mild anasarca is noted. A small amount of upper abdominal ascites is noted. A right renal cyst is noted. This is better depicted on prior contrast enhanced exam. IMPRESSION: 1. Mild multifocal bilateral airspace opacities which favors an infectious process such as bronchiolitis or bronchopneumonia. Mild superimposed pulmonary edema would be difficult to exclude. No lobar consolidation. 2. Small amount of upper abdominal ascites. 3. Stable moderate to marked cardiomegaly. No pericardial effusion. LIVER) ABDOMEN LIMITED HISTORY: 32 years-old Male elevated liver enz acute the elevated liver enzymes COMPARISON: Abdominal ultrasound and CT 08/15/2016 TECHNIQUE: Multiple real-time sonographic images of the abdominal right upper quadrant were obtained assessing grayscale appearance and color flow FINDINGS: Pancreas is obscured by bowel gas. Liver measures up to 20.2 cm in length and demonstrates mildly increased echogenicity suspicious for fatty infiltration. No focal hepatic mass lesions or intrahepatic biliary ductal dilation. Gallbladder is mildly contracted with gallbladder wall measuring up to 0.4 cm, likely secondary to recent oral intake. No shadowing cholelithiasis or pericholecystic fluid collections. Common bile duct measures 0.47 m, within normal limits. Small volume of perihepatic ascites. There is a hypoechoic cystic lesion of the interpolar right kidney, 1.8 cm which appears unchanged from comparison. No right-sided hydronephrosis. IMPRESSION: 1. Mildly contracted gallbladder, likely secondary to recent oral intake. No shadowing cholelithiasis or sonographic evidence of acute cholecystitis. 2. No biliary ductal dilation. 3. Small volume of perihepatic ascites, nonspecific. 4. Mildly increased echogenicity of the liver, suspicious for fatty infiltration. EKG NSR/ Right axis Impression Assessment and Plan Possible recurrent pneumonia Respiratory distress Acute on chronic systolic CHF MIRTA DM2 Elevated LFT's Patient currently on multiple antibiotics and typical pulmonary medications from home. He is currently also on BiPAP due to symptoms of SOB. Feel that these are appropriate pending further workup. Patient anticipated to be transferred to [place] for concerns of acute liver failure. Will check ABG due to continued respiratory distress. No further immediate pulmonary intervention prior to transfer.
--- NOTE | 2017-07-04 13:14 | Discharge Summary ---
Discharge Summary Date of Service Jul 04, 2017. Discharge Summary Admission Date: Jun 29, 2017 at 15:10 Discharge Date: Jul 04, 2017 Discharge Disposition: Acute care facility Principal Diagnosis: multiorgan failure Problems/Secondary Diagnoses: Severe respiratory distress secondary to below Right perihilar pneumonia An episode of hypotension upon admission Acute liver failure, possibly shock liver Acute on chronic systolic congestive heart failure Nonischemic dilated cardiomyopathy Obstructive sleep apnea Hypothyroidism Diabetes mellitus type 2 Acute kidney injury on chronic kidney disease Chronic kidney disease stage II with baseline creatinine of 1.2 Peripheral neuropathy secondary to diabetes Immunizations: Have You Had Influenza Vaccine: N/A History of Tetanus Vaccine?: Unknown History of Pneumococcal: Unknown History of Hepatitis B Vaccine: Unknown Medication Reconciliation New Medications: Cefepime Hcl (Cefepime) 1 Gm Inj 1 GM IV Q12 for 7 Days Lactobacillus Acidophilus (Lactinex Granules) 1 Gm Pack 2 GM PO TIDM for 7 Days, #42 TAB Levofloxacin (Levofloxacin) 500 Mg Tab 500 MG PO DAILY@1800 for 7 Days, #7 TAB Vancomycin HCl (Vancomycin HCl) 125 Mg/2.5 Ml Susp 125 MG PO QID for 14 Days, #56 TAB Continued Medications: Gabapentin (Neurontin) 100 Mg Cap 100 MG PO TID, CAP Insulin Aspart (Novolog Flexpen) 100 Units/Ml Inj 1 DOSE SC AC COVERAGE DIRECTED BY SLIDING SCALE Insulin Degludec (Tresiba Flextouch) 200 Unit/Ml Inj 160 UNITS SC QPM Ipratropium-Albuterol (Combivent Respimat) 1 Aer Aer 1 PUFFS INH QID, #1 INH 1 Refill Levothyroxine Sodium (Levothyroxine Sodium) 88 Mcg Tab 88 MCG PO QAM Magnesium Oxide (Magnesium-Oxide) 400 Mg Tab 400 MG PO BID for 30 Days, #60 TAB 2 Refills Discontinued Medications: Atorvastatin (Atorvastatin Calcium) 40 Mg Tab 40 MG PO DAILY Benzonatate (Tessalon Perles) 100 Mg Cap 100 MG PO Q8H PRN for Cough, #30 CAP 0 Refills Carvedilol (Carvedilol) 25 Mg Tab 25 MG PO BID Furosemide (Furosemide) 40 Mg Tab 40 MG PO QAM Potassium Chloride (K-Tab) 20 Meq Tab 20 MEQ PO QPM Spironolactone (Aldactone) 25 Mg Tab 25 MG PO QAM, TAB Discharge Exam Full complete review of systems was unobtainable due to patient medical and mental condition Review of Systems: Constitutional: + weakness, + fatigue Physical Exam: General Appearance: + moderate distress, + obese ENT: normal ENT inspection, hearing grossly normal Neck: supple Respiratory/Chest: chest non-tender, + decreased breath sounds, + accessory muscle use, + crackles, + rales Cardiovascular: regular rate, rhythm Abdomen / GI: no organomegaly, no pulsatile mass, + tenderness Extremities: + swelling 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 He also had an episode of low blood pressure 70/30. Patient x-ray showed right lung pneumonia. Initially started on vancomycin and Zosyn. Primary team downgraded him to Levaquin after 1 day. Patient was noticed to be getting sicker and more short of breath. Patient was transferred to telemetry on July 03. Liver function was checked on July 04 and they were AST 1000, ALT 2000, total bilirubin is 2 and alkaline phosphatase is only 174. He also was found to be very short of breath, moaning of pain. He received 1 mg of Dilaudid and became lethargic. Due to his underlying obstructive sleep apnea and his oxygen level starts slowing down. He was started on BiPAP. Ultrasound liver was obtained and showed no cholelithiasis or acute cholecystitis Sales Account Specialist was consulted and recommended patient to go to tertiary facility where there is a fire protection inspector and transplant team ABG was obtained showed pH of 7.48, PCO2 of 26, PO2 of 76, saturation 95%, and that was on BiPAP and [address] scan chest was done and showed Mild multifocal bilateral airspace opacities which favors an infectious process such as bronchiolitis or bronchopneumonia. Mild superimposed pulmonary edema would be difficult to exclude. No lobar consolidation. Increase antibiotic coverage to cefepime/levofloxacin/Zyvox , as negative nasal swab for MRSA does not completely rule out MRSA pneumonia Follow up blood culture and sputum culture Obtained urine Legionella and Streptococcus screening Empiric vancomycin oral for history of C. difficile Rapid flu was negative, patient had viral cultures sent in July 04 Patient was accepted at [facility] and currently awaiting transfer. Total Time Spent: Greater than 30 minutes This includes examination of the patient, discharge planning, medication reconciliation, and communication with other providers. Discharge Instructions Please refer to the electronic Patient Visit Report (Discharge Instructions) for additional information.
[2017-07-04 13:23] LABS: BENZODIAZEPINE, URINE NEG (NEG); COCAINE,URINE NEG (NEG); PHENCYCLIDINE, URINE NEG (NEG)
[2017-07-04] MEDS: LEVOFLOXACIN 500 MG TAB PO SCH (18:00)
[2017-07-04] MEDS: HYDROmorphone INJ 0.5 MG/0.5 ML SYR IV PRN (20:20)
[2017-07-05] VITALS (7 sets, daily range): BP systolic 111–119; BP diastolic 81–84; PULSE 69–79; TEMP 35.8–36.5; O2SAT 92–100
[2017-07-05] MEDS: ONDANSETRON INJ 2 MG/ML 2 ML VIAL IV PRN ×3 (02:06→16:09)
[2017-07-05] MEDS: CEFEPIME IV 1,000 MG in DEXTROSE 5% 100ML 100 ML IV SCH ×2 (03:05→11:23)
[2017-07-05] MEDS: HYDROmorphone INJ 0.5 MG/0.5 ML SYR IV PRN (05:14)
[2017-07-05] MEDS: LEVOTHYROXINE 88 MCG TAB PO SCH (05:17)
[2017-07-05] MEDS: BUDESONIDE 0.5 MG/2 ML VIAL (PULMICORT) INH SCH (06:52)
[2017-07-05] MEDS: ALBUT/IPRATROP 3MG/0.5MG NEB 3 ML VIAL INH SCH ×3 (06:52→15:12)
[2017-07-05 06:55] LABS: CREATININE 1.73 mg/dl (0.60-1.40)
[2017-07-05] MEDS: INSULIN ASPART 100 UNITS/ML 3 ML PEN SC SCH ×2 (07:00→11:00)
[2017-07-05] MEDS: LACTOBACILLUS ACIDOPHILUS 1 GM PACK PO SCH ×2 (07:30→11:30)
[2017-07-05] MEDS: CARVEDILOL 25 MG TAB PO SCH (08:13)
[2017-07-05] MEDS: LINEZOLID / D5W 600 MG in PREMIXED IN D5W 300 ML IV SCH (08:16)
[2017-07-05] MEDS: ATORVASTATIN 40 MG TAB PO SCH (08:32)
[2017-07-05] MEDS: VANCOMYCIN HCL 125 MG/2.5ML SOLN PO SCH ×2 (08:32→13:00)
[2017-07-05] MEDS: RASPBERRY SYRUP 5 ML UDP PO SCH ×2 (08:32→13:00)
[2017-07-05] MEDS: MAGNESIUM OXIDE 400 MG TAB PO SCH (08:32)
[2017-07-05] MEDS: GUAIFENESIN 600 MG TABCR PO SCH (08:32)
[2017-07-05] MEDS: GABAPENTIN 100 MG CAP PO SCH ×2 (08:32→13:45)
[2017-07-05 08:33] LABS: INR 1.8 (0.9-1.1); PROTHROMBIN TIME (PATIENT) 19.4 SECONDS (9.0-12.0)
[2017-07-05] MEDS ORDERED: LEVO1INJ IV (08:49)
[2017-07-05] MEDS ORDERED: D5W AND 1/2NSS 1,000 ML IV SCH (10:05)
[2017-07-05] MEDS ORDERED: LEVOFLOXACIN / D5W 500 MG in PREMIXED IN D5W 100 ML IV SCH (11:00)
--- NOTE | 2017-07-05 11:12 | GASTROENTEROLOGY PROGRESS NOTE ---
DATE: 07/05/2017 DATE: 07/05/2017 SUBJECTIVE: I saw Nikita Samuel today at his bedside. He continues to have extensive nausea and vomiting. His liver panel has slightly worsened today with his AST and ALT increasing to 1,006 and 2,054 respectively, which are both increased. His alk phos has decreased slightly to 154. His total bilirubin has increased to 2.1. His INR is maintained at 1.8. The patient was scheduled for transfer to [facility] at my request as the patient was having evidence of acute liver injury with possible acute liver failure based on his rising INR. Though his INR has remained stable overnight, his liver numbers continue to increase, his ammonia level is elevated which in a patient that has not had a history of chronic liver disease. I discussed with nursing team to contact his hospitalist to ensure that the patient is transferred today whether it be to [facility], [facility] or [facility] as I do believe the patient should still be evaluated at a liver transplant center in case his numbers would continue to rise. He at this time continues to complain of some slight right upper quadrant abdominal pain, nonradiating without alleviating or exacerbating factors and the associated nausea and vomiting aforementioned. He denies any fevers, chills or jaundice at this time. His review of systems is negative x10 system review other than pertinent positives listed in the HPI. PHYSICAL EXAMINATION VITAL SIGNS: Temperature of 36.3, pulse 74, respirations 22, blood pressure 111/82, pulse ox 95% on 3 liters via nasal cannula. GENERAL EXAMINATION: He is awake. He does appear mildly acutely ill and is obese. HEENT: Normocephalic, atraumatic. EYES: Pupils equal, round. Extraocular muscles are intact. There is no scleral icterus EARS, NOSE, THROAT: External evaluation of ears and nose are normal. Oropharynx is clear. NECK: Soft, supple. No JVD or lymphadenopathy. CHEST: Clear to auscultation bilaterally. CARDIOVASCULAR SYSTEM: Regular rate and rhythm. ABDOMEN: Soft, tender in the right upper quadrant, nondistended. There are positive bowel sounds. There is no appreciable hepatosplenomegaly, though he does have an obese abdomen. EXTREMITIES: No clubbing, cyanosis or edema. SKIN: There is no rash noted. NEUROLOGIC EXAMINATION: No evidence of asterixis. LABORATORY STUDIES: Were reviewed in the HPI. IMPRESSION: A 32-year-old male with evidence of acute liver injury with a rising total bilirubin as well as elevated INR and significantly elevated transaminases. PLAN: It is my recommendation that the patient be transferred to a tertiary care center with liver transplant capabilities as the patient has had continued symptoms with continued rise in transaminases as well as his bilirubin. His INR has remained stable. I would recommend rechecking this in 6 hours and I would recommend that the primary team transfer the patient whether it be to [facility], [facility] or to [facility] for further evaluation and recommendations by transplant hepatology team. They are usually 3 outcomes in patients with acute liver injury, #1 resolves spontaneously with supportive care, #2 they progress to chronic liver disease, or #3 they develop acute liver failure and require transplantation and it is due to this reason, though the risk is not high to develop acute liver failure, we have no capabilities to provide that service to this patient and therefore it would be recommended that he be transferred. Once again, thanks for allowing me to participate in the care of this patient. If you have any further questions, please do not hesitate in contacting me. Thanks.
[2017-07-05] MEDS ORDERED: FAMOTIDINE 20MG/102 ML D5W IV STA (11:15)
[2017-07-05] MEDS ORDERED: FAMOTIDINE IV INJ 20 MG in DEXTROSE 5% 100ML 100 ML IV SCH (11:30)
[2017-07-05] MEDS: PROCHLORPERAZINE INJ 10 MG in SYRINGE 8 ML IV PRN (12:03)
--- NOTE | 2017-07-05 12:39 | Progress Note ---
Subjective Date of Service: Jul 05, 2017. Subjective Pt evaluation today including: conversation w/ patient, physical exam, chart review, lab review, conversation w/ [employer] identity management consultant, review of inpatient medication list Problem List Medical Problems: (1) Cardiomyopathy Status: Acute (2) Cardiomyopathy Status: Acute (3) Cardiomyopathy Status: Acute (4) Dyspnea Status: Acute (5) Elevated brain natriuretic peptide (BNP) level Status: Acute (6) Elevated troponin Status: Acute (7) Epigastric abdominal pain Status: Acute (8) Guaiac positive stools Status: Acute (9) Hypokalemia Status: Acute (10) Hypoxia Status: Acute (11) Left sided chest pain Status: Acute (12) Pancreatitis Status: Acute (13) Pneumonia Status: Acute Review of Systems Constitutional: + fatigue, No see HPI, No fever, No chills, No sweats, No weight loss, No weakness, No problem reported ENT: No see HPI, No hearing loss, No unusual epistaxis, No nasal symptoms, No sore throat, No tinnitus, No dental problems, No trouble swallowing, No problem reported Respiratory: + shortness of breath, + dyspnea on exertion, + dyspnea at rest, No see HPI, No cough, No sputum, No wheezing, No hemoptysis, No problem reported Cardiac: No see HPI, No chest pain, No orthopnea, No PND, No edema, No claudication, No palpitations, No problem reported Abdomen: + pain, + nausea, + vomiting, No see HPI, No diarrhea, No constipation , No GI bleeding, No problem reported Musculoskeletal: No see HPI, No joint pain, No muscle pain, No swelling, No calf pain, No problem reported Male : No see HPI, No dysuria, No urinary frequency, No incontinence, No nocturia more than once/night, No slowing stream, No hematuria, No sexual dysfunction, No problem reported Psychiatric: No see HPI, No depression symptoms, No anhedonism, No anxiety, No insomnia, No substance abuse, No problem reported Heme: No see HPI, No abnormal bleeding/bruising, No clotting problems, No swollen lymph nodes, No night sweats, No problem reported Endo: No see HPI, No fatigue, No excessive thirst, No excessive urination, No problem reported Skin: No see HPI, No rash, No itch, No new/changing skin lesions, No color change, No bleeding, No problem reported Objective Vital Signs Date Time Temp Pulse Resp B/P (MAP) Pulse Ox O2 Delivery O2 Flow Rate FiO2 07/05/17 11:32 36.4 69 20 119/84 (96) 98 07/05/17 11:23 78 18 92 Nasal Cannula 3.0 07/05/17 08:00 Nasal Cannula 3.0 07/05/17 07:50 36.3 74 22 111/82 (92) 95 BiPAP 07/05/17 04:00 36.5 79 112/81 (91) 100 Nasal Cannula 4.0 07/05/17 04:00 100 Nasal Cannula 4.0 07/05/17 00:00 35.8 72 111/81 (91) 100 BiPAP 4.0 07/05/17 00:00 100 BiPAP 4.0 07/04/17 20:00 95 BiPAP 07/04/17 19:31 79 22 131/97 (108) 100 Nasal Cannula 2.0 07/04/17 16:00 BiPAP 2.0 07/04/17 15:48 36.4 75 20 110/91 (97) 97 BiPAP 07/04/17 15:26 75 94 4.0 07/04/17 15:16 78 18 92 BiPAP/CPAP 21 Physical Exam General Appearance: + mild distress, + obese ENT: normal ENT inspection, hearing grossly normal Neck: supple Respiratory/Chest: chest non-tender, + crackles, + rales Cardiovascular: regular rate, rhythm, + systolic murmur Abdomen: soft, no organomegaly, no pulsatile mass, + distended, + tenderness Extremities: normal range of motion, non-tender, normal inspection Neurologic/Psychiatric: blacking wheel tender II-XII nml as tested, no motor/sensory deficits, alert, normal mood/affect, oriented x 3 Skin: normal color, warm/dry, no rash Laboratory Results Last 24 Hours Test 07/04/17 12:35 07/04/17 16:18 07/04/17 20:16 07/05/17 05:48 Urine Opiates Screen POS Urine Methadone, Qualitative NEG Urine Barbiturates NEG Urine Phencyclidine (PCP) Level NEG Ur Amphetamine/Methamphetamine NEG MDMA (Ecstasy) Screen NEG Urine Benzodiazepines Screen NEG Urine Cocaine Metabolite NEG Urine Marijuana (THC) NEG Bedside Glucose 127 mg/dl 122 mg/dl Creatinine 1.73 mg/dl Est Creatinine Clear Calc Drug Dose 79.3 ml/min Estimated GFR () 58.8 Estimated GFR (Non- 50.7 Test 07/05/17 07:00 07/05/17 08:13 07/05/17 11:11 Bedside Glucose 120 mg/dl 129 mg/dl Prothrombin Time 19.4 SECONDS Prothromb Time International Ratio 1.8 Total Bilirubin 2.1 mg/dl Direct Bilirubin 0.5 mg/dl Aspartate Amino Transf (AST/SGOT) 1006 U/L Alanine Aminotransferase (ALT/SGPT) 2054 U/L Alkaline Phosphatase 154 U/L Total Protein 5.9 gm/dl Albumin 3.1 gm/dl Assessment and Plan 52 years old man presented to the ED with shortness of breath. He also had an episode of low blood pressure 70/30. Patient x-ray showed right lung pneumonia. Initially started on vancomycin and Zosyn. Septic shock on admission secondary to below / improved R perihilar pneumonia acute hypoxic resp failure HUY / acute liver failure likely ATN and shocked liver DMII HTN Obesity Plan: awaiting transfer to [facility] continue Abx start D5/ 1/2NSS switch oral levofloxacin to IV as per GI [employer] identity management consultant will repeat INR in 6 hours SCD boots hold heparin SQ if INR go > 2 , for now switch it to BID Primary team downgraded him to Levaquin after 1 day. Patient was noticed to be getting sicker and more short of breath. Patient was transferred to telemetry on July 03. Liver function was checked on July 04 and they were AST 1000, ALT 2000, total bilirubin is 2 and alkaline phosphatase is only 174. He also was found to be very short of breath, moaning of pain. He received 1 mg of Dilaudid and became lethargic. Due to his underlying obstructive sleep apnea and his oxygen level starts slowing down. He was started on BiPAP. Ultrasound liver was obtained and showed no cholelithiasis or acute cholecystitis [employer] was consulted and recommended patient to go to tertiary facility where there is a hook tender and transplant team ABG was obtained showed pH of 7.48, PCO2 of 26, PO2 of 76, saturation 95%, and that was on BiPAP and [address] scan chest was done and showed Mild multifocal bilateral airspace opacities which favors an infectious process such as bronchiolitis or bronchopneumonia. Mild superimposed pulmonary edema would be difficult to exclude. No lobar consolidation. Increase antibiotic coverage to cefepime/levofloxacin/Zyvox , as negative nasal swab for MRSA does not completely rule out MRSA pneumonia Follow up blood culture and sputum culture Obtained urine Legionella and Streptococcus screening Empiric vancomycin oral for history of C. difficile Rapid flu was negative, patient had viral cultures sent in July 04 Patient was accepted at [facility] and currently awaiting transfer. Continued [facility] stay due to: multiple IV medications needed
[2017-07-05 16:50] LABS: INR 1.8 (0.9-1.1); PROTHROMBIN TIME (PATIENT) 19.2 SECONDS (9.0-12.0)
[2017-07-07 10:32] LABS: LEGIONELLA ANTIGEN NOT DETECTED (NOT DETECTED)
== END 2017-07-05 16:31 | disposition short-term general hospital (02) | DRG 193 ==
LOC: C.EDB 12:11 → C.2E 15:10 → ENRESERV 15:28 → C.MS4W 06-30 19:46 → ENRESERV 07-03 19:08 → C.2T 07-03 20:02
PROVIDERS: ADMIT Hospitalist; ATTEND Internal Medicine
DX: J18.9 Pneumonia, unspecified organism (principal); N17.0 Acute kidney failure with tubular necrosis; R65.21 Severe sepsis with septic shock; K72.00 Acute and subacute hepatic failure without coma; J96.01 Acute respiratory failure with hypoxia; I50.23 Acute on chronic systolic (congestive) heart failure; R04.2 Hemoptysis; I42.0 Dilated cardiomyopathy; I13.0 Hypertensive heart and chronic kidney disease with heart failure and stage 1 through stage 4 chronic kidney disease, or unspecified chronic kidney disease; I95.9 Hypotension, unspecified; N18.2 Chronic kidney disease, stage 2 (mild); R11.2 Nausea with vomiting, unspecified; R79.89 Other specified abnormal findings of blood chemistry; E11.42 Type 2 diabetes mellitus with diabetic polyneuropathy; E03.9 Hypothyroidism, unspecified; E78.5 Hyperlipidemia, unspecified; G47.33 Obstructive sleep apnea (adult) (pediatric); F41.0 Panic disorder [episodic paroxysmal anxiety]; E66.9 Obesity, unspecified; Z68.35 Body mass index [BMI] 35.0-35.9, adult; Z86.19 Personal history of other infectious and parasitic diseases; Z79.4 Long term (current) use of insulin; Z79.899 Other long term (current) drug therapy; Z82.49 Family history of ischemic heart disease and other diseases of the circulatory system; Z83.3 Family history of diabetes mellitus

== ENCOUNTER → 2017-08-08 | Outpatient (CLI) | payer OTHER ==
[~2017-08-08] MED LIST changes: +CEFE1INJ3 IV; +LCTXP PO; +LEVO1INJ IV; +VNCS125 PO
[2017-08-08 13:05] LABS: RATIO 11.5 mcg/mg (0-30.0)
== END | disposition home or self-care (01) ==
LOC: C.LAB 11:15
PROVIDERS: ATTEND Nurse Practitioner Family
DX: E10.65 Type 1 diabetes mellitus with hyperglycemia (principal)

== ENCOUNTER → 2017-08-12 | Outpatient (CLI) | payer OTHER ==
[2017-08-12 14:19] LABS: BLOOD UREA NITROGEN 33 mg/dl (7-18); BUN/CREATININE RATIO 22.7 (10-20); CALCIUM 9.1 mg/dl (8.5-10.1); CARBON DIOXIDE 26 mmol/L (21-32); CHLORIDE 100 mmol/L (98-107); CREATININE 1.47 mg/dl (0.60-1.40); GLUCOSE 136 mg/dl (70-99); POTASSIUM 4.2 mmol/L (3.5-5.1); SODIUM 132 mmol/L (136-145)
== END | disposition home or self-care (01) ==
LOC: C.LAB1850 11:49
PROVIDERS: ATTEND Physician Assistant
DX: I42.8 Other cardiomyopathies (principal)

== ENCOUNTER → 2017-09-25 | Outpatient (CLI) | payer OTHER ==
[~2017-09-25] MED LIST changes: +BENZ-54 PO; -BENZ100C6 PO
[2017-09-25 10:02] LABS: BASO % 0.6 %; BASO ABS # 0.06 K/uL (0-0.2); EOS % 1.7 %; EOS ABS # 0.16 K/uL (0-0.5); HEMOGLOBIN 14.9 g/dL (14.0-18.0); IG# 0.07 K/uL (0.00-0.02); LYMPH % 22.5 %; LYMPH ABS # 2.13 K/uL (1.2-3.4); MEAN CELL VOLUME 88.4 fL (80-100); MEAN CORPUSCULAR HEMOGLOBIN 29.9 pg (25-34); MEAN CORPUSCULAR HGB CONC 33.9 g/dl (32-36); MONO % 9.6 %; MONO ABS # 0.91 K/uL (0.11-0.59); NEUT % 64.9 %; NEUT ABS # 6.12 K/uL (1.4-6.5); PLATELET COUNT 220 K/uL (130-400); RED CELL DISTRIBUTION WIDTH SD 48.3 fL (36.4-46.3); WHITE BLOOD COUNT 9.45 K/uL (4.8-10.8)
[2017-09-25 12:52] LABS: BLOOD UREA NITROGEN 10 mg/dl (7-18); CALCIUM 8.8 mg/dl (8.5-10.1); CARBON DIOXIDE 31 mmol/L (21-32); CREATININE 1.11 mg/dl (0.60-1.40); GLUCOSE 126 mg/dl (70-99); POTASSIUM 4.2 mmol/L (3.5-5.1); SODIUM 136 mmol/L (136-145)
== END | disposition home or self-care (01) ==
LOC: C.LAB 09:25
PROVIDERS: ATTEND Physician Assistant
DX: I50.9 Heart failure, unspecified (principal); I42.8 Other cardiomyopathies; R05 Cough

== ENCOUNTER → 2018-01-12 | Outpatient (CLI) | payer OTHER ==
[2018-01-12 12:55] LABS: HEMOGLOBIN A1C 10.5 % (4.5-5.6)
[2018-01-12 13:08] LABS: BLOOD UREA NITROGEN 33 mg/dl (7-18); CALCIUM 9.1 mg/dl (8.5-10.1); CARBON DIOXIDE 25 mmol/L (21-32); CREATININE 1.54 mg/dl (0.60-1.40); GLUCOSE 308 mg/dl (70-99); POTASSIUM 4.1 mmol/L (3.5-5.1); SODIUM 131 mmol/L (136-145)
== END | disposition home or self-care (01) ==
LOC: C.LAB1850 10:53
PROVIDERS: ATTEND Internal Medicine Clinical Cardiac Electrophysiology
DX: E10.65 Type 1 diabetes mellitus with hyperglycemia (principal); E03.9 Hypothyroidism, unspecified; I42.8 Other cardiomyopathies; I50.9 Heart failure, unspecified

== ENCOUNTER 2022-06-03 19:05 | Observation (INO) ==
--- NOTE | 2022-06-03 20:09 | XRay Report ---
SINGLE VIEW CHEST CLINICAL HISTORY: Atypical chest pain. FINDINGS: An AP, portable, upright chest radiograph is compared to study dated 07/04/2017 and correla julia with chest CT dated 07/03/2017. The examination is degraded by portable technique and apical lord otic positioning. A single lead cardiac AICD is unchanged in position and partially obscures the left mid chest. The heart is enlarged. The pulmonary vasculature is noncongested. The lungs and pleural s paces are clear noting mild bibasilar atelectasis. No pneumothorax is seen. The bony thorax is grossl y intact. IMPRESSION: 1. Cardiomegaly and AICD without radiographic evidence of congestive failure. 2. No airspace consolidation or large pleural effusion is identified. ACT 112: Negative or not required by law. Electronically signed by: Nikita Overton M.D. 06/03/2022 8:07 PM
[2022-06-03 21:19] LABS: Basophils # (auto) 0.06 K/uL (0-0.2); Basophils % (auto) 0.4 %; Eosinophils # (auto) 0.04 K/uL (0-0.50); Eosinophils % (auto) 0.2 %; Hematocrit (blood only) 48.2 % (40.1-51.0); Hemoglobin 16.2 g/dl (14.0-18.0); Immature Granulocytes # (auto) 0.09 K/uL (0.00-0.02); Immature Granulocytes % (auto) 0.5 %; Lymphocytes # (auto) 1.86 K/uL (1.2-3.4); Lymphocytes % (auto) 11.3 %; Mean Corpuscular Hemoglobin 29.1 pg (25.0-34.0); Mean Corpuscular Hgb Conc 33.6 g/dL (32.0-36.0); Mean Corpuscular Volume 86.7 fL (80.0-100.0); Mean Platelet Volume 11.2 fL (9.4-12.4); Monocytes % (auto) 5.5 %; Neutrophils % (auto) 82.1 %; Platelet Count 271 K/uL (130-400); RDW Coefficient of Variation 13.3 % (11.5-14.5); RDW Standard Deviation 40.7 fL (36.4-46.3); Red Blood Count 5.56 M/uL (4.63-6.08); White Blood Count 16.45 K/ul (4.8-10.8)
[2022-06-03 21:48] LABS: INR 1.2 (0.9-1.1); Partial Thromboplastin Time 27.8 Seconds (21.0-31.0); Prothrombin Time 12.5 Seconds (9.0-12.0)
[2022-06-03 21:50] LABS: Albumin Globulin Ratio 1.5 (0.9-2); Albumin Level 4.4 gm/dl (3.4-5.0); BUN Creatinine Ratio 15.5 (10-20); Calcium 9.8 mg/dl (8.5-10.1); Creatinine Clr Calc Pharmacy 76.4 ml/min; Est GFR (African American) 61.9 ml/min; Est GFR (Non-African American) 53.4 ml/min; Globulin 2.9 gm/dl (2.5-4.0); Potassium 3.9 mmol/L (3.5-5.1); Total Protein 7.3 gm/dl (6.0-8.3)
[2022-06-03 21:53] LABS: Troponin I High Sensitivity 119.2 pg/ml (0-20)
[2022-06-03] MEDS ORDERED: SODIUM CHLORIDE 0.9% 1000ML 250 ML IV ONE (22:00)
[2022-06-03] MEDS ORDERED: ONDANSETRON INJ 2 MG/ML 2 ML VIAL IV STA (22:00)
--- NOTE | 2022-06-03 22:12 | Emergency Department Note ---
Impression & Plan Chest pain, Vomiting, HUY (acute kidney injury), Elevated troponin I level, Pneumonia ED Provider Note NAME: ROMULO HYLTON AGE: 37 SEX: M : 1985 ARRIVES VIA: Walk-In INFORMANT: Patient, ED PROVIDER(S): Varghese Pike DO CHIEF COMPLAINT: Chest pain HPI: The patient is a 37-year-old male who presented to the emergency department for an evaluation of chest pain nausea and vomiting. The patient states he has had ongoing symptoms that are been worsening over the course the last few days. The patient does have a history of CHF. He states he has been compliant with his outpatient medications however he is noticed that over the last 24 hours he has had significant difficulty trying to keep down any p.o. intake. The p atient's had nausea vomiting almost immediately after eating or drinking. He denies having any fever. Denies having any cough. He does note an anterior chest discomfort which also began a few days ago. He states he notices no swelling in his legs. He has not been seen by his family doctor recently for the symptoms. ROS: See above HPI for pertinent positives & negatives. A total of 10 systems reviewed and were otherwise negative. PAST MEDICAL HISTORY: See Below PAST SURGICAL HISTORY: See Below FAMILY HISTORY: See Below SOCIAL HISTORY: See Below HOME MEDICATIONS: See Below ALLERGIES: See Below VITALS: See Below PHYSICAL EXAMINATION: GENERAL: Patient is awake alert in no acute distress patient is resting comfortably and showing no signs of anxiety EYES: The conjunctivae are clear. The pupils are round and reactive. EARS, NOSE, MOUTH AND THROAT: The nose is without any evidence of any deformity. Mucous membranes are moist. Tongue is midline. NECK: The neck is nontender and supple. RESPIRATORY: Normal respiratory effort is noted there is no evidence of wheezing rhonchi or rales CARDIOVASCULAR: Regular rate and rhythm noted there no murmurs rubs or gallops normal S1 normal S2. GASTROINTESTINAL: The abdomen is soft. Abdomen is nontender. MUSCULOSKELETAL/EXTREMITIES: There is no evidence of gross deformity full range of motion is noted in the hips and shoulders. SKIN: There is no obvious evidence of any rash. There are no petechiae, pallor or cyanosis noted. NEUROLOGIC: Patient is awake alert and oriented x3. MEDICAL DECISION MAKING: The patient is a 37-year-old male who presented to the emergency department for an evaluation of upper abdominal pain chest pain and vomiting. The patient was treated with IV fluids and IV antiemetics emergency department. The patient was reevaluated multiple times. He has no specific ST segment abnormality or EKG changes compared to previous however the patient was found to have an elevated troponin. For this reason further laboratory and radiographic studies were obtained including CT of the chest abdomen pelvis. No definite cause could be found for the patient's complaints. I discussed this condition with the on-call [facility] hospitalist. They have agreed to evaluate the patient in the emergency department for further management and disposition. Triage Nursing notes reviewed. Prior medical records reviewed Vital Signs: reviewed and remarkable for elevated blood pressure. Differential diagnosis: Etiologies such as appendicitis, diverticulitis, obstruction, inflammatory bowel disease, renal colic, PUD, biliary pathology, pancreatitis, mesenteric ischemia, aortic pathology, infections, genitourinary, UTI, perforated viscus, as well as others were entertained. ER treatment provided: See below Diagnostics interpreted by me: ECG: EKG was obtained in the emergency department. My interpretation is normal sinus rhythm at 95 bpm. There is no ectopy. There is no acute ST segment abnormalities noted. High lateral T wave versions with poor R wave progression was noted. This was compared to a tracing from July 07, 2017. No changes were noted. Cardiac Monitoring: An order was placed for continuous cardiac monitoring. The monitor shows a rate of 92 bpm with sinus rhythm. Laboratory studies: As stated above and show below. Imaging studies: See below Consultation(s): I discussed this case with Dr. Novak who is on-call for the [facility]. Past Med/Surg History Medical History (Updated 06/03/22 @ 23:33 by Varghese Pike DO) Acute on chronic systolic and diastolic heart failure, NYHA class 2 (10/06/14) ICD (implantable cardioverter-defibrillator) in place Kidney stone Surgical History History of surgery lymphadenectomy History of wisdom tooth extraction Family History Mother Breast cancer Father Myocardial infarction Uncle Myocardial infarction Grandfather (Paternal) Myocardial infarction Grandmother Malignant neoplasm of eye Other Coronary heart disease Kidney disease Type 2 diabetes mellitus Denies family history of Ovarian cancer Prostate cancer Colorectal cancer Social History Smoking Status: Never smoker Tobacco Type: Cigarettes Age Started Using Tobacco: 16; Age Quit Using Tobacco: 16; Years Smoked: 1; Second Hand Exposure: No; Hx Alcohol Use: No Hx Substance Use: No Preferred Language: Syriac Communication Ability: Effective Visual Impairment: No Limitations Hearing Ability: Normal marital status: Single Current Living Situation: Alone current occupational status: disabled Feels Safe at Home: Yes Childhood Exposure to Second-Hand Smoke: Yes Diet Comment: low sodium Dental Care, Regularly: Yes Physical Activity Frequency: Does not Exercise Seatbelt Use: sometimes Sunscreen Use: Yes Allergies Allergies Allergy/AdvReac Type Severity Reaction Status Date / Time VEE Inhibitors Allergy Intermediate COUGH Verified 05/30/22 14:55 lisinopril AdvReac Unknown cough Verified 05/30/22 14:55 Home Meds Home Medications Medication Instructions Recorded Confirmed blood sugar diagnostic (ReliOn #10 ea 12/14/21 05/30/22 Prime Test Strips) insulin degludec 200 unit/mL (3 100 unit subcut DAILY 04/26/22 06/03/22 mL) subcutaneous pen (Tresiba FlexTouch U-200 insulin) insulin lispro 100 unit/mL See Rx Instructions subcut .COMPLEX 04/26/22 06/03/22 subcutaneous pen (Humalog KwikPen (U-100) Insulin) cholecalciferol (vitamin D3) 1,250 50,000 unit PO WK 06/03/22 06/03/22 mcg (50,000 unit) capsule Previous Rx's Medication Instructions Recorded BiPap Supplies #1 ea 07/28/19 sacubitril 97 mg-valsartan 103 mg 1 tab PO BID #180 tabs 01/31/20 tablet (Entresto) Victoza 3-Mc 0.6 mg/0.1 mL (18 1.8 mg (0.3 mL) subcut DAILY 90 04/30/21 mg/3 mL) subcutaneous pen injector days #27 mL (liraglutide) levothyroxine 88 mcg tablet 88 mcg PO DAILY #30 tabs 12/28/21 bupropion HCl 100 mg tablet,12 hr 100 mg PO BID #180 ea 02/18/22 sustained-release (Wellbutrin SR) carvedilol 25 mg tablet (Coreg) 25 mg PO BID #180 tabs 02/18/22 lamotrigine 25 mg tablet 50 mg PO DAILY #180 tabs 02/18/22 pantoprazole 40 mg tablet,delayed 40 mg PO DAILY #90 tabs 02/18/22 release potassium chloride 20 mEq 20 meq PO DAILY #90 tabs 02/18/22 tablet,extended release spironolactone 25 mg tablet 25 mg PO BID #180 tabs 02/18/22 empagliflozin 10 mg tablet 10 mg PO DAILY #90 tabs 02/19/22 (Jardiance) pen needle, diabetic 31 gauge x #150 ea 02/19/22 3/16" (BD Ultra-Fine Mini Pen Needle) bumetanide 0.5 mg tablet 1 mg PO DAILY SWELLING #180 tabs 02/25/22 blood-glucose sensor (Dexcom G6 #3 ea 04/26/22 Sensor device) atorvastatin 80 mg tablet 80 mg PO DAILY #90 tabs 05/10/22 Results & Data (ED) Vital Signs Vital Signs - 24 hr 06/03/22 19:20 06/03/22 21:59 06/03/22 22:00 Temperature 36.5 C Temperature Source Temporal Artery Scan Pulse Rate 97 H 91 H Pulse Rate from SpO2 Sensor 91 H Respiratory Rate 18 20 Respiratory Effort / Characteristics Non-Labored Spontaneous Respiratory Depth Normal Respiratory Pattern Regular Blood Pressure 122/90 133/96 Blood Pressure Mean 100 108 Pulse Oximetry 98 94 Oxygen Delivery Method Room Air Sepsis Recent Fever Within 48 Hours No Sepsis New/Unexplained Change in Mental Status No Sepsis Action Taken by Nursing No Action Required 06/03/22 22:00 06/03/22 22:33 06/03/22 22:34 Temperature Temperature Source Pulse Rate 94 H 90 92 H Pulse Rate from SpO2 Sensor 94 H 92 H Respiratory Rate 15 12 21 Respiratory Effort / Characteristics Respiratory Depth Respiratory Pattern Blood Pressure Blood Pressure Mean Pulse Oximetry 96 96 Oxygen Delivery Method Sepsis Recent Fever Within 48 Hours Sepsis New/Unexplained Change in Mental Status Sepsis Action Taken by Nursing 06/03/22 22:34 Temperature Temperature Source Pulse Rate Pulse Rate from SpO2 Sensor Respiratory Rate Respiratory Effort / Characteristics Respiratory Depth Respiratory Pattern Blood Pressure 130/102 H Blood Pressure Mean 111 Pulse Oximetry Oxygen Delivery Method Sepsis Recent Fever Within 48 Hours Sepsis New/Unexplained Change in Mental Status Sepsis Action Taken by [facility] Medications Current Medication List: was personally reviewed by me Laboratory Data Attestation: I reviewed the patient's lab results. Result diagrams: 06/03/22 21:12 06/03/22 21:12 Lab Results 06/03/22 06/03/22 06/03/22 Range/Units 10:03 21:12 21:12 WBC 16.45 H (4.8-10.8) K/ul RBC 5.56 (4.63-6.08) M/uL Hgb 16.2 (14.0-18.0) g/dl Hct 48.2 (40.1-51.0) % MCV 86.7 (80.0-100.0) fL MCH 29.1 (25.0-34.0) pg MCHC 33.6 (32.0-36.0) g/dL RDW Std Deviation 40.7 (36.4-46.3) fL RDW Coeff of Vanda 13.3 (11.5-14.5) % Plt Count 271 (130-400) K/uL MPV 11.2 (9.4-12.4) fL Immature Gran % (Auto) 0.5 % Neut % (Auto) 82.1 % Lymph % (Auto) 11.3 % Blaine % (Auto) 5.5 % Eos % (Auto) 0.2 % Baso % (Auto) 0.4 % Neut # (Auto) 13.50 H (1.4-6.5) K/uL Lymph # (Auto) 1.86 (1.2-3.4) K/uL Blaine # (Auto) 0.90 H (0.24-0.82) K/uL Eos # (Auto) 0.04 (0-0.50) K/uL Baso # (Auto) 0.06 (0-0.2) K/uL Immature Gran # (Auto) 0.09 H (0.00-0.02) K/uL PT 12.5 H (9.0-12.0) Seconds INR 1.2 H (0.9-1.1) APTT 27.8 (21.0-31.0) Seconds PTT Ratio 1.0 Sodium (136-145) mmol/L Potassium (3.5-5.1) mmol/L Chloride (98-107) mmol/L Carbon Dioxide (21-32) mmol/L Anion Gap (3-11) BUN (6-23) mg/dl Creatinine (0.6-1.4) mg/dl Est Cr Clr Drug Dosing ml/min Est GFR ( Amer) ml/min Est GFR (Non-Af Amer) ml/min BUN/Creatinine Ratio (10-20) Glucose (70-99(Fasting)) mg/dl Calcium (8.5-10.1) mg/dl Total Bilirubin (0.2-1.0) mg/dl AST (13-39) U/L ALT (7-52) U/L Alkaline Phosphatase (34-104) U/L Troponin I High Sens (0-20) pg/ml Total Protein (6.0-8.3) gm/dl Albumin (3.4-5.0) gm/dl Globulin (2.5-4.0) gm/dl Albumin/Globulin Ratio (0.9-2) SARS-CoV-2, RNA, NAAT NEGATIVE (NEGATIVE) 06/03/22 Range/Units 21:12 WBC (4.8-10.8) K/ul RBC (4.63-6.08) M/uL Hgb (14.0-18.0) g/dl Hct (40.1-51.0) % MCV (80.0-100.0) fL MCH (25.0-34.0) pg MCHC (32.0-36.0) g/dL RDW Std Deviation (36.4-46.3) fL RDW Coeff of Vanda (11.5-14.5) % Plt Count (130-400) K/uL MPV (9.4-12.4) fL Immature Gran % (Auto) % Neut % (Auto) % Lymph % (Auto) % Blaine % (Auto) % Eos % (Auto) % Baso % (Auto) % Neut # (Auto) (1.4-6.5) K/uL Lymph # (Auto) (1.2-3.4) K/uL Blaine # (Auto) (0.24-0.82) K/uL Eos # (Auto) (0-0.50) K/uL Baso # (Auto) (0-0.2) K/uL Immature Gran # (Auto) (0.00-0.02) K/uL PT (9.0-12.0) Seconds INR (0.9-1.1) APTT (21.0-31.0) Seconds PTT Ratio Sodium 138 (136-145) mmol/L Potassium 3.9 (3.5-5.1) mmol/L Chloride 104 (98-107) mmol/L Carbon Dioxide 23 (21-32) mmol/L Anion Gap 11 (3-11) BUN 25 H (6-23) mg/dl Creatinine 1.61 H (0.6-1.4) mg/dl Est Cr Clr Drug Dosing 76.4 ml/min Est GFR ( Amer) 61.9 ml/min Est GFR (Non-Af Amer) 53.4 ml/min BUN/Creatinine Ratio 15.5 (10-20) Glucose 104 H (70-99(Fasting)) mg/dl Calcium 9.8 (8.5-10.1) mg/dl Total Bilirubin 2.0 H (0.2-1.0) mg/dl AST 20 (13-39) U/L ALT 26 (7-52) U/L Alkaline Phosphatase 58 (34-104) U/L Troponin I High Sens 119.2 H* (0-20) pg/ml Total Protein 7.3 (6.0-8.3) gm/dl Albumin 4.4 (3.4-5.0) gm/dl Globulin 2.9 (2.5-4.0) gm/dl Albumin/Globulin Ratio 1.5 (0.9-2) SARS-CoV-2, RNA, NAAT (NEGATIVE) Administered Medications Discontinued Medications Sodium Chloride (Nss 1000ml) 250 mls @ 999 mls/hr IV .Q16M ONE Stop: 06/03/22 22:15 Last Infusion: 06/03/22 22:48 Dose: 0 mls/hr Documented By: Admin: 06/03/22 22:05 Dose: 999 mls/hr Documented By: ARNOLDO Ceftriaxone Sodium (Rocephin) 2,000 mg in 70 mls @ 140 mls/hr IV NOW STA Stop: 06/03/22 23:59 Last Admin: 06/04/22 00:18 Dose: 140 mls/hr Documented By: HELLEN Ioversol (Optiray 300 500ml) 110 ml IV ONCE ONE Stop: 06/03/22 22:27 Last Admin: 06/03/22 22:27 Dose: 110 ml Documented By: [facility] Ondansetron HCl (Ondansetron Inj 2 Mg/Ml 2 Ml Vial) 4 mg IV NOW STA Stop: 06/03/22 22:01 Last Admin: 06/03/22 22:05 Dose: 4 mg Documented By: ARNOLDO Imaging Data Radiologist's Impression: Chest X-Ray 06/03/22 19:28 SINGLE VIEW CHEST CLINICAL HISTORY: Atypical chest pain. FINDINGS: An AP, portable, upright chest radiograph is compared to study dated 07/04/2017 and correlated with chest CT dated 07/03/2017. The examination is degraded by portable technique and apical lordotic positioning. A single lead cardiac AICD is unchanged in position and partially obscures the left mid chest. The heart is enlarged. The pulmonary vasculature is noncongested. The lungs and pleural spaces are clear noting mild bibasilar atelectasis. No pneumothorax is seen. The bony thorax is grossly intact. IMPRESSION: 1. Cardiomegaly and AICD without radiographic evidence of congestive failure. 2. No airspace consolidation or large pleural effusion is identified. ACT 112: Negative or not required by law. Electronically signed by: Romulo Overton M.D. 06/03/2022 8:07 PM Patient: ROMULO HYLTON (Male) : 83 Status: ER Date: 06/03/22 22:37 Room #: History: PT. REPORTS RT. SIDED RIB/CHEST PAIN X 2 DAYS EVAL FOR PE OPTI 300 110 CC Slices: [phone] Priors: Tech: Shira Workman @ [phone] Exams: CTA CHEST Contrast: IV Amt: OPTI 300 110 CC Accession Numbers: [id number] Referring Physician: REFERRED SELF Preliminary Findings Only See Final Report For Complete Findings CTA CHEST: No evidence for pulmonary embolism. Subcentimeter patchy opacities involving the right medial basal segment. Primary consideration is an alveolitis/pneumonia. There is also interlobular septal thickening noted in the lung bases suggesting a component of vascular congestion. No pleural effusion or pneumothorax. Cardiomegaly. There is reflux of contrast into the intrahepatic IVC and hepatic veins. While this may be related to rate of contrast injection, this finding is also seen with right heart dysfunction. No pericardial effusion. Nonspecific prevascular lymph nodes adjacent to the aortic arch measuring 12 mm in diameter. Nonspecific perihilar lymph nodes. No acute osseous or significant overlying soft tissue abnormality. Radiologist: Connor Salas MD Study ready at 22:45 and initial results transmitted at 23:10 Patient: ROMULO HYLTON (Male) : 83 Status: ER Date: 06/03/22 22:39 Room #: History: PT. REPORTS RT. SIDED RIB/CHEST PAIN X 2 DAYS APPENDIX PRESENT OPTI 300 110 CC Slices: [phone] Priors: Tech: Olegario Workmanilyn @ [phone] Exams: CT ABDOMEN & PELVIS With Contrast Contrast: IV Amt: OPTI 300 110 CC Accession Numbers: [id number] Referring Physician: REFERRED SELF Preliminary Findings Only See Final Report For Complete Findings CT ABDOMEN & PELVIS With Contrast: Subtle questionable opacities in the right medial basal segment with bronchial thickening. Differential consideration includes atelectasis, subtle pneumonia or bronchitis. The appendix is normal in appearance posterior to the cecum. No bowel obstruct ion. There is periduodenal fat stranding noted. Subtle duodenitis may be present. Atypical appearance of acute pancreatitis is considered much less likely. The pancreas demonstrates normal enhancement without ductal dilatation or peripancreatic inflammation. Hepatic steatosis. The gallbladder, spleen, adrenal glands and kidneys demonstrate no significant abnormality. The bladder is unremarkable. No acute osseous or significant overlying soft tissue abnormality. Radiologist: Connor Salas MD Study ready at 22:52 and initial results transmitted at 23:26 Discharge Plan Visit Data Chief Complaint: Abdominal Pain Stated Complaint: VOMITING, TROUBLE BREATHING, CHEST PAIN, ABDOM P ED Provider: Varghese Pike Discharge Problem: Chest pain, Vomiting, HUY (acute kidney injury), Elevated troponin I level, Pneumonia Patient Disposition: Being Evaluated by Hospitalist Forms Stand Alone Forms: My [facility] Prescriptions Prescriptions: No Action (DME) BiPap Supplies Misc See Rx Instructions .ROUTE .MEDSUPPLY Qty: 1 0RF Rx Instructions: BiPAP supplies, tubing, mask, filters, etc. All necessary supplies Entresto 97-103 mg tablet 1 tab PO BID Qty: 180 3RF Victoza 3-Mc 0.6 mg/0.1 mL (18 mg/3 mL) pen injector 1.8 mg SQ DAILY 90 Days Qty: 27 3RF levothyroxine 88 mcg tablet 88 mcg PO DAILY Qty: 30 1RF bupropion HCl [Wellbutrin SR] 100 mg tablet sustained-release 12 hr 100 mg PO BID Qty: 180 3RF carvedilol [Coreg] 25 mg tablet 25 mg PO BID Qty: 180 3RF Rx Instructions: must administer with a meal/food lamotrigine 25 mg tablet 50 mg PO DAILY Qty: 180 3RF pantoprazole 40 mg tablet,delayed release (DR/EC) 40 mg PO DAILY Qty: 90 3RF potassium chloride 20 mEq tablet extended release 20 meq PO DAILY Qty: 90 3RF spironolactone 25 mg tablet 25 mg PO BID Qty: 180 3RF Jardiance 10 mg tablet 10 mg PO DAILY Qty: 90 1RF (DME) pen needle, diabetic [BD Ultra-Fine Mini Pen Needle] 31 gauge x 3/16" needle See Dose Instructions .ROUTE .MEDSUPPLY Qty: 150 5RF Dose Instruction: As directed Rx Instructions: Use to inject insulin up to 5 times daily bumetanide 0.5 mg tablet 1 mg PO DAILY MDD 4 tabs Qty: 180 3RF Rx Instructions: may take an additional dose daily as needed atorvastatin 80 mg tablet 80 mg PO DAILY Qty: 90 0RF (DME) Dexcom G6 Sensor Device See Rx Instructions .Route Qty: 3 0RF Rx Instructions: change every 10 days insulin lispro [Humalog KwikPen Insulin] 100 unit/mL insulin pen See Rx Instructions SQ .COMPLEX Rx Instructions: subcut Inject 45 units lunch, 50 units dinner, 10 units snack + ss TDD 125 counting carbs 1:1.5 Tresiba FlexTouch U-200 200 unit/mL (3 mL) insulin pen 100 unit subcut DAILY Rx Instructions: Inject 90 units in the morning; TDD up to 120 units a day. (DME) ReliOn Prime Test Strips Strip See Rx Instructions .ROUTE .MEDSUPPLY Qty: 10 Rx Instructions: Test blood sugar once daily PRN cholecalciferol (vitamin D3) 1,250 mcg (50,000 unit) capsule 50,000 unit PO WK Rx Instructions: 50,000 units PO once weekly with a meal; Referrals Referrals: Bridger Manriquez III, CRNP [Primary Care Provider] - : Chest pain Qualifiers: Chest pain type: unspecified Qualified Code(s): R07.9 - Chest pain, unspecified Vomiting Qualifiers: Vomiting type: unspecified Nausea presence: with nausea Qualified Code(s): R11.2 - Nausea with vomiting, unspecified Pneumonia Qualifiers: Pneumonia type: due to unspecified organism Laterality: unspecified laterality Lung location: unspecified part of lung Qualified Code(s): J18.9 - Pneumonia, unspecified organism
[2022-06-03] MEDS ORDERED: OPTIRAY 300 500mL IV ONE (22:26)
[2022-06-03] MEDS ORDERED: cefTRIAXone SODIUM 2,000 MG/70 ML BAG IV STA (23:30)
--- NOTE | 2022-06-04 00:01 | History & Physical Report ---
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 for evaluation of chest pain and nausea, subsequently found to have a mildly elevated hs-troponin and findings on CT (STAT-Rad) consistent with duodenitis. Chest Pain - Patient reporting approx. 3 days' of non-exertional substernal chest pressure in the context of nausea with vomiting subsequently developing - Work-up as follows: - CTA-Chest (STAT-Rad): No PE or aortopathy. Pulmonary vascular congestion. Possible bronchial wall thickening. - Admission troponin 119 --> 134 on recheck - ECG: Poor R wave progression and late transition, alongside nonspecific lateral T wave abnormalities (no recent comparison) - Patient reports that he chronically has elevated troponin - Diagnosis of exclusion is ACS, and his cardiac history is noted; he does have numerous RFs including obesity, HLD, DM -- though he is young and the continuous nature of this over days alongside of no relationship to exertion would be odd. May also be dyspepsia in the setting of his subsequent development of nausea with vomiting. - Trend Troponins, monitor on telemetry, ECG with any chest pain - If chest pain returns, can trial nitro vs. GI cocktail after examining - If increasing troponins and/or new ECG changes --> heparin gtt - ECG in AM (2) Vomiting: Plan: Nausea with Vomiting - Several days of nausea with vomiting and secondary anorexia - CT-A/P demonstrating duodenitis, no evidence of pancreatitis - Primarily suspect gastroenteritis, likely viral. Chest pain is noted. - Gentle IVF - Advance diet as tolerated - Zofran p.r.n. for nausea/vomiting - Increase Protonix to 40mg b.i.d., start Pepcid 20mg qAM (can likely d/c prior to discharge) (3) HUY (acute kidney injury): Plan: Acute Kidney Injury - Baseline Cr approx. 0.9 - 1.0 on review of past draws - On arrival, BUN 25 / Cr 1.61 - Suspect largely prerenal and dehydration in the setting of nausea with vomiting; likely compounded by RX (e.g., Entresto, spironolactone) - Gentle IVF @ 80cc/hr x 500cc -- consider more as needed - Hold Entresto, Bumex, spironolactone, empagliflozin (4) Elevated troponin I level: Plan: Elevated Troponin Level - Noted on arrival. See chest pain above for ongoing work-up. - May be chronically elevated, per patient, given his known heart history -- may also be further elevated by ongoing renal dysfunction - Trend for now (5) Complex sleep apnea syndrome: Plan: MIRTA - BiPAP qHS (6) Diabetes type 1, uncontrolled: Plan: Type I Diabetes - Last A1c at 8.3% in 04/2022 - Reduce long-acting dose to 75U qAM - Temporarily initiate SSI at 1:25 and carb ratio of 1:10 -- adjust as needed - Carb consistent diet when tolerated (7) Cardiomyopathy, idiopathic: Plan: HFrEF - HFrEF in the setting of dilated cardiomyopathy secdonary to cardiogenic shock and MODS in 2017 - Last TTE with LVEF 40-45% in 02/2021 s/p ICD placement - [place] [facility] [place] [facility] [place] - Euvolemic-slightly hypovolemic on exam - Hold Entresto, Bumex, spironolactone until HUY resolves, clinical status improves - Continue Coreg (8) Depression: Plan: Mood Disorder / Depression - Continue lamotrigine - Continue Wellbutrin (9) Bilirubinemia: Plan: Elevated Bilirubin - Elevated to 2.0 on arrival in the context of otherwise normal LFTs - Gilbert's? NAFLD? - Noted multiple times during previous lab draws in past (10) Leukocytosis: Plan: Leukocytosis - Noted on arrival to 16 with left shift, but also monocytosis - Question whether related to GI illness +/- stress response from recurrent vomiting? CTA-Chest (STAT-Rad): Subtle questionable opacities in the right medial basal segment with bronchial thickening -- however, no respiratory symptoms on exam to suggest developing PNA - Trend alongside temperature curve - Received CFTX in the ED - hold on further doses for now Plan Code: Full Diet: AAT Dispo: MS/T PPX: SCDs History of Present Illness Primary Care Provider: Bridger Manriquez III, MED This is a 37-year-old male with a history of HFrEF in the setting of dilated cardiomyopathy secdonary to cardiogenic shock and MODS in 2017 (last TTE with LVEF 40-45% in 02/2021) s/p ICD placement, hypertension, 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 for evaluation of chest pain and nausea. Patient says that approximately 3 days ago, he began experiencing A substernal chest pain that felt like a strong pressure. He says that while it was mild to moderate intensity, it was not made worse or better by anything specific. He says that at baseline, he will always have some chest pressurehe usually attributes this to "retaining fluid. "However, this did seem moderately worse. Over this time, he also said that he felt more winded with exertion, but worsening of the chest pain. Denied any PND or orthopnea. He denies his chest pain feeling like reflux. He has not taken anything for the pain. Beginning approximately a day after the onset of his chest pain, he also developed nausea. He said that since its onset, he has barely been able to keep anything downincluding both liquids and solids. He denies any hematemesis. He says that he has been feeling intermittently nauseous throughout yesterday and today. He endorses some cold sweats and chills. Denies any fevers. Denies any diarrhea. Medications reviewed and include atorvastatin, Bumex, Wellbutrin, Coreg, vitamin D3, empagliflozin, insulin, lamotrigine, levothyroxine, Protonix, potassium chloride, Entresto, spironolactone, Victoza. In the ED, patient was found to be borderline tachycardic at 97. Afebrile. Labs were significant for leukocytosis to 16.4 with left shift and monocytosis. INR 1.2/PT 12.5. Chemistry panel revealed BUN 25/creatinine 1.6 (last at 0.9 in 12/2021). Blood sugar 104. Total bilirubin 2.0 (has history of elevations in the past dating to 2017) with otherwise normal LFTs. High-sensitivity troponin returned positive at 119.2. ECG demonstrated poor R wave progression and late transition, alongside nonspecific lateral T wave abnormalities. - CT-A/P STAT-Rad: "Subtle questionable opacities in the right medial basal segment with bronchial thickening The appendix is normal No bowel obstruction There is periduodenal fat stranding Atypical appearance of acute pancreatitis is considered much less likely. The pancreas demonstrates normal enhancement without ductal dilation or peripancreatic inflammation. Hepatic steatosis." - CTA-Chest demonstrated: "No evidence for pulmonary embolism There is also interlobular septal thickening noted in the lung bases suggesting component of vascular congestion Cardiomegaly. There is reflux of contrast into the intrahepatic IVC and hepatic veins. While this may be related to rate of contrast injection, this finding is also seen with right heart dysfunction Nonspecific prevascular lymph nodes adjacent to the aortic arch measuring 12 mm in diameter. Nonspecific perihilar lymph nodes." In the ED, he was started on sodium chloride, given Zofran, and also given ceftriaxone. Allergies Allergy/AdvReac Type Severity Reaction Status Date / Time VEE Inhibitors Allergy Intermediate COUGH Verified 05/30/22 14:55 lisinopril AdvReac Unknown cough Verified 05/30/22 14:55 Home Medications Medication Instructions Recorded Confirmed Type BiPap Supplies #1 ea 07/28/19 05/30/22 Rx sacubitril 97 mg-valsartan 103 mg 1 tab PO BID #180 tabs 01/31/20 06/03/22 Rx tablet (Entresto) Victoza 3-Mc 0.6 mg/0.1 mL (18 1.8 mg (0.3 mL) subcut DAILY 90 04/30/21 05/30/22 Rx mg/3 mL) subcutaneous pen injector days #27 mL (liraglutide) blood sugar diagnostic (ReliOn #10 ea 12/14/21 05/30/22 History Prime Test Strips) levothyroxine 88 mcg tablet 88 mcg PO DAILY #30 tabs 12/28/21 06/03/22 Rx bupropion HCl 100 mg tablet,12 hr 100 mg PO BID #180 ea 02/18/22 06/03/22 Rx sustained-release (Wellbutrin SR) carvedilol 25 mg tablet (Coreg) 25 mg PO BID #180 tabs 02/18/22 06/03/22 Rx lamotrigine 25 mg tablet 50 mg PO DAILY #180 tabs 06/06/22 09/19/22 Rx pantoprazole 40 mg tablet,delayed 40 mg PO DAILY #90 tabs 02/18/22 06/03/22 Rx release potassium chloride 20 mEq 20 meq PO DAILY #90 tabs 02/18/22 06/03/22 Rx tablet,extended release spironolactone 25 mg tablet 25 mg PO BID #180 tabs 02/18/22 06/03/22 Rx empagliflozin 10 mg tablet 10 mg PO DAILY #90 tabs 02/19/22 06/03/22 Rx (Jardiance) pen needle, diabetic 31 gauge x #150 ea 02/19/22 05/30/22 Rx 3/16" (BD Ultra-Fine Mini Pen Needle) bumetanide 0.5 mg tablet 1 mg PO DAILY SWELLING #180 tabs 02/25/22 06/03/22 Rx blood-glucose sensor (Dexcom G6 #3 ea 04/26/22 05/30/22 Rx Sensor device) insulin degludec 200 unit/mL (3 100 unit subcut DAILY 04/26/22 06/03/22 History mL) subcutaneous pen (Tresiba FlexTouch U-200 insulin) insulin lispro 100 unit/mL See Rx Instructions subcut .COMPLEX 04/26/22 06/03/22 History subcutaneous pen (Humalog KwikPen (U-100) Insulin) atorvastatin 80 mg tablet 80 mg PO DAILY #90 tabs 05/10/22 06/03/22 Rx cholecalciferol (vitamin D3) 1,250 50,000 unit PO WK 06/03/22 06/03/22 History mcg (50,000 unit) capsule Past Med/Surg History Medical History (Updated 06/04/22 @ 03:02 by Noe Wilks MD) Acute on chronic systolic and diastolic heart failure, NYHA class 2 (10/06/14) ICD (implantable cardioverter-defibrillator) in place Kidney stone Surgical History History of surgery lymphadenectomy History of wisdom tooth extraction Family History Mother Breast cancer Father Myocardial infarction Uncle Myocardial infarction Grandfather (Paternal) Myocardial infarction Grandmother Malignant neoplasm of eye Other Coronary heart disease Kidney disease Type 2 diabetes mellitus Denies family history of Ovarian cancer Prostate cancer Colorectal cancer Social History Smoking Status: Never smoker Tobacco Type: Cigarettes Age Started Using Tobacco: 16; Age Quit Using Tobacco: 16; Years Smoked: 1; Second Hand Exposure: No; Hx Alcohol Use: No Hx Substance Use: No Preferred Language: Slovak Communication Ability: Effective Visual Impairment: No Limitations Hearing Ability: Normal marital status: Single Current Living Situation: Alone current occupational status: disabled Feels Safe at Home: Yes Childhood Exposure to Second-Hand Smoke: Yes Diet Comment: low sodium Dental Care, Regularly: Yes Physical Activity Frequency: Does not Exercise Seatbelt Use: sometimes Sunscreen Use: Yes Review of Systems Review of Systems: as per HPI Physical Exam Physical Exam: General: []-year old [] who is alert, oriented, and appears in no acute distress. HEENT: NCAT. - Eyes - Sclera are white, anicteric, and without injection. - Mouth - MMM - Neck - supple, no appreciable JVD Cardiac: Normal rate and regular rhythm; S1 and S2 present with no murmurs, rubs, or gallops. Pulmonary: Good respiratory effort with symmetric expansion of the chest. No use of accessory muscles. Lungs were clear to auscultation bilaterally with no crackles or wheezes. Abdominal: Normoactive bowel sounds. Abdomen was soft, nondistended, and non- tender to palpation. Extremities: Upper and lower extremities are warm and well perfused. [] peripheral edema in the lower extremities bilaterally Psych: Well-developed, well-nourished, appropriately dressed for occasion. Behavior is cooperative and appropriate. Affect is WNL. Insight is appropriate. Results & Data Results & Data ([facility]) Vital Signs (Past 12 Hours) Vital Signs Temp Pulse Resp BP Pulse Ox O2 Del Method 06/03/22 22:34 130/102 H 06/03/22 22:34 92 H 21 96 06/03/22 22:33 90 12 06/03/22 22:00 94 H 15 96 06/03/22 22:00 133/96 06/03/22 21:59 91 H 20 94 06/03/22 19:20 36.5 C 97 H 18 122/90 98 Room Air Resident Activity Tracking Resident Involvement: Resident Care Provided Care Provided: Adult Hospital Medicine (1) Chest pain Chest pain type: unspecified Qualified Code(s): R07.9 - Chest pain, unspecif ied (2) Vomiting Nausea presence: with nausea Vomiting type: unspecified Qualified Code(s): R11.2 - Nausea with vomiting, unspecified (3) Depression Depression Type: major depressive disorder Major depression recurrence: recurrent Active/Remission status: currently active Major depression episode severity: moderate Qualified Code(s): F33.1 - Major depressive disorder, recurrent, moderate
[2022-06-04] MEDS ORDERED: FAMOTIDINE 20 MG TAB PO ONE (02:30)
[2022-06-04] MEDS ORDERED: SODIUM CHLORIDE 0.9% 500 ML IV SCH (02:30)
[2022-06-04] MEDS ORDERED: CARBOHYDRATES FOR HYPOGLYCEMIA PO PRN (02:51)
[2022-06-04] MEDS ORDERED: GLUCOSE 10 TAB/TUBE PO PRN (02:51)
[2022-06-04] MEDS ORDERED: GLUCAGON FOR INJ 1 MG VIAL SQ PRN (02:51)
[2022-06-04] MEDS ORDERED: GLUCOSE 40% GEL 15 GM TUBE PO PRN (02:51)
[2022-06-04] MEDS ORDERED: DEXTROSE 50% 50 ML SYRINGE IV PRN (02:51)
[2022-06-04] MEDS ORDERED: PROMETHAZINE HCL 6.25 MG in SODIUM CHLORIDE 0.9% 50 ML IV PRN (03:05)
[2022-06-04] MEDS ORDERED: MELATONIN 3 MG TAB PO PRN (03:21)
[2022-06-04] MEDS ORDERED: MELATONIN 3 MG TAB PO STA (03:21)
[2022-06-04] MEDS: LEVOTHYROXINE SODIUM 88 MCG TABLET PO SCH (05:36)
[2022-06-04 06:14] LABS: Basophils # (auto) 0.07 K/uL (0-0.2); Basophils % (auto) 0.5 %; Eosinophils # (auto) 0.07 K/uL (0-0.50); Eosinophils % (auto) 0.5 %; Hematocrit (blood only) 43.3 % (40.1-51.0); Hemoglobin 14.4 g/dl (14.0-18.0); Immature Granulocytes # (auto) 0.08 K/uL (0.00-0.02); Immature Granulocytes % (auto) 0.6 %; Lymphocytes # (auto) 2.85 K/uL (1.2-3.4); Lymphocytes % (auto) 21.7 %; Mean Corpuscular Hemoglobin 28.9 pg (25.0-34.0); Mean Corpuscular Hgb Conc 33.3 g/dL (32.0-36.0); Mean Corpuscular Volume 86.8 fL (80.0-100.0); Mean Platelet Volume 11.5 fL (9.4-12.4); Monocytes # (auto) 0.98 K/uL (0.24-0.82); Monocytes % (auto) 7.5 %; Neutrophils % (auto) 69.2 %; Platelet Count 243 K/uL (130-400); RDW Coefficient of Variation 13.3 % (11.5-14.5); RDW Standard Deviation 41.2 fL (36.4-46.3); Red Blood Count 4.99 M/uL (4.63-6.08); White Blood Count 13.15 K/ul (4.8-10.8)
[2022-06-04 06:39] LABS: Troponin I High Sensitivity 116.9 pg/ml (0-20)
[2022-06-04 06:41] LABS: Albumin Globulin Ratio 1.6 (0.9-2); Albumin Level 3.9 gm/dl (3.4-5.0); BUN Creatinine Ratio 16.7 (10-20); Bilirubin,Total 1.9 mg/dl (0.2-1.0); Calcium 8.9 mg/dl (8.5-10.1); Chol HDL Ratio 3.7 (0-5); Creatinine Clr Calc Pharmacy 82.2 ml/min; Est GFR (African American) 67.5 ml/min; Est GFR (Non-African American) 58.2 ml/min; Globulin 2.5 gm/dl (2.5-4.0); Potassium 3.4 mmol/L (3.5-5.1); Total Protein 6.4 gm/dl (6.0-8.3)
[2022-06-04] MEDS ORDERED: POTASSIUM CHLORIDE CRTAB 20 MEQ TABCR PO STA (07:13)
[2022-06-04 07:42] LABS: Estimated Average Glucose 157 mg/dl; Hemoglobin A1C 7.1 % (4.5-5.6)
[2022-06-04] MEDS ORDERED: PERFLUTREN LIPID MICROSPHERE (DEFINITY) IV ONE (07:59)
[2022-06-04] MEDS: ATORVASTATIN 40 MG TAB PO SCH (08:08)
[2022-06-04] MEDS: buPROPion SR 100 MG TABCR PO SCH ×2 (08:08→20:18)
[2022-06-04] MEDS: carvediloL 25 MG TAB PO SCH ×2 (08:08→20:17)
[2022-06-04] MEDS: lamoTRIgine 25 MG TAB PO SCH (08:08)
[2022-06-04] MEDS: INSULIN ASPART PER UNIT SC SCH ×4 (08:09→21:00)
[2022-06-04] MEDS: LANTUS PER UNIT CHARGE SQ SCH (08:09)
[2022-06-04] MEDS ORDERED: PANTOprazole 40 MG TAB PO SCH (09:00)
[2022-06-04] MEDS ORDERED: LANTUS PER UNIT CHARGE SQ SCH (09:00)
--- NOTE | 2022-06-04 09:15 | CT Scan Report ---
ABDOMEN AND PELVIS CT WITH IV CONTRAST CT DOSE: 1899.65 mGy.cm HISTORY: Acute nausea with vomiting and right-sided chest pain vomiting TECHNIQUE: Multiaxial CT images of the abdomen and pelvis were performed following the IV administrat ion of 110 cc of Optiray, A dose lowering technique was utilized adhering to the principles of ALARA . COMPARISON STUDY: CTA chest of same day, CT abdomen 08/21/2016, CT abdomen and pelvis 08/15/2016 FINDINGS: The heart is enlarged. Partially imaged pacer leads. Bibasilar bronchial wall thickening wi th areas of mild mucus plugging and intralobular septal thickening. Ill-defined bibasilar groundglass densities with patchy consolidative opacities within the medial basal segment right lower lobe. 6 mm subpleural nodular opacity of the basal left lower lobe, image 78. No pneumatosis or pneumoperitoneu m. Unremarkable spleen, pancreas and adrenal glands. Contracted gallbladder with mild wall thickening an d trace pericholecystic edema. Hepatomegaly with hepatic steatosis. No hepatic mass identified. There is unchanged mild marginal nodularity within the inferior right hepatic lobe. Mild cortical scarring of the interpolar right kidney. There is symmetric enhancement of the kidneys. 1.5 cm hypodense lesion within the interpolar left kidney is stable to slightly decreased in size fr om prior. This may represent a complex cyst. 4 mm nonobstructing calculus within the interpolar left kidney. No ureteral calculi or hydronephrosis. Urinary bladder wall thickening with partial distentio n. Aorta and IVC are unremarkable. Nonspecific mildly enlarged precaval lymph node measures 1.3 cm on image 126. There is mild wall thickening of the duodenum with periduodenal inflammatory stranding and trace free fluid. Trace interloop edema is noted involving a few loops of left upper abdominal jejunum. There i s no bowel obstruction. Normal appendix. Unremarkable soft tissues. No acute fracture. IMPRESSION: 1. No bowel obstruction or pneumoperitoneum. Normal appendix. 2. Mild wall thickening of the duodenum with periduodenal inflammation. Trace free fluid is noted adj acent to the duodenum and also adjacent to a few loops of left upper abdominal jejunum. Findings are suspicious for a nonspecific duodenitis/enteritis. Follow-up is recommended to exclude the possibilit y of duodenal ulcer disease. 3. Mild precaval lymphadenopathy, likely reactive. 4. Nonobstructing left renal calculus. 5. Please refer to the CTA chest study of same day for additional findings. ACT 112: Negative or not required by law. The above report was generated using voice recognition software. It may contain grammatical, syntax o r spelling errors. Electronically signed by: Jim Kaplan M.D. 06/04/2022 9:14 AM
--- NOTE | 2022-06-04 09:21 | CT Scan Report ---
CT angio chest PE protocol CLINICAL HISTORY: PE TECHNIQUE: Multidetector row helical CT of the chest was performed with angiographic protocol. West l and sagittal reformations were obtained. Coronal and sagittal MIPS were obtained from the axial leah a set and were submitted for review. Automated dose lowering techniques and/or adjustment according to patient size were utilized for this exam. Comparison: Comparison is made to CT chest 08/03/2017 FINDINGS: Lungs and pleura: Faint densities are seen in the right medial lung base. Heart and pericardium: Cardiomegaly is seen with biatrial enlargement. Vessels: No evidence of pulmonary embolism. Mediastinum and minh: Multiple lymph nodes measure up to 13 mm in short axis. Chest wall and lower neck: Unremarkable. Abdomen: Unremarkable. Bones: Mild degenerative changes are seen. IMPRESSION: 1. No evidence of pulmonary embolism. 2. Infectious/inflammatory pneumonitis in the right lower lobe. ACT 112: Negative or not required by law. Electronically signed by: Cralos Gill M.D. 06/04/2022 9:19 AM
[2022-06-04] MEDS ORDERED: ALUMINUM/MAGNESIUM/SIMETH (MAALOX MAX) 30 ML UDC PO STA (11:56)
--- NOTE | 2022-06-04 11:56 | Hospitalist Progress Note ---
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 Chest/epigastric Pain - today this appears to be more epigastric pain related to his duodenitis rather than cardiac. No significant change in his troponin levels despite hours of pain making cardiac less likely. - TTE however is markedly worse than previously therefore will consult cardiology for ongoing advice regarding his severe cardiomyopathy. (2) Duodenitis: Plan: Despite regular pantoprazole use Switch pantoprazole to 40mg IV BID and start famotidine 20mg IV BID Celiac IgA TTG, total IgA sent as this appears to be going on for some time Consult gastroenterology for consideration of EGD given ongoing pain despite pantoprazole use, will need cardiac clearance before this. (3) Vomiting: Plan: ?gastroenteritis Appears to have resolved. Continue promethazine PRN (4) HUY (acute kidney injury): Plan: - Baseline Cr approx. 0.9 - 1.0 on review of past draws - On arrival, BUN 25 / Cr 1.61 - Improved Cr 1.6 to 1.5 with gentle IV fluids - BP certainly doesn't appear to be able to take Entresto suspect due to his ac [place] illness and suspect HUY somewhat due to hypotension - Appears euvolemic on exam - Continue to hold Entresto, Bumex, spironolactone, empagliflozin (5) Elevated troponin I level: Plan: See above for chest pain (6) Complex sleep apnea syndrome: Plan: - BiPAP qHS (7) Diabetes type 1, uncontrolled: Plan: - Last A1c at 8.3% in 04/2022 - Reduce long-acting dose to 75U qAM - Temporarily initiate SSI at 1:25 and carb ratio of 1:10 -- adjust as needed - Carb consistent diet when tolerated (8) Cardiomyopathy, idiopathic: Plan: - HFrEF in the setting of dilated cardiomyopathy secondary to cardiogenic shock and MODS in 2017 - Last TTE with LVEF 40-45% in 02/2021 s/p ICD placement - Follows with [facility] [place] [facility] and [facility] [place] - Euvolemic today - Hold Entresto, Bumex, spironolactone until HUY resolves, clinical status improves - Continue Coreg - IV fluids per cardiology prior to cardiac cath (9) Depression: Plan: - Continue lamotrigine - Continue Wellbutrin (10) Bilirubinemia: Plan: - Elevated to 2.0 on arrival in the context of otherwise normal LFTs - Gilbert's? NAFLD? - Noted multiple times during previous lab draws in past (11) Leukocytosis: Plan: - Noted on arrival to 16 with left shift, but also monocytosis - Question whether related to GI illness +/- stress response from recurrent vomiting? CTA-Chest (STAT-Rad): Subtle questionable opacities in the right medial basal segment with bronchial thickening -- however, no respiratory symptoms on exam to suggest developing PNA - Trend alongside temperature curve - Received CFTX in the ED - hold on further doses for now Plan Code: Full Diet: clear liquids Dispo: MS/T PPX: SCDs Admission and Anticipated Discharge Date Admission Date: June 04, 2022 Subjective Ongoing epigastric pain this morning, no radiation, lasting for last 3 days but also had it occasionally prior to this. No acid taste in his mouth. Possibly worse with eating. No nausea, vomiting, change in bowels, melena or bright red blood in stool. Review of Systems Review of Systems: All systems reviewed & are unremarkable except as noted in Subjective Physical Exam Constitutional: WD/WN, vitals as above Eyes: + anicteric sclerae; + EOM not intact (amblyopia present) and normal pupil size ENMT: external ear and nose normal, oropharynx normal Respiratory: normal respiratory effort, lungs clear to auscultation Cardiovascular: Rate/Rhythm: regular rate and regular rhythm Heart Sounds: no murmur Vessels: no JVD Extremities: normal capillary refill and + pedal edema (1+ pre-tibial pitting); no calf tenderness Gastrointestinal (Abdomen): Inspection/Auscultation: abdomen normal to inspection and normal bowel sounds; abdomen not distended Percussion/Palpation: + abdomen tender (epigastric) and abdomen soft; no guarding and abdomen not rigid Musculoskeletal: no cyanosis or clubbing, extremities motor strength 5/5 Skin: no rashes, warm and dry Neurologic: moves all extremities and awake; no focal motor deficits and not confused Psychiatric: A+Ox3, euthymic affect Results & Data Results & Data ([facility]) Vital Signs (Past 12 Hours) Vital Signs Temp Pulse Pulse Resp BP BP Pulse Ox 06/04/22 11:16 36.5 C 82 18 108/76 95 06/04/22 07:11 83 06/04/22 04:30 81 22 97 06/04/22 04:11 87 06/04/22 02:00 06/04/22 02:00 36.5 C 84 18 125/86 97 06/04/22 00:17 82 25 H 95 06/04/22 00:17 117/92 06/04/22 00:00 86 33 H 117/92 97 O2 Del Method O2 Flow Rate FiO2 06/04/22 11:16 Room Air 06/04/22 07:11 06/04/22 04:30 0 21 06/04/22 04:11 06/04/22 02:00 Room Air 06/04/22 02:00 Room Air 06/04/22 00:17 06/04/22 00:17 06/04/22 00:00 PG Care Time/CCT Total # of Minutes Spent Total Time Spent with Patient: Total time spent is greater than 50% in coordination of care (as documented) at patient's floor/unit and/or counseling patient: Coding Level of Care Code 09386 Subseq Hosp Care Lvl 3 Diagnoses Chest pain R07.9 Chest pain type: unspecified Duodenitis K29.80 Vomiting R11.2 Nausea presence: with nausea Vomiting type: unspecified HUY (acute kidney injury) N17.9 Elevated troponin I level R77.8 Complex sleep apnea syndrome G47.31 Diabetes type 1, uncontrolled E10.65 Cardiomyopathy, idiopathic I42.8 Depression F33.1 Active/Remission status: currently active Depression Type: major depressive disorder Major depression episode severity: moderate Major depression recurrence: recurrent Bilirubinemia E80.6 Leukocytosis D72.829 (1) Depression Active/Remission status: currently active Depression Type: major depressive disorder Major depression episode severity: moderate Major depression recurrence: recurrent Qualified Code(s): F33.1 - Major depressive disorder, recurrent, moderate (2) Chest pain Chest pain type: unspecified Qualified Code(s): R07.9 - Chest pain, unspecified (3) Vomiting Nausea presence: with nausea Vomiting type: unspecified Qualified Code(s): R11.2 - Nausea with vomiting, unspecified
--- NOTE | 2022-06-04 12:14 | Gastrointestinal Consultation ---
Date of Consultation June 04, 2022 Assessment & Plan (1) Duodenitis: Discussed with Dr. Duckworth who advised on plan. - agree with increase in protonix to 40mg bid, starting pepcid 20mg once daily. - agree with promethazine IV q 6 hours for nausea/vomiting. - suspect symptoms are viral in nature. - cardiology also to evaluate patient given elevated troponin and chest pain. - would defer any EGD at this time given elevated troponin and symptoms are likely viral in nature. Supervising Physician Co-Signing Physician Notes I personally evaluated the patient and agree with the findings as documented by DIAMOND Hamilton Exam: Constitutional: WD/WN, vitals as above General: EOM intact bilaterally Neck: normal visual inspection Respiratory: normal respiratory effort, lungs clear to auscultation Cardiovascular: RRR, no murmur, no edema Gastrointestinal: abdomennormal to inspection, nondistended, soft, mild epigastric tenderness, no hepatosplenomegaly Musculoskeletal: no cyanosis, head normal to inspection Skin: no rashes, warm and dry Neurologic: moves all extremities Psychiatric: A and O x3, euthymic affect History of Present Illness Reason for Consultation: Dr. 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 GI asked to see for duodenitis. He tells me he has never had an egd or a colonoscopy and has not seen a gastr oenterologist regularly in the past. He does admit as an outpatient he typically uses protonix 40mg daily which controls reflux. he denies any dysphagia, heartburn, changes in bowels, melena, brbpr, or unintentional weight loss. Allergies Allergy/AdvReac Type Severity Reaction Status Date / Time VEE Inhibitors Allergy Intermediate COUGH Verified 05/30/22 14:55 lisinopril AdvReac Unknown cough Verified 05/30/22 14:55 Home Medications Medication Instructions Recorded Confirmed Type BiPap Supplies #1 ea 07/28/19 05/30/22 Rx sacubitril 97 mg-valsartan 103 mg 1 tab PO BID #180 tabs 01/31/20 06/03/22 Rx tablet (Entresto) Victoza 3-Mc 0.6 mg/0.1 mL (18 1.8 mg (0.3 mL) subcut DAILY 90 04/30/21 05/30/22 Rx mg/3 mL) subcutaneous pen injector days #27 mL (liraglutide) blood sugar diagnostic (ReliOn #10 ea 12/14/21 05/30/22 History Prime Test Strips) levothyroxine 88 mcg tablet 88 mcg PO DAILY #30 tabs 12/28/21 06/03/22 Rx bupropion HCl 100 mg tablet,12 hr 100 mg PO BID #180 ea 02/18/22 06/03/22 Rx sustained-release (Wellbutrin SR) carvedilol 25 mg tablet (Coreg) 25 mg PO BID #180 tabs 02/18/22 06/03/22 Rx lamotrigine 25 mg tablet 50 mg PO DAILY #180 tabs 02/18/22 06/03/22 Rx pantoprazole 40 mg tablet,delayed 40 mg PO DAILY #90 tabs 02/18/22 06/03/22 Rx release potassium chloride 20 mEq 20 meq PO DAILY #90 tabs 02/18/22 06/03/22 Rx tablet,extended release spironolactone 25 mg tablet 25 mg PO BID #180 tabs 02/18/22 06/03/22 Rx empagliflozin 10 mg tablet 10 mg PO DAILY #90 tabs 02/19/22 06/03/22 Rx (Jardiance) pen needle, diabetic 31 gauge x #150 ea 02/19/22 05/30/22 Rx 3/16" (BD Ultra-Fine Mini Pen Needle) bumetanide 0.5 mg tablet 1 mg PO DAILY SWELLING #180 tabs 02/25/22 06/03/22 Rx blood-glucose sensor (Dexcom G6 #3 ea 04/26/22 05/30/22 Rx Sensor device) insulin degludec 200 unit/mL (3 100 unit subcut DAILY 04/26/22 06/03/22 History mL) subcutaneous pen (Tresiba FlexTouch U-200 insulin) insulin lispro 100 unit/mL See Rx Instructions subcut .COMPLEX 04/26/22 06/03/22 History subcutaneous pen (Humalog KwikPen (U-100) Insulin) atorvastatin 80 mg tablet 80 mg PO DAILY #90 tabs 05/10/22 06/03/22 Rx cholecalciferol (vitamin D3) 1,250 50,000 unit PO WK 06/03/22 06/03/22 History mcg (50,000 unit) capsule Patient History Medical History (Updated 06/04/22 @ 12:25 by Earle Lewis MD) Acute on chronic systolic and diastolic heart failure, NYHA class 2 (10/06/14) ICD (implantable cardioverter-defibrillator) in place Kidney stone Surgical History History of surgery lymphadenectomy History of wisdom tooth extraction Family History Mother Breast cancer Father Myocardial infarction Uncle Myocardial infarction Grandfather (Paternal) Myocardial infarction Grandmother Malignant neoplasm of eye Other Coronary heart disease Kidney disease Type 2 diabetes mellitus Denies family history of Ovarian cancer Prostate cancer Colorectal cancer Social History Smoking Status: Never smoker Tobacco Type: Cigarettes Age Started Using Tobacco: 16; Age Quit Using Tobacco: 16; Years Smoked: 1; Second Hand Exposure: No; Hx Alcohol Use: No Hx Substance Use: No Preferred Language: Tanzanian Communication Ability: Effective Visual Impairment: No Limitations Hearing Ability: Normal 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 Beliefs That Will Affect Care: None marital status: Single Current Living Situation: Significant Other current occupational status: disabled Other Information That Helps Us Care for You: No Feels Safe at Home: Yes Safety Concerns: Feels Safe At This Time Childhood Exposure to Second-Hand Smoke: Yes Diet Comment: low sodium Dental Care, Regularly: Yes Physical Activity Frequency: Does not Exercise Seatbelt Use: sometimes Sunscreen Use: Yes Assistive Devices: BiPap and Glasses Review of Systems Review of Systems: All systems reviewed & are unremarkable except as noted in HPI & below Physical Exam Constitutional: WD/WN, vitals as above Respiratory: normal respiratory effort, lungs clear to auscultation Cardiovascular: RRR, no murmur, no edema Gastrointestinal (Abdomen): normal bowel sounds, soft, nontender, no hep atosplenomegaly Skin: no rashes, warm and dry Psychiatric: Orientation: alert and oriented x 3 Results & Data ([facility]) Vital Signs (Past 12 Hours) Vital Signs Temp Pulse Pulse Resp BP BP Pulse Ox 06/04/22 11:16 36.5 C 82 18 108/76 95 06/04/22 07:11 83 06/04/22 04:30 81 22 97 06/04/22 04:11 87 06/04/22 02:00 06/04/22 02:00 36.5 C 84 18 125/86 97 06/04/22 00:17 82 25 H 95 06/04/22 00:17 117/92 O2 Del Method O2 Flow Rate FiO2 06/04/22 11:16 Room Air 06/04/22 07:11 06/04/22 04:30 0 21 06/04/22 04:11 06/04/22 02:00 Room Air 06/04/22 02:00 Room Air 06/04/22 00:17 06/04/22 00:17 Diagnostic Findings ABDOMEN AND PELVIS CT WITH IV CONTRAST 06/03/22 CT DOSE: 1899.65 mGy.cm HISTORY: Acute nausea with vomiting and right-sided chest pain vomiting TECHNIQUE: Multiaxial CT images of the abdomen and pelvis were performed following the IV administration of 110 cc of Optiray, A dose lowering technique was utilized adhering to the principles of ALARA. COMPARISON STUDY: CTA chest of same day, CT abdomen 08/21/2016, CT abdomen and pelvis 08/15/2016 FINDINGS: The heart is enlarged. Partially imaged pacer leads. Bibasilar bronchial wall thickening with areas of mild mucus plugging and intralobular septal thickening. Ill-defined bibasilar groundglass densities with patchy consolidative opacities within the medial basal segment right lower lobe. 6 mm subpleural nodular opacity of the basal left lower lobe, image 78. No pneumatosis or pneumoperitoneum. Unremarkable spleen, pancreas and adrenal glands. Contracted gallbladder with mild wall thickening and trace pericholecystic edema. Hepatomegaly with hepatic steatosis. No hepatic mass identified. There is unchanged mild marginal nodularity within the inferior right hepatic lobe. Mild cortical scarring of the interpolar right kidney. There is symmetric enhancement of the kidneys. 1.5 cm hypodense lesion within the interpolar left kidney is stable to slightly decreased in size from prior. This may represent a complex cyst. 4 mm nonobstructing calculus within the interpolar left kidney. No ureteral calculi or hydronephrosis. Urinary bladder wall thickening with partial distention. Aorta and IVC are unremarkable. Nonspecific mildly enlarged precaval lymph node measures 1.3 cm on image 126. There is mild wall thickening of the duodenum with periduodenal inflammatory stranding and trace free fluid. Trace interloop edema is noted involving a few loops of left upper abdominal jejunum. There is no bowel obstruction. Normal appendix. Unremarkable soft tissues. No acute fracture. IMPRESSION: 1. No bowel obstruction or pneumoperitoneum. Normal appendix. 2. Mild wall thickening of the duodenum with periduodenal inflammation. Trace free fluid is noted adjacent to the duodenum and also adjacent to a few loops of left upper abdominal jejunum. Findings are suspicious for a nonspecific duodenitis/enteritis. Follow-up is recommended to exclude the possibility of duodenal ulcer disease. 3. Mild precaval lymphadenopathy, likely reactive. 4. Nonobstructing left renal calculus. 5. Please refer to the CTA chest study of same day for additional findings. PG Care Time/CCT Total # of Minutes Spent Total Time Spent with Patient: Total time spent is greater than 50% in coordination of care (as documented) at patient's floor/unit and/or counseling patient: Coding Level of Care Code 80399 Office/OBS Consult Lvl 3 Diagnoses Duodenitis K29.80
--- NOTE | 2022-06-04 12:18 | Cardiology Consultation ---
Date of Consultation June 04, 2022 Assessment & Plan (1) Chest pain: (2) Cardiomyopathy, idiopathic: (3) Elevated troponin I level: (4) Systolic CHF, chronic: Plan 1. Chest discomfort: His discomfort is primarily in the epigastric area, does not radiate and has been quite prolonged for a stable troponin elevation. I suspect it is not cardiac. To my knowledge he does not have coronary artery disease, he does not recall whether he had a catheterization but I suspect he w ould have years ago and I think it is relatively unlikely that this represents an ischemic event. Still with the decrease in left ventricular function and elevated troponin we need to consider catheterization. I have discussed this with Dr. Bal and he feels it is reasonable to perform a catheterization. The patient is agreeable. I will schedule that for Friday. 2. Cardiomyopathy: He has a longstanding cardiomyopathy which based on [facility] records had improved substantially to a left ventricular ejection fraction of 40 to 45% as of last year, his current echocardiogram suggests significant worsening. This may be the chantal of a lot of his symptoms. He is on excellent medical therapy, we should consider a CCM device which [facility] has discussed with him and we may need to reconsider that. That is not something that we would do this admission. I would like to exclude conclusively that ischemia is not taking any role. 3. Elevated troponin: He does have an elevated troponin, however he describes having elevated troponins in the past but in view of his decreased left ventricular function it would be prudent to exclude ischemia although it seems unlikely. As noted above we will plan cardiac catheterization tomorrow. It is possible the troponin is due to myocarditis as well. 4. Congestive heart failure: Although he is not clearly in heart failure, he is able to lay flat without difficulty and he has no edema, but he has had increasing difficulty with exertion and his left ventricular function has declined. I believe his exertional symptoms are probably due to left ventricular dysfunction. His BNP is significantly elevated today which would go along with some element of congestive heart failure. Prior to a catheterization I do not want him to become prerenal therefore I am not going to diurese today although after the catheterization we may want to do that. History of Present Illness Reason for Consultation: Cardiomyopathy, chest discomfort Attending Physician: Stan Hernández MD History of Present Illness This is a 37-year-old male who follows with Dr. Locke in our office. Prior to that he was followed at [facility], where he still is followed by Dr. Hardin for his left ventricular dysfunction. He does have a single-chamber ICD in place, currently this is a Medtronic Evera MRI XT VR. This device was implanted October 19, 2015, I do not have any implan t date for the lead which is MRI compatible but I suspect it was that same date. He has a long history of intermittent lower sternal chest discomfort which has been attributed to GI distress. He also has a history of congestive heart failure with left ventricular dysfunction which has presented with similar symptoms in the past, according to his description. For nearly a week but worsening over the last several days he has had lower sternal chest discomfort but with no radiation to his neck, arm or back. He has also had nausea and vomiting associated with it and difficulty eating. He notices also that he has been having some difficulty with exertion, specifically more short of breath than usual climbing steps although he is generally not very active. He does not have orthopnea or PND (during my evaluation he was laying flat on his back in his bed). The discomfort has been relatively consistent over the last several days to week, does wax and wane somewhat but probably has not resolved during that time. Evaluation so far includes an electrocardiogram on presentation June 03, 2022 at 2047 which showed sinus rhythm at 95 bpm with left atrial enlargement and low QRS voltage but no significant abnormality. He has had no electrocardiogram since 2016 in our records. Another electrocardiogram this morning June 04, 2022 at 9:05 AM shows sinus rhythm at 80 bpm with left atrial enlargement, no T wave abnormalities and is very similar to yesterday. An echocardiogram done on the morning of June 04, 2022 shows left ventricular dilatation with severe global hypokinesis and ejection fraction felt to be 15 to 20%. There is severe left atrial dilatation and moderate mitral regurgitation. A prior echocardiogram here from June 14, 2017 showed left ventricular ejection fraction of 20 to 25%. In the interim however I believe his left ventricular function had improved. He was last seen at [facility] on November 16, 2021, there record indicates that in February 2021 his ejection fraction had improved to 40 to 45%. At that time he was on carvedilol 25 mg twice a day empagliflozin 10 mg daily and Entresto 200 mg combined dose twice a day as well as spironolactone 25 mg twice a day. CCM has been discussed with him although at that time he was felt not to warrant that procedure. Allergies Allergy/AdvReac Type Severity Reaction Status Date / Time VEE Inhibitors Allergy Intermediate COUGH Verified 05/30/22 14:55 lisinopril AdvReac Unknown cough Verified 05/30/22 14:55 Home Medications Medication Instructions Recorded Confirmed Type BiPap Supplies #1 ea 07/28/19 05/30/22 Rx sacubitril 97 mg-valsartan 103 mg 1 tab PO BID #180 tabs 01/31/20 06/03/22 Rx tablet (Entresto) Victoza 3-Mc 0.6 mg/0.1 mL (18 1.8 mg (0.3 mL) subcut DAILY 90 04/30/21 05/30/22 Rx mg/3 mL) subcutaneous pen injector days #27 mL (liraglutide) blood sugar diagnostic (ReliOn #10 ea 12/14/21 05/30/22 History Prime Test Strips) levothyroxine 88 mcg tablet 88 mcg PO DAILY #30 tabs 12/28/21 06/03/22 Rx bupropion HCl 100 mg tablet,12 hr 100 mg PO BID #180 ea 02/18/22 06/03/22 Rx sustained-release (Wellbutrin SR) carvedilol 25 mg tablet (Coreg) 25 mg PO BID #180 tabs 02/18/22 06/03/22 Rx lamotrigine 25 mg tablet 50 mg PO DAILY #180 tabs 02/18/22 06/03/22 Rx pantoprazole 40 mg tablet,delayed 40 mg PO DAILY #90 tabs 02/18/22 06/03/22 Rx release potassium chloride 20 mEq 20 meq PO DAILY #90 tabs 02/18/22 06/03/22 Rx tablet,extended release spironolactone 25 mg tablet 25 mg PO BID #180 tabs 02/18/22 06/03/22 Rx empagliflozin 10 mg tablet 10 mg PO DAILY #90 tabs 02/19/22 06/03/22 Rx (Jardiance) pen needle, diabetic 31 gauge x #150 ea 02/19/22 05/30/22 Rx 3/16" (BD Ultra-Fine Mini Pen Needle) bumetanide 0.5 mg tablet 1 mg PO DAILY SWELLING #180 tabs 02/25/22 06/03/22 Rx blood-glucose sensor (Dexcom G6 #3 ea 04/26/22 05/30/22 Rx Sensor device) insulin degludec 200 unit/mL (3 100 unit subcut DAILY 04/26/22 06/03/22 History mL) subcutaneous pen (Tresiba FlexTouch U-200 insulin) insulin lispro 100 unit/mL See Rx Instructions subcut .COMPLEX 04/26/22 06/03/22 History subcutaneous pen (Humalog KwikPen (U-100) Insulin) atorvastatin 80 mg tablet 80 mg PO DAILY #90 tabs 05/10/22 06/03/22 Rx cholecalciferol (vitamin D3) 1,250 50,000 unit PO WK 06/03/22 06/03/22 History mcg (50,000 unit) capsule Patient History Medical History (Updated 06/04/22 @ 12:25 by Earle Lewis MD) Acute on chronic systolic and diastolic heart failure, NYHA class 2 (10/06/14) ICD (implantable cardioverter-defibrillator) in place Kidney stone Surgical History History of surgery lymphadenectomy History of wisdom tooth extraction Family History Mother Breast cancer Father Myocardial infarction Uncle Myocardial infarction Grandfather (Paternal) Myocardial infarction Grandmother Malignant neoplasm of eye Other Coronary heart disease Kidney disease Type 2 diabetes mellitus Denies family history of Ovarian cancer Prostate cancer Colorectal cancer Social History Smoking Status: Never smoker Tobacco Type: Cigarettes Age Started Using Tobacco: 16; Age Quit Using Tobacco: 16; Years Smoked: 1; Second Hand Exposure: No; Hx Alcohol Use: No Hx Substance Use: No Preferred Language: Pakistani Communication Ability: Effective Visual Impairment: No Limitations Hearing Ability: Normal 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 Beliefs That Will Affect Care: None marital status: Single Current Living Situation: Significant Other current occupational status: disabled Other Information That Helps Us Care for You: No Feels Safe at Home: Yes Safety Concerns: Feels Safe At This Time Childhood Exposure to Second-Hand Smoke: Yes Diet Comment: low sodium Dental Care, Regularly: Yes Physical Activity Frequency: Does not Exercise Seatbelt Use: sometimes Sunscreen Use: Yes Assistive Devices: BiPap and Glasses Review of Systems Review of Systems: All systems reviewed & are unremarkable except as noted in HPI & below Physical Exam Physical Exam: Constitutional: Alert, cooperative and in no distress. HEENT: Unremarkable Neck: No jugular venous distention, carotid pulses are normal and equal bilaterally without bruits. Pulmonary: Clear to auscultation bilaterally. Cardiac: Regular rhythm with no murmur, gallop or rub. Abdomen: Soft, nontender with normal bowel sounds. Extremities: No edema. Distal pulses intact. Neurologic: No focal findings. Gait was not tested. Skin: No rash, ecchymoses or petechiae. Results & Data ([facility]) Vital Signs (Past 12 Hours) Vital Signs Temp Pulse Pulse Resp BP Pulse Ox O2 Del Method 06/04/22 11:16 36.5 C 82 18 108/76 95 Room Air 06/04/22 07:11 83 06/04/22 04:30 81 22 97 06/04/22 04:11 87 06/04/22 02:00 Room Air 06/04/22 02:00 36.5 C 84 18 125/86 97 Room Air O2 Flow Rate FiO2 06/04/22 11:16 06/04/22 07:11 06/04/22 04:30 0 21 06/04/22 04:11 06/04/22 02:00 06/04/22 02:00 Laboratory Results Cardiac Enzymes 06/03/22 06/04/22 06/04/22 Range/Units 21:12 00:24 05:47 AST 20 21 (13-39) U/L Troponin I High Sens 119.2 H* 134.3 H* 116.9 H* (0-20) pg/ml Coagulation 06/03/22 Range/Units 21:12 PT 12.5 H (9.0-12.0) Seconds APTT 27.8 (21.0-31.0) Seconds Lipids 06/04/22 Range/Units 05:47 Triglycerides 80 (0-150) mg/dl Cholesterol 93 (0-200) mg/dl HDL Cholesterol 25 mg/dl Cholesterol/HDL Ratio 3.7 (0-5) CBC 06/03/22 06/04/22 Range/Units 21:12 05:47 WBC 16.45 H 13.15 H (4.8-10.8) K/ul RBC 5.56 4.99 (4.63-6.08) M/uL Hgb 16.2 14.4 (14.0-18.0) g/dl Hct 48.2 43.3 (40.1-51.0) % Plt Count 271 243 (130-400) K/uL Neut # (Auto) 13.50 H 9.10 H (1.4-6.5) K/uL Lymph # (Auto) 1.86 2.85 (1.2-3.4) K/uL [place] # (Auto) 0.90 H 0.98 H (0.24-0.82) K/uL Eos # (Auto) 0.04 0.07 (0-0.50) K/uL Baso # (Auto) 0.06 0.07 (0-0.2) K/uL Comprehensive Metabolic Panel 06/03/22 06/04/22 Range/Units 21:12 05:47 Sodium 138 135 L (136-145) mmol/L Potassium 3.9 3.4 L (3.5-5.1) mmol/L Chloride 104 101 (98-107) mmol/L Carbon Dioxide 23 23 (21-32) mmol/L BUN 25 H 25 H (6-23) mg/dl Creatinine 1.61 H 1.50 H (0.6-1.4) mg/dl Glucose 104 H 77 (70-99(Fasting)) mg/dl Calcium 9.8 8.9 (8.5-10.1) mg/dl AST 20 21 (13-39) U/L ALT 26 27 (7-52) U/L Alkaline Phosphatase 58 49 (34-104) U/L Total Protein 7.3 6.4 (6.0-8.3) gm/dl Albumin 4.4 3.9 (3.4-5.0) gm/dl Intake and Output 06/03/22 06/04/22 06/04/22 22:59 06:59 14:59 Intake Total 250 / 495 245 / 495 500 / 500 Balance 250 / 495 245 / 495 500 / 500 Intake: IV 250 / 320 70 / 320 500 / 500 Sodium Chloride 0.9% 1000ML 250 250 / 250 ml @ 999 mls/hr IV .Q16M ONE Rx#:[id number] Sodium Chloride 0.9% 500 ml @ 500 / 500 80 mls/hr IV .Q6H15M LISA Rx#: [id number] cefTRIAXone SODIUM 2,000 mg In 70 / 70 70 ml @ 140 mls/hr IV NOW STA Rx#:[id number] Oral 175 / 175 Other: Weight 104.2 kg 104.7 kg Weight Measurement Method Chair Scale Standing Scale Diagnostic Findings Telemetry: Sinus rhythm, no significant abnormality. PG Care Time/CCT Total # of Minutes Spent Total Time Spent with Patient: Total time spent is greater than 50% in coordination of care (as documented) at patient's floor/unit and/or counseling patient: Coding Level of Care Code 77699 Inpt Consult Level 5 Diagnoses Chest pain R07.9 Chest pain type: unspecified Cardiomyopathy, idiopathic I42.8 Elevated troponin I level R77.8 Systolic CHF, chronic I50.22 (1) Chest pain Chest pain type: unspecified Qualified Code(s): R07.9 - Chest pain, unspecified
[2022-06-04] MEDS: PANTOprazole 40 MG in SYRINGE 0 ML IV SCH ×2 (12:39→20:18)
[2022-06-04] MEDS ORDERED: SODIUM CHLORIDE 0.9% 1000ML 1,000 ML IV SCH (15:15)
--- NOTE | 2022-06-04 16:07 | Electrocardiogram Report ---
Test Reason : Blood Pressure : / mmHG Vent. Rate : 095 BPM Atrial Rate : 095 BPM P-R Int : 194 ms QRS Dur : 100 ms QT Int : 372 ms P-R-T Axes : 062 081 097 degrees QTc Int : 467 ms Poor data quality, interpretation may be adversely affected Normal sinus rhythm Possible Left atrial enlargement Low voltage QRS Borderline ECG When compared with ECG of 04-JUL-2017 04:43, Nonspecific T wave abnormality, improved in Lateral leads Confirmed by Earle Lewis ([id number]) on 06/04/2022 4:06:35 PM Referred By: REFERRED SELF Confirmed By:Earle Lewis
--- NOTE | 2022-06-04 16:34 | Electrocardiogram Report ---
Test Reason : Blood Pressure : / mmHG Vent. Rate : 080 BPM Atrial Rate : 080 BPM P-R Int : 202 ms QRS Dur : 096 ms QT Int : 408 ms P-R-T Axes : 060 076 113 degrees QTc Int : 470 ms Normal sinus rhythm Possible Left atrial enlargement Septal infarct , age undetermined Abnormal ECG When compared with ECG of 03-JUN-2022 20:47, (unconfirmed) Septal infarct is now Present Confirmed by Earle Lewis ([id number]) on 06/04/2022 4:34:03 PM Referred By: REFERRED SELF Confirmed By:Earle Lewis
[2022-06-04] MEDS: FAMOTIDINE 20 MG in SYRINGE 3 ML IV SCH (20:18)
[2022-06-04] MEDS ORDERED: ALUMINUM/MAGNESIUM SUSP 18 ML, LIDOCAINE VISCOUS 2% SOLN 6 ML, BARCODE IDENTIFIER 1 EACH PO ONE (22:39)
[2022-06-04] MEDS ORDERED: ACETAMINOPHEN 500 MG TAB PO STA (22:40)
[2022-06-04] MEDS ORDERED: SUCRALFATE 1 GM/10 ML UDC PO STA (22:40)
[2022-06-05] MEDS ORDERED: SODIUM CHLORIDE 0.9% 1000ML 1,000 ML IV SCH
--- NOTE | 2022-06-05 01:41 | Communication Note ---
Date of Service: June 05, 2022 Notified by patient's RN that he was having epigastric/chest pain. At the bedside, patient appeared mildly uncomfortable. He reports he had been having sharp midline upper quadrant pain, just inferior to the epigastrium, that had started relatively suddenly. Rated as 7/10. Denied chest pressure or shortness of breath. Denied belching or feelings of heartburn/nausea. Exam - mildly uncomfortable appearing, but also recently awoken from sleep. Cardiac - NRRR, +S1/S2 without m/r/g. Respiratory - CTAB. Abdomen - NABS, nondistended though somewhat difficult to appreciate given habitus, +moderate TTP in the epigastrum and slightly inferior. No rebound or guarding. Epigastric pain - possibly dyspepsia / related to his duodenitis. Given GI cockt ail, Carafate, and Tylenol and was informed he was resting comfortably shortly thereafter. ECG without conduction or repolarization changes. Can consider drawing lipase and LFTs should this continue/worsen, with consideration to imaging. In close contact with patient's RN.
[2022-06-05] MEDS: LEVOTHYROXINE SODIUM 88 MCG TABLET PO SCH (06:39)
[2022-06-05 07:24] LABS: Basophils # (auto) 0.06 K/uL (0-0.2); Basophils % (auto) 0.4 %; Eosinophils # (auto) 0.03 K/uL (0-0.50); Eosinophils % (auto) 0.2 %; Hematocrit (blood only) 45.8 % (40.1-51.0); Hemoglobin 16.1 g/dl (14.0-18.0); Immature Granulocytes # (auto) 0.09 K/uL (0.00-0.02); Immature Granulocytes % (auto) 0.6 %; Lymphocytes # (auto) 2.85 K/uL (1.2-3.4); Lymphocytes % (auto) 20.2 %; Mean Corpuscular Hemoglobin 29.6 pg (25.0-34.0); Mean Corpuscular Hgb Conc 35.2 g/dL (32.0-36.0); Mean Corpuscular Volume 84.2 fL (80.0-100.0); Mean Platelet Volume 12.5 fL (9.4-12.4); Monocytes # (auto) 1.55 K/uL (0.24-0.82); Neutrophils # (auto) 9.55 K/uL (1.4-6.5); Neutrophils % (auto) 67.6 %; Platelet Count 224 K/uL (130-400); RDW Coefficient of Variation 13.2 % (11.5-14.5); Red Blood Count 5.44 M/uL (4.63-6.08); White Blood Count 14.13 K/ul (4.8-10.8)
[2022-06-05] MEDS ORDERED: HEPARIN (PORCINE) 1000 UNIT/ML 10 ML (CATH LAB USE ONLY) ONE (08:02)
[2022-06-05] MEDS ORDERED: niCARdipine HCL INJ 2.5 MG/ML 10 ML AMP ONE (08:02)
[2022-06-05] MEDS ORDERED: fentaNYL citrate 100 MCG/2 ML VIAL ONE (08:02)
[2022-06-05] MEDS ORDERED: MIDAZOLAM HCL 1 MG/ML 2ML VIAL ONE (08:02)
[2022-06-05] MEDS ORDERED: NITROGLYCERIN/D5W 100MCG/ML 20ML SYR ONE (08:03)
--- NOTE | 2022-06-05 08:18 | Pre Anesthesia Assessment ---
Date of Service June 05, 2022 Pre Sedation Assessment Vital Signs Temp Pulse Pulse Resp BP BP Pulse Ox 06/05/22 07:31 36.5 C 75 20 120/90 94 06/05/22 07:30 56 L 118/93 95 06/05/22 07:26 72 06/05/22 03:28 64 18 109/76 98 06/04/22 22:19 80 06/04/22 22:40 79 117/94 95 06/04/22 20:36 78 23 93 06/04/22 20:16 72 96/62 L 06/04/22 19:35 36.5 C 117 H 18 104/70 93 06/04/22 15:30 76 06/04/22 15:26 36.5 C 68 16 99/65 L 96 06/04/22 11:16 36.5 C 82 18 108/76 95 O2 Del Method FiO2 06/05/22 07:31 CPAP 06/05/22 07:30 Room Air 06/05/22 07:26 06/05/22 03:28 BiPAP 06/04/22 22:19 06/04/22 22:40 CPAP 06/04/22 20:36 21 06/04/22 20:16 06/04/22 19:35 Room Air 06/04/22 15:30 06/04/22 15:26 Room Air 06/04/22 11:16 Room Air Cardiovascular Additional Comments: distant heart sounds. S4 Respiratory Additional Comments: bilateral basilar crackles. Pre-Sedation Airway Assessment Smoking Status: Never smoker Hx Sleep Apnea: Yes Short, Thick Neck: No Thyromental Distance: > or= 3.5 Finger Breadths Oral Cavity: + WNL Mallampati Class: I ASA: ASA4 NPO Status Date of Last Intake of Fluids: 06/04/22 Date of Last Intake of Solid Food: 06/04/22 Procedure Planning Contraindications for Sedation: none Current Medications Reviewed: Yes Notes The planned sedation has been discussed with the patient. Informed Consent was obtained. I have identified the patient, determined the appropriateness of sedation and have assessed the patient immediately prior to the procedure. All medicine(s) and interventions are by my order.
[2022-06-05] MEDS ORDERED: FUROSEMIDE 40 MG/4 ML VIAL IV ONE ×2 (09:06→14:27)
--- NOTE | 2022-06-05 09:18 | Post Anesthesia Assessment ---
Date of Service June 05, 2022 Post Sedation Assessment Vital Signs Temp Pulse Pulse Resp BP BP Pulse Ox 06/05/22 09:15 70 20 121/92 95 06/05/22 07:31 36.5 C 75 20 120/90 94 06/05/22 07:30 56 L 118/93 95 06/05/22 07:26 72 06/05/22 03:28 64 18 109/76 98 06/04/22 22:19 80 06/04/22 22:40 79 117/94 95 06/04/22 20:36 78 23 93 06/04/22 20:16 72 96/62 L 06/04/22 19:35 36.5 C 117 H 18 104/70 93 06/04/22 15:30 76 06/04/22 15:26 36.5 C 68 16 99/65 L 96 06/04/22 11:16 36.5 C 82 18 108/76 95 O2 Del Method FiO2 06/05/22 09:15 Room Air 06/05/22 07:31 CPAP 06/05/22 07:30 Room Air 06/05/22 07:26 06/05/22 03:28 BiPAP 06/04/22 22:19 06/04/22 22:40 CPAP 06/04/22 20:36 21 06/04/22 20:16 06/04/22 19:35 Room Air 06/04/22 15:30 06/04/22 15:26 Room Air 06/04/22 11:16 Room Air Recovery Score Activity: Moves 4 extremities Respiration: Deep Breath/Cough Circulation: +/-20% PreAnes Value Consciousness: Fully Awake Oxygen Saturation: > 92% On Room Air Post Anesthesia Score: 10 Discharge Sedation Level of Care: Phase I Post Sedation Plan On clinical assessment, the patient appears to have tolerated the sedation without complications. Patient is recovering as anticipated. Patient will continue to be monitored by nursing and may be discharged when sedation discharge criteria are met per below protocol. Upon Completions of procedure up to 15 minutes continue every 5 minute vital signs and the P.A.R. score; then discharge to a Phase I or Fast Track to Phase II per the following guidelines: * Discharge Patient to appropriate Phase II area if PAR is 8 or greater or return to pre- procedure baseline. The post - procedure orders will be as directed. * If PAR score is less than 8 or not return to pre-procedure baseline then patient will follow Phase I monitoring till PAR is reached for Phase II. The Phase I may be done in procedure room or may call to secure a Phase I area. * If naloxone or flumazenil are used for reversal, hold in Phase I for continued monitoring from when last reversal dose was given for a minimum of 60 minutes or longer pending the nurse and/or physician discretion of patient condition before discharge to Phase II. Please call the Sedation Physician to re-evaluate and complete post-note for discharge to Phase II area. Do NOT discharge from procedure sedation or Phase 1 until post- sedation evaluation note is complete by procedure /sedation MD Sedation Discharge Instructions to be given to the patient at discharge to home. [facility] Procedure Codes (Charges) Indication for Procedure Indication for procedure: new drop EF Sedation/Anesthesia Procedure 1: Sedation/Anesthesia: 00503 Mod Sedation by the same physician;Init15 Min Child Age 5 & Up Total Sedation Time (minutes): 13
--- NOTE | 2022-06-05 09:41 | Cardiac Catheterization ---
[facility] Data: Paper Twister Cardiac Status Clinical evaluation leading to the procedure CAD Presenation: Non STEMI Heart Failure: NYHA Class: CCS IV Cardiogenic Shock within 24 Hours: No Cardiac Arrest within 24 Hours: No Imaging Studies Past 6 Months: No Stress Studies Past 6 Months: No Coronary Anatomy Left Main (% Stenosis): Normal LAD (% Stenosis): Normal D1 (% Stenosis): Normal D2 (% Stenosis): Normal D3 (% Stenosis): Normal Circumflex (% Stenosis): Normal OM1 (% Stenosis): Normal OM2 (% Stenosis): Normal L PL1 (% Stenosis): Normal RCA (% Stenosis): Normal R PDA (% Stenosis): Normal R PL1 (% Stenosis): Normal Diagnostic Physicians Name: Mingo Bal MD, PhD Closure Device Recommendations: Medical Therapy and/or Counseling (Increased diuresis, consider addition of SGLT2 to chronic heart failure regimen, may also need to consider short-term IV positive inotrope.) Cardiac Cath Procedure Full Procedure Date June 05, 2022 Pre-Procedure Diagnosis Pre-Procedure Diagnosis: Non STEMI, CHF and Cardiomyopathy AUC Score AUC Score: 07 Post-Procedure Diagnosis Post-Procedure Diagnosis: Normal Coronary Arteries and Elevated Intracardiac Pressures Procedure(s) Performed Procedure(s) Performed: Coronary Angiography and Left Heart Cath Group Contract Analyst Mingo Bal MD, PhD Estimated Blood Loss Estimated Blood Loss: 5ml Medication(s) Medication(s): fentanyl, versed, heparin Summary of Findings Brief description: Patient was brought to the cardiac catheterization suite where he was shaved and prepped in a sterile fashion. Sedated using IV Versed and fentanyl. Soft tissues of the right wrist were anesthetized using 2 mL of 1% Xylocaine. Using the ultrasound for guidance, the right radial artery was accessed and a 6 Irish radial artery glide sheath was placed. Patient was provided anticoagulation with IV heparin and antispasmodics including nicardipine and nitroglycerin. All catheters were advanced and exchanged over a 0.035 J-tip wire. Left coronary angiography in orthogonal views with a 5 Irish TIGR diagnostic catheter. Right coronary angiography in orthogonal views with a 5 Irish TIGR diagnostic catheter. Left heart cath was performed with a 5 Irish angled pigtail catheter. Diagnostic catheters were removed. Radial artery sheath was removed. Hemostasis was obtained using a TR band. Patient remained hemodynamically stable and was returned to the recovery area. This ended the case. Findings: LMT: Large caliber. No disease. LAD: Large caliber and transapical. Provides multiple septals and diagonal branches. There is no angiographically evident disease. Left circumflex: Large caliber and nondominant. 2 small obtuse marginal branches and a larger posterolateral branch. No angiographically evident disease. RCA: Large caliber and dominant. Bifurcates into a large PDA and a large multi branching posterolateral. There is no angiographically significant disease in the RCA or its branches. Hemodynamics Rest Ao:: 107/88 mmHg, mean 100 mmHg Final Ao: 110/90 mm Hg, mean 97 mm Hg LV: 151/35 mmHg, LVEDP 41 mmHg Recommendations Recommendations: Medical Therapy and/or Counseling (Increased diuresis, consider addition of SGLT2 to chronic heart failure regimen, may also need to consider short-term IV positive inotrope.) Radiation Exposure (mGy) 927, fluoroscopy time 2.4 minutes Contrast (mls) 50 mL Anesthesia Fentanyl 25 mcg, Versed 1 mg Procedural Complication(s) None I attest to the content of the Intraoperative Record and any orders documented therein. Any exceptions are noted below. [facility] Card Cath Procedure Codes Cardiac Catheterization Procedure 1: Cardiovascular Cath Procedures: 02926 Coronaries and LHC (+/-LV) Therapeutic Services & Ancillary Procedure 2: Cardiovascular Tx and Anc Procedures: 85552 Ultrasonic Guidance Vascular Access Moderate Sedation Procedure 1: Sedation/Anesthesia: 59753 Mod Sedation by the same physician;Init15 Min Child Age 5 & Up PG Care Time/CCT Total # of Minutes Spent Total Time Spent with Patient: Total time spent is greater than 50% in coordination of care (as documented) at patient's floor/unit and/or counseling patient:
[2022-06-05] MEDS: PANTOprazole 40 MG in SYRINGE 0 ML IV SCH ×2 (10:20→20:15)
[2022-06-05] MEDS: buPROPion SR 100 MG TABCR PO SCH ×2 (10:20→20:15)
[2022-06-05] MEDS: carvediloL 25 MG TAB PO SCH ×2 (10:20→20:15)
[2022-06-05] MEDS: lamoTRIgine 25 MG TAB PO SCH (10:20)
[2022-06-05] MEDS: ATORVASTATIN 40 MG TAB PO SCH (10:20)
[2022-06-05] MEDS: INSULIN ASPART PER UNIT SC SCH ×4 (10:26→21:20)
[2022-06-05 10:47] LABS: BUN Creatinine Ratio 23.1 (10-20); Calcium 8.4 mg/dl (8.5-10.1); Creatinine Clr Calc Pharmacy 79.8 ml/min; Est GFR (African American) 64.4 ml/min; Est GFR (Non-African American) 55.5 ml/min; Potassium 3.8 mmol/L (3.5-5.1)
[2022-06-05 10:51] LABS: Albumin Globulin Ratio 1.6 (0.9-2); Albumin Level 3.7 gm/dl (3.4-5.0); Bilirubin,Total 2.8 mg/dl (0.2-1.0); Globulin 2.3 gm/dl (2.5-4.0)
[2022-06-05] MEDS: LANTUS PER UNIT CHARGE SQ SCH (11:19)
[2022-06-05] MEDS: FAMOTIDINE 20 MG in SYRINGE 3 ML IV SCH ×2 (11:28→20:17)
--- NOTE | 2022-06-05 12:10 | Electrocardiogram Report ---
Test Reason : Blood Pressure : / mmHG Vent. Rate : 076 BPM Atrial Rate : 076 BPM P-R Int : 196 ms QRS Dur : 098 ms QT Int : 406 ms P-R-T Axes : 061 097 090 degrees QTc Int : 456 ms Normal sinus rhythm Rightward axis Borderline ECG When compared with ECG of 04-JUN-2022 09:05, Criteria for Septal infarct are no longer Present Confirmed by Earle Lewis ([id number]) on 06/05/2022 12:10:47 PM Referred By: REFERRED SELF Confirmed By:Earle Lewis
[2022-06-05] MEDS ORDERED: hydrOXYzine HCl 25 MG TAB PO PRN (18:06)
--- NOTE | 2022-06-05 18:10 | Hospitalist Progress Note ---
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 Chest/epigastric Pain -2/2 duodenitis as below -this appears to be more epigastric pain related to his duodenitis rather than cardiac. No significant change in his troponin levels despite hours of pain making cardiac less likely. 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 in 2017 - Last TTE with LVEF 40-45% in 02/2021 s/p ICD placement - Follows with [facility] [place] [place] [facility] and [facility] [place] [facility] [place]previously on cardiac transplant list at age 27 but then off as had improvement -noted to need more diuresis during cath today--> giving lasix iv bid today and then once daily for tomorrow - continue to hold Entresto, Bumex, spironolactone until HUY resolves, and after diuresis with lasix given low/soft BPs -holding home Jardiance - Continue Coreg -follow BMP (4) Vomiting: Plan: now resolved, 2/2 duodenitis, possibly viral? Continue promethazine PRN (5) HUY (acute kidney injury): Plan: - Baseline Cr approx. 0.9 - 1.0 on review of past draws - On arrival, BUN 25 / Cr 1.61 -safety lead up to 1.6 on last check, was given gentle IVFs and then now on diuresis with lasix - BP soft so holding Entresto - Continue to hold Entresto, Bumex, spironolactone, empagliflozin as above (6) Elevated troponin I level: Plan: See above for chest pain (7) Complex sleep apnea syndrome: Plan: - BiPAP qHS (8) Diabetes type 1, uncontrolled: Plan: - Last A1c at 8.3% in 04/2022 - Reduce long-acting dose to 75 Units qAM adjust insulin as needed holding home Victoza he uses for weight loss (9) Depression: Plan: - Continue lamotrigine - Continue Wellbutrin add on Vistaril prn for anxiety (10) Bilirubinemia: Plan: - Elevated to 2.0 on arrival in the context of otherwise normal LFTs - Gilbert's? NAFLD? - Noted multiple times during previous lab draws in past (11) Leukocytosis: Plan: - Noted on arrival to 16 with left shift, but also monocytosis , now iproved to 14 but remains likely 2/2 duodenitis - Question whether related to GI illness +/- stress response from recurrent vomiting? CTA-Chest (STAT-Rad): Subtle questionable opacities in the right medial basal segment with bronchial thickening -- however, no respiratory symptoms on exam to suggest developing PNA - Trend alongside temperature curve - Received CFTX in the ED - hold on further doses for now Plan Code: Full Dispo: continued stay on PCU PPX: SCDs Admission and Anticipated Discharge Date Admission Date: June 04, 2022 Subjective Pt feeling anxious about his recurrent worsening heart failure. No current epigastric pain but did earlier and it went away with phenergan. Had some overnight that went away with a GI cocktail and carafate. No CP, SOB. No leg swelling. Tele with SB rates 40-50s Review of Systems Review of Systems: All systems reviewed & are unremarkable except as noted in HPI & below Physical Exam Constitutional: WD/WN, vitals as above Eyes: + anicteric sclerae Neck: trachea midline, no thyromegaly Respiratory: normal respiratory effort, lungs clear to auscultation Cardiovascular: RRR, no murmur, no edema Chest (Breasts): Chest: normal inspection of chest Gastrointestinal (Abdomen): normal bowel sounds, soft, nontender, no hepatosplenomegaly Musculoskeletal: Extremities: extremities normal to inspection; no cyanosis and no clubbing Skin: no rashes, warm and dry Neurologic: moves all extremities and awake; no focal motor deficits Psychiatric: A+Ox3, euthymic affect Lymphatic: no lymphedema Results & Data Results & Data ([facility]) Vital Signs (Past 12 Hours) Vital Signs Temp Pulse Pulse Resp BP Pulse Ox O2 Del Method 06/05/22 15:43 70 06/05/22 15:20 36.4 C L 65 22 94/66 L 97 Room Air 06/05/22 13:59 68 18 108/87 98 Room Air 06/05/22 13:07 Room Air 06/05/22 11:57 68 18 120/91 100 Room Air 06/05/22 11:29 78 20 126/75 98 Room Air 06/05/22 10:38 66 20 132/94 96 Room Air 06/05/22 10:14 72 20 118/82 96 Room Air 06/05/22 09:59 71 16 111/78 94 Room Air 06/05/22 09:44 78 20 120/88 97 Room Air 06/05/22 09:29 36.5 C 73 20 116/74 94 Room Air 06/05/22 09:30 68 20 117/99 96 Room Air 06/05/22 09:15 70 20 121/92 95 Room Air 06/05/22 07:31 36.5 C 75 20 120/90 94 CPAP 06/05/22 07:30 56 L 118/93 95 Room Air 06/05/22 07:26 72 Laboratory Results 06/05/22 06/05/22 06/05/22 Range/Units 16:59 12:00 10:12 WBC (4.8-10.8) K/ul RBC (4.63-6.08) M/uL Hgb (14.0-18.0) g/dl Hct (40.1-51.0) % MCV (80.0-100.0) fL MCH (25.0-34.0) pg MCHC (32.0-36.0) g/dL RDW Std Deviation (36.4-46.3) fL RDW Coeff of Vanda (11.5-14.5) % Plt Count (130-400) K/uL MPV (9.4-12.4) fL Immature Gran % (Auto) % Neut % (Auto) % Lymph % (Auto) % [place] % (Auto) % Eos % (Auto) % Baso % (Auto) % Neut # (Auto) (1.4-6.5) K/uL Lymph # (Auto) (1.2-3.4) K/uL [place] # (Auto) (0.24-0.82) K/uL Eos # (Auto) (0-0.50) K/uL Baso # (Auto) (0-0.2) K/uL Immature Gran # (Auto) (0.00-0.02) K/uL Sodium 135 L Potassium 3.8 Chloride 103 Carbon Dioxide 20 L Anion Gap 12 H BUN 36 H Creatinine 1.56 H Est Cr Clr Drug Dosing 79.8 Est GFR ( Amer) 64.4 Est GFR (Non-Af Amer) 55.5 BUN/Creatinine Ratio 23.1 H Glucose 75 POC Glucose 99 74 (70-99) mg/dl Calcium 8.4 L Total Bilirubin 2.8 H AST 584 H ALT 531 H Alkaline Phosphatase 89 Total Protein 6.0 Albumin 3.7 Globulin 2.3 L Albumin/Globulin Ratio 1.6 06/05/22 06/05/22 06/05/22 Range/Units 09:44 07:30 06:27 WBC (4.8-10.8) K/ul RBC (4.63-6.08) M/uL Hgb (14.0-18.0) g/dl Hct (40.1-51.0) % MCV (80.0-100.0) fL MCH (25.0-34.0) pg MCHC (32.0-36.0) g/dL RDW Std Deviation (36.4-46.3) fL RDW Coeff of Vanda (11.5-14.5) % Plt Count (130-400) K/uL MPV (9.4-12.4) fL Immature Gran % (Auto) % Neut % (Auto) % Lymph % (Auto) % [place] % (Auto) % Eos % (Auto) % Baso % (Auto) % Neut # (Auto) (1.4-6.5) K/uL Lymph # (Auto) (1.2-3.4) K/uL [place] # (Auto) (0.24-0.82) K/uL Eos # (Auto) (0-0.50) K/uL Baso # (Auto) (0-0.2) K/uL Immature Gran # (Auto) (0.00-0.02) K/uL Sodium Potassium Chloride Carbon Dioxide Anion Gap BUN Creatinine Est Cr Clr Drug Dosing Est GFR ( Amer) Est GFR (Non-Af Amer) BUN/Creatinine Ratio Glucose POC Glucose 83 80 89 (70-99) mg/dl Calcium Total Bilirubin AST ALT Alkaline Phosphatase Total Protein Albumin Globulin Albumin/Globulin Ratio 06/05/22 06/05/22 06/04/22 Range/Units 06:25 06:25 23:17 WBC 14.13 H (4.8-10.8) K/ul RBC 5.44 (4.63-6.08) M/uL Hgb 16.1 (14.0-18.0) g/dl Hct 45.8 (40.1-51.0) % MCV 84.2 (80.0-100.0) fL MCH 29.6 (25.0-34.0) pg MCHC 35.2 (32.0-36.0) g/dL RDW Std Deviation 40.0 (36.4-46.3) fL RDW Coeff of Vanda 13.2 (11.5-14.5) % Plt Count 224 (130-400) K/uL MPV 12.5 H (9.4-12.4) fL Immature Gran % (Auto) 0.6 % Neut % (Auto) 67.6 % Lymph % (Auto) 20.2 % [place] % (Auto) 11.0 % Eos % (Auto) 0.2 % Baso % (Auto) 0.4 % Neut # (Auto) 9.55 H (1.4-6.5) K/uL Lymph # (Auto) 2.85 (1.2-3.4) K/uL [place] # (Auto) 1.55 H (0.24-0.82) K/uL Eos # (Auto) 0.03 (0-0.50) K/uL Baso # (Auto) 0.06 (0-0.2) K/uL Immature Gran # (Auto) 0.09 H (0.00-0.02) K/uL Sodium Cancelled Potassium Cancelled Chloride Cancelled Carbon Dioxide Cancelled Anion Gap Cancelled BUN Cancelled Creatinine Cancelled Est Cr Clr Drug Dosing Cancelled Est GFR ( Amer) Cancelled Est GFR (Non-Af Amer) Cancelled BUN/Creatinine Ratio Cancelled Glucose Cancelled POC Glucose 93 (70-99) mg/dl Calcium Cancelled Total Bilirubin Cancelled AST Cancelled ALT Cancelled Alkaline Phosphatase Cancelled Total Protein Cancelled Albumin Cancelled Globulin Cancelled Albumin/Globulin Ratio Cancelled 06/04/22 Range/Units 20:26 WBC (4.8-10.8) K/ul RBC (4.63-6.08) M/uL Hgb (14.0-18.0) g/dl Hct (40.1-51.0) % MCV (80.0-100.0) fL MCH (25.0-34.0) pg MCHC (32.0-36.0) g/dL RDW Std Deviation (36.4-46.3) fL RDW Coeff of Vanda (11.5-14.5) % Plt Count (130-400) K/uL MPV (9.4-12.4) fL Immature Gran % (Auto) % Neut % (Auto) % Lymph % (Auto) % [place] % (Auto) % Eos % (Auto) % Baso % (Auto) % Neut # (Auto) (1.4-6.5) K/uL Lymph # (Auto) (1.2-3.4) K/uL [place] # (Auto) (0.24-0.82) K/uL Eos # (Auto) (0-0.50) K/uL Baso # (Auto) (0-0.2) K/uL Immature Gran # (Auto) (0.00-0.02) K/uL Sodium Potassium Chloride Carbon Dioxide Anion Gap BUN Creatinine Est Cr Clr Drug Dosing Est GFR ( Amer) Est GFR (Non-Af Amer) BUN/Creatinine Ratio Glucose POC Glucose 76 (70-99) mg/dl Calcium Total Bilirubin AST ALT Alkaline Phosphatase Total Protein Albumin Globulin Albumin/Globulin Ratio PG Care Time/CCT Total # of Minutes Spent Total Time Spent with Patient: Total time spent is greater than 50% in coordination of care (as documented) at patient's floor/unit and/or counseling patient: Coding Level of Care Code 50402 Subseq Hosp Care Lvl 3 Diagnoses Chest pain R07.9 Chest pain type: unspecified Duodenitis K29.80 Cardiomyopathy, idiopathic I42.8 Vomiting R11.2 Nausea presence: with nausea Vomiting type: unspecified HUY (acute kidney injury) N17.9 Elevated troponin I level R77.8 Complex sleep apnea syndrome G47.31 Diabetes type 1, uncontrolled E10.65 Depression F33.1 Depression Type: major depressive disorder Major depression recurrence: recurrent Active/Remission status: currently active Major depression episode severity: moderate Bilirubinemia E80.6 Leukocytosis D72.829 (1) Chest pain Chest pain type: unspecified Qualified Code(s): R07.9 - Chest pain, unspecified (2) Vomiting Nausea presence: with nausea Vomiting type: unspecified Qualified Code(s): R11.2 - Nausea with vomiting, unspecified (3) Depression Depression Type: major depressive disorder Major depression recurrence: recurrent Active/Remission status: currently active Major depression episode severity: moderate Qualified Code(s): F33.1 - Major depressive disorder, recurrent, moderate
[2022-06-05] MEDS: SUCRALFATE 1 GM/10 ML UDC PO SCH ×2 (18:45→20:16)
[2022-06-06 01:48] LABS: IgA Serum 239 mg/dL (47-310); Tis Trans IgA <1.0 U/mL
[2022-06-06 04:02] LABS: Base Excess VBG -3.5 mEq/L; Basophils # (auto) 0.08 K/uL (0-0.2); Basophils % (auto) 0.5 %; Eosinophils # (auto) 0.02 K/uL (0-0.50); Eosinophils % (auto) 0.1 %; HCO3 VBG 23 mmol/L; Hematocrit (blood only) 50.1 % (40.1-51.0); Hemoglobin 16.8 g/dl (14.0-18.0); Immature Granulocytes # (auto) 0.19 K/uL (0.00-0.02); Immature Granulocytes % (auto) 1.2 %; Lymphocytes # (auto) 2.51 K/uL (1.2-3.4); Mean Corpuscular Hemoglobin 29.4 pg (25.0-34.0); Mean Corpuscular Hgb Conc 33.5 g/dL (32.0-36.0); Mean Corpuscular Volume 87.6 fL (80.0-100.0); Mean Platelet Volume 11.4 fL (9.4-12.4); Monocytes # (auto) 1.22 K/uL (0.24-0.82); Monocytes % (auto) 7.8 %; Neutrophils # (auto) 11.63 K/uL (1.4-6.5); Neutrophils % (auto) 74.4 %; Nucleated RBC # (auto) 0.02 K/uL (0-0); Nucleated RBC % (auto) 0.1 %; Oxygen Saturation VBG < 60.0 %; PCO2 VBG 44 mmHg (38-50); PO2 VBG 18 mmHg; Platelet Count 280 K/uL (130-400); RDW Coefficient of Variation 13.7 % (11.5-14.5); Red Blood Count 5.72 M/uL (4.63-6.08); White Blood Count 15.65 K/ul (4.8-10.8); pH VBG 7.32 (7.36-7.41)
[2022-06-06] MEDS ORDERED: STAT IV Infusion **Titration per Protocol STA ×3 (04:03→07:13)
[2022-06-06] MEDS ORDERED: DOBUTamine / D5W 500 MG/250 ML BAG IV SCH (04:15)
[2022-06-06] MEDS ORDERED: RAPID SEQUENCE INDUCTION BAG ONE (04:33)
[2022-06-06] MEDS ORDERED: PROPOFOL IV EMULSION 10 MG/ML 100 ML VIAL IV ONE (04:33)
[2022-06-06] MEDS ORDERED: NOREPINEPHRINE/D5W 4 MG/250 ML IV ONE (04:36)
[2022-06-06 04:41] LABS: Albumin Globulin Ratio 1.5 (0.9-2); Albumin Level 3.8 gm/dl (3.4-5.0); BUN Creatinine Ratio 16.2 (10-20); Bilirubin,Total 2.7 mg/dl (0.2-1.0); Calcium 8.4 mg/dl (8.5-10.1); Creatinine Clr Calc Pharmacy 49.2 ml/min; Est GFR (African American) 35.9 ml/min; Est GFR (Non-African American) 30.9 ml/min; Globulin 2.5 gm/dl (2.5-4.0); Magnesium 2.5 mg/dl (1.7-2.4); Potassium 4.2 mmol/L (3.5-5.1); Total Protein 6.3 gm/dl (6.0-8.3)
--- NOTE | 2022-06-06 04:53 | Communication Note ---
Date of Service: June 06, 2022 Notified by patient's RN early this morning that he woke up and reported not feeling well. At that time, he was reported to feel short of breath, vitals were 94/81, HR 60, SpO2 97% on CPAP, RR 22. Evaluated patient shortly thereafter, who appeared tachypneic, pale, diaphoretic, and somnolent. He was responsive to commands and was oriented to person and place, but intermittently would fall back asleep. BSG at that time ~70; 1 amp of dextrose was given IV. Attempted to get a blood pressure at that time, and our team was unable to despite multiple attempts with both automatic and manual cuffs. Radial pulse (left) was extremely weak and thready. Exam - pale, diaphoretic, skin cool to the touch. Somnolent. Lips with dusky and cyanotic appearance. SpO2 at this time still measured at ~92%+. Cardiac - NRRR @ ~60bpm, +S1/S2 with soft systolic murmur best heard along the left sternal border. Respiratory - abnormal respiratory rhythm with weak effort. No respiratory muscles. CTAB. Abdomen - mildly tense to the touch in the epigastrum, +TTP that radiates downwards. Extremities - Cool to the touch, indeterminate capillary refill, dusking of the fingernails. ECG - NSR without appreciable changes compared to prior exam. Given concerns for pending circulatory compromise in the setting of recent catheterization, known profoundly low LVEF, and new abdominal pain (e.g., cardiogenic shock, embolism, dissection, abdominal bleed given duodenitis, etc.), a CODE HANK was called. ECG, CXR, and labs were ordered. Patient was started on LR and dobutamine was ordered. CTA-Chest and Abdomen were ordered and taken. Patient was thereafter immediately transferred to the ICU for hemodynamic support and respiratory support. I personally spoke with patient's Natalya west, at approx. 0530 to update her on the situation. She is aware and will be coming to the hospital. Resident Activity Tracking Resident Involvement: Resident Care Provided Care Provided: Adult [facility]
[2022-06-06] MEDS: NOREPINEPHRINE/D5W 4 MG/250 ML PLCT IV SCH ×4 (05:00→11:21)
[2022-06-06] MEDS: propofoL 1,000 MG/100 ML VIAL IV SCH ×2 (05:00→08:13)
[2022-06-06] MEDS ORDERED: OPTIRAY 300 500mL IV ONE (05:03)
--- NOTE | 2022-06-06 05:17 | Emergency Department Note ---
ED Visit Note I was called from the emergency department to assist with intubation of this patient in the ICU. On my assessment in the ICU the patient is in respiratory distress, on BiPAP, patient is cyanotic in the perioral area and has oxygen saturation of 89% on BiPAP. Patient is alert and does give verbal consent for intubation to be performed. Endotracheal intubation: Rapid sequence intubation medications: Etomidate 20, Rocuronium 50 Utilizing glide scope sized [3] glide scope blade was advanced to the vallecula with visualization of the vocal cords. Size [7.5] endotracheal tube was advanced utilizing glide scope stylette and passed through the vocal cords under direct visualization. ET tube balloon was inflated. Secured at 24cm at the lip. Appropriate color change was achieved with capnography. Breath sounds auscultated bilaterally following placement of the ET tube. Patient tolerated the procedure well. Rufino Williamson, Emergency Medicine . : Chest pain Qualifiers: Chest pain type: unspecified Qualified Code(s): R07.9 - Chest pain, unspecified Vomiting Qualifiers: Vomiting type: unspecified Nausea presence: with nausea Qualified Code(s): R11.2 - Nausea with vomiting, unspecified Pneumonia Qualifiers: Pneumonia type: due to unspecified organism Laterality: unspecified laterality Lung location: unspecified part of lung Qualified Code(s): J18.9 - Pneumonia, unspecified organism
--- NOTE | 2022-06-06 05:44 | Critical Care Consultation ---
Date of Consultation June 06, 2022 Assessment & Plan (1) Chest pain: (2) Duodenitis: (3) Cardiomyopathy, idiopathic: (4) Vomiting: (5) HUY (acute kidney injury): (6) Elevated troponin I level: (7) Complex sleep apnea syndrome: (8) Diabetes type 1, uncontrolled: (9) Depression: (10) Bilirubinemia: (11) Leukocytosis: Plan ICU CONSULT NOTE FORMAT: Reason Critically Ill: Critically ill 37 YOM s/p rapid response rescue on floor for hypotension and obtundation. Requiring intubation and mechanical ventilation for undifferntiated shock at this time favoring sepsis/cardiogenic or combination of the above. Neuro - Obtunded secondary to shock, sedated for mechanical ventilation, Depression CAM ICU: not obtainable - sedate with propofol - fentanyl bolus for pain - No focal deficits prior to intubation - Discontinue Vistaril - Continue Lamotrigine - Hold buproprion Cardiac - HFrEF, CM(ideopathic), HTN, HLD, Presence of AICD, elevated troponin I, shock - Shock- likely septic at this point as well as likely component of heart failure likey right sided as lungs are without pulmonary edema - Bedside POCUs negative for pericardial effusion, confirmed on CTA of chest - Received 1liter bolus prior to ICU transfer- UO and MAP goals for fluid needs - ECG without dynamic changes, HScTNI downtrending - Levophed for MAP support- vasopressin if needed in addition - Diuretics on hold at this time - Continue BB Respiratory - Acute respiratory failure in setting of shock, MIRTA - Intubated on arrival to ICU as patient obtunded and hypoxic - ETT pulled back 1.5cm post intubation - 7.45/413- Rate decreased and PEEP/FIo2 decreased - follow trends GI - Elevated LFTS, Duodenitis, Elevated bilirubin, Pancreatits - Lipase pending but with new stranding surrounding pancreatic tail and with abominal pain epigastrum - Wall thickening of the gallbladder- no evindecne of stones - WBC elevated, PCT elevated- blood cultures pending - General surgery consulted - GI consulted - OGT to LIWS - HGB stable likely component of hemoconcentration RENAL/LYTES - HUY - Secondary to shock as above - Maintain MAPS >65 and UO > 30ml/kg - follow BMP - NO acute issues at this time - Escobar to gravity ENDO - DMII, hypothyroidism - hyperglycemic protocol HEME - stable no acute needs - OGT placed no bleeding noted from UGI ID - Septic shock requiring vasopressor support - Likely source at this time is GI/gallbladder tree - RUQUS pending - Blood culture pending - Lactae 4.0 with evidence of organ dysfunction and hypoperfusion - vasopressors as above LINES/IV ACCESS - right radial arterial line, right ij central line, Escobar catheter, peripheral IV, OG tube - continue use of these lines DVT PROPHYLAXIS - SCDs I have personally spent 70 minutes of critical care time in the direct management of this patient. This is a life/limb threatening event. This includes time spent evaluating patient, direct bedside care, chart review, placing orders, interpretation of diagnostic studies, discussion with consultants, patient, as well as other required patient management activities. This time is exclusive of all separately billable procedures, and teaching time and separate from and in addition to any other critical care service time. Thank you for allowing us to participate in the care of this patient. Please refer to my attending physician's documentation for any further recommendations. History of Present Illness Reason for Consultation: Hypotensive, obtundation, shock Requesting Physician: Karma Novak Attending Physician: Arlyn Hayes MD History of Present Illness 37 YOM admitted to hospital on 06/03/22 for chest/epigastric pain with nausea and vomiting associated with anorexia. He has significant HF history with ICD, HTN, HFrEF (25-30%). He was noted to have elevated HScTNI on admission and underwent cardiac cath on 06/05/22 that was noted to be normal without stenosis to coronary arteries. He was previously on heart transplant list and removed secondary to improvement in function, with previous ECHO 40-45%. He was pending GI evaluation for duodenitis and n/v. He was noted to be hypotensive and obtunded early this monring and a code purple was called. Patient was cool, clammy, complaining of abdominal discomfort all over. He was given an amp of D50 by primary team for glucose in the 70s. He was then transported to CT scan for CTA of the chest as well as abdomen/pelvis. He arrived to the ICU where he remained hypotensive, was started on Levophed through peripheral line, was hypoxic with evidence of decreased perfusion with dusky fingertips, cheeks and ears. He was immediately intubated with assistance from EMD and transitioned to placement of arterial line and CVL. Blood cultures were sent and started on Zosyn. Labs on arrival were noteable for elevated WBC count, PCT elevated, elevated lactic acid, and marked elevation of his LFTs, lipase is pending. . His HsCTNI is downtrending. Allergies Allergy/AdvReac Type Severity Reaction Status Date / Time VEE Inhibitors Allergy Intermediate COUGH Verified 05/30/22 14:55 lisinopril AdvReac Unknown cough Verified 05/30/22 14:55 Home Medications Medication Instructions Recorded Confirmed Type BiPap Supplies #1 ea 07/28/19 05/30/22 Rx sacubitril 97 mg-valsartan 103 mg 1 tab PO BID #180 tabs 01/31/20 06/03/22 Rx tablet (Entresto) Victoza 3-Mc 0.6 mg/0.1 mL (18 1.8 mg (0.3 mL) subcut DAILY 90 04/30/21 05/30/22 Rx mg/3 mL) subcutaneous pen injector days #27 mL (liraglutide) blood sugar diagnostic (ReliOn #10 ea 12/14/21 05/30/22 History Prime Test Strips) levothyroxine 88 mcg tablet 88 mcg PO DAILY #30 tabs 12/28/21 06/03/22 Rx bupropion HCl 100 mg tablet,12 hr 100 mg PO BID #180 ea 02/18/22 06/03/22 Rx sustained-release (Wellbutrin SR) carvedilol 25 mg tablet (Coreg) 25 mg PO BID #180 tabs 02/18/22 06/03/22 Rx lamotrigine 25 mg tablet 50 mg PO DAILY #180 tabs 02/18/22 06/03/22 Rx pantoprazole 40 mg tablet,delayed 40 mg PO DAILY #90 tabs 02/18/22 06/03/22 Rx release potassium chloride 20 mEq 20 meq PO DAILY #90 tabs 02/18/22 06/03/22 Rx tablet,extended release spironolactone 25 mg tablet 25 mg PO BID #180 tabs 02/18/22 06/03/22 Rx empagliflozin 10 mg tablet 10 mg PO DAILY #90 tabs 02/19/22 06/03/22 Rx (Jardiance) pen needle, diabetic 31 gauge x #150 ea 02/19/22 05/30/22 Rx 3/16" (BD Ultra-Fine Mini Pen Needle) bumetanide 0.5 mg tablet 1 mg PO DAILY SWELLING #180 tabs 02/25/22 06/03/22 Rx blood-glucose sensor (Dexcom G6 #3 ea 04/26/22 05/30/22 Rx Sensor device) insulin degludec 200 unit/mL (3 100 unit subcut DAILY 04/26/22 06/03/22 History mL) subcutaneous pen (Tresiba FlexTouch U-200 insulin) insulin lispro 100 unit/mL See Rx Instructions subcut .COMPLEX 04/26/22 06/03/22 History subcutaneous pen (Humalog KwikPen (U-100) Insulin) atorvastatin 80 mg tablet 80 mg PO DAILY #90 tabs 05/10/22 06/03/22 Rx cholecalciferol (vitamin D3) 1,250 50,000 unit PO WK 06/03/22 06/03/22 History mcg (50,000 unit) capsule Patient History Medical History (Updated 06/06/22 @ 10:33 by Earle Lewis MD) Acute on chronic systolic and diastolic heart failure, NYHA class 2 (10/06/14) ICD (implantable cardioverter-defibrillator) in place Kidney stone Surgical History History of surgery lymphadenectomy History of wisdom tooth extraction Family History Mother Breast cancer Father Myocardial infarction Uncle Myocardial infarction Grandfather (Paternal) Myocardial infarction Grandmother Malignant neoplasm of eye Other Coronary heart disease Kidney disease Type 2 diabetes mellitus Denies family history of Ovarian cancer Prostate cancer Colorectal cancer Social History Smoking Status: Never smoker Tobacco Type: Cigarettes Age Started Using Tobacco: 16; Age Quit Using Tobacco: 16; Years Smoked: 1; Second Hand Exposure: No; Hx Alcohol Use: No Hx Substance Use: No Preferred Language: Guyanese Communication Ability: Effective Visual Impairment: No Limitations Hearing Ability: Normal Ladder Operator Required: No Beliefs That Will Affect Care: None marital status: Life Partner Current Living Situation: Significant Other current occupational status: disabled Other Information That Helps Us Care for You: No Feels Safe at Home: Yes Safety Concerns: Feels Safe At This Time Childhood Exposure to Second-Hand Smoke: Yes Diet Comment: low sodium Dental Care, Regularly: Yes Physical Activity Frequency: Does not Exercise Seatbelt Use: sometimes Sunscreen Use: Yes Assistive Devices: None Review of Systems Review of Systems: REVIEW OF SYSTEMS: Constitutional: cool and clammy Eyes: No diplopia, no worsening or blurred vision ENT: normal hearing, no trouble swallowing Respiratory: No cough, sputum, dyspnea at rest or on exertion Cardiovascular: No chest pain, tightness or palpitations Abdomen: (+) pain, NO nausea, vomiting, diarrhea or constipation Musculoskeletal: No joint pain, calf pain, swelling Neurologic: (+) obtundation No weakness, numbness/tingling, or balance problems Psychiatric: No anxiety or depression Skin: No rash or itch Physical Exam Physical Exam: PHYSICAL EXAM: General: obtunded in distress Head: Normocephalic, atraumatic ENT: PERRL, EOMI, no pharyngeal exudate, mucous membranes dry Neuro: AAO x 3, speech clear and appropriate, strength intact bilaterally 5/5, sensation intact and equal all extremities and dermatomes, no pronator drift Chest: equal rise and fall of the chest, no accessory muscle use, no heaves or thrills, decreased in bases and gruntin Cardiac: Regular rate and rhythm, telemetry reviewed, skin cool and clammy with decreased palpation of pulses, capilary refil delayed GI: distended, with guarding, but without rebound tenderness, pain > on right side and epigastrum : escobar placed to gravity Extremities: Normal inspection, no peripheral edema or erythema, calfs nontender to palpation Psych: Normal mood and affect Skin: no rash or erythema Results & Data Results & Data ([facility]) Vital Signs (Past 12 Hours) Vital Signs Temp Pulse Pulse Resp BP Pulse Ox O2 Del Method 06/06/22 04:56 67 26 H 93 06/06/22 03:00 36.5 C 76 24 94/81 L 97 Nasal CPAP 06/05/22 23:33 72 06/05/22 23:00 36.3 C L 76 18 89/71 L 97 CPAP 06/05/22 22:30 75 21 98 06/05/22 20:00 CPAP 06/05/22 19:00 36.7 C 64 18 94/67 L 95 CPAP FiO2 06/06/22 04:56 100 06/06/22 03:00 06/05/22 23:33 06/05/22 23:00 06/05/22 22:30 21 06/05/22 20:00 06/05/22 19:00 Laboratory Results Laboratory Results - last 24 hr 06/04/22 06/05/22 06/05/22 12:36 06:25 06:25 WBC 14.13 H RBC 5.44 Hgb 16.1 POC Hgb Hct 45.8 POC Hct MCV 84.2 MCH 29.6 MCHC 35.2 RDW Std Deviation 40.0 RDW Coeff of Vanda 13.2 Plt Count 224 MPV 12.5 H Immature Gran % (Auto) 0.6 Neut % (Auto) 67.6 Lymph % (Auto) 20.2 [place] % (Auto) 11.0 Eos % (Auto) 0.2 Baso % (Auto) 0.4 Neut # (Auto) 9.55 H Lymph # (Auto) 2.85 [place] # (Auto) 1.55 H Eos # (Auto) 0.03 Baso # (Auto) 0.06 Immature Gran # (Auto) 0.09 H Absolute Nucleated RBC Nucleated RBC % (auto) PT INR APTT PTT Ratio Sample Site POC pH POC pCO2 POC pO2 POC HCO3 POC Total CO2 POC Base Excess ABG pH (Temp Correct) ABG pCO2 (Temp Corrct POC ABG pO2 at Pt Temp POC ABG O2 Sat Alfonso Test VBG pH VBG pCO2 VBG pO2 VBG HCO3 VBG O2 Saturation VBG Base Excess O2 Delivery Device POC O2 Rate POC FiO2 Tidal Volume PEEP POC Sodium Sodium Cancelled POC Potassium Potassium Cancelled Chloride Cancelled Carbon Dioxide Cancelled Anion Gap Cancelled BUN Cancelled Creatinine Cancelled Est Cr Clr Drug Dosing Cancelled Est GFR ( Amer) Cancelled Est GFR (Non-Af Amer) Cancelled BUN/Creatinine Ratio Cancelled Glucose Cancelled POC Glucose Lactate Calcium Cancelled Magnesium Total Bilirubin Cancelled AST Cancelled ALT Cancelled Alkaline Phosphatase Cancelled Troponin I High Sens Total Protein Cancelled Albumin Cancelled Globulin Cancelled Albumin/Globulin Ratio Cancelled Lipase Procalcitonin IgA 239 Tiss Transglutamin IgA <1.0 Anti-Gliadin IgA Ab Cancelled Gliadin (Deamidat) IgG Cancelled Celiac Comment Cancelled Celiac Disease Interp SEE NOTE Blood Type Blood Type Recheck Antibody Screen 06/05/22 06/05/22 06/05/22 07:30 09:44 10:12 WBC RBC Hgb POC Hgb Hct POC Hct MCV MCH MCHC RDW Std Deviation RDW Coeff of Vanda Plt Count MPV Immature Gran % (Auto) Neut % (Auto) Lymph % (Auto) [place] % (Auto) Eos % (Auto) Baso % (Auto) Neut # (Auto) Lymph # (Auto) [place] # (Auto) Eos # (Auto) Baso # (Auto) Immature Gran # (Auto) Absolute Nucleated RBC Nucleated RBC % (auto) PT INR APTT PTT Ratio Sample Site POC pH POC pCO2 POC pO2 POC HCO3 POC Total CO2 POC Base Excess ABG pH (Temp Correct) ABG pCO2 (Temp Corrct POC ABG pO2 at Pt Temp POC ABG O2 Sat Alfonso Test VBG pH VBG pCO2 VBG pO2 VBG HCO3 VBG O2 Saturation VBG Base Excess O2 Delivery Device POC O2 Rate POC FiO2 Tidal Volume PEEP POC Sodium Sodium 135 L POC Potassium Potassium 3.8 Chloride 103 Carbon Dioxide 20 L Anion Gap 12 H BUN 36 H Creatinine 1.56 H Est Cr Clr Drug Dosing 79.8 Est GFR ( Amer) 64.4 Est GFR (Non-Af Amer) 55.5 BUN/Creatinine Ratio 23.1 H Glucose 75 POC Glucose 80 83 Lactate Calcium 8.4 L Magnesium Total Bilirubin 2.8 H AST 584 H ALT 531 H Alkaline Phosphatase 89 Troponin I High Sens Total Protein 6.0 Albumin 3.7 Globulin 2.3 L Albumin/Globulin Ratio 1.6 Lipase Procalcitonin IgA Tiss Transglutamin IgA Anti-Gliadin IgA Ab Gliadin (Deamidat) IgG Celiac Comment Celiac Disease Interp Blood Type Blood Type Recheck Antibody Screen 06/05/22 06/05/22 06/05/22 12:00 16:59 21:07 WBC RBC Hgb POC Hgb Hct POC Hct MCV MCH MCHC RDW Std Deviation RDW Coeff of Vanda Plt Count MPV Immature Gran % (Auto) Neut % (Auto) Lymph % (Auto) [place] % (Auto) Eos % (Auto) Baso % (Auto) Neut # (Auto) Lymph # (Auto) [place] # (Auto) Eos # (Auto) Baso # (Auto) Immature Gran # (Auto) Absolute Nucleated RBC Nucleated RBC % (auto) PT INR APTT PTT Ratio Sample Site POC pH POC pCO2 POC pO2 POC HCO3 POC Total CO2 POC Base Excess ABG pH (Temp Correct) ABG pCO2 (Temp Corrct POC ABG pO2 at Pt Temp POC ABG O2 Sat Alfonso Test VBG pH VBG pCO2 VBG pO2 VBG HCO3 VBG O2 Saturation VBG Base Excess O2 Delivery Device POC O2 Rate POC FiO2 Tidal Volume PEEP POC Sodium Sodium POC Potassium Potassium Chloride Carbon Dioxide Anion Gap BUN Creatinine Est Cr Clr Drug Dosing Est GFR ( Amer) Est GFR (Non-Af Amer) BUN/Creatinine Ratio Glucose POC Glucose 74 99 170 H Lactate Calcium Magnesium Total Bilirubin AST ALT Alkaline Phosphatase Troponin I High Sens Total Protein Albumin Globulin Albumin/Globulin Ratio Lipase Procalcitonin IgA Tiss Transglutamin IgA Anti-Gliadin IgA Ab Gliadin (Deamidat) IgG Celiac Comment Celiac Disease Interp Blood Type Blood Type Recheck Antibody Screen 06/06/22 06/06/22 06/06/22 02:53 03:45 03:47 WBC 15.65 H RBC 5.72 Hgb 16.8 POC Hgb Hct 50.1 POC Hct MCV 87.6 MCH 29.4 MCHC 33.5 RDW Std Deviation 42.0 RDW Coeff of Vanda 13.7 Plt Count 280 MPV 11.4 Immature Gran % (Auto) 1.2 Neut % (Auto) 74.4 Lymph % (Auto) 16.0 [place] % (Auto) 7.8 Eos % (Auto) 0.1 Baso % (Auto) 0.5 Neut # (Auto) 11.63 H Lymph # (Auto) 2.51 [place] # (Auto) 1.22 H Eos # (Auto) 0.02 Baso # (Auto) 0.08 Immature Gran # (Auto) 0.19 H Absolute Nucleated RBC 0.02 H Nucleated RBC % (auto) 0.1 PT INR APTT PTT Ratio Sample Site POC pH POC pCO2 POC pO2 POC HCO3 POC Total CO2 POC Base Excess ABG pH (Temp Correct) ABG pCO2 (Temp Corrct POC ABG pO2 at Pt Temp POC ABG O2 Sat Alfonso Test VBG pH VBG pCO2 VBG pO2 VBG HCO3 VBG O2 Saturation VBG Base Excess O2 Delivery Device POC O2 Rate POC FiO2 Tidal Volume PEEP POC Sodium Sodium POC Potassium Potassium Chloride Carbon Dioxide Anion Gap BUN Creatinine Est Cr Clr Drug Dosing Est GFR ( Amer) Est GFR (Non-Af Amer) BUN/Creatinine Ratio Glucose POC Glucose 84 78 Lactate Calcium Magnesium Total Bilirubin AST ALT Alkaline Phosphatase Troponin I High Sens Total Protein Albumin Globulin Albumin/Globulin Ratio Lipase Procalcitonin IgA Tiss Transglutamin IgA Anti-Gliadin IgA Ab Gliadin (Deamidat) IgG Celiac Comment Celiac Disease Interp Blood Type Blood Type Recheck Antibody Screen 06/06/22 06/06/22 06/06/22 03:47 03:47 03:47 WBC RBC Hgb POC Hgb Hct POC Hct MCV MCH MCHC RDW Std Deviation RDW Coeff of Vanda Plt Count MPV Immature Gran % (Auto) Neut % (Auto) Lymph % (Auto) [place] % (Auto) Eos % (Auto) Baso % (Auto) Neut # (Auto) Lymph # (Auto) [place] # (Auto) Eos # (Auto) Baso # (Auto) Immature Gran # (Auto) Absolute Nucleated RBC Nucleated RBC % (auto) PT INR APTT PTT Ratio Sample Site POC pH POC pCO2 POC pO2 POC HCO3 POC Total CO2 POC Base Excess ABG pH (Temp Correct) ABG pCO2 (Temp Corrct POC ABG pO2 at Pt Temp POC ABG O2 Sat Alfonso Test VBG pH 7.32 L VBG pCO2 44 VBG pO2 18 VBG HCO3 23 VBG O2 Saturation < 60.0 VBG Base Excess -3.5 O2 Delivery Device POC O2 Rate POC FiO2 Tidal Volume PEEP POC Sodium Sodium 134 L POC Potassium Potassium 4.2 Chloride 100 Carbon Dioxide 21 Anion Gap 13 H BUN 41 H Creatinine 2.53 H D Est Cr Clr Drug Dosing 49.2 Est GFR ( Amer) 35.9 Est GFR (Non-Af Amer) 30.9 BUN/Creatinine Ratio 16.2 Glucose 73 POC Glucose Lactate Calcium 8.4 L Magnesium 2.5 H Total Bilirubin 2.7 H AST 898 H ALT 1056 H Alkaline Phosphatase 110 H Troponin I High Sens Total Protein 6.3 Albumin 3.8 Globulin 2.5 Albumin/Globulin Ratio 1.5 Lipase Procalcitonin IgA Tiss Transglutamin IgA Anti-Gliadin IgA Ab Gliadin (Deamidat) IgG Celiac Comment Celiac Disease Interp Blood Type AB Positive Blood Type Recheck Antibody Screen NEGATIVE 06/06/22 06/06/2206/06/22 03:47 03:54 03:55 WBC RBC Hgb POC Hgb Hct POC Hct MCV MCH MCHC RDW Std Deviation RDW Coeff of Vanda Plt Count MPV Immature Gran % (Auto) Neut % (Auto) Lymph % (Auto) [place] % (Auto) Eos % (Auto) Baso % (Auto) Neut # (Auto) Lymph # (Auto) [place] # (Auto) Eos # (Auto) Baso # (Auto) Immature Gran # (Auto) Absolute Nucleated RBC Nucleated RBC % (auto) PT Pending INR Pending APTT Pending PTT Ratio Pending Sample Site POC pH POC pCO2 POC pO2 POC HCO3 POC Total CO2 POC Base Excess ABG pH (Temp Correct) ABG pCO2 (Temp Corrct POC ABG pO2 at Pt Temp POC ABG O2 Sat Alfonso Test VBG pH VBG pCO2 VBG pO2 VBG HCO3 VBG O2 Saturation VBG Base Excess O2 Delivery Device POC O2 Rate POC FiO2 Tidal Volume PEEP POC Sodium Sodium POC Potassium Potassium Chloride Carbon Dioxide Anion Gap BUN Creatinine Est Cr Clr Drug Dosing Est GFR ( Amer) Est GFR (Non-Af Amer) BUN/Creatinine Ratio Glucose POC Glucose Lactate Calcium Magnesium Total Bilirubin AST ALT Alkaline Phosphatase Troponin I High Sens 101.0 H* Total Protein Albumin Globulin Albumin/Globulin Ratio Lipase Procalcitonin 3.04 H IgA Tiss Transglutamin IgA Anti-Gliadin IgA Ab Gliadin (Deamidat) IgG Celiac Comment Celiac Disease Interp Blood Type Blood Type Recheck Antibody Screen 06/06/22 06/06/22 06/06/22 03:55 04:07 05:42 WBC RBC Hgb POC Hgb 16.0 Hct POC Hct 47 MCV MCH MCHC RDW Std Deviation RDW Coeff of Vanda Plt Count MPV Immature Gran % (Auto) Neut % (Auto) Lymph % (Auto) [place] % (Auto) Eos % (Auto) Baso % (Auto) Neut # (Auto) Lymph # (Auto) [place] # (Auto) Eos # (Auto) Baso # (Auto) Immature Gran # (Auto) Absolute Nucleated RBC Nucleated RBC % (auto) PT INR APTT PTT Ratio Sample Site Art Line POC pH 7.45 POC pCO2 27 L POC pO2 412 H POC HCO3 19 POC Total CO2 20 L POC Base Excess -5.0 ABG pH (Temp Correct) 7.450 ABG pCO2 (Temp Corrct 27 L POC ABG pO2 at Pt Temp 413 POC ABG O2 Sat 100.0 H Alfonso Test NA VBG pH VBG pCO2 VBG pO2 VBG HCO3 VBG O2 Saturation VBG Base Excess O2 Delivery Device Ventilator POC O2 Rate 26 POC FiO2 100 Tidal Volume 450 PEEP 10 POC Sodium 132 L Sodium POC Potassium 3.6 Potassium Chloride Carbon Dioxide Anion Gap BUN Creatinine Est Cr Clr Drug Dosing Est GFR ( Amer) Est GFR (Non-Af Amer) BUN/Creatinine Ratio Glucose POC Glucose 149 H Lactate Calcium Magnesium Total Bilirubin AST ALT Alkaline Phosphatase Troponin I High Sens Total Protein Albumin Globulin Albumin/Globulin Ratio Lipase Pending Procalcitonin IgA Tiss Transglutamin IgA Anti-Gliadin IgA Ab Gliadin (Deamidat) IgG Celiac Comment Celiac Disease Interp Blood Type Blood Type Recheck Antibody Screen 06/06/22 06/06/22 05:46 05:46 WBC RBC Hgb POC Hgb Hct POC Hct MCV MCH MCHC RDW Std Deviation RDW Coeff of Vanda Plt Count MPV Immature Gran % (Auto) Neut % (Auto) Lymph % (Auto) [place] % (Auto) Eos % (Auto) Baso % (Auto) Neut # (Auto) Lymph # (Auto) [place] # (Auto) Eos # (Auto) Baso # (Auto) Immature Gran # (Auto) Absolute Nucleated RBC Nucleated RBC % (auto) PT INR APTT PTT Ratio Sample Site POC pH POC pCO2 POC pO2 POC HCO3 POC Total CO2 POC Base Excess ABG pH (Temp Correct) ABG pCO2 (Temp Corrct POC ABG pO2 at Pt Temp POC ABG O2 Sat Alfonso Test VBG pH VBG pCO2 VBG pO2 VBG HCO3 VBG O2 Saturation VBG Base Excess O2 Delivery Device POC O2 Rate POC FiO2 Tidal Volume PEEP POC Sodium Sodium POC Potassium Potassium Chloride Carbon Dioxide Anion Gap BUN Creatinine Est Cr Clr Drug Dosing Est GFR ( Amer) Est GFR (Non-Af Amer) BUN/Creatinine Ratio Glucose POC Glucose Lactate 2.0 Calcium Magnesium Total Bilirubin AST ALT Alkaline Phosphatase Troponin I High Sens Total Protein Albumin Globulin Albumin/Globulin Ratio Lipase Procalcitonin IgA Tiss Transglutamin IgA Anti-Gliadin IgA Ab Gliadin (Deamidat) IgG Celiac Comment Celiac Disease Interp Blood Type Blood Type Recheck AB Positive Antibody Screen Diagnostic Findings CTA of chest - completed see imagint - negative for PE or dissection, no pericardial effusion, no pulmonary edema CTA of abdomen and pelvis - completed see imaging RUQUS and liver with dopplers- pending Coding Level of Care Code Critical Care 1st 30-74 mins Diagnoses Chest pain R07.9 Chest pain type: unspecified Duodenitis K29.80 Cardiomyopathy, idiopathic I42.8 Vomiting R11.2 Nausea presence: with nausea Vomiting type: unspecified HUY (acute kidney injury) N17.9 Elevated troponin I level R77.8 Complex sleep apnea syndrome G47.31 Diabetes type 1, uncontrolled E10.65 Depression F33.1 Active/Remission status: currently active Depression Type: major depressive disorder Major depression episode severity: moderate Major depression recurrence: recurrent Bilirubinemia E80.6 Leukocytosis D72.829 (1) Depression Active/Remission status: currently active Depression Type: major depressive disorder Major depression episode severity: moderate Major depression recurrence: recurrent Qualified Code(s): F33.1 - Major depressive disorder, recurrent, moderate (2) Chest pain Chest pain type: unspecified Qualified Code(s): R07.9 - Chest pain, unspecified (3) Vomiting Nausea presence: with nausea Vomiting type: unspecified Qualified Code(s): R11.2 - Nausea with vomiting, unspecified
--- NOTE | 2022-06-06 05:45 | Procedure Note ---
Procedure Note Date of Service June 06, 2022 Note INTERNAL JUGULAR CENTRAL LINE PROCEDURE NOTE: Procedure: Ultrasound guided Internal Jugular Central Line Placement Attending: Dr. Yip APC: José Miguel JOVEL ([facility] Indication: Central Drug Administration, Poor Venous Access, Multiple Lab Draws Necessary, etc. Anesthesia: [x]None Emergent consent was implied following discussion with patient prior to intubation Procedure, site, positioning, was verified. Patients right neck was cleansed and draped in the typical sterile fashion using ChloraPrep. The Internal Jugular Vein and Carotid Artery were identified using ultrasound. Under direct visualization with the ultrasound, the Internal Jugular vein was cannulated under direct ultrasound guidance using an introducer needle on a syringe. Good venous blood return was maintained prior to removal of syringe from introducer needle. Using Seldinger Technique, a guide wire was advanced through the introducer needle without resistance. The introducer needle was removed and ultrasound images were obtained of the guide wire within the Internal Jugular Vein. A small incision was made in penetrating fashion at the guide wire insertion site utilizing an 11 blade scalpel. The dilator was advanced to the vessel without resistance. The dilator was exchanged for the triple lumen catheter which was advanced into the vessel without resistance. The guide wire was removed intact from the catheter without issue. Claves were placed on each catheter tip with confirmation of good blood flow from each lumen. Each port was easily flushed with sterile saline. The catheter was placed at 16 cm and [address] in place. BioPatch was applied to the catheter and a sterile Tegaderm dressing was applied over the catheter with careful attention to sterility. Patient tolerated procedure well. No immediate complications were met. Post procedure x-ray was completed, placement was appropriate and no pneumothorax was noted. Images obtained are saved for permanent record Procedural Ultrasound Guidance: yes for scouting of vessels and direct ultrasound guided placment and verification of wire prior to dilation Procedure Date: Indication: vasopressors, shock Attending: Dr. Yip Artery AND Vein visualized: YES Compressible Vein: YES Guidewire or Short Catheter seen in vein prior to dilation: YES Images were not saved for permanent record secondary to emergent need Coding CPT Codes Tubes, Drains, and Vasc Access - Tubes, Drains, and Vasc Access: [id number] Place catheter in vein superior or inferior vena cava ([id number]) Tubes, Drains, and Vasc Access - Tubes, Drains, and Vasc Access: [id number] Ultrasound Guidance For Vascular ([id number]) [facility] Procedure Codes (Charges) Tubes, Drains, and Vasc Access Procedure 1: Tubes, Drains, and Vasc Access: [id number] Place catheter in vein superior or inferior vena cava Procedure 2: Tubes, Drains, and Vasc Access: [id number] Ultrasound Guidance For Vascular
--- NOTE | 2022-06-06 05:45 | Procedure Note ---
Procedure Note Date of Service June 06, 2022 Note ARTERIAL LINE PROCEDURE NOTE: Procedure: Arterial Line Placement ultrasound guided for scouting of artery and real time placement Attending: Dr. Yip APC: José Miguel JOVEL ([facility]-) Indication: Monitoring on Pressors Anesthesia: [x]None Emergent need for hypotension and vasopressor use Patient right wrist was selected, and patient positioned with wrist extended and secured. Patients Right wrist was prepped and draped in the usual sterile fashion. Ultrasound guidance was used to aid needle placement. A 20g Arrow arterial line was introduced into the right radial artery, wire was advanced smoothly without resistance, Catheter was threaded, and the needle was removed with appropriate brisk blood return. Good waveform was observed. Line was secured using suture and sterile dressing was applied. Blood Loss: Minimal Complications: None immediately noted Images were not saved to the record secondary to emergent need Procedural Ultrasound Guidance: Procedure Date: Attending: Dr. Yip Coding CPT Codes Tubes, Drains, and Vasc Access - Tubes, Drains, and Vasc Access: [id number] Insertion Catheter, Artery ([id number]) Tubes, Drains, and Vasc Access - Tubes, Drains, and Vasc Access: [id number] Ultrasound Guidance For Vascular ([id number]) [facility] [place] Procedure Codes (Charges) Tubes, Drains, and Vasc Access Procedure 1: Tubes, Drains, and Vasc Access: [id number] Insertion Catheter, Artery Procedure 2: Tubes, Drains, and Vasc Access: [id number] Ultrasound Guidance For Vascular
[2022-06-06 05:57] LABS: iSTAT Art Bld Gas pCO2 Correct 27 mmHg (35-46); iSTAT Arterial Blood Gas HCO3 19 meg/L (19-24); iSTAT Arterial Blood Gas pCO2 27 mmHg (35-46); iSTAT Arterial Blood Gas pH 7.45 (7.35-7.45); iSTAT Arterial Blood Gas pO2 412 mmHg (80-95); iSTAT Arterial Blood Gas pO2 C 413; iSTAT Carbon Dioxide 20 mmol/L (24-31); iSTAT FiO2 100 %; iSTAT Hematocrit 47 % (42-52); iSTAT Potassium 3.6 mmol/L (3.3-5.0); iSTAT Site Art Line; iSTAT Sodium 132 mmol/L (135-144)
[2022-06-06] MEDS ORDERED: PIPERACILLIN/TAZOBACTAM 4.5 GM in DEXTROSE 5% 100 ML IV ONE (06:00)
[2022-06-06] MEDS ORDERED: fentaNYL citrate 100 MCG/2 ML VIAL IV PRN (06:14)
[2022-06-06] MEDS ORDERED: PROPOFOL BOLUS FROM BAG IV PRN (06:14)
--- NOTE | 2022-06-06 06:18 | Surgery Consultation ---
Date of Consultation June 06, 2022 Assessment & Plan (1) Transaminitis: Patient has been transferred to the intensive care unit. It is unclear if that the cause of patient's episode is biliary in nature. A gallbladder ultrasound is ordered and is currently pending A lipase level is pending Patient has been receiving antibiotics in form of Zosyn which should continue Continue intravenous fluids as ordered Continue Levophed for pressure support -if it is determined the patient is suffering from cholecystitis he may best be served by percutaneous cholecystostomy due to his underlying medical comorbidities Supervising Physician Co-Signing Physician Notes Patient seen and examined, labs and imaging reviewed, care discussed with ICU team, agree with above. 37-year-old male with cardiomyopathy admitted for chest pressure. He had a code purple called overnight due to the severe stress and was eventually intubated and is on pressors. CTA chest and abdomen overnight radiologist read suggested cholecystitis, formal read showed edematous gallbladder with contraction, likely due to edematous state, less likely cholecystitis. On exam he is afebrile, currently intubated and on pressors. His abdomen is not rigid. WBC 15, liver enzymes elevated. Discussed care with ICU team. It would be unlikely that acute cholecystitis would develop this quickly and have such a profound septic response unless it involved choledocholithiasis or cholangitis. At this point there is no evidence of this. He is not currently a candidate for a HIDA scan due to his instability. He also would be a very poor candidate for the operating room at this time due to his current condition. Would recommend treating empirically with antibiotics, if cholecystitis is felt to be the driving factor, he may require percutaneous cholecystostomy tube which would need to be performed at an outside institution. Surgery will follow peripherally, call with questions or concerns. History of Present Illness Reason for Consultation: Concern for cholecystitis Attending Physician: Arlyn Hayes MD History of Present Illness This is a 37-year-old male general surgery was asked to see by the intensive care service. At the time of my interview the patient was intubated and sedated and could therefore provide no meaningful history. Patient has been admitted to [facility] since 06/03/2022. Patient has a known history of cardiomyopathy. At the time of admission the patient was admitted secondary to chest pain. Patient did have a CT scan of the chest that showed no evidence of pulmonary emboli. He did have an elevated troponin at time of admission. The patient was taken for cardiac catheterization where he was found to not have any obstructive coronary artery disease. It was felt that the patient's chest discomfort may have been referred pain from duodenitis as he also had an element of epigastric pain. Patient was treated with intravenous proton pump inhibitor and a gastroenterology consultation was requested for consideration of performing an EGD. On 06/06/2022 a code purple was called and patient was found to be somewhat to be tachypneic, pale, and diaphoretic. Patient was reportedly responsive to commands but would intermittently fall back asleep.mottled. The patient was brought to the intensive care unit where he was intubated and sedated. He was felt to be septic with potential biliary etiology as a source of sepsis. Following the code purple the patient underwent a CT scan of the chest. There is no evidence of pulmonary emboli. Four-chamber cardiomegaly with evidence of RV dysfunction was noted. There is no pericardial effusion CT scan of the abdomen was performed that showed no evidence of aneurysm or dissection of the aorta. There is some free fluid in the pelvis. There was some gallbladder wall thickening however no gall pericholecystic fluid or stranding was noted of the gallbladder. There is also some stranding of fat surrounding the pancreatic tail labs have included a CBC were white blood cell count was 15.6. His hemoglobin hematocrit were both within normal range as was his platelet count an ABG was performed that showed a pH of 7.45 with a PCO2 of 27, a PO2 of 412, and a bicarb level of 19. Chemistry profile showed sodium was 134 with a normal potassium. BUN and creatinine were 41 and 2.5. A lactic acid level is not elevated at 2.0 .LFTs were elevated with a total bilirubin of 2.7. This was noted to be 2.0 at time of admission his AST was noted be 898 which was increased from a level of 584. ALT was 1056 which is elevated from a level of 531. His alkaline phosphatase was 110 elevated from a normal level. Patient has had elevated cardiac enzymes with his most recent troponin being 101. A lipase level is pending. Allergies Allergy/AdvReac Type Severity Reaction Status Date / Time VEE Inhibitors Allergy Intermediate COUGH Verified 05/30/22 14:55 lisinopril AdvReac Unknown cough Verified 05/30/22 14:55 Home Medications Medication Instructions Recorded Confirmed Type BiPap Supplies #1 ea 07/28/19 05/30/22 Rx sacubitril 97 mg-valsartan 103 mg 1 tab PO BID #180 tabs 01/31/20 06/03/22 Rx tablet (Entresto) Victoza 3-Mc 0.6 mg/0.1 mL (18 1.8 mg (0.3 mL) subcut DAILY 90 04/30/21 05/30/22 Rx mg/3 mL) subcutaneous pen injector days #27 mL (liraglutide) blood sugar diagnostic (ReliOn #10 ea 12/14/21 05/30/22 History Prime Test Strips) levothyroxine 88 mcg tablet 88 mcg PO DAILY #30 tabs 12/28/21 06/03/22 Rx bupropion HCl 100 mg tablet,12 hr 100 mg PO BID #180 ea 02/18/22 06/03/22 Rx sustained-release (Wellbutrin SR) carvedilol 25 mg tablet (Coreg) 25 mg PO BID #180 tabs 02/18/22 06/03/22 Rx lamotrigine 25 mg tablet 50 mg PO DAILY #180 tabs 02/18/22 06/03/22 Rx pantoprazole 40 mg tablet,delayed 40 mg PO DAILY #90 tabs 02/18/22 06/03/22 Rx release potassium chloride 20 mEq 20 meq PO DAILY #90 tabs 02/18/22 06/03/22 Rx tablet,extended release spironolactone 25 mg tablet 25 mg PO BID #180 tabs 02/18/22 06/03/22 Rx empagliflozin 10 mg tablet 10 mg PO DAILY #90 tabs 02/19/22 06/03/22 Rx (Jardiance) pen needle, diabetic 31 gauge x #150 ea 02/19/22 05/30/22 Rx 3/16" (BD Ultra-Fine Mini Pen Needle) bumetanide 0.5 mg tablet 1 mg PO DAILY SWELLING #180 tabs 02/25/22 06/03/22 Rx blood-glucose sensor (Dexcom G6 #3 ea 04/26/22 05/30/22 Rx Sensor device) insulin degludec 200 unit/mL (3 100 unit subcut DAILY 04/26/22 06/03/22 History mL) subcutaneous pen (Tresiba FlexTouch U-200 insulin) insulin lispro 100 unit/mL See Rx Instructions subcut .COMPLEX 04/26/22 06/03/22 History subcutaneous pen (Humalog KwikPen (U-100) Insulin) atorvastatin 80 mg tablet 80 mg PO DAILY #90 tabs 05/10/22 06/03/22 Rx cholecalciferol (vitamin D3) 1,250 50,000 unit PO WK 06/03/22 06/03/22 History mcg (50,000 unit) capsule Patient History Medical History (Updated 06/06/22 @ 09:49 by Earle Lewis MD) Acute on chronic systolic and diastolic heart failure, NYHA class 2 (10/06/14) ICD (implantable cardioverter-defibrillator) in place Kidney stone Surgical History History of surgery lymphadenectomy History of wisdom tooth extraction Family History Mother Breast cancer Father Myocardial infarction Uncle Myocardial infarction Grandfather (Paternal) Myocardial infarction Grandmother Malignant neoplasm of eye Other Coronary heart disease Kidney disease Type 2 diabetes mellitus Denies family history of Ovarian cancer Prostate cancer Colorectal cancer Social History Smoking Status: Never smoker Tobacco Type: Cigarettes Age Started Using Tobacco: 16; Age Quit Using Tobacco: 16; Years Smoked: 1; Second Hand Exposure: No; Hx Alcohol Use: No Hx Substance Use: No Preferred Language: Wallisian Communication Ability: Effective Visual Impairment: No Limitations Hearing Ability: Normal 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 Beliefs That Will Affect Care: None marital status: Life Partner Current Living Situation: Significant Other current occupational status: disabled Other Information That Helps Us Care for You: No Feels Safe at Home: Yes Safety Concerns: Feels Safe At This Time Childhood Exposure to Second-Hand Smoke: Yes Diet Comment: low sodium Dental Care, Regularly: Yes Physical Activity Frequency: Does not Exercise Seatbelt Use: sometimes Sunscreen Use: Yes Assistive Devices: None Physical Exam Constitutional: Patient is intubated and sedated Eyes: Eyes were covered with tape and unable to be assessed ENMT: Ears: no external ear abnormality Neck: trachea midline Respiratory: Respirations are aided via ventilator. Breath sounds are present bilaterally Cardiovascular: Rate/Rhythm: regular rate Pedal pulses are unable to be palpated Gastrointestinal (Abdomen): Abdomen is rotund but did not appear distended. It was soft on palpation. Palpation did not appear to elicit a painful response however the patient was sedated as noted above Musculoskeletal: Extremities do not appear mottled but feet are cool. No lower extremity swelling Skin: no rashes Neurologic: Unable to assess as patient is intubated and sedated Results & Data ([facility]) Vital Signs (Past 12 Hours) Vital Signs Temp Pulse Pulse Resp BP Pulse Ox O2 Del Method 06/06/22 03:50 Oxymask 06/06/22 06:04 59 L 22 95 06/06/22 04:56 67 26 H 93 06/06/22 03:00 36.5 C 76 24 94/81 L 97 Nasal CPAP 06/05/22 23:33 72 06/05/22 23:00 36.3 C L 76 18 89/71 L 97 CPAP 06/05/22 22:30 75 21 98 06/05/22 20:00 CPAP 06/05/22 19:00 36.7 C 64 18 94/67 L 95 CPAP O2 Flow Rate FiO2 06/06/22 03:50 15 06/06/22 06:04 60 06/06/22 04:56 100 06/06/22 03:00 06/05/22 23:33 06/05/22 23:00 06/05/22 22:30 21 06/05/22 20:00 06/05/22 19:00 PG Care Time/CCT Total # of Minutes Spent Total Time Spent with Patient: Total time spent is greater than 50% in coordination of care (as documented) at patient's floor/unit and/or counseling patient: Coding Level of Care Code 58937 Inpt Consult Level 5 Diagnoses Transaminitis R74.01
[2022-06-06] MEDS ORDERED: NORMOSOL-R 500 ML IV ONE (07:14)
[2022-06-06] MEDS ORDERED: VASOPRESSIN 20 UNITS in 0.9 % SODIUM CHLORIDE 100 ML IV SCH (07:15)
--- NOTE | 2022-06-06 07:19 | Ultrasound Report ---
ABDOMINAL ULTRASOUND, RIGHT UPPER QUADRANT HISTORY: elevated LFTS/sepsis. COMPARISON: Abdomen and pelvis CT 06/06/2022. FINDINGS: Pancreas: The pancreatic tail is obscured by overlying bowel gas. The remaining portions of the pancr eas are within normal limits. Mild dilatation of the main pancreatic duct measuring up to 4 mm. Liver: Unremarkable. Trace perihepatic fluid near the gallbladder. Gallbladder: The gallbladder is contracted. There is diffuse gallbladder wall thickening measuring up to 4 mm. A few punctate echogenic foci within the gallbladder which may represent small stones or sl udge balls. CBD: 3.6 mm. Right kidney: No hydronephrosis. There is a small cyst. IMPRESSION: 1. The gallbladder is contracted and there is diffuse gallbladder wall thickening. This could be due to the diffuse edematous state. There are few punctate echogenic foci within the gallbladder which ma y represent small stones or sludge balls. Follow-up HIDA scan can be performed if there is clinical c oncern for acute cholecystitis. 2. Trace perihepatic fluid near the gallbladder. 3. Mild dilatation the main pancreatic duct measuring 4 mm. ACT 112: Negative or not required by law. Electronically signed by: Venancio Bronson M.D. 06/06/2022 7:18 AM
[2022-06-06 07:30] LABS: INR 1.7 (0.9-1.1); Partial Thromboplastin Ratio 1.1; Prothrombin Time 17.8 Seconds (9.0-12.0)
--- NOTE | 2022-06-06 07:35 | CT Scan Report ---
CHEST CTA for AORTIC DISSECTION CT DOSE: HISTORY: post cath, chest pain, hypotension TECHNIQUE: Multiaxial CT images of the chest were performed both before and after the intravenous adm inistration of contrast to evaluate the aorta. Maximal intensity projection images were also obtained . A dose lowering technique was utilized adhering to the principles of ALARA. COMPARISON STUDY: Chest CTA 06/03/2022. FINDINGS: Noncontrast imaging through the chest shows no evidence for an intramural hematoma within t he thoracic aorta. Normal caliber thoracic aorta with no evidence for dissection. The heart remains e nlarged. No pleural or pericardial effusions. There is a left-sided single lead pacemaker. The centra l pulmonary arteries appear patent. Mild mediastinal and bilateral hilar lymphadenopathy is again not ed. Dominant upper right paratracheal lymph node measures 14 mm. Please refer to the same day abdomen and pelvis CT for further evaluation of the abdominal structures. No fractures within the visualized osseous structures. No pneumothorax. The central airways are patent. Mild dependent changes seen at the lung bases. Near-complete resolution of the right lower lobe nodular airspace opacities suggestin g a resolving pneumonitis. No new focal lung consolidations identified. No evidence for pulmonary josephine ma. IMPRESSION: 1. No evidence for an aortic dissection. 2. Near-complete resolution of the right lower lobe nodular airspace opacities. 3. Stable cardiomegaly. 4. Stable mild nonspecific mediastinal and hilar lymphadenopathy. 5. Additional findings as described above. ACT 112: Negative or not required by law. Electronically signed by: Venancio Bronson M.D. 06/06/2022 7:32 AM
--- NOTE | 2022-06-06 07:42 | CT Scan Report ---
CT angio abd pelvis wo/w con HISTORY: Abdominal distention. Altered mental status. Status post heart catheterization with hypotens ion. Assess for an aortic dissection. TECHNIQUE: Multiaxial CT images of the abdomen and pelvis performed both before and after the intrave nous administration of 115 cc of Optiray 300 evaluate the abdominal aorta. Maximal intensity projecti on images were also obtained. COMPARISON STUDY: Abdomen and pelvis CT 06/03/2022. FINDINGS: Please refer to same day chest CT for further evaluation of the lung bases. There is improv ed aeration within the right lower lobe nodular airspace opacities. The heart remains enlarged. A pac emaker wire is noted. There is a 3 mm stone within the left kidney. There is trace perihepatic fluid. There is retrograde opacification of the hepatic veins. Hyperdense material within the gallbladder l ikely represents vicarious excretion of contrast from the prior studies. There is diffuse gallbladder wall thickening/edema and mild pericholecystic edema. The spleen and adrenal glands unremarkable. Th ere is mild edema surrounding the pancreatic tail. There is mild bilateral perinephric edema. No hydr onephrosis. Stable right renal cyst. Progressive edema within the right paracolic gutter and a small amount of fluid anterior to the bladder. This appears low density and therefore does not clearly repr esent blood products. Mild bladder wall thickening which is likely due to underdistention. A few colo mirtha diverticula. No evidence for acute diverticulitis. No bowel wall thickening or obstruction. Betty l appendix. Normal caliber abdominal aorta with no evidence for dissection. The celiac, superior mesenteric, arianna l, and inferior mesenteric arteries are patent. There are duplicated bilateral renal arteries. The il iac arteries are also normal in caliber. There is mild body wall edema. There is mesenteric fat stran ding with a few prominent mesenteric lymph nodes. IMPRESSION: 1. Normal caliber abdominal aorta with no evidence for dissection. 2. Edema surrounding the pancreatic tail which is new from the prior study. Recommend correlation wit h pancreatic enzymes to exclude the possibility of a developing acute pancreatitis. 3. There is also a thickened/edematous gallbladder wall with mild pericholecystic edema. This could b e due to the patient's diffuse edematous state or developing acute cholecystitis. 4. Small amount of edema/fluid within the pelvis. 5. Additional findings as described above. ACT 112: Negative or not required by law. Electronically signed by: Venancio Bronson M.D. 06/06/2022 7:40 AM
--- NOTE | 2022-06-06 08:03 | Electrocardiogram Report ---
Test Reason : Blood Pressure : / mmHG Vent. Rate : 066 BPM Atrial Rate : 066 BPM P-R Int : 208 ms QRS Dur : 098 ms QT Int : 486 ms P-R-T Axes : 068 106 093 degrees QTc Int : 509 ms Normal sinus rhythm Rightward axis Prolonged QT Abnormal ECG When compared with ECG of 04-JUN-2022 22:31, No significant change was found Confirmed by Eliseo Buchanan ([id number]) on 06/06/2022 8:03:12 AM Referred By: REFERRED SELF Confirmed By:Eliseo Buchanan
--- NOTE | 2022-06-06 08:05 | XRay Report ---
SINGLE VIEW CHEST CLINICAL HISTORY: Respiratory failure. Intubation. FINDINGS: An AP, portable, supine chest radiograph is compared to chest x-ray and chest CT dated 06/06. The examination is degraded by portable technique and patient rotation. An endotracheal tube h as been placed. The tip projects approximately 1 cm above the eric. An enteric tube has been placed . The tip projects below the diaphragm over the mid stomach. A single lead cardiac AICD is unchanged in position. The heart is enlarged. The pulmonary vasculature is noncongested. The lungs and pleural spaces are clear noting bibasilar atelectasis. No pneumothorax is seen. The bony thorax is grossly in tact. Excreted IV contrast is noted within the renal collecting systems. IMPRESSION: 1. Endotracheal and enteric tube placement as above. 2. Cardiomegaly and AICD without radiographic evidence of congestive failure. 3. The lungs appear clear. ACT 112: Negative or not required by law. Electronically signed by: Nikita Overton M.D. 06/06/2022 8:04 AM
--- NOTE | 2022-06-06 08:22 | Ultrasound Report ---
DOPPLER ULTRASOUND OF THE HEPATIC AND PORTAL VASCULATURE CLINICAL HISTORY: Elevated hepatic transaminases. Sepsis. COMPARISON STUDY: Abdominal CT scans dated 06/06/2022 and 06/03/2022. TECHNIQUE: Real-time, grayscale, and color Doppler sonography of the hepatic and portal vasculature i s performed. The patient is intubated and the examination is degraded by lack of patient cooperation. FINDINGS: The hepatic veins are patent with normal direction of flow. There is preservation of the no rmal hepatic venous waveforms. The IVC is patent. The main portal vein is patent with bidirectional f low. There is arterialization of the portal venous waveform. Velocities in the main portal vein measu re up to 19 cm/s. The right and left portal veins are patent with bidirectional flow. The splenic vei n is patent with bidirectional flow. The hepatic artery is patent with velocities measuring up to 41 cm/s. IMPRESSION: The hepatic and portal vessels are patent. See above. Dictated: 06/06/2022 7:29 AM Transcribed: 06/06/2022 8:05 AM [id number] Electronically signed by: Nikita Overton M.D. 06/06/2022 8:21 AM
[2022-06-06] MEDS: lamoTRIgine 25 MG TAB PO SCH (08:24)
[2022-06-06] MEDS: LEVOTHYROXINE SODIUM 88 MCG TABLET PO SCH (08:24)
[2022-06-06] MEDS: SUCRALFATE 1 GM/10 ML UDC PO SCH (08:24)
[2022-06-06] MEDS: PANTOprazole 40 MG in SYRINGE 0 ML IV SCH (08:24)
[2022-06-06] MEDS ORDERED: HYDROCORTISONE SOD 100 MG in SYRINGE 0 ML IV STA (08:48)
[2022-06-06] MEDS ORDERED: HYDROCORTISONE SOD SUCCINATE 100 MG/2 ML VIAL ONE (08:52)
[2022-06-06] MEDS: INSULIN ASPART PER UNIT SC SCH (08:54)
[2022-06-06] MEDS ORDERED: Standard 16mcg/mL; 4 MG in 250 mL for HYPOTENSION IV SCH (09:00)
[2022-06-06] MEDS ORDERED: FUROSEMIDE 40 MG/4 ML VIAL IV SCH (09:00)
--- NOTE | 2022-06-06 09:13 | XRay Report ---
SINGLE VIEW CHEST CLINICAL HISTORY: Dyspnea. FINDINGS: 2 AP, portable, supine chest radiographs are compared to chest x-ray and chest CT dated 05/16. The examination is degraded by portable technique and patient rotation. A single lead cardiac AICD is unchanged in position. The heart is enlarged. The pulmonary vasculature is noncongested. The lungs and pleural spaces are clear noting bibasilar atelectasis. No pneumothorax is seen. The bony t horax is grossly intact. IMPRESSION: 1. Cardiomegaly and AICD without radiographic evidence of congestive failure. 2. The lungs appear clear. ACT 112: Negative or not required by law. Electronically signed by: Nikita Overton M.D. 06/06/2022 9:11 AM
--- NOTE | 2022-06-06 09:28 | XRay Report ---
SINGLE VIEW CHEST CLINICAL HISTORY: Central venous catheter placement. Respiratory failure. FINDINGS: An AP, portable, supine chest radiograph is compared to chest x-ray and chest CT performed earlier the same day 06/06/2022. The examination is degraded by portable technique and patient rotatio n. Endotracheal and enteric tubes are unchanged in position. A right internal jugular central venous catheter has been placed. The tip of the catheter projects over the right atrium. A single lead cardi ac AICD is unchanged in position. The heart is enlarged. There is developing pulmonary vascular conge stion. The lungs and pleural spaces are clear noting bibasilar atelectasis. No pneumothorax is seen. The bony thorax is grossly intact. IMPRESSION: 1. A right internal jugular central venous catheter has been placed as above. No pneumothorax is seen post procedure. 2. The remaining lines and tubes are stable. 3. Cardiomegaly and AICD with developing pulmonary vascular congestion. 4. No airspace consolidation or large pleural effusion is identified. ACT 112: Negative or not required by law. Electronically signed by: Nikita Overton M.D. 06/06/2022 9:27 AM
[2022-06-06] MEDS ORDERED: DOBUTamine / D5W 500mg/250mL Premixed Bag IV SCH (09:45)
--- NOTE | 2022-06-06 09:48 | Cardiology Progress Note ---
Date of Service June 06, 2022 Assessment & Plan (1) Hypotension: (2) Chest pain: (3) Cardiomyopathy, idiopathic: (4) Elevated troponin I level: (5) Systolic CHF, chronic: Plan 1. Hypotension: His blood pressure did drop suddenly last evening. Some of this may have been due to diuresis as he was 1 L negative although based on his catheterization measurements his preload was quite high and despite lack of edema or chest x-ray findings he seemed to be in some element of heart failure which was also confirmed with his proBNP. His cardiac output is thought to be low. His proBNP remains elevated although improved following diuresis yesterday. It is possible that diuresis contributed to his hypotension although I doubt it was a primary cause. 2. Chest discomfort: His discomfort has been primarily in the epigastric area, does not radiate and has been quite prolonged for a stable troponin elevation. With a catheterization showing no coronary artery disease yesterday this is almost certainly not ischemic, the only other possibility would be a myopericarditis but that is not evident on electrocardiography. 3. Cardiomyopathy: He has a longstanding cardiomyopathy which based on [facility] records had improved substantially to a left ventricular ejection fraction of 40 to 45% as of last year, his current echocardiogram suggests significant worsening. His echocardiogram on June 04, 2022 showed severe global hypokinesis with ejection fraction of 15 to 20%. This may be the chantal of a lot of his exertional symptoms but probably not pain. He is on excellent medical therapy, we should consider a CCM device which [facility] has discussed with him and we may need to reconsider that. That is not something that we would do this admission. 4. Elevated troponin: He does have an elevated troponin, however he describes having elevated troponins in the past but in view of his decreased left ventricular function we needed to exclude ischemia although it seemed unlikely. His troponin during last evening's event was not elevated more than on presentation. It is possible the troponin is due to myocarditis as well however it has not been increasing during this hospitalization. 5. Congestive heart failure: Although he was not clearly in heart failure, he was able to lay flat without difficulty and he had no edema, but he has had increasing difficulty with exertion and his left ventricular function has declined. I believe his exertional symptoms were probably due to left ventricular dysfunction. His BNP was significantly elevated yesterday which would go along with some element of worsening congestive heart failure. His BNP improved following diuresis but still remains elevated so I do not believe he has significant prerenal physiology but I would not diurese further at this time. I called and discussed his situation with the intensive care unit physician who is going to accept him in transfer as well as the toolman on-call. We will transfer him by helicopter. Admission and Anticipated Discharge Date Admission Date: June 04, 2022 Subjective Events of last evening noted. This morning the patient remains intubated and not interactive. Physical Exam Physical Exam: Constitutional: Intubated, sedated, not interactive HEENT: Unremarkable Neck: Carotid pulses are normal and equal bilaterally without bruits. Pulmonary: Clear to auscultation bilaterally. Cardiac: Regular rhythm with no murmur, gallop or rub. Abdomen: Soft with normal bowel sounds. Extremities: No edema. Distal pulses intact. Neurologic: Not able to perform. Skin: No rash, ecchymoses or petechiae. Results & Data ([facility]) Vital Signs (Past 12 Hours) Vital Signs Temp Pulse Pulse Resp BP Pulse Ox O2 Del Method 06/06/22 07:44 59 L 18 93 06/06/22 03:50 Oxymask 06/06/22 06:04 59 L 22 95 06/06/22 04:56 67 26 H 93 06/06/22 03:00 36.5 C 76 24 94/81 L 97 Nasal CPAP 06/05/22 23:33 72 06/05/22 23:00 36.3 C L 76 18 89/71 L 97 CPAP 06/05/22 22:30 75 21 98 O2 Flow Rate FiO2 06/06/22 07:44 50 06/06/22 03:50 15 06/06/22 06:04 60 06/06/22 04:56 100 06/06/22 03:00 06/05/22 23:33 06/05/22 23:00 06/05/22 22:30 21 Laboratory Results Cardiac Enzymes 06/05/22 06/06/22 06/06/22 Range/Units 10:12 03:47 03:55 AST 584 H 898 H (13-39) U/L Troponin I High Sens 101.0 H* (0-20) pg/ml B-Natriuretic Peptide (0-100) pg/ml 06/06/22 Range/Units 06:50 AST (13-39) U/L Troponin I High Sens (0-20) pg/ml B-Natriuretic Peptide 655 H (0-100) pg/ml Coagulation 06/06/22 06/06/22 Range/Units 03:54 06:50 PT 17.8 H (9.0-12.0) Seconds APTT 30.0 (21.0-31.0) Seconds B-Natriuretic Peptide 655 H (0-100) pg/ml CBC 06/06/22 Range/Units 03:47 WBC 15.65 H (4.8-10.8) K/ul RBC 5.72 (4.63-6.08) M/uL Hgb 16.8 (14.0-18.0) g/dl Hct 50.1 (40.1-51.0) % Plt Count 280 (130-400) K/uL Neut # (Auto) 11.63 H (1.4-6.5) K/uL Lymph # (Auto) 2.51 (1.2-3.4) K/uL [place] # (Auto) 1.22 H (0.24-0.82) K/uL Eos # (Auto) 0.02 (0-0.50) K/uL Baso # (Auto) 0.08 (0-0.2) K/uL Comprehensive Metabolic Panel 06/05/22 06/06/22 Range/Units 10:12 03:47 Sodium 135 L 134 L (136-145) mmol/L Potassium 3.8 4.2 (3.5-5.1) mmol/L Chloride 103 100 (98-107) mmol/L Carbon Dioxide 20 L 21 (21-32) mmol/L BUN 36 H 41 H (6-23) mg/dl Creatinine 1.56 H 2.53 H D (0.6-1.4) mg/dl Glucose 75 73 (70-99(Fasting)) mg/dl Calcium 8.4 L 8.4 L (8.5-10.1) mg/dl AST 584 H 898 H (13-39) U/L ALT 531 H 1056 H (7-52) U/L Alkaline Phosphatase 89 110 H (34-104) U/L Total Protein 6.0 6.3 (6.0-8.3) gm/dl Albumin 3.7 3.8 (3.4-5.0) gm/dl Intake and Output 06/05/22 06/06/22 06/06/22 22:59 06:59 14:59 Intake Total 50.25 / 1375.274 116.691 / 4648.866 4924.802 / 1120.802 Output Total 900 / 2725 100 / 2725 Balance -849.75 / -1349.726 16.691 / -4165.343 3194.802 / 1120.802 Intake: IV 50.25 / 695.274 116.691 / 300.271 5803.802 / 1120.802 Norepinephrine/D5w 4 mg In 250 104.958 / 104.958 395.042 / 395.042 ml @ 0.05 MCG/KG/MIN 19.988 mls /hr IV .[id number] [facility] Rx#: [id number] Normosol-R 500 ml @ 999 mls/hr 500 / 500 IV .Q31M ONE Rx#:[id number] Piperacillin/Tazobactam 4.5 gm 120 / 120 In Dextrose 5% 100 ml @ 200 mls /hr IV NOW ONE Rx#:[id number] Promethazine HCl 6.25 mg In 50.25 / 50.25 Sodium Chloride 0.9% 50 ml @ 201 mls/hr IV Q6H PRN Rx#: [id number] propofoL 1,000 mg In 100 ml @ 11.733 / 11.733 105.760 / 105.760 20 MCG/KG/MIN 12.792 mls/hr IV .[id number] [facility] Rx#:[id number] Output: Urine 900 / 2725 100 / 2725 Other: Weight 106.6 kg Diagnostic Findings Telemetry: SR with 1st degree AV block His electrocardiogram on June 06, 2022 at 3:53 AM shows sinus rhythm at 66 bpm with slight first-degree AV block and minor ST-T abnormalities. The QT interval is somewhat prolonged. PG Care Time/CCT Total # of Minutes Spent Total Time Spent with Patient: Total time spent is greater than 50% in coordination of care (as documented) at patient's floor/unit and/or counseling patient: Coding Level of Care Code 28440 Subseq Hosp Care Lvl 3 Diagnoses Hypotension I95.89 Hypotension type: other hypotension type Chest pain R07.9 Chest pain type: unspecified Cardiomyopathy, idiopathic I42.8 Elevated troponin I level R77.8 Systolic CHF, chronic I50.22 Time Spent (min) 70 Comment Extensive evaluation and discussion with [facility] regarding transfer (1) Chest pain Chest pain type: unspecified Qualified Code(s): R07.9 - Chest pain, unspecified (2) Hypotension Hypotension type: other hypotension type Qualified Code(s): I95.89 - Other hypotension
--- NOTE | 2022-06-06 10:00 | Communication Note ---
Date of Service: June 06, 2022 Last evening patient was having issues with feeling short of breath, diaphoretic, somnolent, pale, and tachypneic. nursing were unable to get blood pressure and radial pulse was extremely weak and thready. kashif zimmerman was called on the patient and he was transferred to the ICU. Question of pancreatitis and thickening, edematous gallbladder on CTA but Lipase only 151. duodenitis not noted on CTA. hepatic and portal veins are patent. mild main pancreatic duct dilation of 4mm, trace perihepatic fluid near gallbladder with gallbladder contracted with wall thickening, possible stones/sludge on US. LFTs did trend upwards. were initially normal. Alk 110 (89) ALT 1056 (531) AST 898 (584) T bili 2.7 (2.8) Spoke with patient's finance at bedside. Close contacts did recently have viral illness. Patient currently intubated and offers no history. Discussed with Dr. Duckworth. At this time we do not suspect pancreatitis given lipase is not 3 x upper limit of normal. can monitor lipase. will monitor LFTs. suspect that the rise in LFTs were related to shock liver secondary to circulatory issues. will continue to monitor. continue protonix 40mg IV bid and famotidine 20mg IV BID.
[2022-06-06] MEDS: LANTUS PER UNIT CHARGE SQ SCH (10:05)
--- NOTE | 2022-06-06 10:18 | Gastroenterology Progress Note ---
Date of Service June 06, 2022 Assessment & Plan (1) Transaminitis: (2) Duodenitis: Plan Discussed with Dr. Duckworth. At this time we do not suspect pancreatitis given lipase is not 3 x upper limit of normal. can monitor lipase. will monitor LFTs. suspect that the rise in LFTs were related to shock liver secondary to circulatory issues. will continue to monitor. continue protonix 40mg IV bid and famotidine 20mg IV BID. Admission and Anticipated Discharge Date Admission Date: June 04, 2022 Subjective Last evening patient was having issues with feeling short of breath, diaphoretic, somnolent, pale, and tachypneic. nursing were unable to get blood pressure and radial pulse was extremely weak and thready. code elsie was called on the patient and he was transferred to the ICU. Question of pancreatitis and thickening, edematous gallbladder on CTA but Lipase only 151. duodenitis not noted on CTA. hepatic and portal veins are patent. mild main pancreatic duct dilation of 4mm, trace perihepatic fluid near gallbladder with gallbladder contracted with wall thickening, possible stones/sludge on US. LFTs did trend upwards. were initially normal. Alk 110 (89) ALT 1056 (531) AST 898 (584) T bili 2.7 (2.8) Spoke with patient's finance at bedside. Close contacts did recently have viral illness. Patient currently intubated and offers no history. Review of Systems Review of Systems: Unobtainable due to cognitive status Physical Exam Gastrointestinal (Abdomen): normal bowel sounds, soft Results & Data Results & Data ([facility]) Vital Signs (Past 12 Hours) Vital Signs Temp Pulse Pulse Resp BP Pulse Ox O2 Del Method 06/06/22 07:44 59 L 18 93 06/06/22 03:50 Oxymask 06/06/22 06:04 59 L 22 95 06/06/22 04:56 67 26 H 93 06/06/22 03:00 36.5 C 76 24 94/81 L 97 Nasal CPAP 06/05/22 23:33 72 06/05/22 23:00 36.3 C L 76 18 89/71 L 97 CPAP 06/05/22 22:30 75 21 98 O2 Flow Rate FiO2 06/06/22 07:44 50 06/06/22 03:50 15 06/06/22 06:04 60 06/06/22 04:56 100 06/06/22 03:00 06/05/22 23:33 06/05/22 23:00 06/05/22 22:30 21 PG Care Time/CCT Total # of Minutes Spent Total Time Spent with Patient: Total time spent is greater than 50% in coordination of care (as documented) at patient's floor/unit and/or counseling patient: Coding Level of Care Code 24993 Subseq Hosp Care Lvl 3 Diagnoses Transaminitis R74.01 Duodenitis K29.80
[2022-06-06 10:36] LABS: iSTAT Arterial Blood Gas HCO3 19 meg/L (19-24); iSTAT Arterial Blood Gas pCO2 45 mmHg (35-46); iSTAT Arterial Blood Gas pH 7.22 (7.35-7.45); iSTAT Arterial Blood Gas pO2 < 32 mmHg (80-95); iSTAT Carbon Dioxide 20 mmol/L (24-31); iSTAT FiO2 50 %; iSTAT Site L Radial
[2022-06-06 10:36] LABS: iSTAT Arterial Blood Gas HCO3 13 meg/L (19-24); iSTAT Arterial Blood Gas pCO2 27 mmHg (35-46); iSTAT Arterial Blood Gas pO2 209 mmHg (80-95); iSTAT Carbon Dioxide 14 mmol/L (24-31); iSTAT FiO2 50 %; iSTAT Site Art Line
--- NOTE | 2022-06-06 10:46 | Procedure Note ---
Procedure Note Date of Service June 06, 2022 Note ARTERIAL LINE PROCEDURE NOTE: Procedure: Arterial Line Placement Attending: Dr. Zuri Yip MD Indication: Monitoring on Pressors Anesthesia: General anesthesia Emergent consent was applied A time-out was completed verifying correct patient, procedure, site, positioning, and implant(s) or special equipment if applicable. Patients right groin was prepped and draped in the usual sterile fashion. Ultrasound guidance was used to aid needle placement. A 20g Arrow arterial line was introduced into the right femoral artery. Catheter was threaded, and the needle was removed with appropriate pulsatile blood return. Good waveform was observed on the monitor. The patient tolerated the procedure well. Confirmation of placement with ultrasound. Images saved to medical record. Complications: None Blood Loss: Less than 3 cc Coding CPT Codes Tubes, Drains, and Vasc Access - Tubes, Drains, and Vasc Access: [id number] Place Catheter In Artery ([id number]) Tubes, Drains, and Vasc Access - Tubes, Drains, and Vasc Access: [id number] Ultrasound Guidance For Vascular ([id number]) [facility] [place] Procedure Codes (Charges) Tubes, Drains, and Vasc Access Procedure 1: Tubes, Drains, and Vasc Access: [id number] Place Catheter In Artery Procedure 2: Tubes, Drains, and Vasc Access: [id number] Ultrasound Guidance For Vascular
--- NOTE | 2022-06-06 10:48 | Communication Note ---
Date of Service: June 06, 2022 Critical CARE addendum: Patient seen and examined at bedside. On 0.3 of Levophed. Vasopressin was added as blood pressure was still on the lower side. The right radial line was not working so right femoral line was placed in. I did speak with the sweater designer at bedside. He did inform that on cardiac cath he did have bad coronary artery disease and he recommended transfer to a tertiary center to see if they can put him back on transplant list. Patient did have a CT abdomen pelvis which showed slightly edematous gallbladder with small stones. Mild dilatation of the pancreatic duct and some peripancreatic fluid. Patient's lipase is less than 2 times upper limit of normal. Although cholecystitis is a possibility patient is very unstable for any procedures to be done. He is already getting Zosyn and would recommend to continue with the same. Patient too unstable to be sent for HIDA scan. Dr. Mckeon did come and discussed the case with me as well. I did do a mixed venous from the right IJ which showed a saturation of 37% while the patient was on 40% FiO2. ABG showed saturation of 97% at the same time. This does mean that the patient's low ejection fraction is also playing a role. He was started on dobutamine as well. 100 mg of hydrocortisone was also given to the patient given the persistent hypotension while being on 2 vasopressors. Random cortisol was 33. I do not think we need to continue with hydrocortisone. I did give him a total of 1000 mL of IV fluid bolus and the increments of 250 mL. Patient's liver enzymes are significantly elevated likely from shock liver. Continue to trend. Try to give minimal amount of propofol and rather discontinue it if possible and give as needed fentanyl to keep the patient comfortable. Patient's family and fianc were at bedside and they were updated regarding patient's condition. All question inquiries of the patient's family were answered in depth Case was discussed with Dr. Hayes during the rounds. I have personally spent additional 40 minutes of critical care time in the direct management of this patient. This is a life/limb threatening event. This includes time spent evaluating patient, direct bedside care, chart review, placing orders, interpretation of diagnostic studies, discussion with consultants, patient, and family members, as well as other required patient management activities. This time is exclusive of all separately billable procedures, and teaching time and separate from and in addition to any other critical care service time. Please note the above document was generated using voice recognition software. It may contain grammatical, syntax or spelling errors. Coding Level of Care Code Critical Care ea addt'l 30 min Time Spent (min) 40
--- NOTE | 2022-06-06 10:49 | Discharge Summary ---
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 Patient says that approximately 3 days ago, he began experiencing A substernal chest pain that felt like a strong pressure. He says that while it was mild to moderate intensity, it was not made worse or better by anything specific. He says that at baseline, he will always have some chest pressurehe usually attributes this to "retaining fluid. "However, this did seem moderately worse. Over this time, he also said that he felt more winded with exertion, but worsening of the chest pain. Denied any PND or orthopnea. He denies his chest pain feeling like reflux. He has not taken anything for the pain. Beginning approximately a day after the onset of his chest pain, he also developed nausea. He said that since its onset, he has barely been able to keep anything downincluding both liquids and solids. He denies any hematemesis. He says that he has been feeling intermittently nauseous throughout yesterday and today. He endorses some cold sweats and chills. Denies any fevers. Denies any diarrhea. Medications reviewed and include atorvastatin, Bumex, Wellbutrin, Coreg, vitamin D3, empagliflozin, insulin, lamotrigine, levothyroxine, Protonix, potassium chloride, Entresto, spironolactone, Victoza. In the ED, patient was found to be borderline tachycardic at 97. Afebrile. Labs were significant for leukocytosis to 16.4 with left shift and monocytosis. INR 1.2/PT 12.5. Chemistry panel revealed BUN 25/creatinine 1.6 (last at 0.9 in 12/2021). Blood sugar 104. Total bilirubin 2.0 (has history of elevations in the past dating to 2017) with otherwise normal LFTs. High-sensitivity troponin returned positive at 119.2. ECG demonstrated poor R wave progression and late transition, alongside nonspecific lateral T wave abnormalities. - CT-A/P STAT-Rad: "Subtle questionable opacities in the right medial basal segment with bronchial thickening The appendix is normal No bowel obstruction There is periduodenal fat stranding Atypical appearance of acute pancreatitis is considered much less likely. The pancreas demonstrates normal enhancement without ductal dilation or peripancreatic inflammation. Hepatic steatosis." - CTA-Chest demonstrated: "No evidence for pulmonary embolism There is also interlobular septal thickening noted in the lung bases suggesting component of vascular congestion Cardiomegaly. There is reflux of contrast into the intrahepatic IVC and hepatic veins. While this may be related to rate of contrast injection, this finding is also seen with right heart dysfunction Nonspecific prevascular lymph nodes adjacent to the aortic arch measuring 12 mm in diameter. Nonspecific perihilar lymph nodes." In the ED, he was started on sodium chloride, given Zofran, and also given ceftriaxone. Principal Diagnosis Cardiogenic shock, shock liver, HUY, Acute pancreatitis, duodenitis, vent- dependent respiratory failure Discharge Exam Constitutional WD/WN, vitals as above (sedated, on vent) Eyes + anicteric sclerae exophthalmos ENMT ETT in place Neck trachea midline, no thyromegaly Respiratory normal respiratory effort, lungs clear to auscultation Cardiovascular RRR, no murmur, no edema Chest (Breasts) Chest: normal inspection of chest Gastrointestinal (Abdomen) normal bowel sounds, soft, nontender, no hepatosplenomegaly Musculoskeletal Extremities: extremities normal to inspection; no cyanosis and no clubbing Skin no rashes, warm and dry Neurologic + not awake Lymphatic no lymphedema Discharge Data Allergies Allergy/AdvReac Type Severity Reaction Status Date / Time VEE Inhibitors Allergy Intermediate COUGH Verified 05/30/22 14:55 lisinopril AdvReac Unknown cough Verified 05/30/22 14:55 Consultations 06/03/22 23:46 ED Decision to Admit Stat 06/04/22 07:11 Consult Cardiology Routine 06/04/22 11:43 Consult Gastroenterology Routine 06/06/22 05:29 Consult Buoy Tender Routine 06/06/22 05:53 Consult General Surgery Routine 06/06/22 10:37 Burn CD for patient Stat Procedures Performed Operation Date: 06/05/22 08:00 Actual Procedures p Cath, Left with Cors and Vent - Mingo Bal MD, PhD s Cineradiography w/Routine Exam - Mingo Bal MD, PhD s Ultrasound Vascular Access - Mingo Bal MD, PhD Ordered Studies 06/03/22 22:00 CT abd pelvis IV con only Urgent CT angio chest PE protocol Urgent 06/05/22 06:32 CL Cath Imgs for PACS use only Routine 06/06/22 04:03 CT angio chest dissec wo/w con Stat 06/06/22 04:08 CT angio abd pelvis wo/w con Stat 06/06/22 05:47 US abdomen limited Urgent 06/06/22 05:49 US portal veins doppler [US duplex portal hepatic veins] Stat 06/06/22 08:52 US point of care ultrasound Routine ECHO Hospital Course (1) Duodenitis: This is a 37-year-old male with a history of HFrEF in the setting of dilated cardiomyopathy secondary to cardiogenic shock and MODS in 2016 (last TTE with LVEF 40-45% in 02/2021) s/p ICD placement, hypertension, 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 Chest/epigastric Pain -2/2 duodenitis and later developed pancreatitis -this appears to be more epigastric pain related to his duodenitis rather than cardiac. No significant change in his troponin levels despite hours of pain making cardiac less likely. - TTE with EF markedly worse than previously -cardiac cath clean on 06/05 -started on PPI IV bid andpepcid IV, carafate, antiemetics, clear liquids diet- had some improvement in abd pain Celiac IgA TTG, total IgA sent-pending Consult gastroenterology for consideration of EGD given ongoing pain despite pantoprazole use-deferred on EGD due to cardiac issues -initial imaging showed duodenitis only but repeat CTA A/P performed after becoming hypotensive and showed development of acute pancreatitis, no perforation or free air. Lipase became slightly elevated, LFTs way up but most likely from shock liver from cardiogenic shock. Acute cholecystitis and choledocholithiasis not ruled out based on imaging but no fevers. Covering with Zosyn. Too unstable for HIDA scan or MRCP at this time -keep NPO now, on vent (2) Shock: developed hypotension and was peripherally vascoconstricted, with acrocyanosis on early AM of 06/06 required intubation, transfer to ICU for pressors--> on norepi, dobutamine, vaspressin, and one dose of IV hydrocortisone despite normal random cortisol likely cardiogenic shock and less likely septic shock Procal elevated but in setting of HUY could be false positive Does have leukocytosis but no fevers. As above, unable to rule out acute inez but seems more likely consistent with GB thickening due to edema/volume overload Did receive 2 doses of IV lasix on 06/05 in attempts to diurese and was net negative 1.2L With EF 15% on ECHO and narrow pulse pressure noted during cardiac cath on 06/05, suspect cardiogenic shock -continue pressors as above, transfer to [facility] for eval for advanced heart failure therapies, accepting physician is Dr. Dean Wynn (3) HUY (acute kidney injury): - Baseline Cr approx. 0.9 - 1.0 on review of past draws - On arrival, BUN 25 / Cr 1.61 -process control supervisor up to 1.6 was given gentle IVFs and then later diuresed with lasix on 06/05 held Entresto, Jardiance, bumex, aldactone on admission -now with process control supervisor up to 2.5 on day of discharge/transfer Of note, did receive contrast dye with cardiac cath and with CTA Chest/abd/pel making urine, treating shock as above follow (4) Cardiomyopathy, idiopathic: - HFrEF in the setting of dilated cardiomyopathy secondary to cardiogenic shock and MODS in 2017 - Last TTE with LVEF 40-45% in 02/2021 s/p ICD placement and now with EF 15%--> unclear cause of worsening in the last year Cardiac cath here clean - Follows with [facility] and [facility] -previously on cardiac transplant list at age 27 but then off as had improvement - continue to hold Entresto, Bumex, spironolactone -holding home Jardiance, Coreg now for shock transferring to [place] as above (5) Transaminitis: shock liver 2/2 cardiogenic shock TBili and ast,alt,alk phos all significantly elevated, INR elevated support pressures as above, hold statin follow (6) Vomiting: presented with such, now resolved, 2/2 duodenitis, pancreatitis Continue promethazine PRN (7) Elevated troponin I level: mild elevation and stable, not MT (8) Diabetes type 1, uncontrolled: - Last A1c at 8.3% in 04/2022 continue basal and bolus insulin holding home Victoza he uses for weight loss (9) Bilirubinemia: - as above (10) Leukocytosis: - Noted on arrival to 16 with left shift, but also monocytosis , now improved to 15 but remains likely 2/2 duodenitis, pancreaittis and ? of acut echole started ZOsyn (11) Acute pancreatitis: as lynne, now developed this since admission could be 2/2 Victoza, vs GB disease? (12) Hypothyroidism: TSH normal in 12/2021 contiue LT4 (13) Hypertension: as lynne, holding home meds for shock (14) Dyslipidemia: hold statin for shock liver (15) Complex sleep apnea syndrome: - BiPAP qHS, now on vent (16) Depression: - Continue lamotrigine - Continue Wellbutrin Plan Code: Full Dispo: transferred to ICU and then out by helicoptor to [facility] PPX: SCDs Total Time Total Time Spent Total Time Spent (In Minutes): 90 min Discharge Plan Discharge Items Patient Disposition: Transfer Acute Care Hospital Reason For Visit: PNA, CHEST PAIN, ELEVATED TROPONIN Discharge Diagnosis: Cardiogenic shock, shock liver,HUY, Respiratory failure, acute pancreatitis,duodenitis Condition on Discharge: Critical Activity: As commented below Exercise/Sports: Rest today Non-emergency contact: Primary Care Provider and [employer] Tender Call non-emergency contact if: your symptoms worsen Follow-up/Referrals: Bridger Manriquez III, CRNP [Primary Care Provider] - Diet: Nothing by Mouth Addtl Attending Provider Instructions: Transferred to [facility] Pending Studies at Discharge: Yes Studies:: Blood cultures Stand-Alone Forms: My [facility] Skilled Items Patient informed of condition?: Yes DNR: No Discharge Level of Care: Other Communicable Disease: No Discharge Prognosis: Deteriorating Lines: PICC Urinary Catheter: Yes Medications and DC Order Prescriptions: Continued (DME) BiPap Supplies Misc See Rx Instructions .ROUTE .MEDSUPPLY Qty: 1 0RF Rx Instructions: BiPAP supplies, tubing, mask, filters, etc. All necessary supplies Entresto 97-103 mg tablet 1 tab PO BID Qty: 180 3RF Victoza 3-Mc 0.6 mg/0.1 mL (18 mg/3 mL) pen injector 1.8 mg SQ DAILY 90 Days Qty: 27 3RF levothyroxine 88 mcg tablet 88 mcg PO DAILY Qty: 30 1RF bupropion HCl [Wellbutrin SR] 100 mg tablet sustained-release 12 hr 100 mg PO BID Qty: 180 3RF carvedilol [Coreg] 25 mg tablet 25 mg PO BID Qty: 180 3RF Rx Instructions: must administer with a meal/food lamotrigine 25 mg tablet 50 mg PO DAILY Qty: 180 3RF pantoprazole 40 mg tablet,delayed release (DR/EC) 40 mg PO DAILY Qty: 90 3RF potassium chloride 20 mEq tablet extended release 20 meq PO DAILY Qty: 90 3RF spironolactone 25 mg tablet 25 mg PO BID Qty: 180 3RF Jardiance 10 mg tablet 10 mg PO DAILY Qty: 90 1RF (DME) pen needle, diabetic [BD Ultra-Fine Mini Pen Needle] 31 gauge x 3/16" needle See Dose Instructions .ROUTE .MEDSUPPLY Qty: 150 5RF Dose Instruction: As directed Rx Instructions: Use to inject insulin up to 5 times daily bumetanide 0.5 mg tablet 1 mg PO DAILY MDD 4 tabs Qty: 180 3RF Rx Instructions: may take an additional dose daily as needed atorvastatin 80 mg tablet 80 mg PO DAILY Qty: 90 0RF (DME) Dexcom G6 Sensor Device See Rx Instructions .Route Qty: 3 0RF Rx Instructions: change every 10 days insulin lispro [Humalog KwikPen Insulin] 100 unit/mL insulin pen See Rx Instructions SQ .COMPLEX Rx Instructions: subcut Inject 45 units lunch, 50 units dinner, 10 units snack + ss TDD 125 counting carbs 1:1.5 Tresiba FlexTouch U-200 200 unit/mL (3 mL) insulin pen 100 unit subcut DAILY Rx Instructions: Inject 90 units in the morning; TDD up to 120 units a day. (DME) ReliOn Prime Test Strips Strip See Rx Instructions .ROUTE .MEDSUPPLY Qty: 10 Rx Instructions: Test blood sugar once daily PRN cholecalciferol (vitamin D3) 1,250 mcg (50,000 unit) capsule 50,000 unit PO WK Rx Instructions: 50,000 units PO once weekly with a meal; Discharge Orders: Discharge Order (Routine); Ordered 06/06/22 Ordered By: Arlyn Cabrera/Other Patient Handouts: Managing Type 1 Diabetes Admission Data Admit Date/Time: 06/04/22 00:09 Attending Provider: Arlyn Hayes Admit Provider: Noe Wilks Primary Care Provider: Bridger Manriquez III Other Providers: Karma Novak ; Kishore Locke ; Reji Duckworth ; Zuri Yip ; Durga Mckeon Coding Level of Care Code D/C DAY MANAGEMENT >30 MINS Diagnoses Duodenitis K29.80 Shock R57.9 HUY (acute kidney injury) N17.9 Cardiomyopathy, idiopathic I42.8 Transaminitis R74.01 Vomiting R11.2 Nausea presence: with nausea Vomiting type: unspecified Elevated troponin I level R77.8 Diabetes type 1, uncontrolled E10.65 Bilirubinemia E80.6 Leukocytosis D72.829 Acute pancreatitis K85.90 Hypothyroidism E03.9 Hypertension I10 Dyslipidemia E78.5 Complex sleep apnea syndrome G47.31 Depression F33.1 Depression Type: major depressive disorder Major depression recurrence: recurrent Active/Remission status: currently active Major depression episode severity: moderate
[2022-06-06] MEDS: FAMOTIDINE 20 MG in SYRINGE 3 ML IV SCH (11:16)
[2022-06-06] MEDS ORDERED: ARTIFICIAL TEARS OP OINT 3.5 GM TUBE OP SCH (12:00)
[2022-06-06] MEDS ORDERED: PIPERACILLIN/TAZOBACTAM 3.375 GM in DEXTROSE 5% 100 ML IV SCH (12:00)
== END 2022-06-06 12:30 | disposition home or self-care (01) ==
LOC: ED 19:05 → 2N 06-04 00:09 → INTOOBSV 06-04 00:09 → SUATTDRO 06-04 00:09 → 2N 06-04 01:36 → 4W 06-05 09:48 → 1E 06-06 04:38